=== PATIENT | female | born 1975 | race Caucasian/White ===

== ENCOUNTER 2020-12-11 11:13 | Outpatient (REF) | payer OTHER, SELFPAY ==
[2020-12-16 01:02] LABS: HPV 16 RNA NOT DETECTED (NOT DETECTED); HPV mRNA E6/E7 rflx Detected (Not Detected)
== END 2020-12-11 11:14 | disposition home or self-care (01) ==
LOC: HO.LAB 11:13
PROVIDERS: Visit Provider Obstetrics & Gynecology
DX: Z01.419 Encounter for gynecological examination (general) (routine) without abnormal findings (principal); Z11.51 Encounter for screening for human papillomavirus (HPV)
CPT/HCPCS: 36415; 87624; 87625; 88141; 88142

== ENCOUNTER 2020-12-18 08:06 | Outpatient (REF) | payer OTHER, SELFPAY ==
--- NOTE | ~2020-12-18 | MM_ITS ---
EXAMINATION: MM SCREENING DIGITAL BREAST TOMOSYNTHESIS, BILATERAL CLINICAL INFORMATION: Screening. Asymptomatic. The lifetime risk of breast cancer based on the Tyrer-Cuzick Model is 7%. COMPARISON: Mammography: 04/21/2018, 04/10/2017, 05/09/2015 TECHNIQUE: Digital breast tomosynthesis is performed in both the craniocaudal and mediolateral oblique views along with computer-aided detection (CAD). Synthesized 2D images are generated from the tomosynthesis. FINDINGS: There are scattered areas of fibroglandular density (ACR BI-RADS breast composition Category b). There are no significant masses, abnormal calcifications, or other abnormalities. Parenchymal pattern is similar to prior exams. Skin contours are smooth. MM/MM tomosynthesis screening BI IMPRESSION: No mammographic evidence of malignancy. ASSESSMENT: BI-RADS 1: Negative RECOMMENDATION: Routine annual mammography screening. This patient's information was entered into a reminder system with a target due date for their next mammogram.
== END 2020-12-18 08:07 | disposition home or self-care (01) ==
LOC: HO.MAMMO 08:06
PROVIDERS: PCP Nurse Practitioner Family; Visit Provider Obstetrics & Gynecology
DX: Z12.31 Encounter for screening mammogram for malignant neoplasm of breast (principal)
CPT/HCPCS: 77063; 77067

== ENCOUNTER 2020-12-27 07:32 | Outpatient (REF) | payer OTHER, SELFPAY | END 2020-12-27 07:33 | disposition home or self-care (01) | LOC: HO.LAB 07:32 | PROVIDERS: PCP Nurse Practitioner Family; Visit Provider Obstetrics & Gynecology | DX: A63.0 Anogenital (venereal) warts (principal); N87.0 Mild cervical dysplasia | CPT/HCPCS: 57454; 88305 ==

== ENCOUNTER 2021-01-01 09:23 | Emergency (ER) | payer OTHER, SELFPAY ==
[2021-01-01 09:33] VITALS: BP 113/75; PULSE 90; RESP 16; TEMP 36.6; O2SAT 98; BMI 26.9
--- NOTE | 2021-01-01 10:47 | ED.EAR ---
HPI - Ear Problem General Chief complaint: Ear Problems <Leland Craven NP - Last Filed: 01/01/21 13:10> Stated complaint: left ear pain <Leland Craven NP - Last Filed: 01/01/21 13:10> Time Seen by Provider: 01/01/21 10:24 <Leland Craven NP - Last Filed: 01/01/21 13:10> Source: patient <Leland Craven NP - Last Filed: 01/01/21 13:10> Mode of arrival: ambulatory <Leland Craven NP - Last Filed: 01/01/21 13:10> Limitations: no limitations <Leland Craven NP - Last Filed: 01/01/21 13:10> History of Present Illness HPI Narrative: States has had sinus congestion for past 4 days 2 days of left ear pain that has kept her up last night. No fever. No ear discharge. She does request COVID test as she has had ?funny taste? in her mouth no cough, fever, chest pain or shortness of breath. Did test negative for COVID 4 weeks ago. <Leland Craven NP - Last Filed: 01/01/21 13:10> MD Complaint: ear pain <Leland Craven NP - Last Filed: 01/01/21 13:10> Location: left ear <Leland Craven NP - Last Filed: 01/01/21 13:10> Duration: constant <Leland Craven NP - Last Filed: 01/01/21 13:10> Severity: moderate <Leland Craven NP - Last Filed: 01/01/21 13:10> Relieving factors: nothing <Leland Craven NP - Last Filed: 01/01/21 13:10> Exacerbating factors: nothing <Leland Craven NP - Last Filed: 01/01/21 13:10> Treatment prior to arrival: none <Leland Craven NP - Last Filed: 01/01/21 13:10> Related Data Home medications: Home Medications Medication Instructions Recorded Confirmed acetaminophen 325 mg capsule 325 mg PO QID PRN 12/11/20 12/11/20 butalbital 50 mg-acetaminophen 300 2 cap PO Q4H PRN 12/11/20 12/11/20 mg-caffeine 40 mg-codeine 30 mg cap diphenhydramine HCl 25 mg capsule 25 mg PO Q6H PRN 12/11/20 12/11/20 divalproex 125 mg tablet,delayed 125 mg PO TID 12/11/20 12/11/20 release meclizine 12.5 mg tablet 12.5 mg PO BID 12/11/20 12/11/20 metronidazole 250 mg tablet 250 mg PO BID 12/11/20 12/11/20 nabumetone 500 mg tablet 500 mg PO BID 12/11/20 12/11/20 omeprazole magnesium 20 mg 20 mg PO DAILY 12/11/20 12/11/20 tablet,delayed release orphenadrine citrate 100 mg 100 mg PO BID 12/11/20 12/11/20 tablet,extended release sennosides 8.6 mg capsule 8.6 mg PO DAILY 12/11/20 12/11/20 sertraline 25 mg tablet 25 mg PO DAILY 12/11/20 12/11/20 simethicone 80 mg chewable tablet 80 mg PO BEDTIME 12/11/20 12/11/20 timolol maleate 0.5 % once daily 1 drp OPHTHALMIC (EYE) BID 12/11/20 12/11/20 eye drops trazodone 150 mg tablet 150 mg PO BEDTIME PRN 12/11/20 12/11/20 Previous Rx's Medication Instructions Recorded amoxicillin 500 mg PO Q12H 10 Days #20 tab 01/01/21 <Leland Craven NP - Last Filed: 01/01/21 13:10> Allergies/adverse reactions: Allergies Allergy/AdvReac Type Severity Reaction Status Date / Time No Known Drug Allergies Allergy Mild NONE Verified 01/10/21 11:09 [NO KNOWN DRUG ALLERGIES] SEASONAL ALLERGIES Allergy Mild ALLERGY Uncoded 12/11/20 11:38 SHOTS Anesthesia S/I-40 Allergy Unknown unknown Uncoded 12/11/20 11:38 numerous food/ Allergy Unknown unknown Uncoded 12/11/20 11:38 environmentals- <Leland Craven NP - Last Filed: 01/01/21 13:10> Review of Systems Review of Systems: Constitutional: No Weight loss, No Fever, No Chills, No Night Sweats, No Fatigue, No Malaise ENT/Mouth: No Hearing loss, No Ear Pain, + Nasal Congestion, No Sinus Pain, No Hoarseness, No sore throat, + Rhinorrhea, No Swallowing Difficulty, ear pain Eyes: No Eye Pain, No Swelling, No Redness, No Foreign Body, No Discharge, No Vision Changes Cardiovascular: No Chest Pain, No SOB, No Dyspnea on Exertion, No Orthopnea, No Edema, No Palpitations Respiratory: No Cough, No Sputum, No Wheezing, No Dyspnea Gastrointestinal: No Nausea, No Vomiting, No Diarrhea, No Constipation, No abdominal Pain, No Hematochezia, No Melena Genitourinary: No Dysuria, No Urinary Frequency, No Hematuria, No Urinary Incontinence, No Urgency, No Flank Pain, No Urinary Flow Changes, No Hesitancy Musculoskeletal: No joint pain, No Myalgias, No Joint Swelling Skin: No Skin Lesions, No rash Neuro: No Weakness, No Numbness, No Paresthesias, No Loss of Consciousness, No Dizziness, No Headache Psych: No Social Issues Heme/Lymph: No Bruising, No Bleeding,No Lymphadenopathy Endocrine: No Polyuria, No Polydipsia, No Temperature Intolerance <Leland Merissa INSTITUTIONAL COOK - Last Filed: 01/01/21 13:10> Yes all other systems are reviewed and are negative <Leland Merissa INSTITUTIONAL COOK - Last Filed: 01/01/21 13:10> PMFSH Past Medical History Medical History: Medical History Arthritis Dysplasia of cervix, low grade (ADÁN 1) Epilepsy Fibromyalgia <Leland Merissa INSTITUTION[facility] COOK - Last Filed: 01/01/21 13:10> Surgical History: Surgical History History of S/P removal of left ovary <Leland Merissa INSTITUTIONAL COOK - Last Filed: 01/01/21 13:10> Social History Social History: Social History Alcohol intake: never Smoking Status: Never smoker Sexual orientation: Straight/Heterosexual Gender identity: female <Leland Merissa INSTITUTION[facility] COOK - Last Filed: 01/01/21 13:10> Physical Exam Vital Signs: Vital Signs: Last Vital Signs Temp 98 F 01/01/21 09:33 Pulse 90 01/01/21 09:33 Resp 16 02/22/21 09:33 BP 113/75 01/01/21 09:33 Pulse Ox 98 01/01/21 09:33 Body Mass Index 26.9 Reviewed <Leland Craven NP - Last Filed: 01/01/21 13:10> Vital Signs: Last Vital Signs Temp 98 F 01/01/21 09:33 Pulse 90 01/01/21 09:33 Resp 16 01/01/21 09:33 BP 113/75 01/01/21 09:33 Pulse Ox 98 01/01/21 09:33 Body Mass Index 26.9 <Ander Gomes MD - Last Filed: 01/22/21 18:32> Const: General: cooperative and healthy appearing; No acute distress or intoxicated appearing <Lelandmika Craven NP - Last Filed: 01/01/21 13:10> Nutritional Appearance: average body habitus <Lelandmika Craven NP - Last Filed: 01/01/21 13:10> Orientation/consciousness: patient oriented x3 <Lelandmika Craven NP - Last Filed: 01/01/21 13:10> HENMT: Head: Yes normal to inspection <Lelandmika Craven NP - Last Filed: 01/01/21 13:10> Ears: hearing grossly normal bilaterally and TM abnormal bulging, wth effusion, erythematous, with fluid behind the TM and with loss of landmarks <[facility] WILD Craven - Last Filed: 01/01/21 13:10> General nose exam: Normal external nose present <[facility] WILD Craven - Last Filed: 01/01/21 13:10> Eyes: General: appearance normal, both eyes and all related structures <[facility] WILD Craven - Last Filed: 01/01/21 13:10> Visual Hanson: normal visual hanson by confrontation <[facility] WILD Craven - Last Filed: 01/01/21 13:10> Neck: Neck: Yes normal visual inspection, No positive Brudzinski's sign, No positive Kernig's sign and No tender <Lelandmika Craven NP - Last Filed: 01/01/21 13:10> Thyroid: Thyroid normal <[facility] WILD Craven - Last Filed: 01/01/21 13:10> Chest: Chest palpation & inspection: normal inspection of the chest <Leland PerezWILD reyes - Last Filed: 01/01/21 13:10> Resp: Effort & Inspection: normal respiratory effort <Leland PerezWILD reyes - Last Filed: 01/01/21 13:10> Cardio: Jugular venous distension: no JVD <Leland PerezWILD reyes - Last Filed: 01/01/21 13:10> GI: Inspection: Yes normal to inspection <Leland PerezWILD reyes - Last Filed: 01/01/21 13:10> Percussion: Yes normal to percussion <Leland PerezWILD reyes - Last Filed: 01/01/21 13:10> Auscultation: normal bowel sounds <Leland WILD Craven - Last Filed: 01/01/21 13:10> : General: Yes no CVA tenderness <Leland PerezWILD reyes - Last Filed: 01/01/21 13:10> Back/Spine/Pelvis: Back: no CVA tenderness <Leland WILD Craven - Last Filed: 01/01/21 13:10> Skin: General skin exam: no rashes or lesions noted <Leland PerezWILD reyes - Last Filed: 01/01/21 13:10> Neuro: General: patient oriented x3 <Leland WILD Craven - Last Filed: 01/01/21 13:10> Extrem: General: Yes normal to inspection <Leland PerezWILD reyes - Last Filed: 01/01/21 13:10> Course Course Course Narrative: Will test for COVID-19, does not want to wait for results will call her with the results in the meantime will follow precaution return follow-up instructions. Self-quarantine/discussing guidance provided. Will start her on amoxicillin for acute otitis media of left ear. <Lelandmika Craven NP - Last Filed: 01/01/21 13:10> I have reviewed the chart <Ander Gomes MD - Last Filed: 01/22/21 18:32> Reevaluation(s) Reevaluation #1: 1300 Patient called back requesting results of her COVID test. Informed at this time she is COVID positive and must follow states/cdc guidelines isolate and quarantine. Clear precaution return follow-up instructions provided to her. <Leland Craven NP - Last Filed: 01/01/21 13:10> MDM - Ear Lab Data Labs: Lab Results 01/01/21 Range/Units 10:33 Coronavirus (PCR) POSITIVE A (Negative) Influenza Type A (PCR) NEGATIVE (Negative) Influenza Type B (PCR) NEGATIVE (Negative) RSV RNA Qual (PCR) NEGATIVE (Negative) <Leland Craven NP - Last Filed: 01/01/21 13:10> Lab Results 01/01/21 Range/Units 10:33 Coronavirus (PCR) POSITIVE A (Negative) Influenza Type A (PCR) NEGATIVE (Negative) Influenza Type B (PCR) NEGATIVE (Negative) RSV RNA Qual (PCR) NEGATIVE (Negative) <Ander Gomes MD - Last Filed: 01/22/21 18:32> Discharge Plan Discharge Clinical Impression: Otitis media, Acute upper respiratory infection, COVID-19 <Leland Craven NP - Last Filed: 01/01/21 13:10> Patient Disposition: Home, Self-Care <Leland Craven NP - Last Filed: 01/01/21 13:10> Instructions: Ear Infection (ED), Upper Respiratory Infection (ED) <Leland Craven NP - Last Filed: 01/01/21 13:10> Additional Instructions: Take medications prescribed Self-isolation Social distancing Your COVID results were resulted in 1-2 hours will call with the results Follow-up instruction Thank you <Leland Craven NP - Last Filed: 01/01/21 13:10> Prescriptions: New amoxicillin 500 mg tablet 500 mg PO Q12H 10 Days Qty: 20 RF: 0 No Action nabumetone 500 mg tablet 500 mg PO BID RF: 0 orphenadrine citrate 100 mg tablet extended release 100 mg PO BID RF: 0 trazodone 150 mg tablet 150 mg PO BEDTIME PRNRF: 0 kqncvnopsm-atosvlewnf-vqi-cod [id number] mg capsule 2 cap PO Q4H PRNRF: 0 sertraline 25 mg tablet 25 mg PO DAILY RF: 0 omeprazole magnesium [Prilosec OTC] 20 mg tablet,delayed release (DR/EC) 20 mg PO DAILY RF: 0 meclizine 12.5 mg tablet 12.5 mg PO BID RF: 0 metronidazole 250 mg tablet 250 mg PO BID RF: 0 senna 8.6 mg capsule 8.6 mg PO DAILY RF: 0 acetaminophen 325 mg capsule 325 mg PO QID PRNRF: 0 simethicone [Gas Relief (simethicone)] 80 mg tablet,chewable 80 mg PO BEDTIME RF: 0 diphenhydramine HCl [Allergy (diphenhydramine)] 25 mg capsule 25 mg PO Q6H PRNRF: 0 divalproex [Depakote] 125 mg tablet,delayed release (DR/EC) 125 mg PO TID RF: 0 timolol maleate [Istalol] 0.5 % drops, once daily 1 drp ophthalmic (eye) BID RF: 0 <Leland Craven NP - Last Filed: 01/01/21 13:10> Referrals: Glory Turk NP [Primary Care Provider] - 1 week (Phone visit) <Leland Craven NP - Last Filed: 01/01/21 13:10> Interventions: ED Discharge Assessment Last Done: 01/01/21 11:20 <Leland Craven NP - Last Filed: 01/01/21 13:10> Discharge Date/Time: 01/01/21 11:21 <Leland Craven NP - Last Filed: 01/01/21 13:10>
[2021-01-01 11:37] LABS: Influenza A PCR NEGATIVE (Negative); Influenza B PCR NEGATIVE (Negative); Resp Syncy Virus RNA Qual PCR NEGATIVE (Negative); SARS COV2 PCR INHOUSE POSITIVE (Negative)
== END 2021-01-01 11:21 | disposition home or self-care (01) ==
PROVIDERS: Nurse Practitioner Primary Care; Emergency Provider Emergency Medicine; PCP Nurse Practitioner Family
DX: U07.1 COVID-19 (principal); H66.92 Otitis media, unspecified, left ear; J06.9 Acute upper respiratory infection, unspecified
CPT/HCPCS: 0241U; 36415; 99283

== ENCOUNTER → 2021-01-10 11:07 | Outpatient (BNVA) | payer OTHER, SELFPAY | PROVIDERS: PCP Nurse Practitioner Family; Visit Provider Obstetrics & Gynecology | CPT/HCPCS: Q3014 ==

== ENCOUNTER → 2021-01-24 07:39 | Outpatient (BNVA) | payer OTHER, SELFPAY | PROVIDERS: PCP General Practice; Visit Provider Obstetrics & Gynecology | DX: N87.0 Mild cervical dysplasia (principal) | CPT/HCPCS: 99212 ==

== ENCOUNTER 2021-02-02 11:43 | Outpatient (REF) | payer OTHER, SELFPAY ==
[2021-02-02 12:21] VITALS: BP 149/88; PULSE 86; RESP 17; TEMP 36.8; O2SAT 100; BMI 29.8
--- NOTE | 2021-02-02 13:13 | MHC.SHP ---
Pre-Procedural Eval Section A The patient is an INPATIENT: No Changes since office visit: No Cold of Flu in the past 2 weeks, No New Medical Problems, No Changes in Medication and No Patient answered all questions The History & Physical has been completed within 30 days and I have reviewed it.: Yes Section B Chief Complaint: Persistent CIN1 Allergies: Allergies Allergy/AdvReac Type Severity Reaction Status Date / Time No Known Drug Allergies Allergy Mild NONE Verified 01/24/21 08:00 [NO KNOWN DRUG ALLERGIES] SEASONAL ALLERGIES Allergy Mild ALLERGY Uncoded 12/11/20 11:38 SHOTS Anesthesia S/I-40 Allergy Unknown unknown Uncoded 12/11/20 11:38 numerous food/ Allergy Unknown unknown Uncoded 12/11/20 11:38 environmentals- Plan Diagnosis/Plan: Unchanged I have reviewed the history and physical and performed a pertinent physical examination on my patient. No changes have occurred unless specified.
--- NOTE | 2021-02-02 13:13 | W.PM.OPN ---
Operative Note Operative Note Date of Service: 10/20/20 Narrative: Preop diagnosis: Persistent ADÁN I Operation: LEEP Post op diagnosis: same Anesthesia: paracervical block Complications: none Pathology: Anterior and Posterior cervical lip with endocervix QBL: minimal Procedure:The patient was put in the dorsal lithotomy position, was prepped and draped in the usual sterile fashion. A sterile speculum was inserted inside the patient vagina. Using Lugol solution the cervix with Dyed with Lugol solution to identifiy the abnormal demarcating line. 10 cc of Marcaine0.5% with epinephrine were given at 2,4 , 8, and 10 o'clock. Using a large-size loop wire, the anterior cervical lip was excised followed by the posterior cervical lip and endocervix. Hemostasis was assured using cautery and Monsel solution. All instruments were taken out of the patient's vaginal cavity. the patient tolerated the procedure well and was discharged home with the following instructions: call if temperature is above 100.4, vaginal bleeding, abdominal pain or nausea or vomiting. Follow-up in the office in 2 weeks for postop visit
== END 2021-02-02 11:44 | disposition home or self-care (01) ==
LOC: HO.MS 11:43
PROVIDERS: PCP Nurse Practitioner Family; Visit Provider Obstetrics & Gynecology
PROC: 0UBC7ZZ Excision of Cervix, Via Natural or Artificial Opening (ICD-10-PCS; CPT 57522; principal; 2021-02-02 12:40)
DX: N87.0 Mild cervical dysplasia (principal); Z90.721 Acquired absence of ovaries, unilateral; Z98.51 Tubal ligation status; G40.909 Epilepsy, unspecified, not intractable, without status epilepticus
CPT/HCPCS: 57522; 88307

== ENCOUNTER → 2021-02-15 13:30 | Outpatient (BNVA) | payer OTHER, SELFPAY | PROVIDERS: PCP Nurse Practitioner Family; Visit Provider Obstetrics & Gynecology | DX: N87.0 Mild cervical dysplasia (principal) | CPT/HCPCS: Q3014 ==

== ENCOUNTER 2021-08-08 08:15 | Outpatient (REF) | payer OTHER, SELFPAY ==
[2021-08-09 01:34] LABS: CT PCR NOT DETECTED (Not Detect.); NG PCR NOT DETECTED (Not Detect.)
== END 2021-08-08 08:16 | disposition home or self-care (01) ==
LOC: HO.LAB 08:15
PROVIDERS: PCP General Practice; Visit Provider Obstetrics & Gynecology
DX: R10.2 Pelvic and perineal pain (principal)
CPT/HCPCS: 87491; 87591; 99212

== ENCOUNTER 2021-08-10 09:48 | Outpatient (REF) | payer OTHER, SELFPAY ==
--- NOTE | ~2021-08-10 | US_ITS ---
EXAMINATION: US PELVIC AND TRANSVAGINAL CLINICAL INFORMATION: Pelvic and perineal pain. COMPARISON: Ultrasound pelvis 02/11/2011. TECHNIQUE: Ultrasound of the pelvis was performed using both transabdominal and transvaginal transducers along with Doppler. Transvaginal imaging was performed due to inadequate visualization transabdominally. FINDINGS: The uterus is anteverted and anteflexed measuring 8.4 cm in length, 4.2 cm in AP and 6.3 cm in transverse dimensions. The endometrial thickness is 1.0 cm. No focal lesion is seen. The right ovary measures 3.33 x 2.68 x 3.09 cm and volume 14.44 mL. There is an anechoic simple cyst measuring 1.8 x 1.9 x 2.3 cm. The left ovary is not seen. In the posterior to mid body of the uterus, there is a soft tissue non-mobile area measuring 5.7 x 2.2 x 5.2 cm. It has peripheral vasculature and is constant during the exam. No free fluid is seen. US/US pelvic and transvaginal IMPRESSION: Moderate-sized soft tissue mass extrinsic and posterior to the uterus. Question nonvisualized left enlarged ovary or mass. A fecalith sigmoid colon is considered less likely. Extraovarian mass or lymph node. Consider CT pelvis exam. The uterus is unremarkable. Simple 2.3 cm cyst of the right ovary.
== END 2021-08-10 09:49 | disposition home or self-care (01) ==
LOC: HO.HMGCX 09:48
PROVIDERS: PCP General Practice; Visit Provider Obstetrics & Gynecology
DX: R10.2 Pelvic and perineal pain (principal)
CPT/HCPCS: 76830; 76856

== ENCOUNTER → 2021-08-15 10:44 | Outpatient (BNVA) | payer OTHER, SELFPAY | PROVIDERS: PCP General Practice; Visit Provider Obstetrics & Gynecology | DX: R93.89 Abnormal findings on diagnostic imaging of other specified body structures (principal); R10.2 Pelvic and perineal pain | CPT/HCPCS: 99212 ==

== ENCOUNTER 2021-08-22 12:27 | Outpatient (REF) | payer OTHER, SELFPAY ==
--- NOTE | ~2021-08-22 | CT_ITS ---
EXAMINATION: CT ABDOMEN AND PELVIS WITH CONTRAST CLINICAL INFORMATION: IRREGULAR MENSTRUATION,UNSPECIFIED, PELVIC AND PERINEAL PAIN COMPARISON: Pelvic ultrasound August 10, 2021. Ultrasound of abdomen January 03, 2014. CT scan abdomen pelvis October 28, 2011 TECHNIQUE: Multidetector volumetric images were obtained from the superior aspect of the liver through the pubic symphysis following administration 85 mL of Omnipaque 350 intravenous contrast. Sagittal and coronal reformatted images were obtained on the technologist's workstation. Oral contrast: Administered This CT examination was performed using dose optimization techniques as appropriate, variously including the following: *Automated exposure control *Adjustment of mA and/or kV according to patient size (this includes techniques or standardized protocols for targeted exams where dose is matched to indication/reason for exam; i.e. extremities or head) *Use of iterative reconstruction technique DLP: 528 mGy-cm FINDINGS: LUNG BASES: There are a few sharply marginated hypodensities in the liver. Largest in segment 4 right lobe of liver measuring 1.7 cm. Density measurement of 11 Hounsfield units. There is another in segment 2 measuring 1.3 cm. These are consistent with hepatic cysts. No suspicious liver lesions. No intrahepatic bile duct dilatation. LIVER, GALLBLADDER, AND BILIARY TREE: The liver is normal in size, shape, and attenuation. No focal hepatic lesion or biliary ductal dilatation is present. The gallbladder is unremarkable with no evidence of radiopaque gallstones, gallbladder wall thickening, or obvious pericholecystic inflammatory changes. PANCREAS: Unremarkable. SPLEEN: Unremarkable. ADRENAL GLANDS: Unremarkable. KIDNEYS AND URETERS: The kidneys are normal in size, shape, and attenuation. No hydronephrosis, hydroureter, or calculi seen. No perinephric stranding. BLADDER: Unremarkable. GASTROINTESTINAL TRACT: The small and large bowel are unremarkable. The appendix is unremarkable. ABDOMINAL WALL: No significant hernia is appreciated. LYMPH NODES: Normal. VASCULAR: Unremarkable. PELVIC VISCERA: There is an ovoid hypodensity at the posterior body of uterus which is likely fibroid measuring 5 cm. This is inseparable from the uterus does show lower enhancement in the uterine body. This correlates with the hypoechoic lesion on pelvic ultrasound August 10, 2011. This was not present on the CT scan abdomen pelvis October 28, 2011. OSSEOUS STRUCTURES: Unremarkable. CT/CT abdomen pelvis w con IMPRESSION: 1. No acute abnormality the abdomen or pelvis. 2. Hypoechoic lesion at the posterior body of uterus likely a uterine fibroid. This can be further assessed with pelvic MRI.
[2021-08-22] MEDS: iohexoL 350 MG/ML 100 ML INFUS..BTL IV (15:28)
[2021-08-22] MEDS: Barium Sulfate Oral (Berry) 450 ML ORAL.SUSP 900 ML PO (15:28)
== END 2021-08-22 12:28 | disposition home or self-care (01) ==
LOC: HO.CT 12:27
PROVIDERS: PCP General Practice; Visit Provider General Practice
DX: R10.2 Pelvic and perineal pain (principal); N92.6 Irregular menstruation, unspecified
CPT/HCPCS: 74177; Q9967

== ENCOUNTER 2021-10-01 09:52 | Outpatient (REF) | payer OTHER, SELFPAY ==
[2021-10-01 14:02] LABS: CT PCR NOT DETECTED (Not Detect.); NG PCR NOT DETECTED (Not Detect.)
== END 2021-10-01 09:53 | disposition home or self-care (01) ==
LOC: HO.LAB 09:52
PROVIDERS: PCP General Practice; Visit Provider Obstetrics & Gynecology
DX: Z11.3 Encounter for screening for infections with a predominantly sexual mode of transmission (principal); R10.2 Pelvic and perineal pain; R31.29 Other microscopic hematuria; N93.9 Abnormal uterine and vaginal bleeding, unspecified; D21.9 Benign neoplasm of connective and other soft tissue, unspecified
CPT/HCPCS: 87086; 87491; 87591; 99212

== ENCOUNTER 2021-10-18 11:16 | Outpatient (REF) | payer OTHER, SELFPAY | END 2021-10-18 11:17 | disposition home or self-care (01) | LOC: HO.LAB 11:16 | PROVIDERS: PCP General Practice; Visit Provider Obstetrics & Gynecology | DX: N93.9 Abnormal uterine and vaginal bleeding, unspecified (principal) | CPT/HCPCS: 58100; 88305 ==

== ENCOUNTER → 2021-11-15 08:33 | Outpatient (BNVA) | payer OTHER, SELFPAY | PROVIDERS: PCP General Practice; Visit Provider Obstetrics & Gynecology | DX: N93.9 Abnormal uterine and vaginal bleeding, unspecified (principal); N87.0 Mild cervical dysplasia; D21.9 Benign neoplasm of connective and other soft tissue, unspecified | CPT/HCPCS: 99212 ==

== ENCOUNTER → 2021-12-12 13:38 | Outpatient (BNVA) | payer OTHER, SELFPAY | PROVIDERS: PCP General Practice; Visit Provider Obstetrics & Gynecology | DX: Z13.89 Encounter for screening for other disorder (principal) ==

== ENCOUNTER 2022-01-02 08:46 | Outpatient (REF) | payer OTHER, SELFPAY ==
[2022-01-05 14:24] LABS: HPV mRNA E6/E7 rflx Not Detected (Not Detected)
== END 2022-01-02 08:47 | disposition home or self-care (01) ==
LOC: HO.LAB 08:46
PROVIDERS: PCP General Practice; Visit Provider Obstetrics & Gynecology
DX: Z01.419 Encounter for gynecological examination (general) (routine) without abnormal findings (principal); Z11.51 Encounter for screening for human papillomavirus (HPV)
CPT/HCPCS: 87624; 88142

== ENCOUNTER → 2022-01-08 12:41 | Outpatient (BNVA) | payer OTHER, SELFPAY | PROVIDERS: Visit Provider Obstetrics & Gynecology | DX: N93.9 Abnormal uterine and vaginal bleeding, unspecified (principal) | CPT/HCPCS: Q3014 ==

== ENCOUNTER 2022-01-28 07:48 | Outpatient (REF) | payer OTHER, SELFPAY ==
--- NOTE | ~2022-01-28 | MM_ITS ---
EXAMINATION: MM SCREENING DIGITAL BREAST TOMOSYNTHESIS, BILATERAL CLINICAL INFORMATION: Screening. Asymptomatic. The lifetime risk of breast cancer based on the Tyrer-Cuzick Model is 7.3%. COMPARISON: Mammography: 12/18/2020 and studies dating back to 02/28/2014. TECHNIQUE: Digital breast tomosynthesis is performed in both the craniocaudal and mediolateral oblique views along with computer-aided detection (CAD). Synthesized 2D images are generated from the tomosynthesis. FINDINGS: The breasts are heterogeneously dense, which may obscure small masses (ACR BI-RADS breast composition Category c). There is a stable parenchymal pattern of the left breast. About the inferior aspect of the right breast approximately 4 cm from the nipple, there is a grouping of calcifications which may be vascular in nature and for which spot magnification views are recommended in craniocaudal and 90-degree mediolateral views. MM/MM tomosynthesis screening BI IMPRESSION: Grouped calcifications inferior right breast for further evaluation with spot magnification views. ASSESSMENT: BI-RADS 0: Incomplete - Need Additional Imaging Evaluation RECOMMENDATION: 1. Additional views of the right breast. 2. Targeted ultrasound if warranted after review of the additional views. 3. Radiology department staff will contact the patient for additional imaging. This patient's information was entered into a reminder system with a target due date for their next mammogram.
== END 2022-01-28 07:49 | disposition home or self-care (01) ==
LOC: HO.MAMMO 07:48
PROVIDERS: PCP General Practice; Visit Provider Obstetrics & Gynecology
DX: Z12.31 Encounter for screening mammogram for malignant neoplasm of breast (principal)
CPT/HCPCS: 77063; 77067

== ENCOUNTER 2022-01-31 13:41 | Outpatient (REF) | payer OTHER, SELFPAY ==
--- NOTE | ~2022-01-31 | MM_ITS ---
EXAMINATION: MM DIAGNOSTIC DIGITAL MAMMOGRAPHY, RIGHT CLINICAL INFORMATION: Calcifications medial aspect right breast. COMPARISON: Mammography 12/18/2020 and studies dating back to 02/28/2014. TECHNIQUE: Digital mammography is performed in the following views: Spot magnification views of the right breast in craniocaudal and 90 degree mediolateral views. FINDINGS: The breasts are heterogeneously dense, which may obscure small masses (ACR BI-RADS breast composition Category c). The grouping of calcifications is seen to be stable compared to previous study of 12/18/2020. Due to technique on mammograms prior to that date I cannot truly evaluate if calcifications were present, or not, at those times. Recommend 1 year follow-up diagnostic mammogram with spot magnification views of the right breast at that time. Results are provided to the patient at time of visit by the technologist. MM/MM added views RT IMPRESSION: Right breast calcifications medial aspect are stable compared to study of 12/18/2020. Recommend diagnostic one year study with magnification views of the right breast to ensure stability out to 2 years. ASSESSMENT: BI-RADS 3: Probably Benign. RECOMMENDATION: Diagnostic mammography at time of next annual exam, due in 12 months. This patient's information was entered into a reminder system with a target due date for their next mammogram.
== END 2022-01-31 13:42 | disposition home or self-care (01) ==
LOC: HO.MAMMO 13:41
PROVIDERS: Visit Provider Obstetrics & Gynecology
DX: R92.1 Mammographic calcification found on diagnostic imaging of breast (principal)
CPT/HCPCS: 77065

== ENCOUNTER 2022-02-06 08:43 | Outpatient (REF) | payer OTHER, SELFPAY ==
[2022-02-06 14:10] LABS: CT PCR NOT DETECTED (Not Detect.); NG PCR NOT DETECTED (Not Detect.)
== END 2022-02-06 08:44 | disposition home or self-care (01) ==
LOC: HO.LAB 08:43
PROVIDERS: Visit Provider Obstetrics & Gynecology
DX: Z01.419 Encounter for gynecological examination (general) (routine) without abnormal findings (principal); N93.9 Abnormal uterine and vaginal bleeding, unspecified; Z32.02 Encounter for pregnancy test, result negative
CPT/HCPCS: 58301; 81025; 87491; 87591

== ENCOUNTER 2022-02-17 09:28 | Emergency (ER) | payer OTHER, SELFPAY ==
--- NOTE | ~2022-02-17 | XR_ITS ---
EXAMINATION:XR ankle LT min 3V, XR foot LT 2V VIEWS ACQUIRED: Frontal lateral and oblique left foot, frontal and oblique ankle CLINICAL INFORMATION: Reason for Exam left ankle pain. open wound with erythema COMPARISON: None available at the time of this dictation. FINDINGS: There is no evidence of acute fracture or dislocation. Intertarsal, tarsometatarsal, metatarsophalangeal and interphalangeal joints are intact. Surrounding soft tissues is normal. , Ankle mortise is preserved. Talar dome is intact. No osteolytic changes to suggest osteomyelitis. XR/XR foot LT 2V IMPRESSION: Normal radiograph. No destructive bony changes to suggest osteomyelitis.
--- NOTE | ~2022-02-17 | XR_ITS ---
EXAMINATION:XR ankle LT min 3V, XR foot LT 2V VIEWS ACQUIRED: Frontal lateral and oblique left foot, frontal and oblique ankle CLINICAL INFORMATION: Reason for Exam left ankle pain. open wound with erythema COMPARISON: None available at the time of this dictation. FINDINGS: There is no evidence of acute fracture or dislocation. Intertarsal, tarsometatarsal, metatarsophalangeal and interphalangeal joints are intact. Surrounding soft tissues is normal. , Ankle mortise is preserved. Talar dome is intact. No osteolytic changes to suggest osteomyelitis. XR/XR ankle LT min 3V IMPRESSION: Normal radiograph. No destructive bony changes to suggest osteomyelitis.
--- NOTE | ~2022-02-17 | XR_ITS ---
EXAMINATION: PELVIS AND LEFT FEMUR CLINICAL INFORMATION: Fall COMPARISON: None TECHNIQUE: AP pelvis, frontal and lateral left femur. FINDINGS: Bones are intact. No radiopaque foreign body in the soft tissue. Hip joints is intact, IUD projecting over the pelvis. Pelvic bones are intact. XR/XR femur LT 2V IMPRESSION: No fracture. Pelvic IUD in place.
--- NOTE | ~2022-02-17 | XR_ITS ---
EXAMINATION: PELVIS AND LEFT FEMUR CLINICAL INFORMATION: Fall COMPARISON: None TECHNIQUE: AP pelvis, frontal and lateral left femur. FINDINGS: Bones are intact. No radiopaque foreign body in the soft tissue. Hip joints is intact, IUD projecting over the pelvis. Pelvic bones are intact. XR/XR pelvis 1-2V IMPRESSION: No fracture. Pelvic IUD in place.
[2022-02-17 09:51] VITALS: BP 97/77; PULSE 86; RESP 16; TEMP 36.1; O2SAT 98; BMI 29.5
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
[2022-02-17] MEDS: Ibuprofen 800 MG TABLET PO (11:04)
[2022-02-17] MEDS: Acetaminophen 325 MG TABLET 650 MG PO (11:04)
[2022-02-17 12:00] VITALS: BP 118/59; PULSE 72; RESP 16; TEMP 37; O2SAT 100
== END 2022-02-17 12:07 | disposition home or self-care (01) ==
PROVIDERS: Emergency Provider Emergency Medicine; PCP General Practice
DX: S70.12XA Contusion of left thigh, initial encounter (principal); L03.116 Cellulitis of left lower limb; M79.652 Pain in left thigh; M25.572 Pain in left ankle and joints of left foot; V49.9XXA Car occupant (driver) (passenger) injured in unspecified traffic accident, initial encounter; Y93.9 Activity, unspecified; Y92.410 Unspecified street and highway as the place of occurrence of the external cause; Y99.9 Unspecified external cause status; Z79.899 Other long term (current) drug therapy
CPT/HCPCS: 72170; 73552; 73610; 73620; 99284

== ENCOUNTER → 2022-02-26 11:59 | Outpatient (BNVA) | payer OTHER, SELFPAY | PROVIDERS: Referring Provider General Practice; Visit Provider Nurse Practitioner Family | DX: K21.9 Gastro-esophageal reflux disease without esophagitis (principal); K59.04 Chronic idiopathic constipation; Z79.899 Other long term (current) drug therapy | CPT/HCPCS: 99202 ==

== ENCOUNTER 2022-03-03 | Outpatient (REF) | payer OTHER, SELFPAY | END 2022-03-03 00:01 | disposition home or self-care (01) | LOC: HO.LNP | PROVIDERS: Visit Provider Nurse Practitioner Family | DX: K21.9 Gastro-esophageal reflux disease without esophagitis (principal) | CPT/HCPCS: 87338 ==

== ENCOUNTER → 2022-03-26 15:33 | Outpatient (BNVA) | payer OTHER, SELFPAY | PROVIDERS: Visit Provider Obstetrics & Gynecology | DX: R10.2 Pelvic and perineal pain (principal) | CPT/HCPCS: Q3014 ==

== ENCOUNTER 2022-03-27 09:43 | Outpatient (REF) | payer OTHER, SELFPAY ==
[2022-03-27 11:49] LABS: Hematocrit 42.4 % (37.0-47.0); Hemoglobin 13.8 g/dl (12.0-16.0); Mean Corpuscular HGB Conc 32.5 g/dl (31.0-35.0); Mean Corpuscular Hemoglobin 29.7 pg (27.0-33.0); Mean Corpuscular Volume 91.2 fL (80.0-98.0); Platelet Count 241 X10*3/uL (160-400); Red Blood Count 4.65 X10*6/uL (4.20-5.50); Red Cell Distribution Width 12.7 % (11.0-16.0); White Blood Count 8.4 X10*3/uL (4.8-10.8)
== END 2022-03-27 09:44 | disposition home or self-care (01) ==
LOC: HO.LAB 09:43
PROVIDERS: Visit Provider Obstetrics & Gynecology
DX: Z30.432 Encounter for removal of intrauterine contraceptive device (principal); N93.9 Abnormal uterine and vaginal bleeding, unspecified; D21.9 Benign neoplasm of connective and other soft tissue, unspecified
CPT/HCPCS: 36415; 58301; 81025; 85027; 99212

== ENCOUNTER 2022-04-20 19:25 | Emergency (ER) | payer OTHER, SELFPAY ==
--- NOTE | 2022-04-20 | ECG_ITS ---
Test Reason : cp Blood Pressure : / mmHG Vent. Rate : 080 BPM Atrial Rate : 080 BPM P-R Int : 134 ms QRS Dur : 072 ms QT Int : 366 ms P-R-T Axes : -16 011 011 degrees QTc Int : 422 ms Sinus rhythm with Premature atrial complexes Otherwise normal ECG When compared to the previous EKG of No significant changes seen Referred By: Generic ED Physician Electronically Signed By:Segundo Bowden
--- NOTE | ~2022-04-20 | XR_ITS ---
EXAMINATION: XR CHEST CLINICAL INFORMATION: Chest pain COMPARISON: None TECHNIQUE: Frontal view of the chest was obtained. FINDINGS: No significant abnormality is noted involving the heart, lungs, mediastinum, bony thorax or soft tissues. XR/XR chest 1V IMPRESSION: Unremarkable examination.
[2022-04-20 19:58] VITALS: BP 133/77; PULSE 69; RESP 18; TEMP 36.9; O2SAT 99; BMI 30.4
[2022-04-20 20:13] LABS: MANUAL DIFF FLAG NO
[2022-04-20 20:18] LABS: Basophils Percent Auto 0.4 % (0-2); Eosinophils Absolute Auto 0.1 X10*3/uL (0.0-0.4); Hematocrit 40.6 % (37.0-47.0); Hemoglobin 13.6 g/dl (12.0-16.0); Imm Gran Abs Auto 0.03 X10*3/uL (0.00-0.03); Imm Gran Pct Auto 0.3 % (0.0-0.4); Lymphocytes Absolute Auto 2.2 X10*3/uL (1.2-4.9); Mean Corpuscular HGB Conc 33.5 g/dl (31.0-35.0); Mean Corpuscular Hemoglobin 30.3 pg (27.0-33.0); Mean Corpuscular Volume 90.4 fL (80.0-98.0); Mean Platelet Volume 9.9 fL (9.4-12.3); Monocytes Absolute Auto 0.7 X10*3/uL (0.1-1.2); Monocytes Percent Auto 7.5 % (2-11); Neutrophils Percent Auto 66.8 % (45-73); Platelet Count 259 X10*3/uL (160-400); Red Blood Count 4.49 X10*6/uL (4.20-5.50); Red Cell Distribution Width 12.7 % (11.0-16.0); White Blood Count 9.1 X10*3/uL (4.8-10.8)
[2022-04-20 20:32] LABS: Alanine Aminotransferase 16 U/L (0-31); Alkaline Phosphatase 69 U/L (39-117); Anion Gap 13 (12-20); Aspartate Amino Transferase 18 U/L (5-31); Bilirubin Total 0.4 mg/dL (0.0-1.0); Blood Urea Nitrogen 14 mg/dL (9-16); Calcium 9.3 mg/dL (8.4-10.2); Carbon Dioxide 23 mmol/L (22-29); Chloride 107 mmol/L (96-108); Estimated Glomerular Filt Rate > 60; Glucose Random 79 mg/dL (60-115); Potassium 4.2 mmol/L (3.3-5.1); Sodium 139 mmol/L (135-145); Total Protein 7.1 g/dL (6.5-8.0)
[2022-04-20 20:36] LABS: Troponin-I High Sensitivity < 3.5 ng/L (<3.5-17.0)
[2022-04-20 20:38] LABS: COVID-19 Test Negative (Negative)
[2022-04-20 22:21] VITALS: BP 138/74; PULSE 67; RESP 16; TEMP 36.8; O2SAT 99
--- NOTE | 2022-04-20 22:22 | ED_ITS ---
HPI - Chest Pain General Chief Complaint: Chest Pain Stated Complaint: chest pain and rapid heart rate Time Seen by Provider: 04/20/22 22:18 History of Present Illness HPI narrative: Patient is a 46-year-old female presents today with having chest pain. The chest pain is been ongoing for 2 weeks. It is sharp in nature. It is mid chest going to the left. It is constantly there for the last few days. Associated with heartbeat that is skipping. There is no shortness of breath is no diaphoresis is no new syncope there was no syncope. Patient denies any leg swelling not on any control. No chance of being . No history of blood clots. No history of lupus. Patient denies any history of cancer no family history blood clots. No history of smoking no history of hypertension, high cholesterol, mi. No stress test done in the past. No diaphoresis. Patient from home. No travel history. Related Data Home Medications Medication Instructions Recorded Confirmed acetaminophen 325 mg capsule 325 mg PO QID PRN 12/11/20 01/24/21 butalbital 50 mg-acetaminophen 300 2 cap PO Q4H PRN 12/11/20 01/24/21 mg-caffeine 40 mg-codeine 30 mg cap diphenhydramine HCl 25 mg capsule 25 mg PO Q6H PRN 12/11/20 01/24/21 (Allergy (diphenhydramine)) divalproex 125 mg tablet,delayed 125 mg PO TID 12/11/20 01/24/21 release (Depakote) meclizine 12.5 mg tablet 12.5 mg PO BID 12/11/20 01/24/21 nabumetone 500 mg tablet 500 mg PO BID 12/11/20 01/24/21 orphenadrine citrate 100 mg 100 mg PO BID 12/11/20 01/24/21 tablet,extended release sennosides 8.6 mg capsule (senna) 8.6 mg PO DAILY 12/11/20 01/24/21 sertraline 25 mg tablet 25 mg PO DAILY 12/11/20 01/24/21 simethicone 80 mg chewable tablet 80 mg PO BEDTIME 12/11/20 01/24/21 (Gas Relief (simethicone)) trazodone 150 mg tablet 150 mg PO BEDTIME PRN 12/11/20 01/24/21 Previous Rx's Medication Instructions Recorded cephalexin 500 mg capsule 500 mg PO QID 7 days #28 caps 02/17/22 naproxen 500 mg tablet 500 mg PO BID PRN pain 10 days #20 02/17/22 tabs bisacodyl 5 mg tablet,delayed 10 mg PO ONCE 1 day #2 tabs 02/26/22 release (Dulcolax (bisacodyl)) esomeprazole magnesium 40 mg 40 mg PO DAILY #30 caps 02/26/22 capsule,delayed release (Nexium) polyethylene glycol 3350 17 238 g PO ONCE #238 grams 02/26/22 gram/dose oral powder (Miralax) Allergies Allergy/AdvReac Type Severity Reaction Status Date / Time No Known Drug Allergies Allergy Mild NONE Verified 02/26/22 12:54 [NO KNOWN DRUG ALLERGIES] SEASONAL ALLERGIES Allergy Mild ALLERGY Uncoded 02/26/22 12:54 SHOTS Anesthesia S/I-40 Allergy Unknown unknown Uncoded 02/26/22 12:54 numerous food/ Allergy Unknown unknown Uncoded 02/26/22 12:54 environmentals- Review of Systems Review of Systems: Positive chest pain constantly tear on the left chest. Yes all other systems are reviewed and are negative PMFSH Past Medical History Attestation statement: The following information was validated with the patient. Medical History Arthritis Dysplasia of cervix, low grade (ADÁN 1) Epilepsy Fibromyalgia Surgical History H/O LEEP History of Hx of tubal ligation S/P removal of left ovary Social History Social History Alcohol intake: never Smoked in Last 30 Days: No Use of substances other than those prescribed or required for medical reasons: No Advance Directives: No Advance Directives Information Provided: No Patient : No Sexual orientation: Straight/Heterosexual Gender identity: Female Physical Exam Vital Signs: Vital Signs: Last Vital Signs Temp 97.6 F 04/21/22 00:01 Pulse 65 04/21/22 00:01 Resp 14 04/21/22 00:01 BP 131/73 04/21/22 00:01 Pulse Ox 99 04/21/22 00:01 O2 Del Method 04/21/22 00:01 BMI result Body Mass Index 30.4 Appearance: Alert. Oriented X3. No acute distress. Eyes: Pupils equal, round and reactive to light. ENT: Pharynx normal. Neck: Normal inspection. Neck supple. No lymph nodes noted. No crepitus CVS: Normal heart rate and rhythm. Pulses normal. Normal S1 and S2 Respiratory: No respiratory distress. Breath sounds normal. No Wheezing. No rales Abdomen: Soft and nontender. No rigidity. No distention. good BS x4 Skin: Skin warm and dry. Normal skin color. Normal skin turgor. Extremities: No lower extremity edema. Neurovascular intact to all extremities. No Lacerations. No Rash Neuro: Oriented X 3. No motor deficit. No sensory deficit. Moving all exte rmities. No slurred speech MDM - Chest Pain MDM Narrative Medical decision making narrative: Well appearing not acute distress. Atypical chest pain. We will go ahead and get 2 sets of cardiac enzymes. Will monitor carefully. Pain is atypical for ACS. Patient has no significant cardiac risk factor. She is 46 years old. Her heart score is less than 3 given that her EKG is normal. It is a sinus EKG showing a heart rate of 80 DC QRS QT within normal limits there is some atrial arrhythmias noted. There is no acute ST segment elevation. Patient's history not consistent with pulmonary emboli. Risk is low given patient no risk factors. Will get chest x-ray to rule out pneumonia pneumothorax. Currently in stable condition Two sets of cardiac enzymes negative. Will discharge patient home. Patient's chest x-ray was negative for any acute evidence of pneumonia pneumothorax. In stable condition. Medical Records Data Attestation: I reviewed the patient's medical records. Lab Data Attestation: I reviewed the patient's lab results. Result diagrams: 04/20/22 20:02 04/20/22 20:02 Labs: Lab Results 04/20/22 04/20/22 04/20/22 Range/Units 20:02 20:02 20:02 WBC 9.1 (4.8-10.8) X10*3/uL RBC 4.49 (4.20-5.50) X10*6/uL Hgb 13.6 (12.0-16.0) g/dl Hct 40.6 (37.0-47.0) % MCV 90.4 (80.0-98.0) fL MCH 30.3 (27.0-33.0) pg MCHC 33.5 (31.0-35.0) g/dl RDW 12.7 (11.0-16.0) % Plt Count 259 (160-400) X10*3/uL MPV 9.9 (9.4-12.3) fL Immature Gran % (Auto) 0.3 (0.0-0.4) % Neut % (Auto) 66.8 (45-73) % Lymph % (Auto) 24.0 (20-40) % [place] % (Auto) 7.5 (2-11) % Eos % (Auto) 1.0 (0-4) % Baso % (Auto) 0.4 (0-2) % Lymph # (Auto) 2.2 (1.2-4.9) X10*3/uL [place] # (Auto) 0.7 (0.1-1.2) X10*3/uL Eos # (Auto) 0.1 (0.0-0.4) X10*3/uL Baso # (Auto) 0.0 (0.0-0.2) X10*3/uL Abs Immat Gran (auto) 0.03 (0.00-0.03) X10*3/uL Absolute Neuts (auto) 6.0 (2.0-8.3) x10*3/uL Absolute Nucleated RBC 0.000 (0.0-0.012) X10*3/uL Nucleated RBC % (auto) 0.0 (0.0-0.2) /100WBC Sodium 139 (135-145) mmol/L Potassium 4.2 (3.3-5.1) mmol/L Chloride 107 (96-108) mmol/L Carbon Dioxide 23 (22-29) mmol/L Anion Gap 13 (12-20) BUN 14 (9-16) mg/dL Creatinine 0.80 (0.5-1.4) mg/dL Estim Creat Clear Calc 85.0 Estimated GFR > 60 Random Glucose 79 (60-115) mg/dL Calcium 9.3 (8.4-10.2) mg/dL Total Bilirubin 0.4 (0.0-1.0) mg/dL AST 18 (5-31) U/L ALT 16 (0-31) U/L Alkaline Phosphatase 69 (39-117) U/L Troponin I High Sens (<3.5-17.0) ng/L Total Protein 7.1 (6.5-8.0) g/dL Albumin 4.0 (3.5-5.0) g/dL COVID-19 ([facility]) Negative (Negative) COVID-19 Clin Com See Note 04/20/22 04/20/22 Range/Units 20:02 22:52 WBC (4.8-10.8) X10*3/uL RBC (4.20-5.50) X10*6/uL Hgb (12.0-16.0) g/dl Hct (37.0-47.0) % MCV (80.0-98.0) fL MCH (27.0-33.0) pg MCHC (31.0-35.0) g/dl RDW (11.0-16.0) % Plt Count (160-400) X10*3/uL MPV (9.4-12.3) fL Immature Gran % (Auto) (0.0-0.4) % Neut % (Auto) (45-73) % Lymph % (Auto) (20-40) % [place] % (Auto) (2-11) % Eos % (Auto) (0-4) % Baso % (Auto) (0-2) % Lymph # (Auto) (1.2-4.9) X10*3/uL [place] # (Auto) (0.1-1.2) X10*3/uL Eos # (Auto) (0.0-0.4) X10*3/uL Baso # (Auto) (0.0-0.2) X10*3/uL Abs Immat Gran (auto) (0.00-0.03) X10*3/uL Absolute Neuts (auto) (2.0-8.3) x10*3/uL Absolute Nucleated RBC (0.0-0.012) X10*3/uL Nucleated RBC % (auto) (0.0-0.2) /100WBC Sodium (135-145) mmol/L Potassium (3.3-5.1) mmol/L Chloride (96-108) mmol/L Carbon Dioxide (22-29) mmol/L Anion Gap (12-20) BUN (9-16) mg/dL Creatinine (0.5-1.4) mg/dL Estim Creat Clear Calc Estimated GFR Random Glucose (60-115) mg/dL Calcium (8.4-10.2) mg/dL Total Bilirubin (0.0-1.0) mg/dL AST (5-31) U/L ALT (0-31) U/L Alkaline Phosphatase (39-117) U/L Troponin I High Sens < 3.5 < 3.5 (<3.5-17.0) ng/L Total Protein (6.5-8.0) g/dL Albumin (3.5-5.0) g/dL COVID-19 ([facility]) (Negative) COVID-19 Clin Com Discharge Plan Discharge Clinical Impression: Chest pain Patient Disposition: Home, Self-Care Instructions: Chest Pain (DC) Prescriptions: No Action cephalexin 500 mg capsule 500 mg PO QID 7 Days Qty: 28 0RF naproxen 500 mg tablet 500 mg PO BID PRN (Reason: pain) 10 Days Qty: 20 0RF nabumetone 500 mg tablet 500 mg PO BID orphenadrine citrate 100 mg tablet extended release 100 mg PO BID trazodone 150 mg tablet 150 mg PO BEDTIME PRN [id number] [id number] mg capsule 2 cap PO Q4H PRN Rx Instructions: do not exceed 6 caps per day sertraline 25 mg tablet 25 mg PO DAILY meclizine 12.5 mg tablet 12.5 mg PO BID senna 8.6 mg capsule 8.6 mg PO DAILY acetaminophen 325 mg capsule 325 mg PO QID PRN simethicone [Gas Relief (simethicone)] 80 mg tablet,chewable 80 mg PO BEDTIME diphenhydramine HCl [Allergy (diphenhydramine)] 25 mg capsule 25 mg PO Q6H PRN divalproex [Depakote] 125 mg tablet,delayed release (DR/EC) 125 mg PO TID esomeprazole magnesium [Nexium] 40 mg capsule,delayed release(DR/EC) 40 mg PO DAILY Qty: 30 5RF bisacodyl [Dulcolax (bisacodyl)] 5 mg tablet,delayed release (DR/EC) 10 mg PO ONCE 1 Days Qty: 2 0RF Rx Instructions: take 2 tabs at noon the day before your colonoscopy polyethylene glycol 3350 [Miralax] 17 gram/dose powder 238 g PO ONCE Qty: 238 0RF Rx Instructions: As directed by gastroenterology department at [facility] Mirena 20 mcg/24 hours (7 yrs) 52 mg intrauterine device 1 device intrauterine ONCE Qty: 1 0RF Mirena 20 mcg/24 hours (7 yrs) 52 mg intrauterine device 1 device intrauterine ONCE Qty: 1 0RF Referrals: Bruce Kyle MD [Physician] -
[2022-04-20 23:17] LABS: Troponin-I High Sensitivity < 3.5 ng/L (<3.5-17.0)
[2022-04-21 00:01] VITALS: BP 131/73; PULSE 65; RESP 14; TEMP 36.4; O2SAT 99
== END 2022-04-21 01:11 | disposition home or self-care (01) ==
PROVIDERS: Emergency Provider Emergency Medicine Emergency Medical Services; PCP General Practice
DX: R07.9 Chest pain, unspecified (principal); G40.909 Epilepsy, unspecified, not intractable, without status epilepticus; Z20.822 Contact with and (suspected) exposure to COVID-19
CPT/HCPCS: 36415; 71045; 80053; 84484; 85025; 87635; 93005; 99283; 99285

== ENCOUNTER → 2022-04-23 13:46 | Outpatient (BNVA) | payer OTHER, SELFPAY | PROVIDERS: PCP General Practice; Visit Provider Internal Medicine | DX: R07.2 Precordial pain (principal); R06.02 Shortness of breath | CPT/HCPCS: 99202 ==

== ENCOUNTER 2022-05-02 08:38 | Outpatient (REF) | payer OTHER, SELFPAY ==
[2022-05-02 09:41] LABS: Hematocrit 40.2 % (37.0-47.0); Hemoglobin 13.1 g/dl (12.0-16.0); Mean Corpuscular HGB Conc 32.6 g/dl (31.0-35.0); Mean Corpuscular Hemoglobin 29.7 pg (27.0-33.0); Mean Corpuscular Volume 91.2 fL (80.0-98.0); Mean Platelet Volume 10.1 fL (9.4-12.3); Platelet Count 259 X10*3/uL (160-400); Red Blood Count 4.41 X10*6/uL (4.20-5.50); Red Cell Distribution Width 12.6 % (11.0-16.0); White Blood Count 8.3 X10*3/uL (4.8-10.8)
[2022-05-02 10:40] LABS: HCG Quantitative < 2 mIU/mL; TSH reflex Free T4 0.68 uIU/mL (0.32-4.0)
== END 2022-05-02 08:39 | disposition home or self-care (01) ==
LOC: HO.LAB 08:38
PROVIDERS: PCP General Practice; Visit Provider Obstetrics & Gynecology
DX: N93.9 Abnormal uterine and vaginal bleeding, unspecified (principal)
CPT/HCPCS: 36415; 84443; 84702; 85027

== ENCOUNTER 2022-05-15 10:25 | Outpatient (REF) | payer OTHER, SELFPAY ==
--- NOTE | ~2022-05-15 | US_ITS ---
EXAMINATION: US PELVIS CLINICAL INFORMATION: Benign neoplasm of connective tissue. COMPARISON: 08/10/2021 and 08/22/2021 TECHNIQUE: Ultrasound of the pelvis is performed using both transabdominal and transvaginal transducers along with Doppler. Transvaginal imaging is performed due to inadequate visualization transabdominally. FINDINGS: Uterus: The uterus is anteverted and measures 8.6 x 4.9 x 5.7 cm. Uterine echotexture is heterogeneous. A myometrial cyst measures 1.0 x 0.8 x 0.8 cm. The double wall endometrial thickness is 1.1 mm. Heterogeneous solid-appearing lesion seen posterior to the uterus in the cul-de-sac and surrounded by fluid measures 4.9 x 2.0 x 4.7 cm. No internal color Doppler flow. Adnexa: Right ovary measures 3.2 x 2.2 x 3.3 cm. Left ovary is surgically absent. US/US pelvic and transvaginal IMPRESSION: No significant interval change in solid mass seen posterior to the uterus previously thought to represent a fibroid. MR imaging would be beneficial for confirmation if not previously performed.
== END 2022-05-15 10:26 | disposition home or self-care (01) ==
LOC: HO.US 10:25
PROVIDERS: Visit Provider Obstetrics & Gynecology
DX: D21.9 Benign neoplasm of connective and other soft tissue, unspecified (principal)
CPT/HCPCS: 76830; 76856

== ENCOUNTER → 2022-06-07 07:23 | Outpatient (REF) | payer OTHER, SELFPAY ==
--- NOTE | 2022-06-07 07:31 | CA_ITS ---
Transthoracic Echocardiogram Patient (Last, First, Middle): Cordelia Menon, Gender: Female Date of : 1975 Age: 47 Procedure Date: 06/07/2022 Procedure Type: Transthoracic Echocardiogram Location: OP Height: 157.48 cm Weight: 75.75 kg BSA: 1.77 m2 Heart Rate: bpm BP: 110 / 78 mmHg Director Operating Room: TO Referring MD: Bruce Kyle MD Symptoms: R06.02 - Shortness of breath Study Quality: Adequate ECG Rhythm: Sinus Conclusions: - The left ventricular systolic function is normal. The calculated ejection fraction is 62% by biplane method. - No obvious valvular pathology seen on this study. Findings Left Ventricle Normal left ventricular cavity size. There is normal left ventricular wall thickness. The left ventricular systolic function is normal. The calculated ejection fraction is 62% by biplane method. There is no evidence of regional wall motion abnormalities. Diastolic function is normal for age. Right Ventricle Normal right ventricular cavity size and systolic function. Atria Both atria are normal in size. Aortic Valve There is a normal trileaflet aortic valve. There is no aortic valve stenosis. There is trace (trivial) aortic valve regurgitation. Mitral Valve The mitral valve appears normal. There is trace mitral valve regurgitation. There is no mitral valve stenosis. Pulmonic Valve The pulmonic valve is likely normal. Tricuspid Valve Normal tricuspid valve structure. There is no tricuspid valve regurgitation. The pulmonary artery systolic pressure is normal. Great Vessels The aortic annulus, sinuses of valsalva, and asc aorta are normal in size. Venous The inferior vena cava is normal in size and collapses greater than 50% with inspiration. Pericardium/Pleural There is no evidence of pericardial effusion. Prior Study Comparison No prior study available for comparison. Recommendations, Care & Conclusions No obvious valvular pathology seen on this study. Measurements 2D Linear Measurements IVSd: 0.85 0.6-0.9/0.6-1.0 cm LVIDd: 4.25 3.9-5.3/4.2-5.9 cm LVIDd Index: 2.40 2.4-3.2/2.2-3.1 cm/m2 LVIDs: 2.88 2.0-3.6 cm LVPWd: 0.90 0.7-1.1 cm LA Diam: 3.10 2.7-3.8/3.0-4.0 cm LAIDs Index: 1.75 1.5-2.3 cm/m2 LV Mass: 144.92 67-162/88-224 g LV Mass Index: 81.87 43-95/49-115 g/m2 LVOT Diam: 2.00 3.0+(-)1.3 cm 2D Systolic Function EF 4C: 64.70 >55% EF 2C: 57.70 >55% EF BiP: 62.10 >55% Mitral Valve MV Pk E: 0.60 MV PK A: 0.56 MV Decel Time: 197.00 E/A: 1.10 E'Lateral: 10.80 E'Medial: 6.42 E/E' Med: 9.40 E/E' Lat: 5.60 PHT: 58.00 MVA PHT: 3.79 Decel [place]: 3.06 Aortic Valve AoV Pk Jordan: 1.08 AoV Mn Jordan: 0.76 AoV VTI: 0.26 AoV Pk Grad: 5.00 Aov Mn Grad: 3.00 JONATHON Cont.VTI: 2.48 LVOT LVOT Pk Jordan: 0.99 LVOT Mn Jordan: 0.64 LVOT VTI: 0.21 LVOT Pk Grad: 4.00 LVOT Mn Grad: 2.00 LVOT Diam: 2.00 LVOT Area: 3.14 Diastolic Function MV Pk E: 0.60 MV Pk A: 0.56 E/A: 1.10 E'Medial: 6.42 E/E' Med: 9.40 E' Laterial: 10.80 E/E' Lat: 5.60 Right Ventricle TAPSE (mm): 20.70 TVS' Jordan: 9.14 Tricuspid Valve TR Pk Jordan: 1.45 TR Pk Grad: 8.00 RA Press: 3.00 RVSP: 11.00 Great Vessels Aorta Sinus of Valsalva: 3.21 2.0-3.[address] [place]: 2.57 1.7-3.4 cm Ao Asc: 2.90 2.1-3.4 cm Updated in Other Vendor System with Status of Final Bruce Kyle MD electronically signed on 06/08/2022 1:41:02 PM with status of Final
--- NOTE | 2022-06-07 07:31 | CA_ITS ---
Acquisition Time: 2022-06-07 08:30:29 Total Exercise Time: 00:07:03 Test Indications: CP, SOB Medications: SEE CHART Protocol: ARNULFO Max HR: 153 BPM 89% of Pred: 171 BPM Max BP: 142/070 mmHG Max Work Load: 8.6 METS Exercise stress test with exercise 5 min 59 sec of Arnulfo protocol, achieving 88% MPHR with report of fatigue and request to stop, without anginal symptoms, with isolated PACs and short runs of SVT noted in recovery, longest about 3 sec, with report of palpitations ( she states that is what she feels at home), with normotensive response to exercise, without EKG chnages meeting criteria for ischemia. Test reviewed with Dr Kyle Referred By: Bruce Kyle Overread By: CARINA EDMONDSON
== END ==
LOC: HO.CARD 07:23
PROVIDERS: PCP General Practice; Visit Provider Internal Medicine
DX: R07.2 Precordial pain (principal); R06.02 Shortness of breath
CPT/HCPCS: 93017; 93306

== ENCOUNTER 2022-06-24 07:40 | Day surgery (SDC) | payer OTHER, SELFPAY ==
[2022-06-18 15:02] VITALS: BMI 29.5
--- NOTE | 2022-06-20 10:38 | HO.ANESPROP2 ---
Documented by User: Alicia Lay NP 06/20/22 10:43 HPI - Anesthesia Eval Consult details Narrative: 47yo F for Upper Endoscopy and Colonoscopy 05/2022 cardiac w/u for atypical CP WNL Pt reports ?rxn to propofol (hives) ~2012. However, subsequent procedures x 2 at [facility] in 2014 included propofol without issue. Old anesthesia records available for DOS. [facility] Active Problems Active Problems: All Active Problems (Updated 06/19/22 @ 11:43 by Marbella Schaffer RN) Well woman exam (Acute) HPV in female (Acute) COVID-19 (Acute) Dysplasia of cervix, low grade (ADÁN 1) (Acute) Pelvic pain (Acute) Abnormal ultrasound (Acute) Abnormal uterine bleeding (AUB) (Acute) Myoma (Acute) Pelvic cramping (Acute) Encounter for IUD removal (Acute) Precordial chest pain (Acute) SOB (shortness of breath) (Acute) Past Medical History Medical History (Updated 06/19/22 @ 11:43 by Marbella Schaffer RN) Anxiety Arthritis Dysplasia of cervix, low grade (ADÁN 1) Epilepsy Fibromyalgia History of glaucoma as a child PONV (postoperative nausea and vomiting) Prosthetic eye globe Family History Family History (Updated 04/23/22 @ 13:57 by MARNIE Rodrigues) Mother Seizures CAD (coronary artery disease) Pacemaker Diabetes Father No problems noted. Surgical History Surgical History (Updated 06/18/22 @ 15:16 by Marbella Schaffer RN) H/O LEEP History of History of eye surgery Hx of tubal ligation S/P removal of left ovary Social History Social History (Updated 04/23/22 @ 13:57 by MARNIE Rodrigues) Are you a primary progressive care manager to a significant other at home: No Do you presently have visiting nurse or other home services: No Alcohol intake: never Patient Tobacco Use Status: Never used Tobacco Use of substances other than those prescribed or required for medical reasons: No Have you been hit, kicked, punched, or otherwise hurt by someone within the past year? If so, by whom?: No Are you DNR?: No Advance Directives: No Advance Directives Information Provided: Yes Advance Directives on File: No Recently lost weight without trying: No Nutrition Risks: No Nutritional Risk Patient : No FDLMP: 05/21/2022 : No Poor oral hygiene: No Sexual orientation: Straight/Heterosexual Gender identity: Female Meds Allergies Allergy/AdvReac Type Severity Reaction Status Date / Time nut - unspecified Allergy Severe Anaphylaxis Verified 06/18/22 14:56 mold Allergy Intermediate itchy Verified 06/18/22 15:25 throat raw vegetable Allergy Intermediate Itchy Verified 06/18/22 15:25 throat SEASONAL ALLERGIES Allergy Intermediate Itchy Uncoded 06/18/22 15:25 Eyes, congestion, watery eyes Home Medications Medication Instructions Recorded Confirmed Last Taken Type acetaminophen 325 mg capsule 325 mg PO QID PRN Pain 12/11/20 06/18/22 Unknown History butalbital 50 mg-acetaminophen 300 2 cap PO Q4H PRN Migraine Headache 12/11/20 06/18/22 Unknown History mg-caffeine 40 mg-codeine 30 mg cap diphenhydramine HCl 25 mg capsule 25 mg PO Q6H PRN Allergic Symptoms 12/11/20 06/18/22 Unknown History (Allergy (diphenhydramine)) divalproex 125 mg tablet,delayed 125 mg PO TID 12/11/20 06/18/22 Unknown History release (Depakote) meclizine 12.5 mg tablet 12.5 mg PO BID 12/11/20 06/18/22 Unknown History nabumetone 500 mg tablet 500 mg PO BID 12/11/20 06/18/22 Unknown History sennosides 8.6 mg capsule (senna) 8.6 mg PO DAILY 12/11/20 06/18/22 Unknown History sertraline 25 mg tablet 25 mg PO DAILY 12/11/20 06/18/22 Unknown History simethicone 80 mg chewable tablet 80 mg PO BEDTIME 12/11/20 06/18/22 Unknown History (Gas Relief (simethicone)) trazodone 150 mg tablet 150 mg PO BEDTIME PRN Insomnia 12/11/20 06/18/22 Unknown History sumatriptan succinate 50 mg tablet 50 mg PO Q2-4H PRN Migraine 04/23/22 06/18/22 Unknown History Headache Epi E-Z Pen 06/18/22 06/18/22 Unknown History Exam Exam Date and Time: June 20, 2022 1038 Height,Weight and Vital Signs: Height 5 ft 3 in Weight 75.75 kg Pertinent Lab Results Pertinent Lab Results: Laboratory Tests 04/20/22 05/02/22 20:02 09:00 WBC 8.3 Hgb 13.1 Hct 40.2 Plt Count 259 Sodium 139 Potassium 4.2 Chloride 107 Carbon Dioxide 23 BUN 14 Creatinine 0.80 Narrative Narrative: EKG 04/2022 Vent. Rate : 080 BPM ? ? Atrial Rate : 080 BPM ?? P-R Int : 134 ms? QRS Dur : 072 ms ? ? QT Int : 366 ms ? ? ? P-R-T Axes : -16 011 011 degrees ?? QTc Int : 422 ms ? Sinus rhythm with Premature atrial complexes Otherwise normal ECG When compared to the previous EKG of No significant changes seen ECHO 05/2022 Conclusions: - The left ventricular systolic function is normal.? The ? calculated ejection fraction is 62% by biplane method. ? - No obvious valvular pathology seen on this study.? ?? Exercise Stress 05/2022 Protocol: JOHNATHAN ? Max HR: 153 BPM? 89% of? Pred: 171 BPM Max BP: 142/070 mmHG Max Work Load: 8.6 METS ? Exercise stress test with exercise 5 min 59 sec of Johnathan protocol, achieving 88% ?MPHR with report of fatigue and request to stop, without anginal symptoms, with ?isolated PACs and short runs of SVT noted in recovery, longest about 3 sec, ?with report of palpitations ( she states that is what she feels at home), with ?normotensive response to exercise, without EKG chnages meeting criteria for ?ischemia. Test reviewed with Dr Kyle ? Assessment and Plan Assessment Anesthesia Assessment: Chart Reviewed Documented by User: Kiera Richter MD 06/24/22 09:18 [facility] Past Medical History Medical History (Updated 06/19/22 @ 11:43 by Marbella Schaffer RN) Anxiety Arthritis Dysplasia of cervix, low grade (ADÁN 1) Epilepsy Fibromyalgia History of glaucoma as a child PONV (postoperative nausea and vomiting) Prosthetic eye globe Family History Family History (Updated 04/23/22 @ 13:57 by MARNIE Rodrigues) Mother Seizures CAD (coronary artery disease) Pacemaker Diabetes Father No problems noted. Family history of problems with anesthesia: No Surgical History Surgical History (Updated 06/18/22 @ 15:16 by Marbella Schaffer RN) H/O LEEP History of History of eye surgery Hx of tubal ligation S/P removal of left ovary History of Problems with Anesthesia: No Social History Social History (Updated 04/23/22 @ 13:57 by MARNIE Rodrigues) Are you a primary progressive care manager to a significant other at home: No Do you presently have visiting nurse or other home services: No Alcohol intake: never Patient Tobacco Use Status: Never used Tobacco Use of substances other than those prescribed or required for medical reasons: No Have you been hit, kicked, punched, or otherwise hurt by someone within the past year? If so, by whom?: No Are you DNR?: No Advance Directives: No Advance Directives Information Provided: Yes Advance Directives on File: No Recently lost weight without trying: No Nutrition Risks: No Nutritional Risk Patient : No FDLMP: 05/21/2022 : No Poor oral hygiene: No Sexual orientation: Straight/Heterosexual Gender identity: Female Meds Allergies Allergy/AdvReac Type Severity Reaction Status Date / Time nut - unspecified Allergy Severe Anaphylaxis Verified 06/18/22 14:56 mold Allergy Intermediate itchy Verified 06/18/22 15:25 throat raw vegetable Allergy Intermediate Itchy Verified 06/18/22 15:25 throat SEASONAL ALLERGIES Allergy Intermediate Itchy Uncoded 06/18/22 15:25 Eyes, congestion, watery eyes Home Medications Medication Instructions Recorded Confirmed Last Taken Type acetaminophen 325 mg capsule 325 mg PO QID PRN Pain 12/11/20 06/18/22 Unknown History butalbital 50 mg-acetaminophen 300 2 cap PO Q4H PRN Migraine Headache 12/11/20 06/18/22 Unknown History mg-caffeine 40 mg-codeine 30 mg cap diphenhydramine HCl 25 mg capsule 25 mg PO Q6H PRN Allergic Symptoms 12/11/20 06/18/22 Unknown History (Allergy (diphenhydramine)) divalproex 125 mg tablet,delayed 125 mg PO TID 12/11/20 06/18/22 Unknown History release (Depakote) meclizine 12.5 mg tablet 12.5 mg PO BID 12/11/20 06/18/22 Unknown History nabumetone 500 mg tablet 500 mg PO BID 12/11/20 06/18/22 Unknown History sennosides 8.6 mg capsule (senna) 8.6 mg PO DAILY 12/11/20 06/18/22 Unknown History sertraline 25 mg tablet 25 mg PO DAILY 12/11/20 06/18/22 Unknown History simethicone 80 mg chewable tablet 80 mg PO BEDTIME 12/11/20 06/18/22 Unknown History (Gas Relief (simethicone)) trazodone 150 mg tablet 150 mg PO BEDTIME PRN Insomnia 12/11/20 06/18/22 Unknown History sumatriptan succinate 50 mg tablet 50 mg PO Q2-4H PRN Migraine 04/23/22 06/18/22 Unknown History Headache Epi E-Z Pen 06/18/22 06/18/22 Unknown History Exam Airway Mallampati Class: II TM Dist: >3cm Neck ROM: Full Heart: rrr Lungs: cta Assessment and Plan Assessment Anesthesia Assessment: Anesthesia Plan Discussed and Chart Reviewed Final Anesthetic Review Family History of Problems with Anesthesia: No History of Problems with Anesthesia: No NPO: Yes ASA Class: II Final Preanesthetic Review: No Changes in Pt Med Stat, Meds/Allgs Chart Reviewed and Consent Obtained/Reviewed Patient Risk: Intermediate Procedure Risk: Intermediate Anesthetic Plan Anesthetic Plan: MAC: Disposition: Standard PACU
[2022-06-24] VITALS (9 sets, daily range): BP systolic 111–138; BP diastolic 68–89; PULSE 54–71; RESP 11–20; TEMP 36.1–37; O2SAT 98–100; BMI 28.8
--- NOTE | 2022-06-24 09:02 | MHC.SHP ---
Pre-Procedural Eval Section A Date of Service: 06/24/22 Section B Chief Complaint: Chronic idiopathic constipation,screening,reflux Relevant Family History (Specify if Yes): No Relevant Social History: None Present Medications: see Short Stay Collaborative assessment Medical History: Significant History (Arthritis Dysplasia of cervix, low grade (ADÁN 1) Epilepsy Fibromyalgia) History of Previous Operations: Relevant previous surgery/procedure and date(s) (H/O LEEP History of Hx of tubal ligation S/P removal of left ovary) Allergies: Allergies Allergy/AdvReac Type Severity Reaction Status Date / Time nut - unspecified Allergy Severe Anaphylaxis Verified 06/18/22 14:56 mold Allergy Intermediate itchy Verified 06/18/22 15:25 throat raw vegetable Allergy Intermediate Itchy Verified 06/18/22 15:25 throat SEASONAL ALLERGIES Allergy Intermediate Itchy Uncoded 06/18/22 15:25 Eyes, congestion, watery eyes Review of Systems Sugical H&P ROS: Negative: Constitution, Cardiovascular and Respiratory and Yes, Specify: Gastrointestinal (constipation) Exam Surgical H&P Exam: Normal: Heart, Normal: Lungs, Normal: Extremities and Normal: Abdomen Plan Diagnosis/Plan: Unchanged I have reviewed the history and physical and performed a pertinent physical examination on my patient. No changes have occurred unless specified.
--- NOTE | 2022-06-24 09:09 | P.OP_ITS ---
Operative Note Operative Note Date of Service: 06/24/22 Narrative: Pre-op diagnosis: Colon cancer screening, constipation, GERD Post-op diagnosis: other (GERD, gastritis, gastric erosion, diverticulosis, hemorrhoids) Procedure: FLEXIBLE TRANSORAL UPPER GASTROINTESTINAL ENDOSCOPY WITH BIOPSIES AND COLONOSCOPY TILL CECUM UPPER ENDOSCOPY Consent:?Indications for the procedure and potential complications of bleeding, perforation, reaction to medications and missed diagnosis were discussed with the patient and informed consent was obtained. Instrument:?Olympus GIF H 190 mid size upper endoscope Monitoring: Vital signs and clinical assessment, continuous EKG monitoring, Pulse oximetry, Carbon Dioxide monitoring and blood pressure monitoring were done throughout the procedure. Procedure:?The patient was placed in the left lateral decubitis position and pre-procedure medications were administered and a bite block was placed. The endoscope was inserted into the mouth and advanced under direct vision to the third part of duodenum. A careful inspection was made as the upper endoscope was withdrawn including a retroflexed examination of the proximal stomach; Findings and interventions are described below. Findings: Larynx:? Normal Esophagus:?GE junction at 35 cms. No esophagitis or Weeks's. Stomach:?Moderate gastric erythema with a few chronic appearing erosions in the antrum and body of the stomach (along the greater curve). Biopsies were obtained. Grade 2 flapvalve on retroflexed examination of the cardia. Duodenum:?Normal bulb and descending duodenum Intervention:?Biopsies as noted above COLONOSCOPY PROCEDURE NOTE Consent:?Indications for the procedure and potential complications of bleeding, perforation, reaction to medications and missed diagnosis were discussed with the patient and informed consent was obtained. Instrument:?Olympus PCF H 190 L variable stiffness pediatric colonoscope Monitoring:?Vital signs and clinical assessment, intermittent blood pressure monitoring, continuous EKG monitoring, Pulse oximetry and Carbon Dioxide monitoring were done throughout the procedure. Colon withdrawl time was 20 minutes. Procedure:?The patient was placed in the left lateral decubitis position and pre-procedure medications were administered. After a digital rectal examination of the ano-rectum, the video colonoscope was inserted into the rectum and advanced through the colon to the cecum. The colonoscope was slowly withdrawn in a retrograde panoramic fashion and the colon mucosa was carefully examined including a retroflexed view of the rectum. Findings and interventions are described below. Procedure Difficulty:?: Without difficulty Findings: Terminal Ileum: Not evaluated Cecum:? Normal Ascending Colon:??Normal Transverse Colon:??Normal Descending Colon:? Normal Sigmoid Colon:??Moderate diverticulosis Rectum:??Normal Ano-rectum:??Small internal hemorrhoids Colon preparation:? Good after some irrigation Impression and Post Procedure Diagnosis: Endoscopy Findings: STOMACH:?Moderate gastric erythema with a few chronic appearing erosions in the antrum and body of the stomach (along the greater curve). Biopsies were obtained. Colonoscopy Findings: No polyps were detected Moderate diverticulosis seen in the sigmoid colon Small hemorrhoids on retroflexed exam. Plan: Await pathology results Patient has an appointment on 07/23/22 in the GI Clinic with Yennifer Howell FNP- [facility]. Repeat Colonoscopy in 10 years. Above findings were reviewed with the patient and GERD and diverticulosis handouts were given in the discharge area ADDENDUM: Pt has a known hx of seizure disorder (on Depakote) and had 3 witnessed tonic clonic seizures while in PACU and was treated with 6 mg of midazolam by anesthesia Patient had a blood sugar of 50 and was given D5W with improvement of blood sugar.? Patient reported that she did not take her seizure medication this morning.? Her last dose was last evening.? Pt was transferred to [facility] ED: On arrival to the emergency room the patient was alert and oriented.?? No focal neurological finding.? Patient had stable vital signs.? She complained of a slight headache (likely secondary to her seizure).? She had not taking her seizure medications today or had anything to eat or drink which may be the cause of her seizure.? She denied any recent illnesses.? She thinks her neurologist may have changed her medication recently but she isnt sure.? Normally her seizures are well controlled with her medication. Patient was placed on seizure precautions and given her antiepileptic medication ? Surgeon: Vladimir Frank MD Anesthesia: MAC Was an Customer Care Voice Consultant used for this Procedure?: Yes Customer Care Voice Consultant: Juju Lynne Estimated blood loss (mL): 0 Pathology: other (A. gastric antrum bxs, R/O H. pylori? B. gastric erosion bxs) Condition: stable Disposition: PACU
[2022-06-24] MEDS: Lactated Ringers 1,000 ML 100 ML IVCONT (09:23)
[2022-06-24] MEDS: Midazolam HCl/PF 2 MG/2 ML VIAL IVPUSH ×3 (10:19→10:40)
[2022-06-24] MEDS: Dextrose 5 % 1,000 ML 125 ML IVCONT (10:55)
--- NOTE | 2022-06-24 11:16 | HO.POSTANES ---
Post Anesthesia Evaluation Post Anesthesia Evaluation Vital Signs: Vital Signs Temp Pulse Resp BP Pulse Ox O2 Del Method O2 Flow Rate 06/24/22 10:55 68 12 138/85 100 Nasal Cannula 2 06/24/22 10:40 63 20 136/89 100 Nasal Cannula 2 06/24/22 10:25 71 17 116/88 100 Room Air 06/24/22 10:19 65 17 121/78 100 Nasal Cannula 2 06/24/22 10:12 97.6 F 70 16 111/73 99 Room Air 06/24/22 08:57 97.0 F 64 18 115/68 98 Room Air Anesthesia: Monitored Mental Status: Sedated Pain Control: Satisfactory Nausea/Vomiting: None Hydration: Adequate Comments: Pt developed GM seizure in PACU in about 15 mins following her arrival. 2mg Versed was given ivp while injury protection was applied. Pt started to develop SZ again in 10-15 min intervals, so 2 mg Versed was given two more times. The ER was contacted and Pt would be moved there. In the meantime, her blood sugar level was 50, she is not a diabetic, but D5W was also given.
[2022-06-24 11:37] LABS: Glucose, Whole Blood 53 mg/dL (60-115)
[2022-06-24 11:37] LABS: Glucose, Whole Blood 82 mg/dL (60-115)
== END 2022-06-24 10:05 | disposition home or self-care (01) ==
PROVIDERS: PCP General Practice; Visit Provider Internal Medicine Gastroenterology
PROC: (CPT 43239; principal; 2022-06-24 09:10)
DX: Z12.11 Encounter for screening for malignant neoplasm of colon (principal); K57.30 Diverticulosis of large intestine without perforation or abscess without bleeding; K64.8 Other hemorrhoids; K59.04 Chronic idiopathic constipation; K21.9 Gastro-esophageal reflux disease without esophagitis; K29.50 Unspecified chronic gastritis without bleeding; B96.81 Helicobacter pylori [H. pylori] as the cause of diseases classified elsewhere; K25.9 Gastric ulcer, unspecified as acute or chronic, without hemorrhage or perforation; G40.909 Epilepsy, unspecified, not intractable, without status epilepticus; R51.9 Headache, unspecified; E16.2 Hypoglycemia, unspecified; Z79.899 Other long term (current) drug therapy
CPT/HCPCS: 43239; G0121; 82947; 88305; 88342; J0131; J1610; J2250

== ENCOUNTER 2022-06-24 12:25 | Emergency (ER) | payer OTHER, SELFPAY ==
[2022-06-24 12:29] VITALS: BP 119/66; PULSE 68; RESP 14; O2SAT 98; BMI 29.5
--- NOTE | 2022-06-24 12:44 | ED_ITS ---
HPI - Seizure General Chief Complaint: Seizure Stated Complaint: seizure Time Seen by Provider: 06/24/22 12:29 Source: other ( PACU staff) Mode of arrival: other ( stretcher) Limitations: no limitations History of Present Illness HPI Narrative: 47-year-old female with a history of seizure disorder currently on Depakote presents from PACU after having a witnessed seizure. Per report patient received propofol for colonoscopy and endoscopy. Wall in the recovery room she had 3 witnessed seizures and required 6 mg of midazolam. seizure was described as tonic clonic. Patient had a blood sugar of 50. She received D5W With improvement of blood sugar. On arrival to the emergency room the patient is alert and oriented. Patient tells me that she did not take her seizure medication this morning. Her last dose was last evening. ?recent change in medications by her neurologist Dr. Cabrera (pt unsure about details). She is unsure with the change was. Patient tells me she has not eaten or had anything to drink since before midnight. She has a mild headache but denies any other complaints. Related Data Home Medications Medication Instructions Recorded Confirmed acetaminophen 325 mg capsule 325 mg PO QID PRN Pain 12/11/20 06/18/22 butalbital 50 mg-acetaminophen 300 2 cap PO Q4H PRN Migraine Headache 12/11/20 06/18/22 mg-caffeine 40 mg-codeine 30 mg cap diphenhydramine HCl 25 mg capsule 25 mg PO Q6H PRN Allergic Symptoms 12/11/20 06/18/22 (Allergy (diphenhydramine)) divalproex 125 mg tablet,delayed 125 mg PO TID 12/11/20 06/18/22 release (Depakote) meclizine 12.5 mg tablet 12.5 mg PO BID 12/11/20 06/18/22 nabumetone 500 mg tablet 500 mg PO BID 12/11/20 06/18/22 sennosides 8.6 mg capsule (senna) 8.6 mg PO DAILY 12/11/20 06/18/22 sertraline 25 mg tablet 25 mg PO DAILY 12/11/20 06/18/22 simethicone 80 mg chewable tablet 80 mg PO BEDTIME 12/11/20 06/18/22 (Gas Relief (simethicone)) trazodone 150 mg tablet 150 mg PO BEDTIME PRN Insomnia 12/11/20 06/18/22 sumatriptan succinate 50 mg tablet 50 mg PO Q2-4H PRN Migraine 04/23/22 06/18/22 Headache Epi E-Z Pen 06/18/22 06/18/22 Previous Rx's Medication Instructions Recorded naproxen 500 mg tablet 500 mg PO BID PRN pain 10 days #20 02/17/22 tabs esomeprazole magnesium 40 mg 40 mg PO DAILY #30 caps 02/26/22 capsule,delayed release (Nexium) Allergies Allergy/AdvReac Type Severity Reaction Status Date / Time nut - unspecified Allergy Severe Anaphylaxis Verified 06/18/22 14:56 mold Allergy Intermediate itchy Verified 06/18/22 15:25 throat raw vegetable Allergy Intermediate Itchy Verified 06/18/22 15:25 throat SEASONAL ALLERGIES Allergy Intermediate Itchy Uncoded 06/18/22 15:25 Eyes, congestion, watery eyes Review of Systems Review of Systems: Yes all other systems are reviewed and are negative Constitutional: Constitutional: Reports no additional constitutional complaints, Denies body ache(s), Denies chills, Denies fever(s), Reports headache(s) and Denies weakness Eyes: Eyes: Reports no additional eye complaints and Denies change in vision ENT: Reports system reviewed and no additional complaints, except as documented, Denies dizziness, Reports headache(s), Denies nasal congestion, Denies nasal discharge and Denies neck pain Cardiovascular: Cardiovascular: Reports no additional cardiovascular complaints, Denies chest pain, Denies leg edema and Denies dyspnea Respiratory: Respiratory: Reports no additional respiratory complaints, Denies cough and Denies dyspnea Gastrointestinal: Gastrointestinal: Reports no additional gastrointestinal complaints, Denies abdominal pain, Denies diarrhea, Denies nausea and Denies vomiting Genitourinary: Genitourinary: Reports no additional female genitourinary complaints and Denies urinary incontinence Musculoskeletal: Musculoskeletal: Reports no additional musculoskeletal compl aints, Denies back pain, Denies arthralgias, Denies joint swelling, Denies neck pain, Denies numbness and Denies tingling Integumentary/Breasts: Skin/Breast: Reports system reviewed and no additional complaints, except as docu and Denies rash Neurologic: Reports system reviewed and no additional complaints, except as documented, Denies Abnormal speech present, Denies dizziness, Reports headache(s), Denies numbness, Reports seizure-like activity, Denies tingling and Denies weakness [facility] Past Medical History Attestation statement: The following information was validated with the patient. Source: old records reviewed and nursing notes reviewed Medical History Anxiety Arthritis Dysplasia of cervix, low grade (ADÁN 1) Epilepsy Fibromyalgia History of glaucoma as a child Hypoglycemia PONV (postoperative nausea and vomiting) Prosthetic eye globe Surgical History H/O LEEP History of History of eye surgery Hx of tubal ligation S/P removal of left ovary Family History Family History Mother Seizures CAD (coronary artery disease) Pacemaker Diabetes Father No problems noted. Social History Social History Are you a primary long term care phlebotomist to a significant other at home: No Do you presently have visiting nurse or other home services: No Alcohol intake: never Patient Tobacco Use Status: Never used Tobacco Advance Directives: No Advance Directives Information Provided: Yes Sexual orientation: Straight/Heterosexual Gender identity: Female Physical Exam Vital Signs: Vital Signs: Last Vital Signs Pulse 80 06/24/22 16:23 Resp 16 06/24/22 16:23 BP 119/66 06/24/22 12:29 Pulse Ox 100 06/24/22 16:23 O2 Del Method 06/24/22 16:23 BMI result Body Mass Index 29.5 Const: General: cooperative, healthy appearing, comfortable and no acute dis tress Orientation/consciousness: patient oriented x3 Limitations: no limitations HEENT: Head: Yes normal to inspection Ears: hearing grossly normal bilaterally General nose exam: Normal external nose present Face and sinus: Yes normal facial exam Mouth: Normal oral and palatal mucosa present Throat: Yes posterior oropharynx normal Eyes: General: appearance normal, both eyes and all related structures Pupils: Equal, round and reactive pupils present Neck: Neck: Yes normal visual inspection Chest: Chest palpation & inspection: normal inspection of the chest Resp: Effort & Inspection: normal respiratory effort Auscultation: clear to auscultation bilaterally Cardio: Rate: regular rate Rhythm: regular rhythm Peripheral pulses: Peripheral pulses 2+ throughout GI: Inspection: Yes normal to inspection Palpation (GI): Soft to palpation and nontender Auscultation: normal bowel sounds Back/Spine/Pelvis: Thoracic/Lumbar Spine: thoracic and lumbar spine normal to inspection Skin: General skin exam: no rashes or lesions noted Neuro: General: patient oriented x3, moves all extremities, no focal motor deficits and normal sensation to monofilament Cranial nerves: Yes CN's II-XII intact bilaterally, Yes Equal, round and reactive pupils present, Yes Bilaterally intact EOM present, Yes Nystagmus not present, Yes Normal facial strength present and Yes Midline tongue present Cognition (Neuro): normal cognition Speech: No Abnormal speech present Gait exam (Neuro): Normal gait present Motor exam (neuro): 5/5 motor strength present throughout Sensory Exam: Normal double simultaneous stimulation for sensation Extrem: General: Yes normal to inspection Course Course Course Narrative: Patient had a blood sugar here of 52 on arrival to the ER. Patient alert and oriented. She was given food/drinks as well as her depakote. patient had serial repeat blood sugars which were normal. Patient was monitored in the emergency room for 4-1/2 hours with no additional seizure activity. She is at her baseline and family is at the bedside who agrees. Patient can go home and continue her Depakote. I recommended that she eat frequent meals throughout the day and not miss any doses of her medications. she can follow-up with Neurology outpatient. likely patient had seizure as she missed her medications this morning as she was preparing for her preop. Additionally she had nothing to eat or drink since dinner last night and this likely caused her hypoglycemia. Reviewed worrisome signs and symptoms of when to return to the emergency department. Comfortable discharge home. MDM - Seizure MDM Narrative Medical decision making narrative: 47-year-old female here with witnessed tonic clonic seizures which occurred while patient was in the recovery room requiring 6 mg of IV Versed. patient a lso noted to be hypoglycemic and received D5W with improvement of sugar. On arrival patient is alert oriented. No focal neurological finding. Patient has stable vital signs. She does have a slight headache which is likely secondary to her seizure. She is not taking her seizure medications today or had anything to eat or drink which may be the cause of her seizure. She denies any recent illnesses. She thinks her neurologist may have changed her medication recently but she isnt sure. Normally her seizures are well controlled with her medication. Patient to be placed in seizure precautions, will check POC and basic labs, patient will be given something to eat and drink as well as her antiepileptic Medical Records Attestation: I reviewed the patient's medical records. Lab Data Attestation: I reviewed the patient's lab results. Result diagrams: 06/24/22 13:53 06/24/22 13:53 Labs: Lab Results 06/24/22 06/24/22 06/24/22 Range/Units 13:50 13:53 13:53 WBC 7.5 (4.8-10.8) X10*3/uL RBC 4.39 (4.20-5.50) X10*6/uL Hgb 13.0 (12.0-16.0) g/dl Hct 39.7 (37.0-47.0) % MCV 90.4 (80.0-98.0) fL MCH 29.6 (27.0-33.0) pg MCHC 32.7 (31.0-35.0) g/dl RDW 12.4 (11.0-16.0) % Plt Count 235 (160-400) X10*3/uL MPV 9.7 (9.4-12.3) fL Immature Gran % (Auto) 0.3 (0.0-0.4) % Neut % (Auto) 66.5 (45-73) % Lymph % (Auto) 26.8 (20-40) % [place] % (Auto) 5.3 (2-11) % Eos % (Auto) 0.7 (0-4) % Baso % (Auto) 0.4 (0-2) % Lymph # (Auto) 2.0 (1.2-4.9) X10*3/uL [place] # (Auto) 0.4 (0.1-1.2) X10*3/uL Eos # (Auto) 0.1 (0.0-0.4) X10*3/uL Baso # (Auto) 0.0 (0.0-0.2) X10*3/uL Abs Immat Gran (auto) 0.02 (0.00-0.03) X10*3/uL Absolute Neuts (auto) 5.0 (2.0-8.3) x10*3/uL Absolute Nucleated RBC 0.000 (0.0-0.012) X10*3/uL Nucleated RBC % (auto) 0.0 (0.0-0.2) /100WBC Sodium 141 (135-145) mmol/L Potassium 3.9 (3.3-5.1) mmol/L Chloride 107 (96-108) mmol/L Carbon Dioxide 27 (22-29) mmol/L Anion Gap 11 L (12-20) BUN 7 L (9-16) mg/dL Creatinine 0.75 (0.5-1.4) mg/dL Estim Creat Clear Calc 88.4 Estimated GFR > 60 POC Glucose 52 L* (60-115) mg/dL Random Glucose 73 (60-115) mg/dL Calcium 8.4 D (8.4-10.2) mg/dL 06/24/22 06/24/22 Range/Units 14:52 16:35 WBC (4.8-10.8) X10*3/uL RBC (4.20-5.50) X10*6/uL Hgb (12.0-16.0) g/dl Hct (37.0-47.0) % MCV (80.0-98.0) fL MCH (27.0-33.0) pg MCHC (31.0-35.0) g/dl RDW (11.0-16.0) % Plt Count (160-400) X10*3/uL MPV (9.4-12.3) fL Immature Gran % (Auto) (0.0-0.4) % Neut % (Auto) (45-73) % Lymph % (Auto) (20-40) % [place] % (Auto) (2-11) % Eos % (Auto) (0-4) % Baso % (Auto) (0-2) % Lymph # (Auto) (1.2-4.9) X10*3/uL [place] # (Auto) (0.1-1.2) X10*3/uL Eos # (Auto) (0.0-0.4) X10*3/uL Baso # (Auto) (0.0-0.2) X10*3/uL Abs Immat Gran (auto) (0.00-0.03) X10*3/uL Absolute Neuts (auto) (2.0-8.3) x10*3/uL Absolute Nucleated RBC (0.0-0.012) X10*3/uL Nucleated RBC % (auto) (0.0-0.2) /100WBC Sodium (135-145) mmol/L Potassium (3.3-5.1) mmol/L Chloride (96-108) mmol/L Carbon Dioxide (22-29) mmol/L Anion Gap (12-20) BUN (9-16) mg/dL Creatinine (0.5-1.4) mg/dL Estim Creat Clear Calc Estimated GFR POC Glucose 83 90 (60-115) mg/dL Random Glucose (60-115) mg/dL Calcium (8.4-10.2) mg/dL Discharge Plan Discharge Clinical Impression: Generalized seizure, Hypoglycemia Patient Disposition: Home, Self-Care Instructions: Non-diabetic Hypoglycemia (ED), Recurrent Seizures in Adults (ED) Additional Instructions: Eat frequent meals throughout the day Resume your seizure medication Prescriptions: No Action naproxen 500 mg tablet 500 mg PO BID PRN (Reason: pain) 10 Days Qty: 20 0RF Epi E-Z Pen nabumetone 500 mg tablet 500 mg PO BID trazodone 150 mg tablet 150 mg PO BEDTIME PRN (Reason: Insomnia) [id number] [id number] mg capsule 2 cap PO Q4H PRN (Reason: Migraine Headache) Rx Instructions: do not exceed 6 caps per day sertraline 25 mg tablet 25 mg PO DAILY meclizine 12.5 mg tablet 12.5 mg PO BID senna 8.6 mg capsule 8.6 mg PO DAILY acetaminophen 325 mg capsule 325 mg PO QID PRN (Reason: Pain) simethicone [Gas Relief (simethicone)] 80 mg tablet,chewable 80 mg PO BEDTIME diphenhydramine HCl [Allergy (diphenhydramine)] 25 mg capsule 25 mg PO Q6H PRN (Reason: Allergic Symptoms) divalproex [Depakote] 125 mg tablet,delayed release (DR/EC) 125 mg PO TID esomeprazole magnesium [Nexium] 40 mg capsule,delayed release(DR/EC) 40 mg PO DAILY Qty: 30 5RF sumatriptan succinate 50 mg tablet 50 mg PO Q2-4H PRN (Reason: Migraine Headache) Rx Instructions: do not exceed 4 doses per 24 hrs Referrals: Ruma Driver MD [Primary Care Provider] - 5 days
[2022-06-24 13:56] LABS: MANUAL DIFF FLAG NO
[2022-06-24 14:00] LABS: Basophils Percent Auto 0.4 % (0-2); Eosinophils Absolute Auto 0.1 X10*3/uL (0.0-0.4); Eosinophils Percent Auto 0.7 % (0-4); Hematocrit 39.7 % (37.0-47.0); Imm Gran Abs Auto 0.02 X10*3/uL (0.00-0.03); Imm Gran Pct Auto 0.3 % (0.0-0.4); Lymphocytes Percent Auto 26.8 % (20-40); Mean Corpuscular HGB Conc 32.7 g/dl (31.0-35.0); Mean Corpuscular Hemoglobin 29.6 pg (27.0-33.0); Mean Corpuscular Volume 90.4 fL (80.0-98.0); Mean Platelet Volume 9.7 fL (9.4-12.3); Monocytes Absolute Auto 0.4 X10*3/uL (0.1-1.2); Monocytes Percent Auto 5.3 % (2-11); Neutrophils Percent Auto 66.5 % (45-73); Platelet Count 235 X10*3/uL (160-400); Red Blood Count 4.39 X10*6/uL (4.20-5.50); Red Cell Distribution Width 12.4 % (11.0-16.0); White Blood Count 7.5 X10*3/uL (4.8-10.8)
[2022-06-24 14:14] LABS: Anion Gap 11 (12-20); Blood Urea Nitrogen 7 mg/dL (9-16); Calcium 8.4 mg/dL (8.4-10.2); Carbon Dioxide 27 mmol/L (22-29); Chloride 107 mmol/L (96-108); Creatinine Clr Calc Pharmacy 88.4; Estimated Glomerular Filt Rate > 60; Glucose Random 73 mg/dL (60-115); Potassium 3.9 mmol/L (3.3-5.1); Sodium 141 mmol/L (135-145)
[2022-06-24 14:23] LABS: Glucose, Whole Blood 52 mg/dL (60-115)
[2022-06-24 14:56] LABS: Glucose, Whole Blood 83 mg/dL (60-115)
[2022-06-24 16:23] VITALS: PULSE 80; RESP 16; O2SAT 100
[2022-06-24] MEDS: Divalproex Sodium ER 250 MG TAB.ER.24H 125 MG PO (16:25)
[2022-06-24 16:40] LABS: Glucose, Whole Blood 90 mg/dL (60-115)
== END 2022-06-24 17:08 | disposition home or self-care (01) ==
PROVIDERS: Nurse Practitioner Family; Emergency Provider Emergency Medicine; PCP General Practice
DX: G40.409 Other generalized epilepsy and epileptic syndromes, not intractable, without status epilepticus (principal); E16.2 Hypoglycemia, unspecified
CPT/HCPCS: 36415; 80048; 82947; 85025; 99283

== ENCOUNTER 2022-07-09 09:42 | Emergency (ER) | payer OTHER, SELFPAY ==
--- NOTE | ~2022-07-09 | US_ITS ---
EXAMINATION: US VENOUS WITH DOPPLER UPPER EXTREMITY, right arm. Right upper extremity CLINICAL INFORMATION: Pain and swelling. COMPARISON: None TECHNIQUE: Ultrasound of the upper extremity is performed using compression sonography and color and pulse Doppler flow with assessment of augmentation of flow. There is also imaging and Doppler assessment of the jugular and subclavian veins. Spectral analysis with color-flow imaging is performed. FINDINGS: Respiratory variation, normal compression, and augmented flow are noted throughout the upper extremity including the axillary, brachial, radial and ulnar veins. There is normal flow in the internal jugular and subclavian veins. Some clot is observed in the medial cubital vein. This is consistent with a superficial thrombophlebitis. There is no visible deep or superficial thrombophlebitis. If the patient's symptoms progress, a followup ultrasound in 5 -7 days might be of value to exclude proximal propagation from a nonvisualized distal arm vein. US/US venous duplex UE RT IMPRESSION: No evidence for DVT. There is some clot observed in the median cubital vein.
[2022-07-09 10:04] VITALS: BP 141/91; PULSE 90; RESP 14; TEMP 36.6; O2SAT 100; BMI 28.0
--- NOTE | 2022-07-09 10:35 | ED_ITS ---
HPI - Extremity Problem General Chief complaint: Extremity Injury, Upper Stated complaint: R arm pain Time Seen by Provider: 07/09/22 10:35 Source: patient Mode of arrival: ambulatory Limitations: no limitations History of Present Illness HPI Narrative: 47-year-old [id number] female with a history of seizures, migraine headaches who presents to the ER for evaluation of right lower arm and hand pain for the last 2 weeks. She reports having a colonoscopy here on June 24. She had an IV in the right hand at that time. In the PACU during recovery she had 4 witnessed seizures after not taking her Depakote the morning of the procedure. She reports since then she has had right hand and right forearm pain, swelling. She feels pressure whenever the arm is dependent. She feels the veins are in swollen and tender. She reports the pain is making it difficult for her to do her activities of daily living including cooking, brushing her hair, brushing her teeth. She denies any numbness or tingling. She had a nurse come to the house who put her in a sling and helped the arm elevated, this only aggravated her neck. MD Complaint: extremity pain Onset (ago): week(s) (2) Pain Consistency: constant Location: right and upper extremity Severity scale (1-10): 6 Quality: aching and dull Radiation: proximal Relieving factors: elevation Exacerbating factors: range of motion and palpation Associated symptoms: denies other symptoms Related Data Home Medications Medication Instructions Recorded Confirmed acetaminophen 325 mg capsule 325 mg PO QID PRN Pain 12/11/20 06/18/22 butalbital 50 mg-acetaminophen 300 2 cap PO Q4H PRN Migraine Headache 12/11/20 06/18/22 mg-caffeine 40 mg-codeine 30 mg cap diphenhydramine HCl 25 mg capsule 25 mg PO Q6H PRN Allergic Symptoms 12/11/20 06/18/22 (Allergy (diphenhydramine)) divalproex 125 mg tablet,delayed 125 mg PO TID 12/11/20 06/18/22 release (Depakote) meclizine 12.5 mg tablet 12.5 mg PO BID 12/11/20 06/18/22 nabumetone 500 mg tablet 500 mg PO BID 12/11/20 06/18/22 sennosides 8.6 mg capsule (senna) 8.6 mg PO DAILY 12/11/20 06/18/22 sertraline 25 mg tablet 25 mg PO DAILY 12/11/20 06/18/22 simethicone 80 mg chewable tablet 80 mg PO BEDTIME 12/11/20 06/18/22 (Gas Relief (simethicone)) trazodone 150 mg tablet 150 mg PO BEDTIME PRN Insomnia 12/11/20 06/18/22 sumatriptan succinate 50 mg tablet 50 mg PO Q2-4H PRN Migraine 04/23/22 06/18/22 Headache Epi E-Z Pen 06/18/22 06/18/22 Previous Rx's Medication Instructions Recorded naproxen 500 mg tablet 500 mg PO BID PRN pain 10 days #20 02/17/22 tabs esomeprazole magnesium 40 mg 40 mg PO DAILY #30 caps 02/26/22 capsule,delayed release (Nexium) ibuprofen 600 mg tablet 600 mg PO Q8H PRN pain #30 tabs 07/09/22 Allergies Allergy/AdvReac Type Severity Reaction Status Date / Time nut - unspecified Allergy Severe Anaphylaxis Verified 06/18/22 14:56 mold Allergy Intermediate itchy Verified 06/18/22 15:25 throat raw vegetable Allergy Intermediate Itchy Verified 06/18/22 15:25 throat SEASONAL ALLERGIES Allergy Intermediate Itchy Uncoded 06/18/22 15:25 Eyes, congestion, watery eyes Review of Systems Review of Systems: Constitutional: No Fever, No Chills Cardiovascular: No Chest Pain, No SOB, No Orthopnea, + Edema Respiratory: No Cough, No Sputum, No Wheezing, No dyspnea Gastrointestinal: No Nausea, No Vomiting, No Diarrhea, No abdominal Pain Genitourinary: No Dysuria, No Urinary Frequency, No Hematuria Musculoskeletal: + joint pain, + Myalgias Skin: No Skin Lesions, No rash Neuro: No Weakness, No Numbness, No Dizziness, No Headache Psych: + Anxiety/Panic, No Depression Heme/Lymph: No Bruising, No Lymphadenopathy Endocrine: No Polyuria, No Polydipsia PMFSH Past Medical History Medical History Anxiety Arthritis Dysplasia of cervix, low grade (ADÁN 1) Epilepsy Fibromyalgia History of glaucoma as a child Hypoglycemia PONV (postoperative nausea and vomiting) Prosthetic eye globe Surgical History H/O LEEP History of History of eye surgery Hx of tubal ligation S/P removal of left ovary Family History Family History Mother Seizures CAD (coronary artery disease) Pacemaker Diabetes Father No problems noted. Social History Social History Are you a primary career based intervention coordinator to a significant other at home: No Do you presently have visiting nurse or other home services: No Alcohol intake: never Patient Tobacco Use Status: Never used Tobacco Advance Directives: No Advance Directives Information Provided: No Sexual orientation: Straight/Heterosexual Gender identity: Female Physical Exam Vital Signs: Vital Signs: Last Vital Signs Temp 97.8 F 07/09/22 10:04 Pulse 90 07/09/22 10:04 Resp 14 07/09/22 10:04 BP 141/91 H 07/09/22 10:04 Pulse Ox 100 07/09/22 10:04 O2 Del Method 07/09/22 10:04 BMI result Body Mass Index 28.0 Appearance: Alert. Oriented X3. No acute distress. HEENT: normal inspection CVS: Normal heart rate and rhythm. Pulses normal. Respiratory: No respiratory distress. Skin: Skin warm and dry. Normal skin color. Normal skin turgor. No rashes. Extremities: Right forearm with mild generalized swelling along the ulnar aspect, soft tissue tenderness with palpable venous cords throughout the forearm. 2+ radial pulse. 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 Neurovascularly intact. Neuro: Oriented X 3. No motor deficit. No sensory deficit. Course Course Course Narrative: 47-year-old female presenting to the ER with right lower arm pain and swelling for the last 2 weeks after an IV was placed in the right hand. Exam is consistent with superficial thrombophlebitis. Will get ultrasound to rule out deeper clot. Patient agrees with plan. Reevaluation(s) Reevaluation #1: Ultrasound is showing clot in the medial cubital vein. No DVT. Arm was placed in Seamus wrap for compression and support. We discussed the diagnosis of superficial thrombophlebitis and its management. She is stable for discharge home with supportive care and outpatient follow-up. Discharge Plan Discharge Clinical Impression: Superficial thrombophlebitis Patient Disposition: Home, Self-Care Instructions: Superficial Thrombophlebitis (ED) Additional Instructions: Your ultrasound today showed small blood clot in a superficial vein, this is known as superficial thrombophlebitis. Treatment for this is applying heat several times per day, elevating when possible. It is also recommended that you take anti-inflammatory pain medications to help with the pain and swelling. Prescription has been sent to your pharmacy. This condition usually goes away on its own with the above measures. Compression can also help, use the applied Seamus wrap as needed for compression and support. If you develop new or worsening symptoms call 911 or come back to the ER for further evaluation. Prescriptions: New ibuprofen 600 mg tablet 600 mg PO Q8H PRN (Reason: pain) Qty: 30 0RF No Action naproxen 500 mg tablet 500 mg PO BID PRN (Reason: pain) 10 Days Qty: 20 0RF Epi E-Z Pen nabumetone 500 mg tablet 500 mg PO BID trazodone 150 mg tablet 150 mg PO BEDTIME PRN (Reason: Insomnia) [id number] [id number] mg capsule 2 cap PO Q4H PRN (Reason: Migraine Headache) Rx Instructions: do not exceed 6 caps per day sertraline 25 mg tablet 25 mg PO DAILY meclizine 12.5 mg tablet 12.5 mg PO BID senna 8.6 mg capsule 8.6 mg PO DAILY acetaminophen 325 mg capsule 325 mg PO QID PRN (Reason: Pain) simethicone [Gas Relief (simethicone)] 80 mg tablet,chewable 80 mg PO BEDTIME diphenhydramine HCl [Allergy (diphenhydramine)] 25 mg capsule 25 mg PO Q6H PRN (Reason: Allergic Symptoms) divalproex [Depakote] 125 mg tablet,delayed release (DR/EC) 125 mg PO TID esomeprazole magnesium [Nexium] 40 mg capsule,delayed release(DR/EC) 40 mg PO DAILY Qty: 30 5RF sumatriptan succinate 50 mg tablet 50 mg PO Q2-4H PRN (Reason: Migraine Headache) Rx Instructions: do not exceed 4 doses per 24 hrs
== END 2022-07-09 11:50 | disposition home or self-care (01) ==
PROVIDERS: Emergency Provider Emergency Medicine; PCP General Practice
DX: I82.611 Acute embolism and thrombosis of superficial veins of right upper extremity (principal); M79.601 Pain in right arm
CPT/HCPCS: 93971; 99282; 99284

== ENCOUNTER → 2022-07-17 08:45 | Outpatient (BNVA) | payer OTHER, SELFPAY | PROVIDERS: PCP General Practice; Visit Provider Obstetrics & Gynecology | DX: D21.9 Benign neoplasm of connective and other soft tissue, unspecified (principal) | CPT/HCPCS: 99212 ==

== ENCOUNTER → 2022-07-23 07:43 | Outpatient (BNVA) | payer OTHER, SELFPAY | PROVIDERS: PCP General Practice; Referring Provider General Practice; Visit Provider Nurse Practitioner Family | DX: A04.8 Other specified bacterial intestinal infections (principal); K21.9 Gastro-esophageal reflux disease without esophagitis; K59.04 Chronic idiopathic constipation; Z79.899 Other long term (current) drug therapy; Z98.890 Other specified postprocedural states | CPT/HCPCS: 99212 ==

== ENCOUNTER → 2022-07-31 13:47 | Outpatient (BNVA) | payer OTHER, SELFPAY | PROVIDERS: PCP General Practice; Referring Provider General Practice; Visit Provider Nurse Practitioner Family | DX: R07.2 Precordial pain (principal); R00.2 Palpitations; I47.1 Supraventricular tachycardia | CPT/HCPCS: 99212 ==

== ENCOUNTER 2022-08-09 12:53 | Outpatient (REF) | payer OTHER, SELFPAY ==
--- NOTE | ~2022-08-09 | XR_ITS ---
EXAMINATION: XR PRE-MRI SCREENING CLINICAL INFORMATION: Pre-MRI screening orbits COMPARISON: None TECHNIQUE: 3 views of the orbits. FINDINGS: No metallic orbital foreign body identified. Curvilinear metallic density overlying the nose is most consistent with a face mask. Paranasal sinuses appear well-aerated. No acute osseous findings are seen. XR/XR pre mri screening IMPRESSION: No orbital metallic foreign body identified.
--- NOTE | ~2022-08-09 | MR_ITS ---
EXAMINATION: MRI PELVIS WITH AND WITHOUT CONTRAST CLINICAL INFORMATION: Reason for Exam D21.9 - Benign neoplasm of connective and other soft tissue, unspecified COMPARISON: Pelvic ultrasound 04/15/2022, CT abdomen pelvis 08/22/2021 TECHNIQUE: Multiple routine MRI sequences through the pelvis were obtained before and after the uneventful administration of 7.5 mL of Gadavist gadolinium-based IV contrast. FINDINGS: UTERUS: Anteverted uterus has a normal configuration and measures 8.7 x 5.9 x 3.8 cm ([id number] x anterior-posterior x transverse). Endometrium is uniform and measures 0.4 cm in thickness. No additional zone thickening most prominent anteriorly right measures 2.4 cm in thickness suggesting adenomyosis tiny foci of intrinsic T2 hyperintense signal. A pedunculated subserosal myoma is noted posterior to the body of the uterus measuring 3.7 x 3.0 x 3.8 cm which is homogeneously T2 hypointense and hyperenhancing. Susceptibility artifact in the anterior lower uterine segment. CERVIX: Unremarkable. VAGINA: Unremarkable. OVARIES: Right ovary is remarkable for a physiologic corpus luteum. The left ovary is not identified. No adnexal mass. KIDNEYS: Two normally positioned kidneys are seen. No hydronephrosis. BLADDER: Unremarkable. PELVIC FREE FLUID: Trace physiologic volume simple pelvic free fluid. LYMPH NODES: No pathologically enlarged lymph nodes. OSSEOUS STRUCTURES: No acute or suspicious osseous abnormalities. MR/MR pelvis wo/w con IMPRESSION: A 3.8 cm homogeneously T2 hypointense hyperenhancing pedunculated myoma off the posterior body of the uterus. Findings suggestive of adenomyosis with junctional zone thickening. The left ovary was not identified. No adnexal mass.
== END 2022-08-09 12:54 | disposition home or self-care (01) ==
LOC: HO.MRI 12:53
PROVIDERS: Visit Provider Obstetrics & Gynecology
DX: D21.9 Benign neoplasm of connective and other soft tissue, unspecified (principal)
CPT/HCPCS: 72197; A9585

== ENCOUNTER → 2022-08-20 14:47 | Outpatient (REF) | payer OTHER, SELFPAY ==
--- NOTE | 2022-08-20 14:49 | HM_ITS ---
* Total monitoring time 6 days and 18 hours. * Underlying rhythm is sinus. Average rate 83/Min. Range 51 to 225/Min. * About 13% the time, rate greater than 100/Min. * At the time ventricular rate was 225/Min, difficult to state underlying rhythm. Possible sinus tach/frequent PACs/atrial tachycardia. Doubt atrial fibrillation. There is also a lot of artifact in the strip. * No pauses or AV blocks. * No patient diary. MTDD
== END ==
LOC: HO.CARD 14:47
PROVIDERS: Visit Provider Nurse Practitioner Family
DX: I47.1 Supraventricular tachycardia (principal); R00.2 Palpitations
CPT/HCPCS: 93242

== ENCOUNTER → 2022-08-21 09:01 | Outpatient (BNVA) | payer OTHER, SELFPAY | PROVIDERS: PCP General Practice; Visit Provider Nurse Practitioner Family | DX: A04.8 Other specified bacterial intestinal infections (principal); K59.04 Chronic idiopathic constipation; K21.9 Gastro-esophageal reflux disease without esophagitis | CPT/HCPCS: 99212 ==

== ENCOUNTER → 2022-08-27 14:05 | Outpatient (BNVA) | payer OTHER, SELFPAY | PROVIDERS: Visit Provider Obstetrics & Gynecology | DX: D25.9 Leiomyoma of uterus, unspecified (principal) | CPT/HCPCS: Q3014 ==

== ENCOUNTER → 2022-10-02 08:42 | Outpatient (BNVA) | payer OTHER, SELFPAY | PROVIDERS: PCP General Practice; Referring Provider General Practice; Visit Provider Nurse Practitioner Family | DX: K21.9 Gastro-esophageal reflux disease without esophagitis (principal); K59.04 Chronic idiopathic constipation | CPT/HCPCS: 99212 ==

== ENCOUNTER → 2022-10-16 08:20 | Outpatient (BNVA) | payer OTHER, SELFPAY | PROVIDERS: PCP General Practice; Referring Provider General Practice; Visit Provider Nurse Practitioner Family | DX: Z11.0 Encounter for screening for intestinal infectious diseases (principal) | CPT/HCPCS: 99211 ==

== ENCOUNTER 2022-10-16 17:00 | Outpatient (REF) | payer OTHER, SELFPAY ==
[2022-10-17 14:29] LABS: H Pylori Breath Test Negative (Negative)
== END 2022-10-16 17:01 | disposition home or self-care (01) ==
LOC: HO.LNP 17:00
PROVIDERS: Visit Provider Nurse Practitioner Family
DX: A04.8 Other specified bacterial intestinal infections (principal)
CPT/HCPCS: 83013

== ENCOUNTER → 2022-10-22 12:56 | Outpatient (BNVA) | payer OTHER, SELFPAY | PROVIDERS: PCP General Practice; Visit Provider Nurse Practitioner Family | DX: R00.2 Palpitations (principal); I47.1 Supraventricular tachycardia; R07.2 Precordial pain | CPT/HCPCS: 99212 ==

== ENCOUNTER → 2022-11-13 08:25 | Outpatient (BNVA) | payer OTHER, SELFPAY | PROVIDERS: PCP General Practice; Visit Provider Nurse Practitioner Family | DX: K59.04 Chronic idiopathic constipation (principal); K21.9 Gastro-esophageal reflux disease without esophagitis | CPT/HCPCS: 99212 ==

== ENCOUNTER 2022-12-04 23:36 | Emergency (ER) | payer OTHER, SELFPAY ==
[2022-12-04 23:42] VITALS: BP 152/86; PULSE 74; RESP 22; TEMP 37.2; O2SAT 100; BMI 28.3
--- NOTE | 2022-12-04 23:48 | ECG_ITS ---
Test Reason : CHEST PAIN Blood Pressure : / mmHG Vent. Rate : 074 BPM Atrial Rate : 074 BPM P-R Int : 146 ms QRS Dur : 072 ms QT Int : 386 ms P-R-T Axes : 018 011 018 degrees QTc Int : 428 ms Normal sinus rhythm Normal ECG When compared with ECG of 20-APR-2022 19:48, Premature atrial complexes are no longer Present Referred By: Generic ED Physician Electronically Signed By:SUKHJINDER SHAHID
[2022-12-05 00:09] LABS: Hematocrit 45.3 % (37.0-47.0); Hemoglobin 15.2 g/dl (12.0-16.0); Mean Corpuscular HGB Conc 33.6 g/dl (31.0-35.0); Mean Corpuscular Hemoglobin 29.9 pg (27.0-33.0); Mean Corpuscular Volume 89.2 fL (80.0-98.0); Mean Platelet Volume 9.6 fL (9.4-12.3); Platelet Count 256 X10*3/uL (160-400); Red Blood Count 5.08 X10*6/uL (4.20-5.50); Red Cell Distribution Width 12.8 % (11.0-16.0); White Blood Count 9.1 X10*3/uL (4.8-10.8)
--- NOTE | 2022-12-05 00:24 | ED.CHESTPAIN ---
HPI - Chest Pain General Chief Complaint: Chest Pain Stated Complaint: chest pain Time Seen by Provider: 12/05/22 00:06 History of Present Illness HPI narrative: Patient 47 years old with no known cause cardiac history with history of palpitation Holter monitor showed runs of atrial tachycardia and Cardizem 180 mg was started for rate control also has a history of anxiety patient echocardiogram done on 05/31-with ejection fraction 62% patient looks anxious says has pain since morning sharp pain in mid sternum and left side of the chest looks anxious on arrival feels palpitation off and on but while stay in the ER does no arrhythmias noticed Related Data Home Medications Medication Instructions Recorded Confirmed acetaminophen 325 mg capsule 325 mg PO QID PRN Pain 12/11/20 10/22/22 diphenhydramine HCl 25 mg capsule 25 mg PO Q6H PRN Allergic Symptoms 12/11/20 10/22/22 (Allergy (diphenhydramine)) divalproex 125 mg tablet,delayed 125 mg PO TID 12/11/20 10/22/22 release (Depakote) meclizine 12.5 mg tablet 12.5 mg PO BID 12/11/20 10/22/22 nabumetone 500 mg tablet 500 mg PO BID 12/11/20 10/22/22 sertraline 25 mg tablet 25 mg PO DAILY 12/11/20 10/22/22 simethicone 80 mg chewable tablet 80 mg PO BEDTIME 12/11/20 10/22/22 (Gas Relief (simethicone)) trazodone 150 mg tablet 150 mg PO BEDTIME PRN Insomnia 12/11/20 10/22/22 sumatriptan succinate 50 mg tablet 50 mg PO Q2-4H PRN Migraine 04/23/22 10/22/22 Headache Epi E-Z Pen 06/18/22 10/22/22 Previous Rx's Medication Instructions Recorded esomeprazole magnesium 40 mg 40 mg PO DAILY #30 caps 02/26/22 capsule,delayed release (Nexium) ibuprofen 600 mg tablet 600 mg PO Q8H PRN pain #30 tabs 07/09/22 docusate sodium 100 mg capsule 100 mg PO BEDTIME #90 caps 08/21/22 sucralfate 1 gram tablet 1 g PO BEDTIME #30 tabs 08/21/22 famotidine 20 mg tablet (Pepcid) 20 mg PO DAILY #30 tabs 10/02/22 sennosides 8.6 mg capsule (senna) 17.2 mg PO DAILY #90 caps 10/02/22 diltiazem HCl 180 mg 180 mg PO DAILY #90 caps 10/24/22 capsule,extended release 24 hr polyethylene glycol 3350 17 17 g PO DAILY #510 grams 11/13/22 gram/dose oral powder (Miralax) Allergies Allergy/AdvReac Type Severity Reaction Status Date / Time nut - unspecified Allergy Severe Anaphylaxis Verified 11/13/22 08:34 mold Allergy Intermediate itchy Verified 11/13/22 08:34 throat raw vegetable Allergy Intermediate Itchy Verified 11/13/22 08:34 throat SEASONAL ALLERGIES Allergy Intermediate Itchy Uncoded 08/27/22 14:06 Eyes, congestion, watery eyes Review of Systems Review of Systems: Yes all other systems are reviewed and are negative [facility] Past Medical History Medical History Anxiety Arthritis Chronic idiopathic constipation Dysplasia of cervix, low grade (ADÁN 1) Epilepsy Fibromyalgia Gastroesophageal reflux disease Helicobacter pylori (H. pylori) History of glaucoma as a child Hypoglycemia PONV (postoperative nausea and vomiting) Prosthetic eye globe Surgical History H/O LEEP History of History of eye surgery Hx of tubal ligation S/P removal of left ovary Family History Family History Mother Seizures CAD (coronary artery disease) Pacemaker Diabetes Father No problems noted. Social History Social History Are you a primary healthcare architect to a significant other at home: No Do you presently have visiting nurse or other home services: No Alcohol intake: never Patient Tobacco Use Status: Never used Tobacco Advance Directives: No Sexual orientation: Straight/Heterosexual Gender identity: Female Physical Exam Vital Signs: Vital Signs: Last Vital Signs Temp 99 F 12/04/22 23:42 Pulse 74 12/04/22 23:42 Resp 22 H 12/04/22 23:42 BP 152/86 H 12/04/22 23:42 Pulse Ox 100 12/04/22 23:42 O2 Del Method 12/04/22 23:42 BMI result Body Mass Index 28.3 Appearance: Alert. Oriented X3. No acute distress. Anxious Eyes: PERRLA, No Nystagmus ENT: Pharynx normal. Oral Mucosa moist Neck: Normal inspection. Neck supple. CVS: Normal heart rate and rhythm. Pulses normal. Respiratory: No respiratory distress. Equal air entry bilateral, no wheezing/rales/rhonchi Abdomen: Soft and nontender. Bowel sounds are present, no mass palpable, no CVA tenderness Skin: Skin warm and dry. Normal skin color. Normal skin turgor. Extremities: No lower extremity edema. No calf tenderness Neuro: Oriented X 3. No motor deficit. No sensory deficit.No cerebellar signs , cranial nerves II-XII intact Medical Decision Making Lab Data MDM Lab Attestation statement: I reviewed the patient's lab results. 12/04/22 23:58 12/04/22 23:58 Labs: Lab Results 12/04/22 12/04/22 12/04/22 Range/Units 23:58 23:58 23:58 WBC 9.1 (4.8-10.8) X10*3/uL RBC 5.08 (4.20-5.50) X10*6/uL Hgb 15.2 (12.0-16.0) g/dl Hct 45.3 (37.0-47.0) % MCV 89.2 (80.0-98.0) fL MCH 29.9 (27.0-33.0) pg MCHC 33.6 (31.0-35.0) g/dl RDW 12.8 (11.0-16.0) % Plt Count 256 (160-400) X10*3/uL MPV 9.6 (9.4-12.3) fL Absolute Nucleated RBC 0.000 (0.0-0.012) X10*3/uL Nucleated RBC % (auto) 0.0 (0.0-0.2) /100WBC Sodium 141 (135-145) mmol/L Potassium 4.1 (3.3-5.1) mmol/L Chloride 106 (96-108) mmol/L Carbon Dioxide 22 (22-29) mmol/L Anion Gap 17 (12-20) BUN 12 (9-16) mg/dL Creatinine 0.80 (0.5-1.4) mg/dL Estim Creat Clear Calc 81.2 Estimated GFR > 60 Random Glucose 80 (60-115) mg/dL Calcium 9.5 D (8.4-10.2) mg/dL Total Bilirubin 0.4 (0.0-1.0) mg/dL AST 20 (5-31) U/L ALT 21 (0-31) U/L Alkaline Phosphatase 76 (39-117) U/L Troponin I High Sens < 3.5 (<3.5-17.0) ng/L Total Protein 8.4 H (6.5-8.0) g/dL Albumin 4.5 (3.5-5.0) g/dL Independent Interpretation I performed an independent interpretation of an: EKG Interpretation: Normal sinus rate heart rate 74 beats per minute normal interval normal axis no acute ischemic changes impression normal EKG Discharge Plan Discharge Clinical Impression: Palpitations, Chest pain Patient Disposition: Home, Self-Care Instructions: Chest Pain (ED), Heart Palpitations (ED) Additional Instructions: Your workup is negative for any acute damage to heart 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 and follow up with him Prescriptions: No Action diltiazem HCl 180 mg capsule,extended release 24hr 180 mg PO DAILY Qty: 90 1RF Epi E-Z Pen ibuprofen 600 mg tablet 600 mg PO Q8H PRN (Reason: pain) Qty: 30 0RF nabumetone 500 mg tablet 500 mg PO BID trazodone 150 mg tablet 150 mg PO BEDTIME PRN (Reason: Insomnia) sertraline 25 mg tablet 25 mg PO DAILY meclizine 12.5 mg tablet 12.5 mg PO BID acetaminophen 325 mg capsule 325 mg PO QID PRN (Reason: Pain) simethicone [Gas Relief (simethicone)] 80 mg tablet,chewable 80 mg PO BEDTIME diphenhydramine HCl [Allergy (diphenhydramine)] 25 mg capsule 25 mg PO Q6H PRN (Reason: Allergic Symptoms) divalproex [Depakote] 125 mg tablet,delayed release (DR/EC) 125 mg PO TID esomeprazole magnesium [Nexium] 40 mg capsule,delayed release(DR/EC) 40 mg PO DAILY Qty: 30 5RF sumatriptan succinate 50 mg tablet 50 mg PO Q2-4H PRN (Reason: Migraine Headache) Rx Instructions: do not exceed 4 doses per 24 hrs sucralfate 1 gram tablet 1 g PO BEDTIME Qty: 30 4RF docusate sodium 100 mg capsule 100 mg PO BEDTIME Qty: 90 3RF famotidine [Pepcid] 20 mg tablet 20 mg PO DAILY Qty: 30 0RF senna 8.6 mg capsule 17.2 mg PO DAILY Qty: 90 4RF polyethylene glycol 3350 [Miralax] 17 gram/dose powder 17 g PO DAILY Qty: 510 2RF Interventions: ED Discharge Assessment Last Done: 12/05/22 02:16 Discharge Date/Time: 12/05/22 02:17
[2022-12-05 00:28] LABS: Alanine Aminotransferase 21 U/L (0-31); Albumin Level 4.5 g/dL (3.5-5.0); Alkaline Phosphatase 76 U/L (39-117); Anion Gap 17 (12-20); Aspartate Amino Transferase 20 U/L (5-31); Bilirubin Total 0.4 mg/dL (0.0-1.0); Blood Urea Nitrogen 12 mg/dL (9-16); Calcium 9.5 mg/dL (8.4-10.2); Carbon Dioxide 22 mmol/L (22-29); Chloride 106 mmol/L (96-108); Creatinine Clr Calc Pharmacy 81.2; Estimated Glomerular Filt Rate > 60; Glucose Random 80 mg/dL (60-115); Potassium 4.1 mmol/L (3.3-5.1); Sodium 141 mmol/L (135-145); Total Protein 8.4 g/dL (6.5-8.0)
[2022-12-05 00:29] LABS: Troponin-I High Sensitivity < 3.5 ng/L (<3.5-17.0)
== END 2022-12-05 02:17 | disposition home or self-care (01) ==
PROVIDERS: Emergency Provider Internal Medicine; PCP General Practice
DX: R07.89 Other chest pain (principal); R00.2 Palpitations; Z79.899 Other long term (current) drug therapy
CPT/HCPCS: 36415; 80053; 84484; 85027; 93005; 99283

== ENCOUNTER → 2023-02-10 09:43 | Outpatient (BNVA) | payer OTHER, SELFPAY | PROVIDERS: PCP General Practice; Referring Provider General Practice; Visit Provider Internal Medicine | DX: I47.1 Supraventricular tachycardia (principal); I49.8 Other specified cardiac arrhythmias; R00.2 Palpitations | CPT/HCPCS: 99212 ==

== ENCOUNTER 2023-02-13 13:49 | Outpatient (REF) | payer OTHER, SELFPAY ==
--- NOTE | ~2023-02-13 | MM_ITS ---
EXAMINATION: MM DIAGNOSTIC DIGITAL BREAST TOMOSYNTHESIS, BILATERAL CLINICAL INFORMATION: Due for yearly. Probable benign calcifications anterior 3:00 right breast. No known family history breast cancer. The lifetime risk of breast cancer based on the Tyrer-Cuzick Model is 8%. COMPARISON: Mammography: 01/31/2022, 01/28/2022 (BI-RADS 0), 12/18/2020, 04/21/2018 TECHNIQUE: Digital breast tomosynthesis is performed in both the craniocaudal and mediolateral oblique views along with computer-aided detection (CAD). Synthesized 2D images are generated from the tomosynthesis. Additional magnification views right breast are obtained in the CC x2 and ML projections. FINDINGS: There are scattered areas of fibroglandular density (ACR BI-RADS breast composition Category b). Breast tissue composition borders on heterogeneously dense. There is no developing density or architectural abnormality. No significant mass or interval abnormal calcifications. The axilla and skin contours are unremarkable. Tightly grouped calcifications for follow-up anterior 3:00 right breast are stable from prior diagnostic exam, likely chronic. There is suggestion of layering on the ML view consistent with milk of calcium. Right breast calcifications will be reassessed again in 6 months. Results are provided to the patient at time of visit by the technologist. MM/MM tomosynthesis diagnostic BI IMPRESSION: Right: -Right breast calcifications for follow-up are stable from prior diagnostic exam. Left: -No mammographic evidence of malignancy. ASSESSMENT: BI-RADS 3: Probably Benign RECOMMENDATION: Diagnostic right mammography in 6 months. This patient's information was entered into a reminder system with a target due date for their next mammogram.
== END 2023-02-13 13:50 | disposition home or self-care (01) ==
LOC: HO.MAMMO 13:49
PROVIDERS: PCP General Practice; Visit Provider Obstetrics & Gynecology
DX: R92.1 Mammographic calcification found on diagnostic imaging of breast (principal)
CPT/HCPCS: 77062; 77066

== ENCOUNTER → 2023-02-14 08:44 | Outpatient (REF) | payer OTHER, SELFPAY ==
--- NOTE | 2023-02-14 08:49 | HM_ITS ---
Conclusion: 1. Patient was monitored for total period of 13 days and 23 hours 2. Baseline was normal sinus rhythm with average heart of 77 beats per minute 3. No significant pauses noted 4. Episode of atrial fibrillation noted longest lasting 3 minutes and 27 seconds with total burden of 0.04% with heart rate of 183 beats per minute 5. Rare PACs noted 6. Patient reported 3 events that correlated with sinus rhythm MTDD
== END ==
LOC: HO.CARD 08:44
PROVIDERS: PCP General Practice; Visit Provider Internal Medicine
DX: R00.2 Palpitations (principal)
CPT/HCPCS: 93246

== ENCOUNTER → 2023-04-15 15:19 | Outpatient (BNVA) | payer OTHER, SELFPAY | PROVIDERS: PCP General Practice; Referring Provider General Practice; Visit Provider Nurse Practitioner Family | DX: I48.91 Unspecified atrial fibrillation (principal); I47.1 Supraventricular tachycardia; Z79.899 Other long term (current) drug therapy | CPT/HCPCS: 99212 ==

== ENCOUNTER 2023-05-29 07:42 | Emergency (ER) | payer OTHER, SELFPAY ==
[2023-05-29 07:48] VITALS: BP 118/72; PULSE 77; RESP 16; TEMP 35.7; O2SAT 100; BMI 26.6
--- NOTE | 2023-05-29 08:16 | ED_ITS ---
HPI - Abdominal Pain General Chief Complaint: Abdominal Pain Stated Complaint: ulcer pain Time Seen by Provider: 05/29/23 08:09 Source: patient Mode of arrival: ambulatory Limitations: no limitations History of Present Illness HPI narrative: This is a 47 years old female presented to the emergency department complaining of epigastric abdominal pain, she states that she has history of peptic ulcer disease she is on omeprazole 40 mg daily, she also has history of fibromyalgia, she is taking also nabutenoin and naproxen elicited complaint: abdominal pain Pertinent past history: none Onset (ago): hour(s) (12) Pain Consistency: constant Location: epigastric Severity: moderate Radiation: none Migration to: no migration Relieving factors: nothing Related Data Home Medications Medication Instructions Recorded Confirmed acetaminophen 325 mg capsule 325 mg PO QID PRN Pain 12/11/20 04/15/23 diphenhydramine HCl 25 mg capsule 25 mg PO Q6H PRN Allergic Symptoms 12/11/20 04/15/23 (Allergy (diphenhydramine)) divalproex 125 mg tablet,delayed 125 mg PO TID 12/11/20 04/15/23 release (Depakote) meclizine 12.5 mg tablet 12.5 mg PO BID 12/11/20 04/15/23 nabumetone 500 mg tablet 500 mg PO BID 12/11/20 04/15/23 sertraline 25 mg tablet 25 mg PO DAILY 12/11/20 04/15/23 simethicone 80 mg chewable tablet 80 mg PO BEDTIME 12/11/20 04/15/23 (Gas Relief (simethicone)) trazodone 150 mg tablet 150 mg PO BEDTIME PRN Insomnia 12/11/20 04/15/23 sumatriptan succinate 50 mg tablet 50 mg PO Q2-4H PRN Migraine 04/23/22 04/15/23 Headache Epi E-Z Pen 06/18/22 04/15/23 metoprolol succinate 25 mg 25 mg PO DAILY 02/10/23 04/15/23 tablet,extended release 24 hr Previous Rx's Medication Instructions Recorded esomeprazole magnesium 40 mg 40 mg PO DAILY #30 caps 02/26/22 capsule,delayed release (Nexium) ibuprofen 600 mg tablet 600 mg PO Q8H PRN pain #30 tabs 07/09/22 docusate sodium 100 mg capsule 100 mg PO BEDTIME #90 caps 08/21/22 sucralfate 1 gram tablet 1 g PO BEDTIME #30 tabs 08/21/22 famotidine 20 mg tablet (Pepcid) 20 mg PO DAILY #30 tabs 10/02/22 sennosides 8.6 mg capsule (senna) 17.2 mg PO DAILY #90 caps 10/02/22 polyethylene glycol 3350 17 17 g PO DAILY #510 grams 11/13/22 gram/dose oral powder (Miralax) diltiazem HCl 240 mg 240 mg PO DAILY 90 days #90 caps 03/03/23 capsule,extended release 24 hr Allergies Allergy/AdvReac Type Severity Reaction Status Date / Time nut - unspecified Allergy Severe Anaphylaxis Verified 05/29/23 07:50 mold Allergy Intermediate itchy Verified 05/29/23 07:50 throat raw vegetable Allergy Intermediate Itchy Verified 05/29/23 07:50 throat SEASONAL ALLERGIES Allergy Intermediate Itchy Uncoded 04/15/23 15:23 Eyes, congestion, watery eyes Review of Systems Constitutional: Reports no additional constitutional complaints Cardiovascular: Reports no additional cardiovascular complaints Gastrointestinal: Reports other (epigastric pain) ON LICENSE OF [facility] Past Medical History Medical History Anxiety Arthritis Chronic idiopathic constipation Dysplasia of cervix, low grade (ADÁN 1) Epilepsy Fibromyalgia Gastroesophageal reflux disease Helicobacter pylori (H. pylori) History of glaucoma as a child Hypoglycemia PONV (postoperative nausea and vomiting) Prosthetic eye globe Surgical History H/O LEEP History of History of eye surgery Hx of tubal ligation S/P removal of left ovary Family History Family History Mother Seizures CAD (coronary artery disease) Pacemaker Diabetes Father No problems noted. Social History Social History Are you a primary patient care assistant to a significant other at home: No Do you presently have visiting nurse or other home services: No Alcohol intake: never Patient Tobacco Use Status: Never used Tobacco Advance Directives: No Sexual orientation: Straight/Heterosexual Gender identity: Female Physical Exam ED Vital Signs: Vital Signs - 24 hr 05/29/23 07:48 Temperature 96.2 F L Pulse Rate 77 Respiratory Rate 16 Blood Pressure 118/72 Pulse Oximetry 100 Oxygen Delivery Method Room Air BMI result Body Mass Index 26.6 Const Other: She looks well she is not toxic-appearing General: cooperative Nutritional Appearance: average body habitus Orientation/consciousness: patient oriented x3 HENMT Head: Yes normal to inspection General nose exam: Normal external nose present Face and sinus: Yes normal facial exam Mouth: Normal oral and palatal mucosa present Throat: Yes posterior oropharynx normal Neck Neck: Yes normal visual inspection Thyroid: Thyroid normal Resp Effort & Inspection: normal respiratory effort Auscultation: clear to auscultation bilaterally Cardio Jugular venous distension: no JVD Rate: regular rate Rhythm: regular rhythm GI Inspection: Yes normal to inspection Palpation (GI): Soft to palpation and Tenderness to palpation present (GI) (epigastric area) Skin General skin exam: no rashes or lesions noted and elasticity normal Lesions: no lesions Neuro General: patient oriented x3 Extrem General: Yes normal to inspection Course Reevaluation(s) Reevaluation #1: Feels better after maalox labs wnl I do not think we need imaging,will d/c home with lauroangelaluis daniel precaution Time: 09:06 Medical Decision Making Medical Decision Making MDM Narrative: Patient presented with epigastric pain she has history of peptic ulcer disease will obtain labs will try a GI cocktail will reassess 9:08 AM she is feeling much better labs are within normal limit, at this point I do not think we need to do imaging she will discontinue the naproxen and nabutenon Differential Diagnosis Differential Diagnoses: The differential diagnosis associated with the presentation includes Peptic ulcer disease/pancreatitis/gastritis/gerd Admission/Observation Consideration of admission/observation: Escalation of care including admissio n/observation considered I considered a CT scan of the abdomen and pelvis but pain resolved the labs were normal Lab Data MDM Lab Attestation statement: I reviewed the patient's lab results. 05/29/23 08:07 05/29/23 08:07 Labs: Lab Results 05/29/23 05/29/23 05/29/23 Range/Units 08:07 08:07 08:42 WBC 9.0 (4.8-10.8) X10*3/uL RBC 4.85 (4.20-5.50) X10*6/uL Hgb 14.6 (12.0-16.0) g/dl Hct 43.8 (37.0-47.0) % MCV 90.3 (80.0-98.0) fL MCH 30.1 (27.0-33.0) pg MCHC 33.3 (31.0-35.0) g/dl RDW 12.3 (11.0-16.0) % Plt Count 242 (160-400) X10*3/uL MPV 10.2 (9.4-12.3) fL Immature Gran % (Auto) 0.4 (0.0-0.4) % Neut % (Auto) 74.7 H (45-73) % Lymph % (Auto) 18.6 L (20-40) % [place] % (Auto) 4.9 (2-11) % Eos % (Auto) 0.8 (0-4) % Baso % (Auto) 0.6 (0-2) % Lymph # (Auto) 1.7 (1.2-4.9) X10*3/uL [place] # (Auto) 0.4 (0.1-1.2) X10*3/uL Eos # (Auto) 0.1 (0.0-0.4) X10*3/uL Baso # (Auto) 0.1 (0.0-0.2) X10*3/uL Abs Immat Gran (auto) 0.04 H (0.00-0.03) X10*3/uL Absolute Neuts (auto) 6.7 (2.0-8.3) x10*3/uL Absolute Nucleated RBC 0.000 (0.0-0.012) X10*3/uL Nucleated RBC % (auto) 0.0 (0.0-0.2) /100WBC Sodium 139 (135-145) mmol/L Potassium 4.3 (3.3-5.1) mmol/L Chloride 109 H (96-108) mmol/L Carbon Dioxide 23 (22-29) mmol/L Anion Gap 11 L (12-20) BUN 12 (9-16) mg/dL Creatinine 0.83 (0.5-1.4) mg/dL Estim Creat Clear Calc 75.9 Estimated GFR > 60 Random Glucose 86 (60-115) mg/dL Calcium 9.7 (8.4-10.2) mg/dL Total Bilirubin 0.6 (0.0-1.0) mg/dL Direct Bilirubin 0.2 (0.0-0.5) mg/dL AST 15 (5-31) U/L ALT 14 (0-31) U/L Alkaline Phosphatase 69 (39-117) U/L Total Protein 7.3 (6.5-8.0) g/dL Albumin 4.1 (3.5-5.0) g/dL Lipase 19 (8-78) U/L Beta HCG, Quant < 2 mIU/mL Urine Color Urine Appearance Urine pH (5.0-9.0) Ur Specific [place] (1.005-1.025) Urine Protein (Neg-Trace) mg/dL Urine Glucose (UA) (Negative) mg/dL Urine Ketones (Negative) mg/dL Urine Blood (Negative) Urine Nitrite (Negative) Ur Leukocyte Esterase (Negative) 05/29/23 Range/Units 08:42 WBC (4.8-10.8) X10*3/uL RBC (4.20-5.50) X10*6/uL Hgb (12.0-16.0) g/dl Hct (37.0-47.0) % MCV (80.0-98.0) fL MCH (27.0-33.0) pg MCHC (31.0-35.0) g/dl RDW (11.0-16.0) % Plt Count (160-400) X10*3/uL MPV (9.4-12.3) fL Immature Gran % (Auto) (0.0-0.4) % Neut % (Auto) (45-73) % Lymph % (Auto) (20-40) % [place] % (Auto) (2-11) % Eos % (Auto) (0-4) % Baso % (Auto) (0-2) % Lymph # (Auto) (1.2-4.9) X10*3/uL [place] # (Auto) (0.1-1.2) X10*3/uL Eos # (Auto) (0.0-0.4) X10*3/uL Baso # (Auto) (0.0-0.2) X10*3/uL Abs Immat Gran (auto) (0.00-0.03) X10*3/uL Absolute Neuts (auto) (2.0-8.3) x10*3/uL Absolute Nucleated RBC (0.0-0.012) X10*3/uL Nucleated RBC % (auto) (0.0-0.2) /100WBC Sodium (135-145) mmol/L Potassium (3.3-5.1) mmol/L Chloride (96-108) mmol/L Carbon Dioxide (22-29) mmol/L Anion Gap (12-20) BUN (9-16) mg/dL Creatinine (0.5-1.4) mg/dL Estim Creat Clear Calc Estimated GFR Random Glucose (60-115) mg/dL Calcium (8.4-10.2) mg/dL Total Bilirubin (0.0-1.0) mg/dL Direct Bilirubin (0.0-0.5) mg/dL AST (5-31) U/L ALT (0-31) U/L Alkaline Phosphatase (39-117) U/L Total Protein (6.5-8.0) g/dL Albumin (3.5-5.0) g/dL Lipase (8-78) U/L Beta HCG, Quant mIU/mL Urine Color Yellow Urine Appearance Clear Urine pH 6.5 (5.0-9.0) Ur Specific [place] 1.020 (1.005-1.025) Urine Protein Negative (Neg-Trace) mg/dL Urine Glucose (UA) Negative (Negative) mg/dL Urine Ketones 15 (Negative) mg/dL Urine Blood Negative (Negative) Urine Nitrite Negative (Negative) Ur Leukocyte Esterase Negative (Negative) External Record Review External record reviewed: Inpatient record Medications Administered Discontinued Medications Generic Name Dose Route Start Last Admin Trade Name Freq PRN Reason Stop Dose Admin Al Hydroxide/Mg Hydroxide 30 ml 05/29/23 08:13 05/29/23 08:39 Magnesium Hydrox/Alum Hydrox 30 Ml Oral.Susp PO 05/29/23 08:14 30 ml ONCE ONE Administration Belladonna Alkaloids/Phenobarbital 5 ml 05/29/23 08:13 05/29/23 08:39 Phenobarb/Hyoscy/Atropine/Scop 10 Ml Elixir PO 07/20/23 08:14 5 ml ONCE ONE Administration Lidocaine HCl 5 ml 05/29/23 08:14 05/29/23 08:43 Lidocaine Hcl Viscous 2 % 15 Ml Solution MUCOUS MEM 05/29/23 08:15 Not Given ONCE ONE Discharge Plan Discharge Clinical Impression: Acute epigastric pain Patient Disposition: Home, Self-Care Instructions: Epigastric Pain (ED) Additional Instructions: We recommended you hold the naproxen and the nabutenon they both are nonsteroidal anti-inflammatory drugs, and they can upset your stomach. Follow-up with your primary care physician return if you are worse vomiting fever any concern Prescriptions: No Action diltiazem HCl 240 mg capsule,extended release 24hr 240 mg PO DAILY 90 Days Qty: 90 3RF Epi E-Z Pen ibuprofen 600 mg tablet 600 mg PO Q8H PRN (Reason: pain) Qty: 30 0RF nabumetone 500 mg tablet 500 mg PO BID trazodone 150 mg tablet 150 mg PO BEDTIME PRN (Reason: Insomnia) sertraline 25 mg tablet 25 mg PO DAILY meclizine 12.5 mg tablet 12.5 mg PO BID acetaminophen 325 mg capsule 325 mg PO QID PRN (Reason: Pain) simethicone [Gas Relief (simethicone)] 80 mg tablet,chewable 80 mg PO BEDTIME diphenhydramine HCl [Allergy (diphenhydramine)] 25 mg capsule 25 mg PO Q6H PRN (Reason: Allergic Symptoms) divalproex [Depakote] 125 mg tablet,delayed release (DR/EC) 125 mg PO TID esomeprazole magnesium [Nexium] 40 mg capsule,delayed release(DR/EC) 40 mg PO DAILY Qty: 30 5RF sumatriptan succinate 50 mg tablet 50 mg PO Q2-4H PRN (Reason: Migraine Headache) Rx Instructions: do not exceed 4 doses per 24 hrs sucralfate 1 gram tablet 1 g PO BEDTIME Qty: 30 4RF docusate sodium 100 mg capsule 100 mg PO BEDTIME Qty: 90 3RF famotidine [Pepcid] 20 mg tablet 20 mg PO DAILY Qty: 30 0RF senna 8.6 mg capsule 17.2 mg PO DAILY Qty: 90 4RF metoprolol succinate 25 mg tablet extended release 24 hr 25 mg PO DAILY polyethylene glycol 3350 [Miralax] 17 gram/dose powder 17 g PO DAILY Qty: 510 2RF Referrals: Ruma Driver MD [Primary Care Provider] - Interventions: ED Discharge Assessment Last Done: 05/29/23 09:27 Discharge Date/Time: 05/29/23 09:28
[2023-05-29 08:28] LABS: MANUAL DIFF FLAG NO
[2023-05-29] MEDS: Magnesium Hydrox/Alum Hydrox 30 ML ORAL.SUSP PO (08:39)
[2023-05-29] MEDS: PHENobarb/Hyoscy/Atropine/Scop 10 ML ELIXIR 5 ML PO (08:39)
[2023-05-29 08:45] LABS: Basophils Absolute Auto 0.1 X10*3/uL (0.0-0.2); Basophils Percent Auto 0.6 % (0-2); Eosinophils Absolute Auto 0.1 X10*3/uL (0.0-0.4); Eosinophils Percent Auto 0.8 % (0-4); Hematocrit 43.8 % (37.0-47.0); Hemoglobin 14.6 g/dl (12.0-16.0); Imm Gran Abs Auto 0.04 X10*3/uL (0.00-0.03); Imm Gran Pct Auto 0.4 % (0.0-0.4); Lymphocytes Absolute Auto 1.7 X10*3/uL (1.2-4.9); Lymphocytes Percent Auto 18.6 % (20-40); Mean Corpuscular HGB Conc 33.3 g/dl (31.0-35.0); Mean Corpuscular Hemoglobin 30.1 pg (27.0-33.0); Mean Corpuscular Volume 90.3 fL (80.0-98.0); Mean Platelet Volume 10.2 fL (9.4-12.3); Monocytes Absolute Auto 0.4 X10*3/uL (0.1-1.2); Monocytes Percent Auto 4.9 % (2-11); Neutrophils Absolute Auto 6.7 x10*3/uL (2.0-8.3); Neutrophils Percent Auto 74.7 % (45-73); Platelet Count 242 X10*3/uL (160-400); Red Blood Count 4.85 X10*6/uL (4.20-5.50); Red Cell Distribution Width 12.3 % (11.0-16.0)
[2023-05-29 08:48] LABS: Alanine Aminotransferase 14 U/L (0-31); Albumin Level 4.1 g/dL (3.5-5.0); Alkaline Phosphatase 69 U/L (39-117); Anion Gap 11 (12-20); Aspartate Amino Transferase 15 U/L (5-31); Bilirubin Direct 0.2 mg/dL (0.0-0.5); Bilirubin Total 0.6 mg/dL (0.0-1.0); Blood Urea Nitrogen 12 mg/dL (9-16); Calcium 9.7 mg/dL (8.4-10.2); Carbon Dioxide 23 mmol/L (22-29); Chloride 109 mmol/L (96-108); Creatinine Clr Calc Pharmacy 75.9; Estimated Glomerular Filt Rate > 60; Glucose Random 86 mg/dL (60-115); Lipase 19 U/L (8-78); Potassium 4.3 mmol/L (3.3-5.1); Sodium 139 mmol/L (135-145); Total Protein 7.3 g/dL (6.5-8.0)
[2023-05-29 08:52] LABS: Appearance Urine Clear; Color Urine Yellow; Glucose Urine UA Negative (Negative); Leukocyte Esterase Urine Negative (Negative); Nitrite Urine Negative (Negative); PH 6.5 (5.0-9.0); Urine Blood Negative (Negative); Urine Ketones 15 mg/dL (Negative); Urine Protein Negative (Neg-Trace)
--- NOTE | 2023-05-29 09:05 | PC.NURSE ---
med given as ordered Lidocaine not given, per pharmacy med on back order and not available. Dr. Kacy jung.
[2023-05-29 10:12] LABS: HCG Quantitative < 2 mIU/mL
== END 2023-05-29 09:28 | disposition home or self-care (01) ==
PROVIDERS: Emergency Provider Emergency Medicine; PCP General Practice
DX: R10.13 Epigastric pain (principal); R10.2 Pelvic and perineal pain; K27.9 Peptic ulcer, site unspecified, unspecified as acute or chronic, without hemorrhage or perforation; M79.7 Fibromyalgia; N87.9 Dysplasia of cervix uteri, unspecified; Z79.899 Other long term (current) drug therapy
CPT/HCPCS: 36415; 80048; 80076; 81003; 83690; 84702; 85025; 99283

== ENCOUNTER 2023-06-04 09:47 | Outpatient (AMB) | payer OTHER, SELFPAY ==
--- NOTE | 2023-06-04 10:03 | A.OFFVIS_ITS ---
Intake Vital Signs 06/04/23 10:05 Height 5 ft 3 in Weight 155 lb 10.342 oz BMI 27.6 Blood Pressure Location Lt brachial Position Sitting Intake Visit Reasons: follow up r/s from 05/30 Intake Note: Cordelia presents in office as a est.patient for a f/u & r/s for CIC. PT CC: pt reports having constipation pt denies any other GI Issues Steward/Stewardess Second Class Required: No Accompanied by: Self / Same As Patient Allergies nut - unspecified Allergy (Severe, Verified 06/04/23 10:04) Anaphylaxis mold Allergy (Intermediate, Verified 06/04/23 10:04) itchy throat raw vegetable Allergy (Intermediate, Verified 06/04/23 10:04) Itchy throat SEASONAL ALLERGIES Allergy (Intermediate, Uncoded 06/04/23 10:04) Itchy Eyes, congestion, watery eyes HPI follow up r/s from 05/30 HPI Details LAST VISIT 11/13/2022 Chronic idiopathic constipation Continue Senokot. Patient will start taking MiraLax in the morning. If she continues to be constipated will start her on Linzess Gastroesophageal reflux disease Continue current therapy with Nexium in the morning and famotidine at bedtime. Patient will continue avoiding dietary triggers and late night snacking. Staying upright for minimum 3 hours after meals discussed with patient. Plan Medications New polyethylene glycol 3350 (Miralax) 17 grams PO DAILY 510 grams 2RF TODAY'S VISIT Patient is here today for follow-up. Patient reports that she continues to be constipated. Occasional postprandial abdominal bloating states that she is moving her bowels, however she does not feel like she empties them completely. Patient states that she is having acid reflux specially at night time. Patient is not eating late at night. Patient denies any nausea or vomiting. Denies melena, hematochezia, unintentional weight loss or ribbon like stools. Patient denies any dyspepsia, dysphagia or odynophagia. [facility] Medical History Anxiety Arthritis Chronic idiopathic constipation Dysplasia of cervix, low grade (ADÁN 1) Epilepsy Fibromyalgia Gastroesophageal reflux disease Helicobacter pylori (H. pylori) History of glaucoma as a child Hypoglycemia PONV (postoperative nausea and vomiting) Prosthetic eye globe Surgical History H/O LEEP History of History of eye surgery Hx of tubal ligation S/P removal of left ovary Family History Mother Seizures CAD (coronary artery disease) Pacemaker Diabetes Father No problems noted. Social History Are you a primary respiratory care specialist to a significant other at home: No Do you presently have visiting nurse or other home services: No Alcohol intake: never Patient Tobacco Use Status: Never used Tobacco Sexual orientation: Straight/Heterosexual Gender identity: Female Female Reproductive History Menstrual Age of Menarche: 10 Review of Systems Const Denies weight gain and Denies weight loss ENT Reports no additional complaints, Denies dysphagia and Denies odynophagia Card Reports no additional complaints Resp Reports no additional complaints GI Denies abdominal pain, Denies belching, Denies melena, Denies bloating, Denies change in bowel habits, Reports constipation, Denies dysphagia, Denies excessive flatus, Denies dyspepsia, Reports heartburn, Denies diarrhea, Denies loose stools, Reports nausea (Occasional), Denies odynophagia and Denies vomiting Reports no additional complaints Musc Reports no additional complaints Neuro Reports no additional complaints Psych Reports no additional complaints Endo Reports no additional complaints Physical Exam Vital Signs: BMI result Body Mass Index 27.6 Const General: healthy appearing, no acute distress and well developed Nutritional Appearance: well nourished Orientation/consciousness: patient oriented x3 HEENT Head: Yes normal to inspection, Yes normocephalic and Yes atraumatic Face and sinus: Yes normal facial exam Mouth: Normal oral and palatal mucosa present Throat: Yes posterior oropharynx normal, Yes tonsils normal and Yes uvula midline Eyes General: appearance normal, both eyes and all related structures Neck Neck: Yes normal visual inspection, Yes full ROM and Yes trachea midline Thyroid: Thyroid normal Resp Effort & Inspection: normal respiratory effort, able to speak in complete sentences, no tracheal deviation and symmetric chest movement Auscultation: clear to auscultation bilaterally Cardio Rate: regular rate Heart sounds: S1 normal heart sound present and S2 normal heart sound present GI Inspection: Yes normal to inspection and No distended Palpation (GI): Soft to palpation, not firm, nontender and No hepatosplenomegaly present Auscultation: normal bowel sounds General: Yes no CVA tenderness Back/Spine/Pelvis Back: no CVA tenderness Skin General skin exam: elasticity normal, turgor normal and dry skin Neuro General: patient oriented x3 Psych Appearance: grossly normal Mental Status: mental status grossly normal Speech and movement: Normal speech and movement present Assessment & Plan Assessment & Plan (1) Gastroesophageal reflux disease: Code(s): K21.9 - Gastro-esophageal reflux disease without esophagitis Qualifiers: Esophagitis presence: without esophagitis Qualified Code(s): K21.9 - Gastro-esophageal reflux disease without esophagitis Plan: Continue Nexium. Will add sucralfate at bedtime. Patient was encouraged to avoid dietary triggers and late night snacking. Staying upright for minimum 3 hours after meals discussed with patient (2) Chronic idiopathic constipation: Code(s): K59.04 - Chronic idiopathic constipation Plan: Will start patient on Trulance if that will not working we will switch to Linzess. Patient was also encouraged to increase fluid intake and activity to promote better bowel motility. I will see patient in 3 months, sooner on as needed basis. Patient is agreeable to this plan and verbalizes understanding of instructions. She was given the opportunity to ask questions and all questions answered. Thank you for allowing me to participate in her care Medications: New sucralfate 10 mL PO BEDTIME 400 mL 3RF K21.9 - Gastro-esophageal reflux disease without esophagitis plecanatide (Trulance) 3 mg PO DAILY 30 tabs 3RF K59.09 - Other constipation Discontinued sucralfate Discontinued Reason: Doctor's Order 1 g PO BEDTIME 30 tabs 4RF R19.7 - Diarrhea, unspecified famotidine (Pepcid) Discontinued Reason: Doctor's Order 20 mg PO DAILY 30 tabs 0RF K21.9 - Gastro-esophageal reflux disease without esophagitis Coding Level of Care Code Est Pt Level 3 (09226) Diagnoses Gastroesophageal reflux disease K21.9 Esophagitis presence: without esophagitis Chronic idiopathic constipation K59.04 Time Spent (min) 30 Comment 20 minutes spent with patient and additional 10 minutes spent reviewing her records
[2023-06-04 10:05] VITALS: BMI 27.6
== END 2023-06-04 10:29 | disposition home or self-care (01) ==
PROVIDERS: PCP General Practice; Visit Provider Nurse Practitioner Family
DX: K21.9 Gastro-esophageal reflux disease without esophagitis (principal); K59.04 Chronic idiopathic constipation
CPT/HCPCS: 99213

== ENCOUNTER → 2023-06-04 09:47 | Outpatient (BNVA) | payer OTHER, SELFPAY | PROVIDERS: PCP General Practice; Visit Provider Nurse Practitioner Family | DX: K59.04 Chronic idiopathic constipation (principal); K21.9 Gastro-esophageal reflux disease without esophagitis | CPT/HCPCS: 99212 ==

== ENCOUNTER → 2023-07-03 06:47 | Outpatient (REF) | payer OTHER, SELFPAY ==
--- NOTE | 2023-07-03 06:50 | HM_ITS ---
Conclusion: 1. Patient was monitored for total period of 3 days 2. Baseline was normal sinus rhythm with average heart of 77 beats per minute 3. No significant pauses noted next 4. Very brief episode of atrial fibrillation noted with total burden of 0.48% with longest lasting 1 minute with heart rate up to 172 beats per minute 4. Occasional PACs noted 5. Patient marked counter 1 time without associated symptoms reported correlating with sinus rhythm MTDD
== END ==
LOC: HO.CARD 06:47
PROVIDERS: PCP General Practice; Visit Provider Nurse Practitioner Family
DX: I48.91 Unspecified atrial fibrillation (principal)
CPT/HCPCS: 93242

== ENCOUNTER → 2023-07-03 06:50 | Outpatient (BNV) | payer OTHER, SELFPAY | PROVIDERS: PCP General Practice; Visit Provider Internal Medicine Cardiovascular Disease | DX: I48.91 Unspecified atrial fibrillation (principal) | CPT/HCPCS: 93244 ==

== ENCOUNTER 2023-08-05 08:46 | Outpatient (AMB) | payer OTHER, SELFPAY ==
--- NOTE | 2023-08-05 09:02 | MHC.OFFVIS ---
Intake Vital Signs 08/05/23 09:03 Height 5 ft 3 in Weight 152 lb 8.958 oz BMI 27.0 BP 129/96 H Blood Pressure Location Rt brachial Position Sitting Pulse 110 H Intake Visit Reasons: 2 month fu Intake Note: Cordelia presents to in office visit today in follow up of CIC and GERD. CC: Patient reports that the Trulance and Sucralfate has been working well for her constipation and GERD. She denies having any new GI issues and concerns. Animal Taxonomist Required: No Accompanied by: Self / Same As Patient Allergies nut - unspecified Allergy (Severe, Verified 06/04/23 10:04) Anaphylaxis mold Allergy (Intermediate, Verified 06/04/23 10:04) itchy throat raw vegetable Allergy (Intermediate, Verified 06/04/23 10:04) Itchy throat SEASONAL ALLERGIES Allergy (Intermediate, Uncoded 06/04/23 10:04) Itchy Eyes, congestion, watery eyes HPI 2 month fu HPI Details LAST VISIT: Gastroesophageal reflux disease Continue Nexium. Will add sucralfate at bedtime. Patient was encouraged to avoid dietary triggers and late night snacking. Staying upright for minimum 3 hours after meals discussed with patient Chronic idiopathic constipation Will start patient on Trulance if that will not working we will switch to Linzess. Patient was also encouraged to increase fluid intake and activity to promote better bowel motility. I will see patient in 3 months, sooner on as needed basis. Patient is agreeable to this plan and verbalizes understanding of instructions. She was given the opportunity to ask questions and all questions answered. TODAY'S VISIT Patient is here today for follow-up. Patient reports that since she started taking Trulance she is able to move her bowels better. Patient is taking Nexium in the morning and sucralfate at bedtime and her symptoms of acid reflux are suppressed. Patient denies dyspepsia, dysphagia or odynophagia. Patient denies melena, hematochezia, unintentional weight loss or ribbon like stools. Patient reports that she has been feeling much better. Patient denies any GI concerning symptoms. ? PFSH Medical History Anxiety Arthritis Chronic idiopathic constipation Dysplasia of cervix, low grade (ADÁN 1) Epilepsy Fibromyalgia Gastroesophageal reflux disease Helicobacter pylori (H. pylori) History of glaucoma as a child Hypoglycemia PONV (postoperative nausea and vomiting) Prosthetic eye globe Surgical History H/O LEEP History of History of eye surgery Hx of tubal ligation S/P removal of left ovary Family History Mother Seizures CAD (coronary artery disease) Pacemaker Diabetes Father No problems noted. Social History Are you a primary small animal caretaker to a significant other at home: No Do you presently have visiting nurse or other home services: No Alcohol intake: never Patient Tobacco Use Status: Never used Tobacco Sexual orientation: Straight/Heterosexual Gender identity: Female Female Reproductive History Menstrual Age of Menarche: 10 Review of Systems Const Denies weight gain and Denies weight loss ENT Reports no additional complaints, Denies dysphagia and Denies odynophagia Card Reports no additional complaints Resp Reports no additional complaints GI Denies abdominal pain, Denies belching, Denies melena, Denies bloating, Denies change in bowel habits, Denies dysphagia, Denies excessive flatus, Denies dyspepsia, Reports heartburn (occasional), Denies diarrhea, Denies loose stools, Denies nausea, Denies odynophagia and Denies vomiting Musc Reports no additional complaints Neuro Reports no additional complaints Psych Reports no additional complaints Endo Reports no additional complaints Physical Exam Vital Signs: Last Vital Signs Pulse 110 H 08/05/23 09:03 BP 129/96 H 08/05/23 09:03 BMI result Body Mass Index 27.0 Const General: healthy appearing, no acute distress and well developed Nutritional Appearance: well nourished Orientation/consciousness: patient oriented x3 HEENT Head: Yes normal to inspection, Yes normocephalic and Yes atraumatic Face and sinus: Yes normal facial exam Mouth: Normal oral and palatal mucosa present Throat: Yes posterior oropharynx normal, Yes tonsils normal and Yes uvula midline Eyes General: appearance normal, both eyes and all related structures Neck Neck: Yes normal visual inspection, Yes full ROM and Yes trachea midline Thyroid: Thyroid normal Resp Effort & Inspection: normal respiratory effort, able to speak in complete sentences, no tracheal deviation and symmetric chest movement Auscultation: clear to auscultation bilaterally Cardio Rate: regular rate Heart sounds: S1 normal heart sound present and S2 normal heart sound present GI Inspection: Yes normal to inspection and No distended Palpation (GI): Soft to palpation, not firm, nontender and No hepatosplenomegaly present Auscultation: normal bowel sounds General: Yes no CVA tenderness Back/Spine/Pelvis Back: no CVA tenderness Skin General skin exam: elasticity normal, turgor normal and dry skin Neuro General: patient oriented x3 Psych Appearance: grossly normal Mental Status: mental status grossly normal Speech and movement: Normal speech and movement present Assessment & Plan Assessment & Plan (1) Gastroesophageal reflux disease: Code(s): K21.9 - Gastro-esophageal reflux disease without esophagitis Qualifiers: Esophagitis presence: without esophagitis Qualified Code(s): K21.9 - Gastro-esophageal reflux disease without esophagitis Plan: Continue Nexium and sucralfate. Patient was also encouraged to avoid dietary triggers in late night snacking. Staying upright for minimum 3 hours after meals discussed with patient. (2) Chronic idiopathic constipation: Code(s): K59.04 - Chronic idiopathic constipation Plan: Continue taking Trulance. Patient was also encouraged to increase fluid intake and activity to promote better bowel motility. I will see her in 6 months, sooner on as needed basis. Patient is agreeable to plan of care and verbalizes understanding of instructions. She was given the opportunity to ask questions and all questions answered. Thank you for allowing me to participate in her care Medications: Discontinued sennosides (senna) Discontinued Reason: Doctor's Order 17.2 mg (2 x 8.6 mg) PO DAILY 90 caps 4RF polyethylene glycol 3350 (Miralax) Discontinued Reason: Doctor's Order 17 grams PO DAILY 510 grams 2RF Coding Level of Care Code Est Pt Level 3 (33362) Diagnoses Gastroesophageal reflux disease without esophagitis K21.9 Esophagitis presence: without esophagitis Chronic idiopathic constipation K59.04 Time Spent (min) 30 Comment 20 minutes spent with patient and additional 10 minutes spent reviewing her records
[2023-08-05 09:03] VITALS: BP 129/96; PULSE 110; BMI 27.0
== END 2023-08-05 09:30 | disposition home or self-care (01) ==
PROVIDERS: PCP General Practice; Visit Provider Nurse Practitioner Family
DX: K21.9 Gastro-esophageal reflux disease without esophagitis (principal); K59.04 Chronic idiopathic constipation
CPT/HCPCS: 99213

== ENCOUNTER → 2023-08-05 08:46 | Outpatient (BNVA) | payer OTHER, SELFPAY | PROVIDERS: PCP General Practice; Visit Provider Nurse Practitioner Family | DX: K21.9 Gastro-esophageal reflux disease without esophagitis (principal); K59.04 Chronic idiopathic constipation | CPT/HCPCS: 99212 ==

== ENCOUNTER 2023-08-14 10:25 | Outpatient (AMB) | payer OTHER, SELFPAY ==
[2023-08-14 10:41] VITALS: BP 130/82; PULSE 83; BMI 27.6
--- NOTE | 2023-08-14 10:41 | MHC.OFFVIS ---
Intake Vital Signs 08/14/23 10:41 Height 5 ft 3 in Weight 155 lb 10.342 oz BMI 27.6 BP 130/82 Blood Pressure Location Lt brachial Position Sitting Pulse 83 Pulse Source Pulse Oximeter Intake Visit Reasons: 4 month f/u holter Intake Note: 4 month f/u holter Assistant Professor Of Nursing Required: No Print Shop Stenographer: Print Shop Stenographer Present Accompanied by: Mother Allergies nut - unspecified Allergy (Severe, Verified 08/14/23 10:46) Anaphylaxis mold Allergy (Intermediate, Verified 08/14/23 10:46) itchy throat raw vegetable Allergy (Intermediate, Verified 08/14/23 10:46) Itchy throat SEASONAL ALLERGIES Allergy (Intermediate, Uncoded 06/04/23 10:04) Itchy Eyes, congestion, watery eyes Medication List - Last Reconciled 08/14/23 by Nuzhat Massey NP-C acetaminophen 325 mg PO QID PRN diltiazem HCl 240 mg PO DAILY 90 days diphenhydramine HCl (Allergy (diphenhydramine)) 25 mg PO Q6H PRN divalproex (Depakote) 125 mg PO TID docusate sodium 100 mg PO BEDTIME [Epi E-Z Pen ] esomeprazole magnesium (Nexium) 40 mg PO DAILY ibuprofen 600 mg PO Q8H PRN meclizine 12.5 mg PO BID metoprolol succinate ER 25 mg PO DAILY nabumetone 500 mg PO BID plecanatide (Trulance) 3 mg PO DAILY sertraline 25 mg PO DAILY sucralfate 10 mL PO BEDTIME sumatriptan succinate 50 mg PO Q2-4H PRN trazodone 150 mg PO BEDTIME PRN HPI 4 month f/u holter HPI Details Cordelia is a 48-year-old female past medical history SVT, new or finding PAF who recently had a Holter monitor and now presents for follow-up. Today she reports that she continues to notice rapid palpitations, brief, intermittent which cause her concern. She has not had any sustained palpitations more than a minute. No presyncope, syncope, falls. No concerning shortness of breath, PND, orthopnea or edema. No chest discomfort at rest or with activity. Admits to being mostly sedentary. Mother is present. [facility] Medical History Gastroesophageal reflux disease Chronic idiopathic constipation Helicobacter pylori (H. pylori) Hypoglycemia PONV (postoperative nausea and vomiting) History of glaucoma as a child Prosthetic eye globe Anxiety Dysplasia of cervix, low grade (ADÁN 1) Arthritis Fibromyalgia Epilepsy Surgical History History of eye surgery H/O LEEP Hx of tubal ligation History of S/P removal of left ovary Family History Mother Seizures CAD (coronary artery disease) Pacemaker Diabetes Father No problems noted. Social History Are you a primary floor care technician to a significant other at home: No Do you presently have visiting nurse or other home services: No Alcohol intake: current Alcohol intake frequency: holidays/special occasions only Patient Tobacco Use Status: Never used Tobacco Sexual orientation: Straight/Heterosexual Gender identity: Female Female Reproductive History Menstrual Age of Menarche: 10 Review of Systems Const All systems reviewed & are unremarkable except as noted in HPI and below ENT Denies dizziness Card Details: Palpitation Denies chest pain, Denies chest pain at rest, Denies chest pain with activity, Reports rapid heart rate, Denies pedal edema, Denies edema, Denies leg edema, Denies lightheadedness, Denies palpitations, Denies dyspnea, Denies dyspnea on exertion and Denies orthopnea Resp Denies cough, Denies dyspnea and Denies dyspnea on exertion GI Denies hematochezia and Denies change in stool character Musc Denies abnormal gait, Reports limited range of motion, Reports muscle cramps, Denies muscle weakness, Denies numbness, Denies radiating pain into limb, Denies stiffness and Denies tingling Neuro Denies abnormal gait, Denies dizziness, Denies numbness and Denies tingling Endo Denies palpitations Physical Exam Vital Signs: Last Vital Signs Pulse 83 08/14/23 10:41 BP 130/82 08/14/23 10:41 BMI result Body Mass Index 27.6 Const General: cooperative, healthy appearing, comfortable and no acute distress Orientation/consciousness: patient oriented x3 Neck Neck: Yes normal visual inspection Resp Effort & Inspection: normal respiratory effort Auscultation: clear to auscultation bilaterally, no crackles, no rales, no rhonchi and no wheezes Cardio Jugular venous distension: no JVD Rate: regular rate Rhythm: regular rhythm Heart sounds: S1 normal heart sound present, S2 normal heart sound present, no gallops, no murmurs and no rubs Neuro General: patient oriented x3 Extrem General: Yes normal to inspection, No no pedal edema and No calf tenderness Psych Appearance: grossly normal Mental Status: mental status grossly normal Speech and movement: Normal speech and movement present Assessment & Plan Assessment & Plan (1) Atrial fibrillation: Code(s): I48.91 - Unspecified atrial fibrillation Qualifiers: Atrial fibrillation type: paroxysmal Qualified Code(s): I48.0 - Paroxysmal atrial fibrillation Plan: History of heart palpitations. Echocardiogram done 06/07/2022 shows normal EF, 62%, no valve abnormalities. Exercise stress test done 06/07/2022 showed exercise 6 minutes, brief SVT run noted in recovery lasting approximately 3 seconds, no EKG changes of ischemia. A Holter monitor was done 02/14/2023 for 14 days which showed sinus rhythm with average heart rate 77, episode of atrial fibrillation noted lasting 3 minutes and 27 seconds with a total burden of 0.04% with heart rate 183 beats per minute, Rare PACs, symptoms correlated with sinus rhythm. She was already on diltiazem 180 mg daily and metoprolol XL 25 mg daily. Her diltiazem dose was increased to 240 mg. Chads Vasc score of 1, female. Not started on anticoagulation. On last follow-up visit she continued to report periodic heart palpitations. Her blood pressure was on the low side some medications left unchanged. Repeat Holter monitor done 07/03/2023 for 3 days shows sinus rhythm with average heart rate 77, brief episode of atrial fibrillation with low burden, 0.48%, 1 minute episode with rate 172, symptoms correlated with sinus rhythm. Results reviewed with her. Today she reports that she still gets rapid heart palpitations lasting up to a minute and causing concern. Reviewed diagnosis of atrial fibrillation with her. Discussed stroke risk with AFib. She has low stroke risk profile. Instructed on the ongoing reduction in caffeinated beverages. Maintain hydration and good activity as tolerated. Will increase metoprolol XL up to 50 mg daily. Continue same diltiazem. Instructed to call if she continues to have concerning palpitations. Cardiology follow-up in 6 months, sooner if needed. Emergency care if ever needed for concerning symptoms. (2) SVT (supraventricular tachycardia): Code(s): I47.1 - Supraventricular tachycardia Plan: Short runs of SVT noted in recovery period of stress test, longest about 3 seconds with report of heart palpitation at that time. She is on rate slowing medications. Newer finding of AFib as above. Also may be getting periodic episodes of SVT as well. continue with medical management and lifestyle modifications Medications: New metoprolol succinate ER 50 mg PO DAILY 30 tabs 5RF Coding Level of Care Code Est Pt Level 3 (17957) Diagnoses Paroxysmal atrial fibrillation I48.0 Atrial fibrillation type: paroxysmal SVT (supraventricular tachycardia) I47.1 Time Spent (min) 24
== END 2023-08-14 11:02 | disposition home or self-care (01) ==
PROVIDERS: PCP General Practice; Visit Provider Nurse Practitioner Family
DX: I48.0 Paroxysmal atrial fibrillation (principal); I47.1 Supraventricular tachycardia
CPT/HCPCS: 99213

== ENCOUNTER → 2023-08-14 10:25 | Outpatient (BNVA) | payer OTHER, SELFPAY | PROVIDERS: PCP General Practice; Visit Provider Nurse Practitioner Family | DX: I48.0 Paroxysmal atrial fibrillation (principal); I47.10 Supraventricular tachycardia, unspecified; R00.2 Palpitations | CPT/HCPCS: 99212 ==

== ENCOUNTER 2023-09-14 05:04 | Emergency (ER) | payer OTHER, SELFPAY ==
[2023-09-14 05:14] VITALS: BP 123/88; BP 140/77; PULSE 87; PULSE 95; RESP 18; TEMP 37.6; O2SAT 100; O2SAT 98; BMI 28.0
--- NOTE | 2023-09-14 05:29 | PC.NURSE ---
this rn assumed care of pt from ems. strep swab obtained and sent down to lab pt able to form complete sentences pt able to manage secretions
[2023-09-14 05:38] LABS: IDNOW Serial# 6674DD1D
[2023-09-14 05:39] LABS: Strep A Nucleic Acid Negative (Negative)
--- NOTE | 2023-09-14 05:43 | ED_ITS ---
HPI - URI/Sore Throat General Chief Complaint: Upper Respiratory Symptoms Stated Complaint: swollen tonsils Time Seen by Provider: 09/14/23 05:38 Source: patient Mode of arrival: EMS Limitations: no limitations History of Present Illness HPI Narrative: Patient complaining of sore throat for last 2 days painful to swallow no fever no chills speech is normal no cough or shortness of breath Related Data Home Medications Medication Instructions Recorded Confirmed acetaminophen 325 mg capsule 325 mg PO QID PRN Pain 12/11/20 08/14/23 diphenhydramine HCl 25 mg capsule 25 mg PO Q6H PRN Allergic Symptoms 12/11/20 08/14/23 (Allergy (diphenhydramine)) divalproex 125 mg tablet,delayed 125 mg PO TID 12/11/20 08/14/23 release (Depakote) meclizine 12.5 mg tablet 12.5 mg PO BID 12/11/20 08/14/23 nabumetone 500 mg tablet 500 mg PO BID 12/11/20 08/14/23 sertraline 25 mg tablet 25 mg PO DAILY 12/11/20 08/14/23 trazodone 150 mg tablet 150 mg PO BEDTIME PRN Insomnia 12/11/20 08/14/23 sumatriptan succinate 50 mg tablet 50 mg PO Q2-4H PRN Migraine 04/23/22 08/14/23 Headache Epi E-Z Pen 06/18/22 08/14/23 Previous Rx's Medication Instructions Recorded esomeprazole magnesium 40 mg 40 mg PO DAILY #30 caps 02/26/22 capsule,delayed release (Nexium) ibuprofen 600 mg tablet 600 mg PO Q8H PRN pain #30 tabs 07/09/22 docusate sodium 100 mg capsule 100 mg PO BEDTIME #90 caps 08/21/22 diltiazem HCl 240 mg 240 mg PO DAILY 90 days #90 caps 03/03/23 capsule,extended release 24 hr plecanatide 3 mg tablet (Trulance) 3 mg PO DAILY #30 tabs 06/04/23 sucralfate 100 mg/mL oral 10 ml PO BEDTIME #400 mL 06/04/23 suspension metoprolol succinate 50 mg 50 mg PO DAILY #30 tabs 08/14/23 tablet,extended release 24 hr cefuroxime axetil 500 mg tablet 500 mg PO BID 7 days #14 tabs 09/14/23 Allergies Allergy/AdvReac Type Severity Reaction Status Date / Time nut - unspecified Allergy Severe Anaphylaxis Verified 08/14/23 10:46 mold Allergy Intermediate itchy Verified 08/14/23 10:46 throat raw vegetable Allergy Intermediate Itchy Verified 08/14/23 10:46 throat SEASONAL ALLERGIES Allergy Intermediate Itchy Uncoded 06/04/23 10:04 Eyes, congestion, watery eyes Review of Systems Review of Systems: Yes all other systems are reviewed and are negative [facility] Past Medical History Medical History Gastroesophageal reflux disease Chronic idiopathic constipation Helicobacter pylori (H. pylori) Hypoglycemia PONV (postoperative nausea and vomiting) History of glaucoma as a child Prosthetic eye globe Anxiety Dysplasia of cervix, low grade (ADÁN 1) Arthritis Fibromyalgia Epilepsy Surgical History History of eye surgery H/O LEEP Hx of tubal ligation History of S/P removal of left ovary Family History Family History Mother Seizures CAD (coronary artery disease) Pacemaker Diabetes Father No problems noted. Social History Social History Are you a primary healthcare prof to a significant other at home: No Do you presently have visiting nurse or other home services: No Alcohol intake: current Alcohol intake frequency: holidays/special occasions only Patient Tobacco Use Status: Never used Tobacco Smoked in Last 30 Days: No Use of substances other than those prescribed or required for medical reasons: No Advance Directives: No Advance Directives Information Provided: No Patient : No Sexual orientation: Straight/Heterosexual Gender identity: Female Physical Exam Vital Signs: Vital Signs: Last Vital Signs Temp 99.6 F 09/14/23 05:14 Pulse 87 09/14/23 05:14 Resp 18 09/14/23 05:14 BP 140/77 H 09/14/23 05:14 Pulse Ox 100 09/14/23 06:05 O2 Del Method Room Air 09/14/23 06:05 BMI result Body Mass Index 28.0 Appearance: Alert. Oriented X3. No acute distress. ENT: Pharynx erythematous tonsils not enlarged no exudates Oral Mucosa moist Neck: Normal inspection. Neck supple. No lymphadenopathy CVS: Normal heart rate and rhythm. Pulses normal. Respiratory: No respiratory distress. Equal air entry bilateral, no wheezing/rales/rhonchi Skin: Skin warm and dry. Neuro: Oriented X 3. Medications Administered Discontinued Medications Generic Name Dose Route Start Last Admin Trade Name Freq PRN Reason Stop Dose Admin Cefuroxime Axetil 500 mg 09/14/23 05:43 09/14/23 06:01 Cefuroxime Axetil 500 Mg Tablet PO 09/14/23 05:44 500 mg ONCE ONE Administration Medical Decision Making Medical Decision Making [facility] Narrative: Patient clinically strep throat although rapid strep was negative with your patient Ceftin patient had tested herself with COVID home test at home which was negative Lab Data [facility] Lab Attestation statement: I reviewed the patient's lab results. Labs: Lab Results 09/14/23 Range/Units 05:27 S. pyogenes GrpA [facility] Negative (Negative) Discharge Plan Discharge Clinical Impression: Acute pharyngitis Patient Disposition: Home, Self-Care Instructions: Pharyngitis (ED) Additional Instructions: Likely have bacterial pharyngitis take antibiotic as prescribed Drink plenty of fluids Prescriptions: New cefuroxime axetil 500 mg tablet 500 mg PO BID 7 Days Qty: 14 0RF No Action diltiazem HCl 240 mg capsule,extended release 24hr 240 mg PO DAILY 90 Days Qty: 90 3RF Epi E-Z Pen ibuprofen 600 mg tablet 600 mg PO Q8H PRN (Reason: pain) Qty: 30 0RF nabumetone 500 mg tablet 500 mg PO BID trazodone 150 mg tablet 150 mg PO BEDTIME PRN (Reason: Insomnia) sertraline 25 mg tablet 25 mg PO DAILY meclizine 12.5 mg tablet 12.5 mg PO BID acetaminophen 325 mg capsule 325 mg PO QID PRN (Reason: Pain) diphenhydramine HCl [Allergy (diphenhydramine)] 25 mg capsule 25 mg PO Q6H PRN (Reason: Allergic Symptoms) divalproex [Depakote] 125 mg tablet,delayed release (DR/EC) 125 mg PO TID esomeprazole magnesium [Nexium] 40 mg capsule,delayed release(DR/EC) 40 mg PO DAILY Qty: 30 5RF sumatriptan succinate 50 mg tablet 50 mg PO Q2-4H PRN (Reason: Migraine Headache) Rx Instructions: do not exceed 4 doses per 24 hrs docusate sodium 100 mg capsule 100 mg PO BEDTIME Qty: 90 3RF sucralfate 100 mg/mL suspension 10 ml PO BEDTIME Qty: 400 3RF Trulance 3 mg tablet 3 mg PO DAILY Qty: 30 3RF metoprolol succinate 50 mg tablet extended release 24 hr 50 mg PO DAILY Qty: 30 5RF Interventions: ED Discharge Assessment Last Done: 09/14/23 06:08
[2023-09-14] MEDS: cefuroxime axetiL 500 MG TABLET PO (06:01)
[2023-09-14 06:05] VITALS: O2SAT 100
--- NOTE | 2023-09-14 06:07 | PC.NURSE ---
pt medicated at discharge. pt ambulatory. pt calm and cooperative. pt provided with discharge packet. pt verbalized understanding of discharge plan
== END 2023-09-14 06:08 | disposition home or self-care (01) ==
PROVIDERS: Emergency Provider Internal Medicine; PCP General Practice
DX: J02.9 Acute pharyngitis, unspecified (principal); G40.909 Epilepsy, unspecified, not intractable, without status epilepticus
CPT/HCPCS: 87651; 99283; 99284

== ENCOUNTER 2023-09-26 13:25 | Outpatient (REF) | payer OTHER, SELFPAY ==
--- NOTE | ~2023-09-26 | MM_ITS ---
EXAMINATION: MM DIAGNOSTIC DIGITAL BREAST TOMOSYNTHESIS, RIGHT CLINICAL INFORMATION: Follow-up calcifications right breast, likely milk of calcium. COMPARISON: Mammography: 02/13/2023, 01/28/2022, 01/31/2022. TECHNIQUE: Digital right breast tomosynthesis is performed in both the craniocaudal and mediolateral oblique views along with computer-aided detection (CAD). Synthesized 2D images are generated from the tomosynthesis. In addition, 2-D spot right magnification views were performed in the CC and ML projections. FINDINGS: The breasts are heterogeneously dense, which may obscure small masses (ACR BI-RADS breast composition Category c). Within the central inferior right breast, middle one third, there are layering grouped calcifications consistent with milk of calcium and benign. No further follow-up is felt necessary. There are a few other scattered calcifications present, especially in the retroareolar region, also which appear to layer somewhat. These appear stable and are also likely benign.There are several oval low-density circumscribed masses in the right breast, most consistent with cysts and stable from prior exams dating back to 2020. There are no suspicious calcifications, developing masses, or developing regions of architectural distortion in the right breast. MM/MM tomosynthesis diagnostic RT IMPRESSION: There are benign findings consistent with milk of calcium in the central inferior right breast. There are no suspicious calcifications or other suspicious findings. There are no findings suspicious for malignancy. Recommend the patient resume routine annual screening. ASSESSMENT: BI-RADS BI-RADS 2 - Benign Findings RECOMMENDATION: 1 year F/U Results were provided to the patient at time of visit by the technologist. This patient's information was entered into a reminder system with a target due date for their next mammogram.
== END 2023-09-26 13:26 | disposition home or self-care (01) ==
LOC: HO.MAMMO 13:25
PROVIDERS: PCP General Practice; Visit Provider General Practice
DX: R92.1 Mammographic calcification found on diagnostic imaging of breast (principal)
CPT/HCPCS: 77061; 77065

== ENCOUNTER → 2023-09-26 14:00 | Outpatient (BNV) | payer OTHER, SELFPAY | PROVIDERS: PCP General Practice; Visit Provider Radiology Diagnostic Radiology | DX: R92.1 Mammographic calcification found on diagnostic imaging of breast (principal) | CPT/HCPCS: 77065 ==

== ENCOUNTER 2024-02-03 07:43 | Outpatient (AMB) | payer OTHER, SELFPAY ==
[2024-02-03 08:06] VITALS: BP 139/88; PULSE 86; BMI 28.9
--- NOTE | 2024-02-03 08:06 | MHC.OFFVIS ---
Intake Vital Signs 02/03/24 08:06 Height 5 ft 3 in Weight 163 lb 2.273 oz BMI 28.9 BP 139/88 Blood Pressure Location Lt brachial Position Sitting Pulse 86 Intake Visit Reasons: 6 month follow up Intake Note: Cordelia presents in the office as a 6 month follow up. CC: She states that she is having allergies - she has a itch in her throat up to her ear. Allergies nut - unspecified Allergy (Severe, Verified 02/03/24 08:10) Anaphylaxis mold Allergy (Intermediate, Verified 02/03/24 08:10) itchy throat raw vegetable Allergy (Intermediate, Verified 02/03/24 08:10) Itchy throat SEASONAL ALLERGIES Allergy (Intermediate, Uncoded 02/03/24 08:10) Itchy Eyes, congestion, watery eyes HPI 6 month follow up HPI Details LAST VISIT: Gastroesophageal reflux disease Continue Nexium and sucralfate. Patient was also encouraged to avoid dietary triggers in late night snacking. Staying upright for minimum 3 hours after meals discussed with patient. Chronic idiopathic constipation Continue taking Trulance. Patient was also encouraged to increase fluid intake and activity to promote better bowel motility. I will see her in 6 months, sooner on as needed basis. Patient is agreeable to plan of care and verbalizes understanding of instructions. She was given the opportunity to ask questions and all questions answered. ? Thank you for allowing me to participate in her care Plan Medications Discontinued sennosides (senna) Discontinued Reason: Doctor's Order 17.2 mg (2 x 8.6 mg) PO DAILY 90 caps 4RF polyethylene glycol 3350 (Miralax) Discontinued Reason: Doctor's Order 17 grams PO DAILY 510 grams 2RF TODAY'S VISIT: Patient is here today for follow-up. Patient reports that she continues to have occasional constipation. Takes Trulance and has trouble moving her bowels at times. Patient was away for few days in [place] and was unable to have a bowel movement for almost the whole week and had to get [id number] laxatives. Patient reports that she is drinking water and stays fairly busy. Patient ran out of sucralfate in his asking refill. Takes Nexium in the morning and states that her symptoms are suppressed for the most part. Occasionally depending on what she eats she might have acid reflux and dyspepsia. Occasional postprandial abdominal bloating specially when she is constipated. Colonoscopy was done in 2021, no polyps found. Patient had upper endoscopy and was found to have H pylori treated with quadruple therapy with successful eradication confirmed with H pylori breath test. [facility] Medical History (Updated 09/15/23 @ 00:01 by Jer Patel) Gastroesophageal reflux disease Chronic idiopathic constipation Helicobacter pylori (H. pylori) Hypoglycemia PONV (postoperative nausea and vomiting) History of glaucoma as a child Prosthetic eye globe Anxiety Dysplasia of cervix, low grade (ADÁN 1) Arthritis Fibromyalgia Epilepsy Surgical History (Updated 02/03/24 @ 08:10 by Princess Berman Zee) History of esophagogastroduodenoscopy (EGD) Hx of colonoscopy History of eye surgery H/O LEEP Hx of tubal ligation History of S/P removal of left ovary Family History Mother Seizures CAD (coronary artery disease) Pacemaker Diabetes Father No problems noted. Social History Are you a primary inpatient care manager rn to a significant other at home: No Do you presently have visiting nurse or other home services: No Alcohol intake: current Alcohol intake frequency: holidays/special occasions only Comment: medicated with IV tylenol Patient Tobacco Use Status: Never used Tobacco Sexual orientation: Straight/Heterosexual Gender identity: Female Female Reproductive History Menstrual Age of Menarche: 10 Review of Systems Const Denies weight gain and Denies weight loss ENT Reports no additional complaints, Denies dysphagia and Denies odynophagia Card Reports no additional complaints Resp Reports no additional complaints GI Denies abdominal pain, Denies belching, Denies melena, Reports bloating, Reports constipation, Denies dysphagia, Denies excessive flatus, Denies dyspepsia, Reports heartburn (Occasional), Denies diarrhea, Denies loose stools, Denies nausea, Denies odynophagia and Denies vomiting Reports no additional complaints Musc Reports no additional complaints Neuro Reports no additional complaints Psych Reports no additional complaints Endo Reports no additional complaints Physical Exam Vital Signs: Last Vital Signs Pulse 86 02/03/24 08:06 BP 139/88 02/03/24 08:06 BMI result Body Mass Index 28.9 Const General: healthy appearing, no acute distress and well developed Nutritional Appearance: obese Orientation/consciousness: patient oriented x3 Resp Effort & Inspection: normal respiratory effort, able to speak in complete sentences, no tracheal deviation and symmetric chest movement Auscultation: clear to auscultation bilaterally Cardio Rate: regular rate GI Inspection: Yes normal to inspection, No distended and Yes obesity Palpation (GI): Soft to palpation, not firm, nontender and No hepatosplenomegaly present Auscultation: normal bowel sounds General: Yes no CVA tenderness Back/Spine/Pelvis Back: no CVA tenderness Skin General skin exam: elasticity normal, turgor normal and dry skin Neuro General: patient oriented x3 Psych Appearance: grossly normal Mental Status: mental status grossly normal Assessment & Plan Assessment & Plan (1) Gastroesophageal reflux disease: Code(s): K21.9 - Gastro-esophageal reflux disease without esophagitis Qualifiers: Esophagitis presence: without esophagitis Qualified Code(s): K21.9 - Gastro-esophageal reflux disease without esophagitis (2) Chronic idiopathic constipation: Code(s): K59.04 - Chronic idiopathic constipation (3) Postprandial abdominal bloating: Code(s): R14.0 - Abdominal distension (gaseous) Plan Continue Nexium in the morning and sucralfate at bedtime. Patient was encouraged to avoid dietary triggers and late night snacking. Staying upright for minimum 3 hours after meals discussed with patient. Patient will continue taking Trulance in the morning and if no bowel movement for day or 2 patient can take Dulcolax in the evening. Patient was encouraged to increase fluid intake and activity to promote better bowel motility. Patient will return in 6 months, sooner on as needed basis. Patient is agreeable to this plan and verbalizes understanding of instructions. She was given the opportunity to ask questions and all questions answered. Thank you for allowing me to participate in her care. Medications: New bisacodyl (Dulcolax (bisacodyl)) 10 mg (2 x 5 mg) PO BEDTIME 60 tabs 4RF Refilled esomeprazole magnesium (Nexium) 40 mg PO DAILY 30 caps 5RF K21.9 - Gastro-esophageal reflux disease without esophagitis plecanatide (Trulance) 3 mg PO DAILY 30 tabs 3RF K59.09 - Other constipation sucralfate 10 mL PO BEDTIME 400 mL 3RF K21.9 - Gastro-esophageal reflux disease without esophagitis Coding Level of Care Code Est Pt Level 3 (51075) Diagnoses Gastroesophageal reflux disease without esophagitis K21.9 Esophagitis presence: without esophagitis Chronic idiopathic constipation K59.04 Postprandial abdominal bloating R14.0 Time Spent (min) 25 Comment 15 minutes spent with patient and additional 10 minutes spent reviewing her records
== END 2024-02-03 08:48 | disposition home or self-care (01) ==
PROVIDERS: PCP General Practice; Visit Provider Nurse Practitioner Family
DX: K21.9 Gastro-esophageal reflux disease without esophagitis (principal); K59.04 Chronic idiopathic constipation; R14.0 Abdominal distension (gaseous)
CPT/HCPCS: 99213

== ENCOUNTER → 2024-02-03 07:43 | Outpatient (BNVA) | payer OTHER, SELFPAY | PROVIDERS: PCP General Practice; Visit Provider Nurse Practitioner Family | DX: K21.9 Gastro-esophageal reflux disease without esophagitis (principal); K59.04 Chronic idiopathic constipation; R14.0 Abdominal distension (gaseous) | CPT/HCPCS: 99212 ==

== ENCOUNTER 2024-03-02 08:29 | Outpatient (AMB) | payer OTHER, SELFPAY ==
[2024-03-02 08:55] VITALS: BP 130/62; PULSE 70; BMI 29.3
--- NOTE | 2024-03-02 08:55 | A.OFFVIS_ITS ---
Vital Signs 03/02/24 08:55 Height 5 ft 3 in Weight 165 lb 5.547 oz BMI 29.3 BP 130/62 Blood Pressure Location Lt brachial Position Sitting Pulse 70 Intake Visit Reasons: 6 mth fu (rs) Environmental Engineering Technician Required: No Accompanied by: Self / Same As Patient Allergies nut - unspecified Allergy (Severe, Verified 02/03/24 08:10) Anaphylaxis mold Allergy (Intermediate, Verified 02/03/24 08:10) itchy throat raw vegetable Allergy (Intermediate, Verified 02/03/24 08:10) Itchy throat SEASONAL ALLERGIES Allergy (Intermediate, Uncoded 02/03/24 08:10) Itchy Eyes, congestion, watery eyes Medication List - Last Reconciled 03/02/24 by SAMI López acetaminophen 325 mg PO QID PRN bisacodyl (Dulcolax (bisacodyl)) 10 mg (2 x 5 mg) PO BEDTIME cefuroxime axetil 500 mg PO BID 7 days diltiazem HCl CD 240 mg PO DAILY 90 days diphenhydramine HCl (Allergy (diphenhydramine)) 25 mg PO Q6H PRN divalproex 500 mg PO BID docusate sodium 100 mg PO BEDTIME [Epi E-Z Pen ] esomeprazole magnesium (Nexium) 40 mg PO DAILY ibuprofen 600 mg PO Q8H PRN meclizine 12.5 mg PO BID metoprolol succinate ER 50 mg PO DAILY nabumetone 500 mg PO BID plecanatide (Trulance) 3 mg PO DAILY sertraline 25 mg PO DAILY sucralfate 10 mL PO BEDTIME sumatriptan succinate 50 mg PO Q2-4H PRN trazodone 150 mg PO BEDTIME PRN HPI HPI 6 mth fu (rs): Details: Cordelia is a 48-year-old female with past medical history of SVT, paroxysmal atrial fibrillation who presents for follow-up. Today she reports that she does feel heart palpitations on occasion. She has not able to say how often this occurs but believes it is a few times monthly. He says it does not last long and does not bother her much. She takes her medications as directed. No bleeding issues reported. No chest discomfort at rest or with activity. No shortness of breath, lightheadedness, presyncope, syncope, falls, PND, orthopnea or edema. Reports good activity tolerance. [facility] Medical History Gastroesophageal reflux disease Chronic idiopathic constipation Helicobacter pylori (H. pylori) Hypoglycemia PONV (postoperative nausea and vomiting) History of glaucoma as a child Prosthetic eye globe Anxiety Dysplasia of cervix, low grade (ADÁN 1) Arthritis Fibromyalgia Epilepsy Surgical History History of esophagogastroduodenoscopy (EGD) Hx of colonoscopy History of eye surgery H/O LEEP Hx of tubal ligation History of S/P removal of left ovary Family History Mother Seizures CAD (coronary artery disease) Pacemaker Diabetes Father No problems noted. Social History Are you a primary manager care to a significant other at home: No Do you presently have visiting nurse or other home services: No Alcohol intake: current Alcohol intake frequency: holidays/special occasions only Comment: medicated with IV tylenol Patient Tobacco Use Status: Never used Tobacco Sexual orientation: Straight/Heterosexual Gender identity: Female Female Reproductive History Menstrual Age of Menarche: 10 Review of Systems Const All systems reviewed & are unremarkable except as noted in HPI and below Denies chills, Denies fatigue, Denies fever(s), Denies frequent falls, Denies weakness, Denies weight gain and Denies weight loss ENT Denies dizziness Card Details: occassional brief palpitations Denies chest pain, Denies leg edema, Denies lightheadedness, Denies palpitations, Denies dyspnea and Denies dyspnea on exertion Resp Denies cough, Denies dyspnea and Denies dyspnea on exertion GI Denies hematochezia Musc Denies abnormal gait, Denies muscle weakness, Denies numbness, Denies radiating pain into limb and Denies tingling Neuro Denies abnormal gait, Denies dizziness, Denies frequent falls, Denies numbness, Denies tingling and Denies weakness Endo Denies fatigue and Denies palpitations Physical Exam Vital Signs: Last Vital Signs Pulse 70 03/02/24 08:55 BP 130/62 03/02/24 08:55 BMI result Body Mass Index 29.3 Const General: cooperative, healthy appearing, comfortable and no acute distress Orientation/consciousness: patient oriented x3 Neck Neck: Yes normal visual inspection Resp Effort & Inspection: normal respiratory effort Auscultation: clear to auscultation bilaterally, no crackles, no rales, no rhonchi and no wheezes Cardio Jugular venous distension: no JVD Rate: regular rate Rhythm: regular rhythm Heart sounds: S1 normal heart sound present, S2 normal heart sound present, no gallops, no murmurs and no rubs Neuro General: patient oriented x3 Extrem General: Yes normal to inspection, No no pedal edema and No calf tenderness Psych Appearance: grossly normal Mental Status: mental status grossly normal Speech and movement: Normal speech and movement present Office Procedures EKG Details: Today, read by me, sinus rhythm, no acute ST/ T wave abn, rate 70, QTc 414ms [id number], Complete Assessment & Plan Assessment & Plan (1) Atrial fibrillation: Code(s): I48.91 - Unspecified atrial fibrillation Category: Medical Qualifiers: Atrial fibrillation type: paroxysmal Qualified Code(s): I48.0 - Paroxysmal atrial fibrillation Plan: History of heart palpitations. Echocardiogram done 06/07/2022 shows normal EF, 62%, no valve abnormalities. Exercise stress test done 06/07/2022 showed exercise 6 minutes, brief SVT run noted in recovery lasting approximately 3 seconds, no EKG changes of ischemia. A Holter monitor was done 02/14/2023 for 14 days which showed sinus rhythm with average heart rate 77, episode of atrial fibrillation noted lasting 3 minutes and 27 seconds with a total burden of 0.04% with heart rate 183 beats per minute, Rare PACs, symptoms correlated with sinus rhythm. She was already on diltiazem 180 mg daily and metoprolol XL 25 mg daily. Her diltiazem dose was increased to 240 mg and on last visit her metoprolol dose was increased up to 50 mg daily. Chads Vasc score of 1, female. Not started on anticoagulation due to low stroke risk. Today she reports occasional intermittent heart palpitations. No sustained rapid or irregular rates. No presyncope, syncope, falls. No changes to her health profile. Will continue on current med management with diltiazem and metoprolol for heart rate control. Remains off anticoagulation. Stroke risk with AFib reviewed with her. ED care if needed for sustained rapid palpitations. Cardiology follow-up in 6 months, sooner if needed. (2) SVT (supraventricular tachycardia): Code(s): I47.1 - Supraventricular tachycardia Category: Medical Plan: Short runs of SVT noted in recovery period of stress test, longest about 3 seconds with report of heart palpitation at that time. She is on rate slowing medications. Newer finding of AFib as above. Also may be getting periodic episodes of SVT as well. continue with medical management and lifestyle modifications Plan Time spent on chart review, documentation, interview and assessment
== END 2024-03-02 09:57 | disposition home or self-care (01) ==
PROVIDERS: PCP General Practice; Visit Provider Nurse Practitioner Family
DX: I48.0 Paroxysmal atrial fibrillation (principal); I47.10 Supraventricular tachycardia, unspecified
CPT/HCPCS: 93010; 99214

== ENCOUNTER → 2024-03-02 08:29 | Outpatient (BNVA) | payer OTHER, SELFPAY | PROVIDERS: PCP General Practice; Visit Provider Nurse Practitioner Family | DX: I47.10 Supraventricular tachycardia, unspecified (principal); I48.0 Paroxysmal atrial fibrillation; Z82.49 Family history of ischemic heart disease and other diseases of the circulatory system | CPT/HCPCS: 93005; 99212 ==

== ENCOUNTER 2024-03-26 13:44 | Outpatient (REF) | payer OTHER, SELFPAY | END 2024-03-26 13:45 | disposition home or self-care (01) | LOC: HO.MAMMO 13:44 | PROVIDERS: PCP General Practice; Visit Provider General Practice | DX: Z12.31 Encounter for screening mammogram for malignant neoplasm of breast (principal) | CPT/HCPCS: 77063; 77067 ==

== ENCOUNTER → 2024-03-26 14:00 | Outpatient (BNV) | payer OTHER, SELFPAY | PROVIDERS: PCP General Practice; Visit Provider Radiology Diagnostic Radiology | DX: Z12.31 Encounter for screening mammogram for malignant neoplasm of breast (principal) | CPT/HCPCS: 77063; 77067 ==

== ENCOUNTER 2024-04-01 00:59 | Emergency (ER) | payer OTHER, SELFPAY ==
--- NOTE | ~2024-04-01 | CT_ITS ---
EXAMINATION: CT ABDOMEN AND PELVIS WITHOUT CONTRAST CLINICAL INFORMATION: Left flank pain. COMPARISON: None available. TECHNIQUE: Multidetector volumetric imaging was performed from the superior aspect of the liver through the pubic symphysis. Sagittal and coronal reformatted images were obtained on the technologist's workstation. This CT examination was performed using dose optimization techniques as appropriate, variously including the following: *Automated exposure control *Adjustment of mA and/or kV according to patient size (this includes techniques or standardized protocols for targeted exams where dose is matched to indication/reason for exam; i.e. extremities or head) *Use of iterative reconstruction technique DLP: 609 mGy-cm FINDINGS: LUNG BASES: The visualized lung bases are unremarkable. LIVER, GALLBLADDER, AND BILIARY TREE: There are stable small hepatic cysts. The gallbladder is unremarkable with no evidence of radiopaque gallstones, gallbladder wall thickening, or obvious pericholecystic inflammatory changes. PANCREAS: Unremarkable. SPLEEN: Unremarkable. ADRENAL GLANDS: Unremarkable. KIDNEYS AND URETERS: The kidneys are normal in size, shape, and attenuation. No hydronephrosis, hydroureter, or calculi seen. There is mild left hydronephrosis and hydroureter extending into the pelvis to the level of a 3 mm distal left ureteric calculus. BLADDER: Unremarkable. GASTROINTESTINAL TRACT: The small and large bowel are unremarkable. The appendix is not seen. ABDOMINAL WALL: No significant hernia is appreciated. LYMPH NODES: Normal. VASCULAR: Unremarkable. PELVIC VISCERA: Unremarkable. OSSEOUS STRUCTURES: There is a [address]/CT abdomen pelvis wo IV con IMPRESSION: Mild left hydronephrosis and hydroureter extending into the pelvis to the level of a 3 mm distal left ureteric calculus. Fleischner guidelines were followed.
[2024-04-01 01:12] VITALS: BP 144/72; PULSE 77; O2SAT 98
[2024-04-01 01:16] VITALS: BP 158/86; PULSE 77; RESP 20; TEMP 36.7; O2SAT 100
[2024-04-01 01:17] VITALS: BP 158/86; PULSE 77; RESP 20; TEMP 36.7; O2SAT 100; BMI 29.0
--- NOTE | 2024-04-01 01:27 | MHC.EDTECH ---
Patient came in by EMS,changed into hospital attire,vitals taken.Patient vomited 100MLS in bag,RN is aware. Patient ambulated to with a steady gait,urine sample obtained and sent to lab,call matos in reach
[2024-04-01 01:34] LABS: MANUAL DIFF FLAG NO
[2024-04-01 01:39] LABS: Appearance Urine Clear; Basophils Percent Auto 0.4 % (0-2); Color Urine Yellow; Eosinophils Absolute Auto 0.2 X10*3/uL (0.0-0.4); Eosinophils Percent Auto 2.3 % (0-4); Glucose Urine UA Negative (Negative); Hemoglobin 14.2 g/dl (12.0-16.0); Imm Gran Abs Auto 0.03 X10*3/uL (0.00-0.03); Imm Gran Pct Auto 0.4 % (0.0-0.4); Leukocyte Esterase Urine Negative (Negative); Lymphocytes Absolute Auto 1.3 X10*3/uL (1.2-4.9); Lymphocytes Percent Auto 15.7 % (20-40); Mean Corpuscular HGB Conc 34.6 g/dl (31.0-35.0); Mean Corpuscular Hemoglobin 31.3 pg (27.0-33.0); Mean Corpuscular Volume 90.3 fL (80.0-98.0); Mean Platelet Volume 9.8 fL (9.4-12.3); Monocytes Absolute Auto 0.6 X10*3/uL (0.1-1.2); Monocytes Percent Auto 6.4 % (2-11); Neutrophils Absolute Auto 6.4 x10*3/uL (2.0-8.3); Neutrophils Percent Auto 74.8 % (45-73); Nitrite Urine Negative (Negative); Platelet Count 234 X10*3/uL (160-400); Red Blood Count 4.54 X10*6/uL (4.20-5.50); Red Cell Distribution Width 12.5 % (11.0-16.0); Specific Gravity - Urine 1.025 (1.005-1.025); UMIC TRIGGER UACC YES; Urine Blood Moderate (2+) (Negative); Urine Ketones Trace mg/dL (Negative); Urine Protein Trace mg/dL (Neg-Trace); White Blood Count 8.5 X10*3/uL (4.8-10.8)
[2024-04-01 01:46] LABS: Bacteria Urine None Seen (None Seen); Hyaline Casts Urine 0-2 /LPF (0-2); RBC Urine >20 /HPF (0-2); Squamous Epithelial Cell Urine 0-2 /HPF (0-2); WBC Urine 0-5 /HPF (0-5)
[2024-04-01 01:50] LABS: Alanine Aminotransferase 31 U/L (0-31); Albumin Level 4.3 g/dL (3.5-5.0); Alkaline Phosphatase 66 U/L (39-117); Anion Gap 16 (12-20); Aspartate Amino Transferase 22 U/L (5-31); Bilirubin Direct 0.2 mg/dL (0.0-0.5); Bilirubin Total 0.4 mg/dL (0.0-1.0); Blood Urea Nitrogen 13 mg/dL (9-16); Carbon Dioxide 21 mmol/L (22-29); Chloride 110 mmol/L (96-108); Creatinine Clr Calc Pharmacy 58.6; Estimated Glomerular Filt Rate 52; Glucose Random 166 mg/dL (60-115); Lipase 24 U/L (8-78); Potassium 4.2 mmol/L (3.3-5.1); Sodium 143 mmol/L (135-145)
--- NOTE | 2024-04-01 02:41 | ED.ABDPAIN ---
HPI - Abdominal Pain General Chief Complaint: Abdominal Pain Stated Complaint: abd pain Time Seen by Provider: 04/01/24 02:40 Source: patient Mode of arrival: ambulatory Limitations: no limitations History of Present Illness ED Provider: Dr Givens HPI narrative: Patient no significant past medical history noticed sudden onset of left flank pain in the left lower abdomen at 22:00 sharp in character nausea vomiting no hematuria no history of kidney stone patient never had similar pain in the past Related Data Home Medications ?Medication ?Instructions ?Recorded ?Confirmed acetaminophen 325 mg capsule 325 mg PO QID PRN Pain 12/11/20 03/02/24 diphenhydramine HCl 25 mg capsule 25 mg PO Q6H PRN Allergic Symptoms 12/11/20 03/02/24 (Allergy (diphenhydramine)) meclizine 12.5 mg tablet 12.5 mg PO BID 12/11/20 03/02/24 nabumetone 500 mg tablet 500 mg PO BID 12/11/20 03/02/24 sertraline 25 mg tablet 25 mg PO DAILY 12/11/20 03/02/24 trazodone 150 mg tablet 150 mg PO BEDTIME PRN Insomnia 12/11/20 03/02/24 sumatriptan succinate 50 mg tablet 50 mg PO Q2-4H PRN Migraine 04/23/22 03/02/24 Headache Epi E-Z Pen 06/18/22 03/02/24 divalproex 500 mg tablet,delayed 500 mg PO BID 02/03/24 03/02/24 release Previous Rx's ?Medication ?Instructions ?Recorded ibuprofen 600 mg tablet 600 mg PO Q8H PRN pain #30 tabs 07/09/22 docusate sodium 100 mg capsule 100 mg PO BEDTIME #90 caps 08/21/22 diltiazem HCl 240 mg 240 mg PO DAILY 90 days #90 caps 03/03/23 capsule,extended release 24 hr metoprolol succinate 50 mg 50 mg PO DAILY #30 tabs 08/14/23 tablet,extended release 24 hr cefuroxime axetil 500 mg tablet 500 mg PO BID 7 days #14 tabs 09/14/23 bisacodyl 5 mg tablet,delayed 10 mg (2 x 5 mg) PO BEDTIME #60 02/03/24 release (Dulcolax (bisacodyl)) tabs esomeprazole magnesium 40 mg 40 mg PO DAILY #30 caps 02/03/24 capsule,delayed release (Nexium) plecanatide 3 mg tablet (Trulance) 3 mg PO DAILY #30 tabs 02/03/24 sucralfate 100 mg/mL oral 10 ml PO BEDTIME #400 mL 02/03/24 suspension oxycodone 5 mg tablet 5 mg PO Q6H PRN pain #20 tabs 04/01/24 tamsulosin 0.4 mg capsule (Flomax) 0.4 mg PO BEDTIME #7 caps 04/01/24 Allergies Allergy/AdvReac Type Severity Reaction Status Date / Time nut - unspecified Allergy Severe Anaphylaxis Verified 04/01/24 01:20 mold Allergy Intermediate itchy Verified 04/01/24 01:20 throat raw vegetable Allergy Intermediate Itchy Verified 04/01/24 01:20 throat SEASONAL ALLERGIES Allergy Intermediate Itchy Uncoded 04/01/24 01:20 Eyes, congestion, watery eyes Review of Systems Review of Systems Yes all other systems are reviewed and are negative PMFSH Past Medical History Medical History Gastroesophageal reflux disease Chronic idiopathic constipation Helicobacter pylori (H. pylori) Hypoglycemia PONV (postoperative nausea and vomiting) History of glaucoma as a child Prosthetic eye globe Anxiety Dysplasia of cervix, low grade (ADÁN 1) Arthritis Fibromyalgia Epilepsy Surgical History History of esophagogastroduodenoscopy (EGD) Hx of colonoscopy History of eye surgery H/O LEEP Hx of tubal ligation History of S/P removal of left ovary Family History Family History Mother Seizures CAD (coronary artery disease) Pacemaker Diabetes Father No problems noted. Social History Social History Are you a primary rn coronary care unit to a significant other at home: No Do you presently have visiting nurse or other home services: No Alcohol intake: current Alcohol intake frequency: holidays/special occasions only Comment: medicated with IV tylenol Patient Tobacco Use Status: Never used Tobacco Advance Directives: No Advance Directives Information Provided: No Sexual orientation: Straight/Heterosexual Gender identity: Female Physical Exam ED Vital Signs: Vital Signs - 24 hr 04/01/24 01:16 04/01/24 01:17 04/01/24 03:42 Temperature 98.0 F 98.0 F 98.7 F Pulse Rate 77 77 90 Respiratory Rate 20 20 18 Blood Pressure 158/86 H 158/86 H 146/85 H Pulse Oximetry 100 100 99 Oxygen Delivery Method Room Air Room Air Room Air BMI result Body Mass Index 29.0 Appearance: Alert. Oriented X3. No acute distress. Eyes: No pallor or icterus ENT: Pharynx normal. Oral Mucosa moist Neck: Normal inspection. Neck supple. CVS: Normal heart rate and rhythm. Pulses normal. Respiratory: No respiratory distress. Equal air entry bilateral, no wheezing/rales/rhonchi Abdomen: Soft and nontender. Bowel sounds are present, no mass palpable,L CVA tenderness++ Skin: Skin warm and dry. Normal skin color. Normal skin turgor. Extremities: No lower extremity edema. No calf tenderness Neuro: Oriented X 3. No motor deficit. Medical Decision Making Medical Decision Making [facility] Narrative: Patient with 3 mm left distal ureteric stone with mild hydro felt better after IV hydration and pain medication denies any pain now will discharge patient home advised to follow with urologist Differential Diagnosis Differential Diagnoses: The differential diagnosis associated with the presentation includes UTI/ureteral stones/diverticulitis Admission/Observation Consideration of admission/observation: Escalation of care including admission/observation considered Lab Data [facility] Lab Attestation statement: I reviewed the patient's lab results. 04/01/24 01:28 04/01/24 01:28 Labs: Lab Results 04/01/24 Range/Units 01:28 WBC 8.5 (4.8-10.8) X10*3/uL RBC 4.54 (4.20-5.50) X10*6/uL Hgb 14.2 (12.0-16.0) g/dl Hct 41.0 (37.0-47.0) % MCV 90.3 (80.0-98.0) fL MCH 31.3 (27.0-33.0) pg MCHC 34.6 (31.0-35.0) g/dl RDW 12.5 (11.0-16.0) % Plt Count 234 (160-400) X10*3/uL MPV 9.8 (9.4-12.3) fL Immature Gran % (Auto) 0.4 (0.0-0.4) % Neut % (Auto) 74.8 H (45-73) % Lymph % (Auto) 15.7 L (20-40) % [place] % (Auto) 6.4 (2-11) % Eos % (Auto) 2.3 (0-4) % Baso % (Auto) 0.4 (0-2) % Lymph # (Auto) 1.3 (1.2-4.9) X10*3/uL [place] # (Auto) 0.6 (0.1-1.2) X10*3/uL Eos # (Auto) 0.2 (0.0-0.4) X10*3/uL Baso # (Auto) 0.0 (0.0-0.2) X10*3/uL Abs Immat Gran (auto) 0.03 (0.00-0.03) X10*3/uL Absolute Neuts (auto) 6.4 (2.0-8.3) x10*3/uL Absolute Nucleated RBC 0.000 (0.0-0.012) X10*3/uL Nucleated RBC % (auto) 0.0 (0.0-0.2) /100WBC Sodium 143 (135-145) mmol/L Potassium 4.2 (3.3-5.1) mmol/L Chloride 110 H (96-108) mmol/L Carbon Dioxide 21 L (22-29) mmol/L Anion Gap 16 (12-20) BUN 13 (9-16) mg/dL Creatinine 1.11 (0.5-1.4) mg/dL Estim Creat Clear Calc 58.6 Estimated GFR 52 Random Glucose 166 H (60-115) mg/dL Calcium 10.0 (8.4-10.2) mg/dL Total Bilirubin 0.4 (0.0-1.0) mg/dL Direct Bilirubin 0.2 (0.0-0.5) mg/dL AST 22 (5-31) U/L ALT 31 (0-31) U/L Alkaline Phosphatase 66 (39-117) U/L Total Protein 8.0 (6.5-8.0) g/dL Albumin 4.3 (3.5-5.0) g/dL Lipase 24 (8-78) U/L Urine Color Yellow Urine Appearance Clear Urine pH 8.0 (5.0-9.0) Ur Specific [place] 1.025 (1.005-1.025) Urine Protein Trace (Neg-Trace) mg/dL Urine Glucose (UA) Negative (Negative) mg/dL Urine Ketones Trace (Negative) mg/dL Urine Blood Moderate (2+) H (Negative) Urine Nitrite Negative (Negative) Ur Leukocyte Esterase Negative (Negative) Urine RBC >20 H (0-2) /HPF Urine WBC 0-5 (0-5) /HPF Ur Squamous Epith Cells 0-2 (0-2) /HPF Urine Bacteria None Seen (None Seen) Hyaline Casts 0-2 (0-2) /LPF Independent Interpretation I performed an independent interpretation of an: CT Scan Radiology Impression Discussion of test interpretation with radiology: I have reviewed the radiologist's reading. Radiologist Impression: [place] [id number] CT Scan Report Signed Patient: Cordelia Menon MR#: [id number] : 1975 Acct:[id number] Age/Sex: 48 / F ADM Date: 04/01/24 Loc: HO.ED Attending Dr: Ordering Physician: Morris Givens MD Date of Service: 04/01/24 Procedure(s): CT abdomen pelvis wo IV con Accession Number(s): [id number] cc: Physician,Unknown ; Morris Givens MD~ EXAMINATION: CT ABDOMEN AND PELVIS WITHOUT CONTRAST CLINICAL INFORMATION: Left flank pain. COMPARISON: None available. TECHNIQUE: Multidetector volumetric imaging was performed from the superior aspect of the liver through the pubic symphysis. Sagittal and coronal reformatted images were obtained on the technologist's workstation. This CT examination was performed using dose optimization techniques as appropriate, variously including the following: *Automated exposure control *Adjustment of mA and/or kV according to patient size (this includes techniques or standardized protocols for targeted exams where dose is matched to indication/reason for exam; i.e. extremities or head) *Use of iterative reconstruction technique DLP: 609 mGy-cm FINDINGS: LUNG BASES: The visualized lung bases are unremarkable. LIVER, GALLBLADDER, AND BILIARY TREE: There are stable small hepatic cysts. The gallbladder is unremarkable with no evidence of radiopaque gallstones, gallbladder wall thickening, or obvious pericholecystic inflammatory changes. PANCREAS: Unremarkable. SPLEEN: Unremarkable. ADRENAL GLANDS: Unremarkable. KIDNEYS AND URETERS: The kidneys are normal in size, shape, and attenuation. No hydronephrosis, hydroureter, or calculi seen. There is mild left hydronephrosis and hydroureter extending into the pelvis to the level of a 3 mm distal left ureteric calculus. BLADDER: Unremarkable. GASTROINTESTINAL TRACT: The small and large bowel are unremarkable. The appendix is not seen. ABDOMINAL WALL: No significant hernia is appreciated. LYMPH NODES: Normal. VASCULAR: Unremarkable. PELVIC VISCERA: Unremarkable. OSSEOUS STRUCTURES: There is a [address]/CT abdomen pelvis wo IV con IMPRESSION: Mild left hydronephrosis and hydroureter extending into the pelvis to the level of a 3 mm distal left ureteric calculus. Fleischner guidelines were followe Medications Administered Discontinued Medications Generic Name Dose Route Start Last Admin Trade Name Freq PRN Reason Stop Dose Admin Sodium Chloride 1,000 mls @ 999 mls/hr 04/01/24 02:48 04/01/24 04:23 Ns IV 04/01/24 03:48 Infused .Q1H1M ONE Infusion Ketorolac Tromethamine 30 mg 04/01/24 02:48 04/01/24 03:22 Ketorolac Tromethamine 30 Mg/Ml Vial IVPUSH 04/01/24 02:49 30 mg ONCE ONE Administration Morphine Sulfate 4 mg 04/01/24 02:48 04/01/24 03:22 Morphine Sulfate 4 Mg/Ml Cartridge IVPUSH 04/01/24 02:49 4 mg ONCE ONE Administration Protocol Ondansetron HCl 4 mg 04/01/24 02:48 04/01/24 03:22 Ondansetron Hcl 4 Mg/2 Ml Vial IVPUSH 04/01/24 02:49 4 mg ONCE ONE Administration Discharge Plan Discharge Clinical Impression: Calculus of distal left ureter Patient Disposition: Home, Self-Care Instructions: Ureteral Stones (ED) Additional Instructions: Drink plenty of fluids Pain medication as prescribed Take Flomax daily till you pass the stone Follow-up with urologist Prescriptions: New oxycodone 5 mg tablet 5 mg PO Q6H PRN (Reason: pain) Qty: 20 0RF Rx Instructions: Partial Fill upon patient request. tamsulosin [Flomax] 0.4 mg capsule 0.4 mg PO BEDTIME Qty: 7 0RF No Action diltiazem HCl 240 mg capsule,extended release 24hr 240 mg PO DAILY 90 Days Qty: 90 3RF Epi E-Z Pen ibuprofen 600 mg tablet 600 mg PO Q8H PRN (Reason: pain) Qty: 30 0RF cefuroxime axetil 500 mg tablet 500 mg PO BID 7 Days Qty: 14 0RF nabumetone 500 mg tablet 500 mg PO BID trazodone 150 mg tablet 150 mg PO BEDTIME PRN (Reason: Insomnia) sertraline 25 mg tablet 25 mg PO DAILY meclizine 12.5 mg tablet 12.5 mg PO BID acetaminophen 325 mg capsule 325 mg PO QID PRN (Reason: Pain) diphenhydramine HCl [Allergy (diphenhydramine)] 25 mg capsule 25 mg PO Q6H PRN (Reason: Allergic Symptoms) sumatriptan succinate 50 mg tablet 50 mg PO Q2-4H PRN (Reason: Migraine Headache) Rx Instructions: do not exceed 4 doses per 24 hrs docusate sodium 100 mg capsule 100 mg PO BEDTIME Qty: 90 3RF divalproex 500 mg tablet,delayed release (DR/EC) 500 mg PO BID esomeprazole magnesium [Nexium] 40 mg capsule,delayed release(DR/EC) 40 mg PO DAILY Qty: 30 5RF Trulance 3 mg tablet 3 mg PO DAILY Qty: 30 3RF sucralfate 100 mg/mL suspension 10 ml PO BEDTIME Qty: 400 3RF bisacodyl [Dulcolax (bisacodyl)] 5 mg tablet,delayed release (DR/EC) 10 mg PO BEDTIME Qty: 60 4RF metoprolol succinate 50 mg tablet extended release 24 hr 50 mg PO DAILY Qty: 30 5RF Referrals: Rishabh Dawson MD [Physician] - 1 week Print Language: [place]
[2024-04-01] MEDS: Morphine Sulfate 4 MG/ML CARTRIDGE IVPUSH (03:22)
[2024-04-01] MEDS: 0.9 % Sodium Chloride 1,000 ML 999 ML IV (03:22)
[2024-04-01] MEDS: ondansetron HCL 4 MG/2 ML VIAL IVPUSH (03:22)
[2024-04-01] MEDS: Ketorolac Tromethamine 30 MG/ML VIAL IVPUSH (03:22)
[2024-04-01 03:42] VITALS: BP 146/85; PULSE 90; RESP 18; TEMP 37.1; O2SAT 99
--- NOTE | 2024-04-01 03:43 | MHC.EDTECH ---
Hourly rounds and vitals completed,patient is resting comfortably,call matos in reach
[2024-04-01] MEDS: Tamsulosin HCL 0.4 MG CAPSULE PO (05:44)
[2024-04-01 05:55] VITALS: BP 146/85; PULSE 90; RESP 18; TEMP 37.1; O2SAT 99
== END 2024-04-01 05:57 | disposition home or self-care (01) ==
PROVIDERS: Emergency Provider Internal Medicine
DX: N20.1 Calculus of ureter (principal); R10.9 Unspecified abdominal pain; K21.9 Gastro-esophageal reflux disease without esophagitis; G40.909 Epilepsy, unspecified, not intractable, without status epilepticus
CPT/HCPCS: 36415; 74176; 80048; 80076; 81001; 83690; 85025; 96361; 96374; 96375; 99285; J1885; J2270; J2405

== ENCOUNTER 2024-05-07 15:14 | Outpatient (AMB) | payer OTHER, SELFPAY ==
--- NOTE | 2024-05-07 15:16 | A.OFFVIS_ITS ---
Intake Visit Reasons: Ureteral Stones Intake Note: New Patient presents today for initial visit to establish treatment for : kidney stone Urology Medications: Tamsulosin Allergies to Antibiotic: none Blood Thinner: none Machine Cage Maker Required: No Accompanied by: Self / Same As Patient Allergies nut - unspecified Allergy (Severe, Verified 05/07/24 15:32) Anaphylaxis mold Allergy (Intermediate, Verified 05/07/24 15:32) itchy throat raw vegetable Allergy (Intermediate, Verified 05/07/24 15:32) Itchy throat SEASONAL ALLERGIES Allergy (Intermediate, Uncoded 05/07/24 15:32) Itchy Eyes, congestion, watery eyes HPI Comments Details: A well-is a very pleasant 48-year-old female patient. She has a past medical history of GERD, chronic idiopathic constipation, H pylori, prosthetic left eye, anxiety, arthritis, fibromyalgia, and epilepsy. She presents to the office today as a new patient for nephrolithiasis. In discussion with the patient today she reports having seeked emergency room care approximately 1 month ago for left-sided flank pain associated with nausea and vomiting at which time a CT of the abdomen was ordered and performed. These results were reviewed with the patient today. Mild left hydronephrosis and hydroureter extending into the pelvis to the level of a 3 mm distal left ureteric calculus. Patient reports pain she had been experiencing has since subsided. She denies any previous history of nephrolithiasis and or surgical intervention for nephrolithiasis. She currently denies any bothersome urinary issues or carlyle rns. She denies urinary urgency, urinary frequency, incontinence, nocturia, hematuria, dysuria, foul smelling urine, changes to urinary stream, flank pain, fever, and or chills. She is happy with her current voiding parameters. She otherwise offers no other issues or concerns at this time. [facility] Medical History Gastroesophageal reflux disease Chronic idiopathic constipation Helicobacter pylori (H. pylori) Hypoglycemia PONV (postoperative nausea and vomiting) History of glaucoma as a child Prosthetic eye globe Anxiety Dysplasia of cervix, low grade (ADÁN 1) Arthritis Fibromyalgia Epilepsy Surgical History History of esophagogastroduodenoscopy (EGD) Hx of colonoscopy History of eye surgery H/O LEEP Hx of tubal ligation History of S/P removal of left ovary Family History Mother Seizures CAD (coronary artery disease) Pacemaker Diabetes Father No problems noted. Social History Are you a primary care professionals to a significant other at home: No Do you presently have visiting nurse or other home services: No Alcohol intake: current Alcohol intake frequency: holidays/special occasions only Comment: medicated with IV tylenol Patient Tobacco Use Status: Never used Tobacco Sexual orientation: Straight/Heterosexual Gender identity: Female Female Reproductive History Menstrual Age of Menarche: 10 Review of Systems Eyes Reports as per HPI ENT Reports no additional complaints Card Reports as per HPI Resp Reports no additional complaints GI Reports as per HPI Reports as per HPI Musc Reports no additional complaints Neuro Reports no additional complaints Psych Reports as per HPI Endo Reports no additional complaints Dank/Lymph Reports no additional complaints Aller/Immun Reports no additional complaints Physical Exam Const General: cooperative, healthy appearing, comfortable, no acute distress, well developed, alert and awake Orientation/consciousness: patient oriented x3 Limitations: no limitations HEENT Head: Yes normal to inspection, Yes normocephalic and Yes atraumatic Ears: hearing grossly normal bilaterally Eyes General: appearance normal, both eyes and all related structures Neck Neck: Yes normal visual inspection and Yes trachea midline Chest Chest palpation & inspection: normal inspection of the chest Resp Effort & Inspection: normal respiratory effort and able to speak in complete sentences Cardio Rate: regular rate GI Inspection: Yes normal to inspection General: Yes no CVA tenderness Back/Spine/Pelvis Back: no CVA tenderness Skin General skin exam: no rashes or lesions noted Neuro General: patient oriented x3 Extrem General: Yes normal to inspection Psych Appearance: grossly normal and well kempt Mental Status: mental status grossly normal Speech and movement: Normal speech and movement present and Clear speech present Affect: normal affect Attitude: cooperative Thought process: Normal thought process present Thought content: Normal thought content present Insight: Fair insight present (Psych) Judgement: Fair judgement present (Psych) Results AMB Urinalysis, Automated UA Leukoctes 15 Jomar/uL Last Edit by Brianna Marroquin on 05/07/24 15:34 UA Nitrite Negative Last Edit by Brianna Marroquin on 06/28/24 15:34 UA Urobilinogen 0.2 mg/dL Last Edit by Brianna Marroquin on 05/07/24 15:34 UA Protein 15 mg/dL Last Edit by Brianna Marroquin on 05/07/24 15:34 UA pH 6.0 Last Edit by Brianna Marroquin on 05/07/24 15:34 UA Blood 25 Luciano/uL Last Edit by Brianna Marroquin on 05/07/24 15:34 UA Specific [place] 1.030 Last Edit by Brianna Marroquin on 05/07/24 15:34 UA Ketone Positive Last Edit by Brianna Marroquin on 05/07/24 15:34 UA Bilirubin 0 mg/dL Last Edit by Brianna Marroquin on 05/07/24 15:34 UA Glucose 0 mg/dL Last Edit by Brianna Marroquin on 05/07/24 15:34 Results Reviewed Results Reviewed: Laboratory Last Values Urine pH (Auto) 6.0 05/07/24 15:32 Specific [place] (Auto) 1.030 05/07/24 15:32 Urine Protein (Auto) 15 mg/dL 05/07/24 15:32 Glucose (UA)(Auto) 0 mg/dL 05/07/24 15:32 Urine Ketones (Auto) Positive 05/07/24 15:32 Urine Blood (Auto) 25 [place]/uL 05/07/24 15:32 Urine Nitrite (Auto) Negative 05/07/24 15:32 Urine Bilirubin (Auto) 0 mg/dL 05/07/24 15:32 Urine Urobilinogen (Auto) 0.2 mg/dL 05/07/24 15:32 Leukocyte Esterase (Auto) 15 Jomar/uL 05/07/24 15:32 Date of Service: 04/01/24 Procedure(s): CT abdomen pelvis wo IV con FINDINGS: LUNG BASES: The visualized lung bases are unremarkable. LIVER, GALLBLADDER, AND BILIARY TREE: There are stable small hepatic cysts. The gallbladder is unremarkable with no evidence of radiopaque gallstones, gallbladder wall thickening, or obvious pericholecystic inflammatory changes. PANCREAS: Unremarkable. SPLEEN: Unremarkable. ADRENAL GLANDS: Unremarkable. KIDNEYS AND URETERS: The kidneys are normal in size, shape, and attenuation. No hydronephrosis, hydroureter, or calculi seen. There is mild left hydronephrosis and hydroureter extending into the pelvis to the level of a 3 mm distal left ureteric calculus. BLADDER: Unremarkable. GASTROINTESTINAL TRACT: The small and large bowel are unremarkable. The appendix is not seen. ABDOMINAL WALL: No significant hernia is appreciated. LYMPH NODES: Normal. VASCULAR: Unremarkable. PELVIC VISCERA: Unremarkable. OSSEOUS STRUCTURES: There is a 2 cm L1 hemangioma. IMPRESSION: Mild left hydronephrosis and hydroureter extending into the pelvis to the level of a 3 mm distal left ureteric calculus. Assessment & Plan Assessment & Plan (1) Nephrolithiasis: Code(s): N20.0 - Calculus of kidney Category: Medical Plan In office urinalysis results reviewed with the patient today; as noted above. Recent CT results reviewed with the patient today; as noted above. Discussed at length potential causes of nephrolithiasis. Discussed, educated, and stressed the importance of adequate hydration in relation to nephrolithiasis as well as overall health and well-being. Patient currently denies any bothersome urinary issues or concerns. Patient reports be happy with current voiding parameters. Will obtain renal ultrasound Discussed adding 1 oz of lemon juice to water daily. Follow-up in 1-3 months with imaging to be completed prior; or sooner with any issues, concerns, and or questions. Orders: Orders US retroperitoneal comp Today N20.0 - Calculus of kidney AMB Urinalysis Automated Today Z13.9 - Encounter for screening, unspecified Patient Instructions: The patient had an opportunity to ask questions regarding the treatment plan. All questions were answered. Physical exam, labs, and imaging were discussed and reviewed in detail. As well as risks, benefits, and discussion of treatment choices. No major barriers to understanding were identified. The patient expressed understanding and agreement with the above treatment plan. The patient was made aware they should contact our office by phone for worsening of their current condition, the appearance of new symptoms, or with any questions or concerns. Compliance is encouraged with any medications and follow up testing that is ordered. It is a privilege to be allowed the opportunity to participate in? your urological care.? Again, if you have any questions or concerns If you have any questions or concerns please do not hesitate to contact me. The office is [phone]. This note is constructed using voice recognition software. While every effort has been made to ensure accuracy drop hammer mechanic errors may have been included. Yours sincerely, JESSICA EmanuelP-BC Coding Level of Care Code New Pt Level 3 (57668) Diagnoses Nephrolithiasis N20.0
== END 2024-05-07 15:39 | disposition home or self-care (01) ==
PROVIDERS: Visit Provider Nurse Practitioner Family
DX: Z13.9 Encounter for screening, unspecified (principal); N20.0 Calculus of kidney
CPT/HCPCS: 99203

== ENCOUNTER → 2024-05-07 15:14 | Outpatient (BNVA) | payer OTHER, SELFPAY | PROVIDERS: Visit Provider Nurse Practitioner Family | DX: N20.0 Calculus of kidney (principal) | CPT/HCPCS: 81003; 99202 ==

== ENCOUNTER 2024-05-20 09:50 | Outpatient (REF) | payer OTHER, SELFPAY ==
--- NOTE | ~2024-05-20 | US_ITS ---
EXAMINATION: US RETROPERITONEAL COMPLETE (RENAL) CLINICAL INFORMATION: Calculus of kidney. COMPARISON: CT abdomen and pelvis 04/01/2024. Ultrasound abdomen complete 01/03/2014. TECHNIQUE: Real-time imaging of the kidneys and bladder. FINDINGS: RIGHT KIDNEY: 11.1 x 4.9 x 3.8 cm (SAG x AP x TRV). The kidney is normal in size, contour, and echogenicity. Renal cortical thickness is normal. No calculi or focal parenchymal lesions. There is minimal pelvic fullness but no gross hydronephrosis. LEFT KIDNEY: 11.0 x 4.6 x 4.0 cm (SAG x AP x TRV). The kidney is normal in size, contour, and echogenicity. Renal cortical thickness is normal. No calculi or focal parenchymal lesions. There is minimal pelvic fullness but no gross hydronephrosis. The previous seen left-sided hydronephrosis caused by an obstructing distal left ureteral calculus has resolved. BLADDER: Partially distended. Bilateral ureteral jets are demonstrated. Prevoid bladder volume is 93.0 mL. Postvoid bladder volume was not obtained. US/US retroperitoneal comp IMPRESSION: Normal-appearing kidneys with minimal pelvic fullness but no gross hydronephrosis. Previously seen left hydronephrosis has resolved.
== END 2024-05-20 09:51 | disposition home or self-care (01) ==
LOC: HO.US 09:50
PROVIDERS: PCP General Practice; Visit Provider Nurse Practitioner Family
DX: N20.0 Calculus of kidney (principal)
CPT/HCPCS: 76770

== ENCOUNTER 2024-07-27 08:28 | Outpatient (AMB) | payer OTHER, SELFPAY ==
[2024-07-27 08:31] VITALS: BP 128/78; PULSE 78; O2SAT 97; BMI 29.5
--- NOTE | 2024-07-27 08:31 | A.OFFVIS_ITS ---
Vital Signs 07/27/24 08:31 Height 5 ft 3 in Weight 166 lb 10.711 oz BMI 29.5 BP 128/78 Blood Pressure Location Rt brachial Position Sitting Pulse 78 Pulse Source Pulse Oximeter Pulse Oximetry (%) 97 Oxygen Delivery Method Room Air Intake Visit Reasons: 6 month follow up Intake Note: Cordelia presents in office today for a scheduled 6 mos FUV. CC; Pt reports that they have remained stable since their last visit, however, they have not seen any improvements. Pt reports that they have been noticing an increase in reflux and epigastric pain recently. Pt denies any need for refills at this time. Junior Administrative Assistant Required: No Allergies nut - unspecified Allergy (Severe, Verified 07/27/24 08:33) Anaphylaxis mold Allergy (Intermediate, Verified 07/27/24 08:33) itchy throat raw vegetable Allergy (Intermediate, Verified 07/27/24 08:33) Itchy throat SEASONAL ALLERGIES Allergy (Intermediate, Uncoded 05/07/24 15:32) Itchy Eyes, congestion, watery eyes HPI HPI 6 month follow up: Details: LAST VISIT Gastroesophageal reflux disease Chronic idiopathic constipation Postprandial abdominal bloating Plan Continue Nexium in the morning and sucralfate at bedtime. Patient was encouraged to avoid dietary triggers and late night snacking. Staying upright for minimum 3 hours after meals discussed with patient. Patient will continue taking Trulance in the morning and if no bowel movement for day or 2 patient can take Dulcolax in the evening. Patient was encouraged to increase fluid intake and activity to promote better bowel motility. Patient will return in 6 months, sooner on as needed basis. Patient is agreeable to this plan and verbalizes understanding of instructions. She was given the opportunity to ask questions and all questions answered. ? Thank you for allowing me to participate in her care. Medications New bisacodyl (Dulcolax (bisacodyl)) 10 mg (2 x 5 mg) PO BEDTIME 60 tabs 4RF Refilled esomeprazole magnesium (Nexium) 40 mg PO DAILY 30 caps 5RF K21.9 plecanatide (Trulance) 3 mg PO DAILY 30 tabs 3RF K59.09 sucralfate 10 mL PO BEDTIME 400 mL 3RF K21.9 TODAY'S VISIT: Patient is here today for follow-up. Patient reports for the most part she has been feeling well. Patient states that she feels like some of the medication that she is taking is causing her stomach upset. Patient reports that she takes all of her medications at once. Epigastric pain postprandially. Patient states that she is taking Trulance and it is working for her. She is no longer using Dulcolax. Moving her bowels daily. Patient denies taking NSAIDs unless she has severe headache. Patient denies any nausea or vomiting. Patient denies dyspepsia, dysphagia or odynophagia. Patient denies any melena, hematochezia. Patient admits to be under lot of stress taking care of her ill mother. [facility] Medical History Gastroesophageal reflux disease Chronic idiopathic constipation Helicobacter pylori (H. pylori) Hypoglycemia PONV (postoperative nausea and vomiting) History of glaucoma as a child Prosthetic eye globe Anxiety Dysplasia of cervix, low grade (ADÁN 1) Arthritis Fibromyalgia Epilepsy Surgical History History of esophagogastroduodenoscopy (EGD) Hx of colonoscopy History of eye surgery H/O LEEP Hx of tubal ligation History of S/P removal of left ovary Family History Mother Seizures CAD (coronary artery disease) Pacemaker Diabetes Father No problems noted. Social History Are you a primary healthcare financial analyst to a significant other at home: No Do you presently have visiting nurse or other home services: No Alcohol intake: current Alcohol intake frequency: holidays/special occasions only Comment: medicated with IV tylenol Patient Tobacco Use Status: Never used Tobacco Sexual orientation: Straight/Heterosexual Gender identity: Female Female Reproductive History Menstrual Age of Menarche: 10 Review of Systems Const Denies weight gain and Denies weight loss ENT Reports no additional complaints, Denies dysphagia and Denies odynophagia Card Reports no additional complaints Resp Reports no additional complaints GI Denies abdominal pain, Denies belching, Denies melena, Reports bloating, Reports constipation, Denies dysphagia, Denies excessive flatus, Denies dyspepsia, Reports heartburn (Occasional), Denies diarrhea, Denies loose stools, Denies nausea, Denies odynophagia and Denies vomiting Reports no additional complaints Musc Reports no additional complaints Neuro Reports no additional complaints Psych Reports no additional complaints Endo Reports no additional complaints Physical Exam Vital Signs: Last Vital Signs Pulse 78 07/27/24 08:31 BP 128/78 07/27/24 08:31 Pulse Ox 97 07/27/24 08:31 Oxygen Delivery Method Room Air 07/27/24 08:31 BMI result Body Mass Index 29.5 Const General: healthy appearing, no acute distress and well developed Nutritional Appearance: obese Orientation/consciousness: patient oriented x3 Resp Effort & Inspection: normal respiratory effort, able to speak in complete sentences, no tracheal deviation and symmetric chest movement Auscultation: clear to auscultation bilaterally Cardio Rate: regular rate GI Inspection: Yes normal to inspection, No distended and Yes obesity Palpation (GI): Soft to palpation, not firm, nontender and No hepatosplenomegaly present Auscultation: normal bowel sounds General: Yes no CVA tenderness Back/Spine/Pelvis Back: no CVA tenderness Skin General skin exam: elasticity normal, turgor normal and dry skin Neuro General: patient oriented x3 Psych Appearance: grossly normal Mental Status: mental status grossly normal Assessment & Plan Assessment & Plan (1) Gastroesophageal reflux disease: Code(s): K21.9 - Gastro-esophageal reflux disease without esophagitis Category: Medical Qualifiers: Esophagitis presence: without esophagitis Qualified Code(s): K21.9 - Gastro-esophageal reflux disease without esophagitis (2) Chronic idiopathic constipation: Code(s): K59.04 - Chronic idiopathic constipation Category: Medical (3) Postprandial abdominal bloating: Code(s): R14.0 - Abdominal distension (gaseous) Plan Patient will continue PPI. Patient will try to take it 1st thing in the morning not together with all the rest of her medication. Continue Trulance daily. Increase fluid intake and activity to promote better bowel motility. Patient wi ll avoid dietary triggers. Tries stress reduction. Follow-up in 6 months, sooner on as needed basis. She is agreeable to this plan and verbalizes understanding of instructions. She was given the opportunity to ask questions and all questions answered. Thank you for allowing me to participate in her care Coding Level of Care Code Est Pt Level 3 (08336) Diagnoses Gastroesophageal reflux disease without esophagitis K21.9 Esophagitis presence: without esophagitis Chronic idiopathic constipation K59.04 Postprandial abdominal bloating R14.0 Time Spent (min) 30 Comment 20 minutes spent with patient and additional 10 minutes spent reviewing her records
== END 2024-07-27 09:05 | disposition home or self-care (01) ==
PROVIDERS: PCP General Practice; Visit Provider Nurse Practitioner Family
DX: K21.9 Gastro-esophageal reflux disease without esophagitis (principal); K59.04 Chronic idiopathic constipation; R14.0 Abdominal distension (gaseous)
CPT/HCPCS: 99213

== ENCOUNTER → 2024-07-27 08:28 | Outpatient (BNVA) | payer OTHER, SELFPAY | PROVIDERS: PCP General Practice; Visit Provider Nurse Practitioner Family | DX: K21.9 Gastro-esophageal reflux disease without esophagitis (principal); K59.04 Chronic idiopathic constipation; R14.0 Abdominal distension (gaseous); Z79.899 Other long term (current) drug therapy | CPT/HCPCS: 99212 ==

== ENCOUNTER 2024-08-02 08:31 | Outpatient (AMB) | payer OTHER, SELFPAY ==
--- NOTE | 2024-08-02 09:21 | A.OFFVIS_ITS ---
Intake Visit Reasons: 3m/U/S(set) Intake Note: Patient presents today for follow up visit to establish treatment for : kidney stone and ultrasound results Imaging Completed: 05/20/24 Urology Medications: none Allergies to Antibiotic: none Blood Thinner: none Field Investigator Required: No Accompanied by: Self / Same As Patient Allergies nut - unspecified Allergy (Severe, Verified 08/02/24 09:34) Anaphylaxis mold Allergy (Intermediate, Verified 08/02/24 09:34) itchy throat raw vegetable Allergy (Intermediate, Verified 08/02/24 09:34) Itchy throat SEASONAL ALLERGIES Allergy (Intermediate, Uncoded 08/02/24 09:34) Itchy Eyes, congestion, watery eyes Medication List - Last Reconciled 08/02/24 by ALMA ROSA Emanuel acetaminophen 325 mg PO QID PRN baclofen 10 mg PO TID bisacodyl (Dulcolax (bisacodyl)) 10 mg (2 x 5 mg) PO BEDTIME diltiazem HCl CD 240 mg PO DAILY 90 days diphenhydramine HCl (Allergy (diphenhydramine)) 25 mg PO Q6H PRN divalproex 500 mg PO BID docusate sodium 100 mg PO BEDTIME [Epi E-Z Pen ] esomeprazole magnesium (Nexium) 40 mg PO DAILY ibuprofen 600 mg PO Q8H PRN meclizine 12.5 mg PO BID metoprolol succinate ER 50 mg PO DAILY nabumetone 500 mg PO BID paroxetine HCl 10 mg PO DAILY plecanatide (Trulance) 3 mg PO DAILY sertraline 25 mg PO DAILY sucralfate 10 mL PO BEDTIME sumatriptan succinate 50 mg PO Q2-4H PRN trazodone 150 mg PO BEDTIME PRN HPI Comments Details: A well-is a very pleasant 48-year-old female patient. She has a past medical history of GERD, chronic idiopathic constipation, H pylori, prosthetic left eye, anxiety, arthritis, fibromyalgia, and epilepsy. She presents to the office today for follow-up. Of note, patient was seen approximately 3 months ago as a new patient for nephrolithiasis at which time a retroperitoneal ultrasound was ordered for further assessment evaluation. These results reviewed with the patient today. Right kidney with no calculi, lesions, and or hydronephrosis. Left kidney there is minimal pelvic fullness but no gross hydronephrosis. No calculi or lesions noted. The previous seen left-sided hydronephrosis caused by an obstructing distal left ureteral calculus has resolved. The bladder is partially distended. Bilateral jets are demonstrated. Pre void bladder volume is approximately 100 mL. Postvoid volume was not obtained. She currently denies any bothersome urinary issues or concerns. In office urinalysis results reviewed with the patient today. When asked she denies urinary urgency, urinary frequency, incontinence, nocturia, hematuria, dysuria, foul smelling urine, changes to urinary stream, flank pain, fever, and or chills. We discussed at length potential causes of nephrolithiasis. She is happy with her current voiding parameters. She otherwise offers no other issues or concerns at this time. [facility] Medical History Gastroesophageal reflux disease Chronic idiopathic constipation Helicobacter pylori (H. pylori) Hypoglycemia PONV (postoperative nausea and vomiting) History of glaucoma as a child Prosthetic eye globe Anxiety Dysplasia of cervix, low grade (ADÁN 1) Arthritis Fibromyalgia Epilepsy Surgical History History of esophagogastroduodenoscopy (EGD) Hx of colonoscopy History of eye surgery H/O LEEP Hx of tubal ligation History of S/P removal of left ovary Family History Mother Seizures CAD (coronary artery disease) Pacemaker Diabetes Father No problems noted. Social History Are you a primary care administrative tech to a significant other at home: No Do you presently have visiting nurse or other home services: No Alcohol intake: current Alcohol intake frequency: holidays/special occasions only Comment: medicated with IV tylenol Patient Tobacco Use Status: Never used Tobacco Sexual orientation: Straight/Heterosexual Gender identity: Female Female Reproductive History Menstrual Age of Menarche: 10 Review of Systems Eyes Reports as per HPI ENT Reports no additional complaints Card Reports as per HPI Resp Reports no additional complaints GI Reports as per HPI Reports as per HPI Musc Reports no additional complaints Neuro Reports no additional complaints Psych Reports as per HPI Endo Reports no additional complaints Dank/Lymph Reports no additional complaints Aller/Immun Reports no additional complaints Physical Exam Const General: cooperative, healthy appearing, comfortable, no acute distress, well developed, alert and awake Orientation/consciousness: patient oriented x3 Limitations: no limitations HEENT Head: Yes normal to inspection, Yes normocephalic and Yes atraumatic Ears: hearing grossly normal bilaterally Eyes General: appearance normal, both eyes and all related structures Neck Neck: Yes normal visual inspection and Yes trachea midline Chest Chest palpation & inspection: normal inspection of the chest Resp Effort & Inspection: normal respiratory effort and able to speak in complete sentences Cardio Rate: regular rate GI Inspection: Yes normal to inspection General: Yes no CVA tenderness Back/Spine/Pelvis Back: no CVA tenderness Skin General skin exam: no rashes or lesions noted Neuro General: patient oriented x3 Extrem General: Yes normal to inspection Psych Appearance: grossly normal and well kempt Mental Status: mental status grossly normal Speech and movement: Normal speech and movement present and Clear speech present Affect: normal affect Attitude: cooperative Thought process: Normal thought process present Thought content: Normal thought content present Insight: Fair insight present (Psych) Judgement: Fair judgement present (Psych) Results AMB Urinalysis, Automated UA Leukoctes 0 Jomar/uL Last Edit by Brianna Marroquin on 08/02/24 09:33 UA Nitrite Negative Last Edit by Brianna Marroquin on 08/02/24 09:33 UA Urobilinogen 0.2 mg/dL Last Edit by Qbakalaurence Marroquin on 08/02/24 09:33 UA Protein 15 mg/dL Last Edit by Pathogenetixneida Marroquin on 08/02/24 09:33 UA pH 6.0 Last Edit by Brianna Marroquin on 08/02/24 09:33 UA Blood 25 Luciano/uL Last Edit by Brianna Marroquin on 08/02/24 09:33 UA Specific [place] 1.030 Last Edit by Brianna Marroquin on 08/02/24 09:33 UA Ketone Negative Last Edit by Brianna Marroquin on 08/02/24 09:33 UA Bilirubin 0 mg/dL Last Edit by Brianna Marroquin on 08/02/24 09:33 UA Glucose 0 mg/dL Last Edit by Brianna Marroquin on 08/02/24 09:33 Results Reviewed Results Reviewed: Date of Service: 05/20/24 EXAMINATION: US RETROPERITONEAL COMPLETE (RENAL) FINDINGS: RIGHT KIDNEY: 11.1 x 4.9 x 3.8 cm (SAG x AP x TRV). The kidney is normal in size, contour, and echogenicity. Renal cortical thickness is normal. No calculi or focal parenchymal lesions. There is minimal pelvic fullness but no gross hydronephrosis. LEFT KIDNEY: 11.0 x 4.6 x 4.0 cm (SAG x AP x TRV). The kidney is normal in size, contour, and echogenicity. Renal cortical thickness is normal. No calculi or focal parenchymal lesions. There is minimal pelvic fullness but no gross hydronephrosis. The previous seen left-sided hydronephrosis caused by an obstructing distal left ureteral calculus has resolved. BLADDER: Partially distended. Bilateral ureteral jets are demonstrated. Prevoid bladder volume is 93.0 mL. Postvoid bladder volume was not obtained. IMPRESSION: Normal-appearing kidneys with minimal pelvic fullness but no gross hydronephrosis. Previously seen left hydronephrosis has resolved. Assessment & Plan Assessment & Plan (1) Nephrolithiasis: Code(s): N20.0 - Calculus of kidney Category: Medical Plan In office urinalysis results reviewed with the patient today; as noted above. Recent retroperitoneal ultrasound results reviewed with the patient today; as noted above. Discussed at length potential causes of nephrolithiasis. Discussed, educated, and stressed the importance of adequate hydration in relation to nephrolithiasis as well as overall health and well-being. Patient currently denies any bothersome urinary issues or concerns. Patient reports be happy with current voiding parameters. Will obtain renal ultrasound 6 months Discussed adding 1 oz of lemon juice to water daily. Follow-up in 6 months months with imaging to be completed prior; or sooner with any issues, concerns, and or questions. Orders: Orders AMB Urinalysis Automated Today Z13.9 - Encounter for screening, unspecified US renal BI 6 Months N20.0 - Calculus of kidney Patient Instructions: The patient had an opportunity to ask questions regarding the treatment plan. All questions were answered. Physical exam, labs, and imaging were discussed and reviewed in detail. As well as risks, benefits, and discussion of treatment choices. No major barriers to understanding were identified. The patient expressed understanding and agreement with the above treatment plan. The patient was made aware they should contact our office by phone for worsening of their current condition, the appearance of new symptoms, or with any questions or concerns. Compliance is encouraged with any medications and follow up testing that is ordered. It is a privilege to be allowed the opportunity to participate in? your urological care.? Again, if you have any questions or concerns If you have any questions or concerns please do not hesitate to contact me. The office is [phone]. This note is constructed using voice recognition software. While every effort has been made to ensure accuracy retail marketing executive errors may have been included. Yours sincerely, ALMA ROSA Emanuel Coding Level of Care Code Est Pt Level 3 (20069) Diagnoses Nephrolithiasis N20.0
== END 2024-08-02 09:41 | disposition home or self-care (01) ==
PROVIDERS: Visit Provider Nurse Practitioner Family
DX: N20.0 Calculus of kidney (principal); Z13.9 Encounter for screening, unspecified
CPT/HCPCS: 99213

== ENCOUNTER → 2024-08-02 08:31 | Outpatient (BNVA) | payer OTHER, SELFPAY | PROVIDERS: Visit Provider Nurse Practitioner Family | DX: N20.0 Calculus of kidney (principal) | CPT/HCPCS: 81003; 99212 ==

== ENCOUNTER 2024-12-20 11:32 | Outpatient (REF) | payer OTHER, SELFPAY ==
[2024-12-27 09:22] LABS: HPV Genotype 16 Negative (Negative); HPV Genotype 18 Negative (Negative); HPV High Risk Negative (Negative)
== END 2024-12-20 11:33 | disposition home or self-care (01) ==
LOC: HO.LNP 11:32
PROVIDERS: Visit Provider Obstetrics & Gynecology
DX: Z13.89 Encounter for screening for other disorder (principal)
CPT/HCPCS: 87626; 88175

== ENCOUNTER 2024-12-20 11:32 | Outpatient (AMB) | payer OTHER, SELFPAY ==
--- NOTE | 2024-12-20 11:37 | A.OFFVIS_ITS ---
Vital Signs 12/20/24 11:38 Height 5 ft 3 in Weight 170 lb BMI 30.1 BP 126/78 Intake Visit Reasons: annual/ hot flashes Rotary Machine Operator Required: No Information Interpreted: non-clinical & clinical Gang Head Saw Operator: Gang Head Saw Operator Present (Hedy DYE) Accompanied by: Self / Same As Patient Allergies nut - unspecified Allergy (Severe, Verified 12/20/24 11:45) Anaphylaxis mold Allergy (Intermediate, Verified 12/20/24 11:45) itchy throat raw vegetable Allergy (Intermediate, Verified 12/20/24 11:45) Itchy throat SEASONAL ALLERGIES Allergy (Intermediate, Uncoded 12/20/24 11:45) Itchy Eyes, congestion, watery eyes HPI Comments Details: Presenting for annual exam. Complaining of heavy menstrual cycles associated passage of blood clots and pelvic cramping after 4 months of amenorrhea Last Pap/HPV was negative in 01/01 Last Mammogram was BI-RADS 1 in 04/02 Last Colonoscopy was done in 07/01, the recommendation was to repeat in 10 years [facility] Medical History Gastroesophageal reflux disease Chronic idiopathic constipation Helicobacter pylori (H. pylori) Hypoglycemia PONV (postoperative nausea and vomiting) History of glaucoma as a child Prosthetic eye globe Anxiety Dysplasia of cervix, low grade (ADÁN 1) Arthritis Fibromyalgia Epilepsy Surgical History History of esophagogastroduodenoscopy (EGD) Hx of colonoscopy History of eye surgery H/O LEEP Hx of tubal ligation History of S/P removal of left ovary Family History Mother Seizures CAD (coronary artery disease) Pacemaker Diabetes Father No problems noted. Social History Are you a primary small animal caretaker to a significant other at home: No Do you presently have visiting nurse or other home services: No Alcohol intake: current Alcohol intake frequency: holidays/special occasions only Comment: medicated with IV tylenol Patient Tobacco Use Status: Never used Tobacco Sexual orientation: Straight/Heterosexual Gender identity: Female Female Reproductive History Menstrual Age of Menarche: 10 control method: permanent sterilization Date of last pap smear: 01/03/22 Date of Mammogram: 03/26/24 Review of Systems Const All systems reviewed & are unremarkable except as noted in HPI and below Card Reports as per HPI Resp Reports as per HPI GI Reports as per HPI and Reports no additional complaints Reports as per HPI Physical Exam Const General: cooperative, healthy appearing and comfortable Chest Chest palpation & inspection: normal inspection of the chest and normal palpation of entire chest wall Breast/axilla inspection: normal inspection of the breasts and normal inspection of the axillae Breast/axilla palpation: normal palpation of the breasts, normal palpation of the axillae and no axillary lymphadenopathy Resp Effort & Inspection: normal respiratory effort Auscultation: clear to auscultation bilaterally Percussion: percussion normal Cardio Palpation: normal PMI Rate: regular rate Rhythm: regular rhythm Heart sounds: no murmurs and no rubs Peripheral pulses: Peripheral pulses 2+ throughout GI Inspection: Yes normal to inspection Palpation (GI): Soft to palpation, nontender, no guarding, not rigid and No hepatosplenomegaly present Percussion: Yes normal to percussion Auscultation: normal bowel sounds Rectal Exam - Female: deferred General: Yes bladder normal to palpation External Female Exam: No lesion Speculum Exam - Vagina: normal appearance of the vagina, normal palpation, normal vaginal discharge and not erythematous Speculum Exam - Cervix: normal appearance of the cervix and normal palpation Bimanual exam- vagina & uterus: normal bimanual exam, normal palpation, uterine size normal, bladder normal to palpation, consistency normal and normal pal pation Bimanual Exam- Adnexa, other: normal adnexae, no masses and no tenderness Assessment & Plan Assessment & Plan (1) Well woman exam: Comment: Persistent ADÁN 1 in 2018 status post LEEP in 2020 Code(s): Z01.419 - Encounter for gynecological examination (general) (routine) without abnormal findings Category: Medical Plan: Co testing done. Counseled the patient about the recommended dietary allowance of 1200 mg of Calcium & 600 IU of vitamin D. Instructions given the patient to schedule next screening Mammogram in 04/03. The patient was instructed to perform monthly self-breast exams and schedule annual exam in a year. All questions answered and the patient verbalized understanding. (2) Abnormal uterine bleeding (AUB): Code(s): N93.9 - Abnormal uterine and vaginal bleeding, unspecified Category: Medical Plan: Co testing done, GC and chlamydia taken CBC, TSH, FSH/LH, HCG, and pelvic ultrasound ordered. Discussed with the patient the different causes of abnormal bleeding including thyroid disorders, uterine and ovarian pathology, endometrial hyperplasia, carcinoma and other potential causes. Discussed with the patient the work up including CBC (to r/o anemia), TSH, FSH/LH, pelvic Ultrasound, endometrial biopsy to r/o endometrial pathology. All questions answered and the patient verbalized understanding. Instructed the patient to schedule an appointment for an endometrial biopsy in 2 weeks. Orders: Orders MM tomosynthesis screening BI 3 Months Z12.31 - Encounter for screening mammogram for malignant neoplasm of breast Complete Blood Count no Diff Today N93.9 - Abnormal uterine and vaginal bleeding, unspecified Lutenizing Hormone Today N93.9 - Abnormal uterine and vaginal bleeding, unspecified HCG Quantitative Today N93.9 - Abnormal uterine and vaginal bleeding, unspecified TSH reflex Free T4 Today N93.9 - Abnormal uterine and vaginal bleeding, unspecified US pelvic and transvaginal Today N93.9 - Abnormal uterine and vaginal bleeding, unspecified Follicle Stimulating Hormone Today N93.9 - Abnormal uterine and vaginal bleeding, unspecified Coding Level of Care Code Est Pt Level 3 (47746) Est Pt Prev Care 40-64y(52592) Diagnoses Well woman exam Z01.419 Abnormal uterine bleeding (AUB) N93.9
[2024-12-20 11:38] VITALS: BP 126/78; BMI 30.1
--- OUTSIDE RECORDS SUMMARY | 2024-12-20 12:49 | XMS_ITS | Encounter Summary ---
Author Organization [employer] Address [address] [facility] 7 [place] [address] Care Team Providers Care Line And Frame Poler Name Role Phone Ruma Driver MD Primary Care Provider Reason for Visit * Reason Onset Date Comments No Show 12/17/2024 Encounter Details Date Type Department Care Team ([facility] st Contact Info) Description 12/17/[address] [facility] MEDICINE [address] [place] [address] Ruma Driver MD [address] [place] [address] No Show Social History Tobacco Use Types Packs/Day Years Used Date Smoking Tobacco: Never Smokeless Tobacco: Never Alcohol Use Standard Drinks/Week Comments Never 0 (1 standard drink = 0.6 oz pur e alcohol) Depression Answer Date Recorded Patient Health Questionnaire-9 Score 23 05/05/2024 Patient Health Questionnaire-9 Score 23 05/05/2024 Last PHQ-9: Questionnaire Data Not on file 0 05/05/2024 Housing Stability Answer Date Recorded What is your housing situation today? I have klever benjamin 05/05/[address] you li ve. Do you have problems with any of the following? None of the above 05/05/2024 Food Insecurity Answer Date Recorded Within the past 12 months, y ou worried that your food would run out before you got money to buy more: Never True 05/05/2024 Within the past 12 months,th e food you bought just didn't last and you didn't have enough money to get more: Never True Transportation Answer Date Recorded In the past 12 months, has l ack of transportation kept you from medical appts, meetings, work or from getting things needed for daily living? No 05/05/2024 Utilities Answer Date Recorded In the past 12 months, has t he electric, gas, oil or water company threatened to shut off services in your home? No 05/05/2024 Depression Answer Date Recorded Patient Health Questionnaire-2 Score 6 05/05/2024 Internet Access Answer Date Recorded Internet Access Q1 No 07/12/2024 Internet Access Q2 My internet/Wi-Fi ac cess is not consistent or reliable 07/12/2024 Comments Unknown Sex and Gender Information Value Date Recorded Sex Assigned at Female 09/09/2022 10:14 AM EDT Legal Sex Female 10:14 AM EDT Gender Identity Female 09/09/2022 10:14 AM EDT Sexual Orientation Straight 09/09/2022 10 :14 AM EDT documented as of this encounter Miscellaneous Notes * Telephone Encounter - Kelsie Gates - 12/17/2024 10:04 AM EST Pt no showed to appt on 12/17/24 documented in this encounter Plan of Treatment Not on file documented as of this encounter Visit Diagnoses Not on filedocumented in this encounter Additional Health Concerns Assessment Noted Time PHQ-9 Depression Total Score: 23 024 4:24 PM EDT documented as of this encounter Care Teams Line And Frame Poler Relationship Specialty Start Date End Date Ruma Driver MD [address] [place] [address] PCP - General Family Medicine 12/26/20 documented as of this encounter
--- OUTSIDE RECORDS SUMMARY | 2024-12-20 12:49 | XMS_ITS | Encounter Summary ---
Author Organization [employer] Address [address] [place] [address] 7 [place] [address] Care Team Providers Care Rouge Mixer Name Role Phone Ruma Driver MD Primary Care Provider [phone] Encounter Details Date Type Department Care Team ([facility] st Contact Info) Description 06/11/2023 Abstract [facility] MEDICINE [address] [place], [place] [phone] Ruma Driver MD [address] [place], [place] [phone] Social History Tobacco Use Types Packs/Day Years Used Date Smoking Tobacco: Never Smokeless Tobacco: Never Alcohol Use Standard Drinks/Week Comments Never 0 (1 standard drink = 0.6 oz pur e alcohol) Depression Answer Date Recorded Patient Health Questionnaire-9 Score 17 01/17/2023 Depression Answer Date Recorded Patient Health Questionnaire-2 Score 6 01/17/2023 Comments Unknown Sex and Gender Information Value Date Recorded Sex Assigned at Female 09/09/2022 10:14 AM EDT Legal Sex Female 10:14 AM EDT Gender Identity Female 09/09/2022 10:14 AM EDT Sexual Orientation Straight 09/09/2022 10 :14 AM EDT documented as of this encounter Plan of Treatment Not on file documented as of this encounter Procedures Procedure Name Priority Date/Time Associated Diagnosis Comments COLONOSCOPY Routine 06/24/2022 documented in this encounter Results * Colonoscopy (06/24/2022) Colonoscopy Normal Normal Narrative Tessie Jackson - 06/24/2022 Recommended 10 year follow up ( [facility]) us Historical Provider HEALTH MAINTENANCE Final Result documented in this encounter Visit Diagnoses Not on filedocumented in this encounter Additional Health Concerns Assessment Noted Time PHQ-9 Depression Total Score: 17 023 9:45 AM EST documented as of this encounter Care Teams Rouge Mixer Relationship Specialty Start Date End Date Ruma Driver MD [address] [place] [address] PCP - General Family Medicine 12/26/20 documented as of this encounter
--- OUTSIDE RECORDS SUMMARY | 2024-12-20 12:49 | XMS_ITS | Encounter Summary ---
Author Organization [facility] Address [address] [place] [address] 7 [place] [address] Care Team Providers Care Copy And Print Associate Name Role Phone Ruma Driver MD Primary Care Provider [phone] Encounter Details Date Type Department Care Team ([facility] st Contact Info) Description 06/04/2023 Abstract [facility] MEDICINE [address] [place], [place] [phone] Ruma Driver MD [address] [place], [place] [phone] Social History Tobacco Use Types Packs/Day Years [...] Procedure Name Priority Date/Time Associated Diagnosis Comments MAMMOGRAPHY Routine 02/13/2023 documented in this encounter Results * Mammography (02/13/2023) Mammogram Bi-rads 3 Anatomical Region Laterality Modality Other Narrative 02/13/2023 Recommended right diagnostic mammo in 6 months us Historical Provider HEALTH MAINTENANCE Final Result documented in this encounter Visit Diagnoses Not on filedocumented in this encounter Additional Health Concerns Assessment Noted Time PHQ-9 Depression Total Score: 17 023 9:45 AM EST documented as of this encounter Care Teams Copy And Print Associate Relationship Specialty Start Date End Date Ruma Driver MD [address] [place] [address] PCP - General Family Medicine 12/26/20 documented as of this encounter
--- OUTSIDE RECORDS SUMMARY | 2024-12-20 12:49 | XMS_ITS | Encounter Summary ---
Author Organization [employer] Address [address] [facility] 7t [place] [address] Care Team Providers Care General Education Professor Name Role Phone Ruma Driver MD Primary Care Provider [phone] Encounter Details Date Type Department Care Team ([facility] st Contact Info) Description 03/22/2024 Orders Only [facility] MEDICINE [address] [place], [place] [phone] ProviderRenea MD Social History Tobacco Use Types Packs/Day Years Used Date Smoking Tobacco: Never Smokeless Tobacco: Never Alcohol Use Standard Drinks/Week Comments Never 0 (1 standard drink = 0.6 oz pur e alcohol) Depression Answer Date Recorded Patient Health Questionnaire-9 Score 17 01/17/2023 Housing Stability Answer Date Recorded What is your housing situation today? I have klever sourav 08/27/[address] you li ve. Do you have problems with any of the following? None of the above 08/27/2023 Food Insecurity Answer Date Recorded Within the past 12 months, y ou worried that your food would run out before you got money to buy more: Never True 08/27/2023 Within the past 12 months,th e food you bought just didn't last and you didn't have enough money to get more: Never True Transportation Answer Date Recorded In the past 12 months, has l ack of transportation kept you from medical appts, meetings, work or from getting things needed for daily living? Yes, it has kept me from medical appointments or getting medications. 08/16/2023 Utilities Answer Date Recorded In the past 12 months, has t he electric, gas, oil or water company threatened to shut off services in your home? No 08/27/2023 Depression Answer Date Recorded Patient Health Questionnaire-2 [...] Procedure Name Priority Date/Time Associated Diagnosis Comments BI MAMMOGRAM SCREENING TOMOSYNTHESIS BILATERAL Routine 03/26/2024 2:00 PM EDT HM COLONOSCOPY Routine 06/24/2022 8:30 AM EDT documented in this encounter Results * BI Mammogram Screening Tomosynthesis Bilateral (03/26/2024 2:00 PM EDT) Anatomical Region Laterality Modality Breast Bilateral Mammography 03/26/2024 2:00 PM EDT Narrative 04/26/2024 7:30 AM EDT ? [facility] ? [address] ?[place] [address] ? Mammography Report ? Signed ? Patient: Cordelia Menon ?MR# ?? : [id number] ? : 1975 ?Acct:[id number] ? Age/Sex: 48 / F ?ADM Date: 05/17/24 ? Loc: HO.MAMMO ? Attending Dr: Ruma Driver MD ? Ordering Physician: Ruma Driver ?Results: 1Negative ? Date of Service: 05/17/24 ?Follow Up: 1 Year From Orig ?? inal Mammogram ? Procedure(s): MM tomosynthesis screening BI ?? Accession Number(s): [id number] ? cc: Ruma Driver ? EXAMINATION: ?? MM SCREENING DIGITAL BREAST TOMOSYNTHESIS, BILATERAL ? CLINICAL INFORMATION: ? Screening. Asymptomatic. ? COMPARISON: ?? Mammography: This study is compared with prior exams dating back to ?? 2018. ? TECHNIQUE: ?? Digital breast tomosynthesis is performed in both the craniocaudal and ?? mediolateral oblique views along with computer-aided detection (CAD). ?? Synthesized 2D images are generated from the tomosynthesis. ? FINDINGS: ?? The breasts are heterogeneously dense, which may obscure small masses ?? (ACR BI-RADS breast composition Category c). ? There are no significant masses, abnormal calcifications, or other ?? abnormalities. ? MM/MM tomosynthesis screening BI ?? IMPRESSION: ?? No mammographic evidence of malignancy. ? ASSESSMENT: ? BI-RADS BI-RADS 1 - Negative ? RECOMMENDATION: ?? Routine annual mammography screening. ? 1 year F/U ? This examination should not preclude the clinical evaluation of a ?? suspicious palpable abnormality. ? This patient's information was entered into a reminder system with a ?? target due date for their next mammogram. ? Dictated By: ?Violet Sands MD ? Signed By: ?<Electronically signed by Violet Sands MD in OV> ? 04/26/24 0726 ? DD/ 1400 ? TD/TT: ? Malted Milk Supervisor: ? Procedure Note Mane, Image - 04/26/2024 [place] [facility] [address] [place] [address] Mammography Report Signed Patient: Keyana Menon# : [id number] : 1975Acct:[id number] Age/Sex: 48 / FADM Date: 03/26/24 Loc: [facility] Attending Dr: Ruma Driver MD Ordering Physician: Chrissie Driverults: 1Negative Date of Service: 03/26/24Follow Up: 1 Year From Orig inal Mammogram Procedure(s): MM tomosynthesis screening BI Accession Number(s): [id number] cc: Ruma Driver EXAMINATION: MM SCREENING DIGITAL BREAST TOMOSYNTHESIS, BILATERAL CLINICAL INFORMATION: Screening. Asymptomatic. COMPARISON: Mammography: This study is compared with prior exams dating back to 2018. TECHNIQUE: Digital breast tomosynthesis is performed in both the craniocaudal and mediolateral oblique views along with computer-aided detection (CAD). Synthesized 2D images are generated from the tomosynthesis. FINDINGS: The breasts are heterogeneously dense, which may obscure small masses (ACR BI-RADS breast composition Category c). There are no significant masses, abnormal calcifications, or other abnormalities. MM/MM tomosynthesis screening BI IMPRESSION: No mammographic evidence of malignancy. ASSESSMENT: BI-RADS BI-RADS 1 - Negative RECOMMENDATION: Routine annual mammography screening. 1 year F/U This examination should not preclude the clinical evaluation of a suspicious palpable abnormality. This patient's information was entered into a reminder system with a target due date for their next mammogram. Dictated By: Violet Sands MD Signed By: <Electronically signed by Violet Sands MD in OV> 04/26/24 0726 DD/ 1400 TD/TT: Malted Milk Supervisor: us Ruma Driver MD IMG BI PROCEDURES Final Result * Hm Colonoscopy (06/24/2022 8:30 AM EDT) Historical Provider HEALTH MAINTENANCE Final Result documented in this encounter Visit Diagnoses Not on filedocumented in this encounter Additional Health Concerns Assessment Noted Time PHQ-9 Depression Total Score: 17 03/ 023 9:45 AM EST documented as of this encounter Care Teams General Education Professor Relationship Specialty Start Date End Date Ruma Driver MD [address] [place] [address] PCP - General Family Medicine 12/26/20 documented as of this encounter
--- OUTSIDE RECORDS SUMMARY | 2024-12-20 12:50 | XMS_ITS | Encounter Summary ---
Author Organization [facility] Address [address] [place] [address] [address] [place] [address] Care Team Providers Care Set Up Mechanic Coating Machines Name Role Phone Ruma Driver MD Primary Care Provider [phone] Reason for Visit * Reason Comments Med Refill Encounter Details Date Type Department Care Team ([facility] st Contact Info) Description 01/30/2023 Refill [facility] MEDICINE [address] [place], [place] [phone] Ruma Driver MD [address] [place], [place] [phone] Claustrophobia Social History Tobacco Use Types Packs/Day Years [...] Orientation Straight 09/09/2022 10 :14 AM EDT COVID-19 Exposure Response Date Recorded In the last 10 days, have yo u been in contact with someone who was confirmed or suspected to have Coronavirus/COVID-19? No / Unsure 01/17/2023 9:32 AM EST documented as of this encounter Plan of Treatment Not on file documented as of this encounter Visit Diagnoses Diagnosis Claustrophobia Other isolated or specific phobias documented in this encounter Additional Health Concerns Assessment Noted Time PHQ-9 Depression Total Score: 17 023 9:45 AM EST documented as of this encounter Care Teams Set Up Mechanic Coating Machines Relationship Specialty Start Date End Date Ruma Driver MD [address] [place] [address] PCP - General Family Medicine 12/26/20 documented as of this encounter
--- OUTSIDE RECORDS SUMMARY | 2024-12-20 12:50 | XMS_ITS | Clinical Summary ---
Author Organization [employer] Address [address] [facility] [address] [place] [address] Care Team Providers Care Precision Lens Polisher Name Role Phone Ruma Driver MD Primary Care Provider [phone] Allergies Active Allergy Reactions Criticality Noted Date Comments Peanut (Diagnostic) 04/10/2017 Peanut-Containing Drug Products Anaphylaxis High 11/2016 Medications * This document contains information received from the source organization and may not represent a complete record from that organization. aspirin 81 MG EC tablet Take 1 tablet by mouth 1 (one) time each day. 2 Active cholecalciferol (Vitamin D-3) 50 MCG (1999 UT) capsule Take 1 capsule by mouth 1 (one) time each day. 0 Active Diclofenac Sodium 1 % gel Apply 1 application topically if needed in the morning and at bedtime for pain. Apply to affected areas 2 Active EPINEPHrine (Epipen) 0.3 MG/0.3ML injection syringe Inject 0.3 mg into the shoulder, thigh, or buttocks if needed for anaphylaxis. Active polyethylene glycol, PEG, 3350 (Glycolax) 17 GM/SCOOP powder Take 17 g by mouth 1 (one) time each day. Mixed with 8 ounces water, juice, soda, coffee or tea 0 Active Sennosides 8.6 MG capsule Take 1-2 tablets by mouth in the morning and at bedtime. 0 Active SUMAtriptan (Imitrex) 50 MG tablet Take 1 tablet by mouth if needed for headaches. Take 1 tablet with fluids as soon as symptoms start, may repeat x1 after 2 hours if still have headache Active esomeprazole (NexIUM) [address] capsule Take 40 mg by mouth in the morning. 2 Active diazePAM (Diastat Acudial) 10 MG rectal kit Insert 10 mg into the rectum 1 (one) time if needed. Active dilTIAZem CD (Cardizem CD) 120 MG 24 hr capsule Take 120 mg by mouth in the morning. 2 Active divalproex (Depakote) 500 MG EC tablet Take 500 mg by mouth in the morning. 2 Active docusate sodium (Colace) 100 MG capsule Take 100 mg by mouth at bedtime. 2 Active famotidine (Pepcid) 20 MG tablet Take 20 mg by mouth in the morning. 2 Active Meclizine HCl 25 MG chewable tablet Chew 25 mg if needed in the morning, at noon, and at bedtime. Active naproxen (Naprosyn) 500 MG tablet Take 500 mg by mouth in the morning and at bedtime. 2 Active sucralfate (Carafate) 1 g tablet Take 1 g by mouth at bedtime. 2 Active SUMAtriptan (Imitrex) 50 MG tablet Take 50 mg by mouth if needed each day. Active nabumetone (Relafen) 500 MG tablet TAKE 2 TABLETS BY MOUTH TWICE DAILY WITH FOOD. 3 Active metoprolol succinate XL (Toprol-XL) 25 MG 24 hr tabletIndicatio ns:Palpitations Take 1 tablet (25 mg) by mouth in the morning. This is for palpitations. Do not crush or chew. 90 tablet 3 3 Active chlorhexidine (Peridex) 0.12 % solution RINSE FOR 30 SECONDS WITH A HALF OUNCE (15ml) TWICE DAILY, SPIT OUT -- DO NOT SWALLOW. USE TWICE DAILY IN THE MORNING AND IN THE EVENING AFTER BRUSHING DO NOT EAT OR DRINK FOR 30 MINUTES 3 Active Trulance tablet tablet Take 1 tablet by mouth in the morning. 3 Active cefuroxime (Ceftin) 500 MG tablet Take 500 mg by mouth 2 times daily. 3 Active sucralfate (Carafate) 1 GM/10ML suspension GIVE 10 ML BY MOUTH AT BEDTIME 3 Active LORazepam (Ativan) 0.5 MG tabletIndicatio ns:Anxiety Take 1 tablet (0.5 mg) by mouth every 6 (six) hours if needed for anxiety for up to 10 days. 30 tablet 4 Active baclofen (Lioresal) 10 MG tablet Take 1 tablet (10 mg) by mouth if needed in the morning, at noon, and at bedtime for muscle spasms. Or pain 90 tablet 1 4 Active Bisacodyl EC 5 MG EC tablet 4 Active diphenhydrAMINE (BENADryl) 25 MG tablet TAKE 1 TO 2 TABLETS BY MOUTH EVERY 4 TO 6 HOURS NEEDED FOR ALLERGIC REACTION 4 Active busPIRone (Buspar) 5 MG tabletIndicatio ns:Depressive disorder Take 1 tablet (5 mg) by mouth if needed in the morning and at bedtime (anxiety). 180 tablet 3 4 Active PARoxetine (Paxil) 10 MG tabletIndicatio ns:Depressive disorder,Hot flashes Take 1 tablet (10 mg) by mouth in the morning. 90 tablet 3 4 05/05/20 25 Active Active Problems Problem Noted Date Diagnosed Date Atrial fibrillation 09/10/2023 Anxiety 06/16/2023 Assessment & Plan (06/16/2023 12:39 PM EDT): continue BHN Continue meds Help mother establish care and get her life set up here in [place], which will ease her anxiety Other constipation 06/16/2023 Assessment & Plan (06/16/2023 12:39 PM EDT): On Trulance, PPI, and carafate Palpitations 01/17/2023 Assessment & Plan (01/17/2023 10:18 AM EST): Saw cardiology On dilt 120mg ER daily Add Toprolol XL 25mg Uterine fibroid 10/20/2022 Assessment & Plan (01/17/2023 10:19 AM EST): Underwent uterine fibroid embolization Sep 2022, first period after less bleeding and fewer cramping Now cramping is more intense, has precautions to call surgeon at [facility] Failed Mirena Continue to monitor with gas transfer operator Assessment & Plan (10/20/2022 10:53 AM EST): Underwent uterine fibroid embolization Sep 2022, first period after less bleeding and fewer cramping Failed Mirena Continue to monitor with gas transfer operator Depressive disorder 03/01/2022 Assessment & Plan (05/06/2024 1:51 PM EDT): Restart Buspar 5mg TID And switch SSRI to Paxil 10mg for 6-8 weeks, can titrate up from there targeting depressive symptoms and vasomotor symptoms of menopause Assessment & Plan (05/23/2023 10:02 AM EDT): Assessment: Patient with Depression (exuberated by family stressors) in the context of biopsychosocial stressors of housing and financial insecurity. Patient will benefit from continued OP therapy, deep breathing and text her guided progressive muscle relaxation. At this time Cordelia Negron meets criteria for Visit Diagnoses: Problem List Items Addressed This Visit Other Depressive disorder Patient ready to address current needs Yes PLAN: 1. Follow up with [facility]: Not recommended for follow-up 2. Patient goal is to continue OP therapy and explore additional coping mechanisms 3. Behavioral Recommendations a. Deep breathing b. Progressive muscle relaxation c. SDOH referral Assessment & Plan (10/20/2022 10:54 AM EST): Continue Zoloft 100mg daily Continue Buspar 5mg BID Will re-consult [facility] as referral to Counseling in Oct 2021 was never booked by facility Seizure 03/01/2022 Assessment & Plan (12/08/2023 12:12 PM EST): Stable for now, no more seizures. 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 Fibromyalgia 04/10/2017 Assessment & Plan (02/08/2024 8:11 PM EDT): Baclofen for back pain up to TID prn Goal is for less sedation than with other muscle relaxers Assessment & Plan (06/16/2023 12:39 PM EDT): Sees Dr Griffith at [facility] Re-iterate just one NSAID at a time Assessment & Plan (01/17/2023 10:19 AM EST): Sees Dr Griffith at [facility] Presence of artificial left eye 04/10/2017 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 Encounters Date Type Department Care Team Description 12/17/2024 Telephone [facility] [address] [place] [address] [id number] Ruma Driver MD No Show from Last 3 Months Immunizations Name Administration Dates Next Due Hep B, adult 10/10/2022,09/12/2022 Influenza injectable quadriv alent IIV4 with preservative 10/07/2017,08/08/2015 MMR 09/12/2022,04/16/1996 Moderna Covid-19 Vaccine 12+ 03/21/2021,02/22/20 21 Pneumococcal Polysaccharide PPSV23 08/08/2015 TD (adult), 2 Lf tetanus tox oid, preservative free, adsorbed 07/08/2018,04/09/2007 Tdap 02/03/2014 Social History Tobacco Use Types Packs/Day Years Used Date Smoking Tobacco: Never Smokeless Tobacco: Never Tobacco Cessation:Counseling Given: Not Answered Alcohol Use Standard Drinks/Week Comments Never 0 [...] Orientation Straight 09/09/2022 10 :14 AM EDT Last Filed Vital Signs Vital Sign Reading Time Taken Comments Blood Pressure 116/72 05/05/2024 3:45 PM EDT Pulse 67 05/05/2024 3:45 PM EDT Temperature 36.7 ??C (98.1 ??F) 05/05/2024 3:45 PM ED T Respiratory Rate 20 05/05/2024 3:45 PM EDT Oxygen Saturation 98% 06/16/2023 10:52 AM EDT Inhaled Oxygen Concentration - - Weight 75.8 kg (167 lb) 05/05/2024 3:45 PM EDT Height 160 cm (5' 3 ) 05/05/2024 3:45 PM EDT Body Mass Index 29.58 05/05/2024 3:45 PM EDT Plan of Treatment Health Maintenance Due Date Last Done Comments CT Colonography 1973 FIT DNA/Cologuard 1973 FIT 1973 FOBT 1973 Sigmoidoscopy 1973 Alcohol/Substance Use Screening 1985 Family Planning (PISQ) 1988 Hepatitis C Screening 1991 Pap Smear 1994 Hepatitis B Vaccines (3 of 3 - 19+ 3-dose series) 03/12/2023 10/10/2022, 09/12/2022 Pneumococcal Vaccine: 50+ Years (2 of 2 - PCV) 2023 08/08/2015 Zoster Vaccines (1 of 2) 2023 COVID-19 Vaccine (3 - season) 2024 03/21/2021, 02/21/2021 Influenza Vaccine (#1) 2024 10/07/2017, 2014 Depression Monitoring (PHQ-9) 11/04/2024 05/05/2024, 05/05/2024 Mammogram 03/26/2025 03/26/2024, 09/10, 02/13/2023, Additional history exists Depression Screening 05/05/2025 05/05/2024, 05/05/20 24 SDOH Screening 05/05/2025 05/05/2024 Tobacco Screening 05/05/2025 05/05/2024 Cervical Cancer Screening 01/02/2027 HPV/Cotest 01/02/2027 01/02/2022, 12/12, 12/11/2020, Additional history exists DTaP/Tdap/Td Vaccines (3 - Td or Tdap) 07/08/2028 07/08/2018, 02/03/2014, 04/09/2007 Colonoscopy 06/24/2032 06/24/2022, 06/24/2022 Colorectal Cancer Screening 06/24/2032 RSV Patients and Patients Aged 60 years or older (1 - 1-dose 75+ series) 2048 HIV Screening Completed 08/26/2022 HIB Vaccines Aged Out No longer eligi ble based on patient's age to complete this topic HPV Vaccines Aged Out No longer eligi ble based on patient's age to complete this topic Hepatitis A Vaccines Aged Out No long er eligible based on patient's age to complete this topic IPV Vaccines Aged Out No longer eligi ble based on patient's age to complete this topic Meningococcal Vaccine Aged Out No jose alejandro jennifer eligible based on patient's age to complete this topic RSV under 20 months Aged Out No longe r eligible based on patient's age to complete this topic Rotavirus Vaccines Aged Out No longer eligible based on patient's age to complete this topic Procedures Procedure Name Priority Date/Time Associated Diagnosis Comments BI MAMMOGRAM SCREENING TOMOSYNTHESIS BILATERAL Routine 03/26/2024 2:00 PM EDT HIV 1/2 ANTIGEN/ANTIBODY, FOURTH GENERATION W/RFL Routine 08/26/2022 10:25 AM EDT HM COLONOSCOPY Routine 06/24/2022 ZZZ HISTORICAL HPV E6/E7 RFLX PALOMO 16 18/45 Routine 01/02/2022 9:14 AM EST from Last 3 Months or Most Recently Relevant to Health Maintenance Results * BI Mammogram Screening Tomosynthesis Bilateral (03/26/2024 2:00 PM EDT) Anatomical Region Laterality Modality Breast Bilateral Mammography 03/26/2024 2:00 PM EDT Narrative 04/26/2024 7:30 AM EDT ? [facility] [place] ? [address] ?[place] [address] ? Mammography Report ? Signed ? Patient: Bette Menonilda ?MR# ?? : [id number] ? : 1975 ?Acct:[id number] ? Age/Sex: 48 / F ?ADM Date: 05/17/24 ? Loc: HO.MAMMO ? Attending Dr: Ruma Driver MD ? Ordering Physician: Ruma Driver ?Results: 1Negative ? Date of Service: 03/26/24 ?Follow Up: 1 Year From Orig ?? inal Mammogram ? Procedure(s): MM tomosynthesis screening BI ?? Accession Number(s): [id number] ? cc: Ruma Driver ? EXAMINATION: ?? [...] by Violet Sands MD in OV> ? 04/26/24725 ? DD/ 1400 ? TD/TT: ? Court Specialist: ? Procedure Note Donotmarleninterpreter, Image - [facility] [address] [place] [address] Mammography Report Signed Patient: Edwige MenonR# : [id number] : 1975Acct:[id number] Age/Sex: 48 / FADM Date: 03/26/24 Loc: MAMMO Attending Dr: Ruma Driver MD Ordering Physician: Chrissie Driverults: 1Negative Date of Service: 03/26/24Follow Up: 1 Year From Orig inal Mammogram Procedure(s): MM tomosynthesis screening BI Accession Number(s): [id number] cc: Ruma Driver EXAMINATION: MM SCREENING DIGITAL [...] in OV> 04/26/24 0726 DD/ 1400 TD/TT: Court Specialist: Ruma Driver MD IMG BI PROCEDURES Final Result * HIV 1/2 ANTIGEN/ANTIBODY,FOURTH GENERATION W/RFL (08/26/2022 10:25 AM EDT) [facility] HIV-1/2 ANTIGEN AND ANTIBODIES, 4TH GENERATION W/ REFLEX NON-REACT ROBB NON-REACT ROBB CONVERTED LEGACY LABS Comment: HIV-1 antigen and HIV-1/HIV-2 antibodies were not detected. There is no laboratory evidence of HIV infection. ?? PLEASE NOTE: This information has been disclosed to you from records whose confidentiality may be protected by state law. ??If your state requires such protection, then the state law prohibits you from making any further disclosure of the information without the specific written consent of the person to whom it pertains, or as otherwise permitted by law. A general authorization for the release of medical or other information is NOT sufficient for this purpose. ? For additional information please refer to http://education.[employer]/faq/JCP279 (This link is being provided for informational/ educational purposes only.) ? The performance of this assay has not been clinically validated in patients less than 2 years old. ?? 08/26/2022 10:2 5 AM EDT Abby Melvin MD LAB BLOOD ORDERABLES Fin al Result CONVERTED LEGACY LABS * Hm Colonoscopy (06/24/2022) [facility] Colonoscopy Normal Normal Narrative Tessie Jackson - 06/24/2022 Recommended 10 year follow up ( [facility]) Result [facility] Historical Provider HEALTH MAINTENANCE Final Result * HPV E6/E7 RFLX PALOMO 16 18/45 (01/02/2022 9:14 AM EST) [facility] HPV 16 RNA [facility] HPV 18/45 RNA [facility] HPV E6 E7 ADD [facility] HPV mRNA E6/E7 rflx Not Detected Not Detected [facility] Comment: Methodology: Construction Person-Mediated Amplification This assay detects E6/E7 viral messenger RNA (mRNA) from 14 high-risk HPV types (16,18,31,33,35,39,45,51,52,56,58,59,66,68). The analytical performance characteristics of this assay have been determined by [employer]. The modifications have not been cleared or approved by the FDA. This assay has been validated pursuant to the CLIA regulations and is used for clinical purposes. For additional information, please refer to http://education.[employer]/faq/YNT118l6 (This link if provided for information/ educational purposes only.) THIS TEST WAS PERFORMED AT: [facility] [address] [place] [address] [address] [place], [place] ??[phone] ZAINAB ACOSTA MD 01/02/2022 9:14 AM EST Mitchell Biggs MD HISTORICAL/NON ORDERABLE LABS Fi nal Result Performing Organization Address City/State/[facility] Co de Phone Number [facility] Pending sale to [facility] [address] from Last 3 Months or Most Recently Relevant to Health Maintenance Insurance [address] [address] - [employer] Care Teams Precision Lens Polisher Relationship Specialty Start Date End Date Ruma Driver MD [address] [place] [id number] PCP - General Family Medicine 12/26/20
--- OUTSIDE RECORDS SUMMARY | 2024-12-20 12:50 | XMS_ITS | Encounter Summary ---
Author Organization [employer] Address [address] [place] [address] Care Team Providers Care Welding Pantograph Machine Operator Name Role Phone Ruma Driver MD Primary Care Provider [phone] Encounter Details Date Type Department Care Team ([facility] st Contact Info) Description 11/19/2022 Orders Only [facility] [address] [place], [place] [phone] Ruma Driver MD [address] [place], [place] [phone] Social History Tobacco Use Types Packs/Day Years Used Date Smoking Tobacco: Never Smokeless Tobacco: Never Alcohol Use Standard Drinks/Week Comments Never 0 (1 standard drink = 0.6 oz pur e alcohol) Comments Unknown Sex and Gender Information Value [...] Assessment Noted Time PHQ-9 Depression Total Score: 19 022 1:57 PM EST documented as of this encounter Care Teams Welding Pantograph Machine Operator Relationship Specialty Start Date End Date Ruma Driver MD [address] [place] [address] PCP - General Family Medicine 12/26/20 documented as of this encounter
== END 2024-12-20 12:03 | disposition home or self-care (01) ==
LOC: HO.HWS 11:32
PROVIDERS: Visit Provider Obstetrics & Gynecology
DX: Z01.419 Encounter for gynecological examination (general) (routine) without abnormal findings (principal); N93.9 Abnormal uterine and vaginal bleeding, unspecified
CPT/HCPCS: 99213; 99396; 99459

== ENCOUNTER 2024-12-20 11:54 | Outpatient (REF) | payer OTHER, SELFPAY ==
[2024-12-21 05:56] LABS: CT PCR NOT DETECTED (Not Detect.); NG PCR NOT DETECTED (Not Detect.)
== END 2024-12-20 11:55 | disposition home or self-care (01) ==
LOC: HO.LAB 11:54
PROVIDERS: Visit Provider Obstetrics & Gynecology
DX: Z01.419 Encounter for gynecological examination (general) (routine) without abnormal findings (principal); N93.9 Abnormal uterine and vaginal bleeding, unspecified; B97.7 Papillomavirus as the cause of diseases classified elsewhere; N87.0 Mild cervical dysplasia; R93.89 Abnormal findings on diagnostic imaging of other specified body structures; R23.2 Flushing
CPT/HCPCS: 87491; 87591; 87626; 88175; 99212; 99396; 99459

== ENCOUNTER 2025-01-11 08:16 | Outpatient (AMB) | payer OTHER, SELFPAY ==
--- NOTE | 2025-01-11 08:24 | A.OFFVIS_ITS ---
Vital Signs 01/11/25 08:25 Height 5 ft 3 in Weight 172 lb 6.424 oz BMI 30.5 BP 124/70 Blood Pressure Location Lt brachial Position Sitting Pulse 76 Pulse Source Monitor Intake Visit Reasons: 6 month f/u over due [place] [employer] Picker Required: No Allergies nut - unspecified Allergy (Severe, Verified 01/11/25 08:27) Anaphylaxis mold Allergy (Intermediate, Verified 01/11/25 08:27) itchy throat raw vegetable Allergy (Intermediate, Verified 01/11/25 08:27) Itchy throat SEASONAL ALLERGIES Allergy (Intermediate, Uncoded 01/11/25 08:27) Itchy Eyes, congestion, watery eyes Medication List - Last Reconciled 01/11/25 by Nuzhat Massey, WILD-C acetaminophen 325 mg PO QID PRN baclofen 10 mg PO TID bisacodyl (Dulcolax (bisacodyl)) 10 mg (2 x 5 mg) PO BEDTIME diltiazem HCl CD 240 mg PO DAILY 90 days diphenhydramine HCl (Allergy (diphenhydramine)) 25 mg PO Q6H PRN divalproex 500 mg PO BID docusate sodium 100 mg PO BEDTIME [Epi E-Z Pen ] esomeprazole magnesium (Nexium) 40 mg PO DAILY ibuprofen 600 mg PO Q8H PRN meclizine 12.5 mg PO BID metoprolol succinate ER 50 mg PO DAILY nabumetone 500 mg PO BID paroxetine HCl 10 mg PO DAILY plecanatide (Trulance) 3 mg PO DAILY sertraline 25 mg PO DAILY sucralfate 10 mL PO BEDTIME sumatriptan succinate 50 mg PO Q2-4H PRN trazodone 150 mg PO BEDTIME PRN HPI HPI 6 month f/u over due: Details: Cordelia is a 49-year-old female with past medical history of brief SVT, paroxysmal atrial fibrillation who presents for follow-up. Today she reports she has not had concerning heart palpitations. She has no chest discomfort or shortness of breath. No neurological or vision changes. She remains physically active but no routine exercise. [facility] Medical History Gastroesophageal reflux disease Chronic idiopathic constipation Helicobacter pylori (H. pylori) Hypoglycemia PONV (postoperative nausea and vomiting) History of glaucoma as a child Prosthetic eye globe Anxiety Dysplasia of cervix, low grade (ADÁN 1) Arthritis Fibromyalgia Epilepsy Surgical History History of esophagogastroduodenoscopy (EGD) Hx of colonoscopy History of eye surgery H/O LEEP Hx of tubal ligation History of S/P removal of left ovary Family History Mother Seizures CAD (coronary artery disease) Pacemaker Diabetes Father No problems noted. Social History Are you a primary healthcare representative to a significant other at home: No Do you presently have visiting nurse or other home services: No Alcohol intake: current Alcohol intake frequency: holidays/special occasions only Comment: medicated with IV tylenol Patient Tobacco Use Status: Never used Tobacco Sexual orientation: Straight/Heterosexual Gender identity: Female Female Reproductive History Menstrual Age of Menarche: 10 Review of Systems Const All systems reviewed & are unremarkable except as noted in HPI and below ENT Denies dizziness Card Details: brief palpitations, lasting seconds Denies chest pain, Denies chest pain at rest, Denies chest pain with activity, Denies rapid heart rate, Denies pedal edema, Denies edema, Denies leg edema, Denies lightheadedness, Denies palpitations, Denies dyspnea, Denies dyspnea on exertion and Denies orthopnea Resp Denies cough, Denies dyspnea and Denies dyspnea on exertion GI Denies hematochezia and Denies change in stool character Musc Denies abnormal gait, Denies limited range of motion, Denies muscle cramps, Denies muscle weakness, Denies numbness, Denies radiating pain into limb, Denies stiffness and Denies tingling Neuro Denies abnormal gait, Denies dizziness, Denies numbness and Denies tingling Endo Denies palpitations Physical Exam Vital Signs: Last Vital Signs Pulse 76 01/11/25 08:25 BP 124/70 01/11/25 08:25 BMI result Body Mass Index 30.5 Const General: cooperative, healthy appearing, comfortable and no acute distress Orientation/consciousness: patient oriented x3 Neck Neck: Yes normal visual inspection Resp Effort & Inspection: normal respiratory effort Auscultation: clear to auscultation bilaterally, no crackles, no rales, no rhonchi and no wheezes Cardio Jugular venous distension: no JVD Rate: regular rate Rhythm: regular rhythm Heart sounds: S1 normal heart sound present, S2 normal heart sound present, no gallops, no murmurs and no rubs Neuro General: patient oriented x3 Extrem General: Yes normal to inspection, No no pedal edema and No calf tenderness Psych Appearance: grossly normal Mental Status: mental status grossly normal Speech and movement: Normal speech and movement present Office Procedures EKG Details: Today, read by me, normal sinus rhythm, nonspecific T-wave abnormality, rate 76, QTC 407 millisecond [id number], Complete Assessment & Plan Assessment & Plan (1) Atrial fibrillation: Code(s): I48.91 - Unspecified atrial fibrillation Category: Medical Qualifiers: Atrial fibrillation type: paroxysmal Qualified Code(s): I48.0 - Paroxysmal atrial fibrillation Plan: History of heart palpitations. Echocardiogram done 06/07/2022 shows normal EF, 62%, no valve abnormalities, atrial normal size. Exercise stress test done 06/07/2022 showed exercise 6 minutes, brief SVT run noted in recovery lasting approximately 3 seconds, no EKG changes of ischemia. A Holter monitor was done 02/14/2023 for 14 days which showed sinus rhythm with average heart rate 77, episode of atrial fibrillation noted lasting 3 minutes and 27 seconds with a total burden of 0.04% with heart rate 183 beats per minute, Rare PACs, symptoms correlated with sinus rhythm. She was already on diltiazem 180 mg daily and metoprolol XL 25 mg daily. Her diltiazem dose was increased to 240 mg and on last visit her metoprolol dose was increased up to 50 mg daily. Chads Vasc score of 1, female. Not started on anticoagulation due to low stroke risk. EKG done today showing normal sinus rhythm, rate 76. No concerning heart palpitations. Continue current med management. Will recheck Holter prior to next visit. ED care if needed for sustained rapid palpitations. Cardiology follow-up in 6 months, sooner if needed. (2) SVT (supraventricular tachycardia): Code(s): I47.1 - Supraventricular tachycardia Category: Medical Plan: Short runs of SVT noted in recovery period of stress test, longest about 3 seconds with report of heart palpitation at that time. She is on rate slowing medications. Finding of AFib on Holter as above. Also may be getting periodic episodes of SVT as well. continue with medical management and lifestyle modifications. Based on symptoms she has a low burden of arrhythmia. Plan Time spent on chart review, documentation, interview and assessment Orders: Orders ECG 3 day holter monitor 5 Months I47.1 - Supraventricular tachycardia, I48.0 - Paroxysmal atrial fibrillation Coding Level of Care Code Est Pt Level 4 (57793) Complex EM visit Add On G2211 Diagnoses Paroxysmal atrial fibrillation I48.0 Atrial fibrillation type: paroxysmal SVT (supraventricular tachycardia) I47.1 CPT Codes EKG - CPT: 89924-[id number], Complete ([id number]) Time Spent (min) 28
[2025-01-11 08:25] VITALS: BP 124/70; PULSE 76; BMI 30.5
--- OUTSIDE RECORDS SUMMARY | 2025-01-11 08:40 | XMS_ITS | Encounter Summary ---
Author Organization [facility] Address [address] [place] [address] [place] [address] Care Team Providers Care Environmental Monitoring Specialist Name Role Phone Ruma Driver MD Primary Care Provider [phone] Reason for Visit * Reason Comments Med Refill Encounter Details Date Type Department Care Team ([facility] st Contact Info) Description 01/30/2023 Refill [facility] [address] [place], [place] [phone] Ruma Driver MD [address] [place], [place] [phone] Claustrophobia Social History Tobacco Use Types Packs/Day [...] documented as of this encounter Care Teams Environmental Monitoring Specialist Relationship Specialty Start Date End Date Ruma Driver MD [address] [place] [address] PCP - General Family Medicine 12/26/20 documented as of this encounter
--- OUTSIDE RECORDS SUMMARY | 2025-01-11 08:40 | XMS_ITS | Clinical Summary ---
Author Organization [employer] Address [address] [facility] 7t [place] [address] Care Team Providers Care Supervisor Frame Sample And Pattern Name Role Phone Ruma Driver MD Primary Care Provider [phone] Allergies Active Allergy Reactions Criticality Noted Date [...] get her life set up here in [place], which will ease her anxiety Other constipation [...] intense, has precautions to call surgeon at [facility] Failed Mirena Continue to monitor with database administrator Assessment & Plan (10/20/2022 10:53 AM EST): Underwent uterine fibroid embolization Sep 2022, first period after less bleeding and fewer cramping Failed Mirena Continue to monitor with database administrator Depressive disorder 03/01/2022 Assessment & Plan (05/06/2024 [...] needs Yes PLAN: 1. Follow up with [facility]: Not recommended for follow-up 2. Patient goal is to continue OP therapy and explore additional coping mechanisms 3. Behavioral Recommendations a. Deep breathing b. Progressive muscle relaxation c. 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 [facility] [place] ? [address] ?[place] [address] ? Mammography Report ? Signed ? Patient: Bette Menonilda ?MR# ?? : [id number] ? : 1975 ?Acct:[id number] ? Age/Sex: 48 / F ?ADM Date: 05/17/24 ? Loc: HO.MAMMO ? Attending Dr: Ruma Driver MD ? Ordering Physician: Ruma Driver ?Results: 1Negative ? Date of Service: 03/26/24 ?Follow Up: 1 Year From Orig ?? inal Mammogram ? Procedure(s): MM tomosynthesis screening BI ?? Accession Number(s): [id number] ? cc: Ruma Driver ? EXAMINATION: ?? [...] 04/26/24725 ? DD/ 1400 ? TD/TT: ? Mechanical Manager: ? Procedure Note Donotmarleninterpreter, Image - 04/26/2024 [facility] [address] [place] [address] Mammography Report Signed Patient: Edwige MenonR# : [id number] : 1975Acct:[id number] Age/Sex: 48 / FADM Date: 03/26/24 Loc: MAMMO Attending Dr: Ruma Driver MD Ordering Physician: Chrissie Driverults: 1Negative Date of Service: 03/26/24Follow Up: 1 Year From Orig inal Mammogram Procedure(s): MM tomosynthesis screening BI Accession Number(s): [id number] cc: Ruma Driver EXAMINATION: MM SCREENING DIGITAL [...] in OV> 04/26/24 0726 DD/ 1400 TD/TT: Mechanical Manager: Ruma Driver MD IMG BI PROCEDURES Final Result * HIV 1/2 ANTIGEN/ANTIBODY,FOURTH GENERATION W/RFL (08/26/2022 10:25 AM EDT) [facility] HIV-1/2 ANTIGEN AND ANTIBODIES, 4TH GENERATION W/ [...] ? For additional information please refer to http://education.Squrl/faq/VJC460 (This link is being provided for informational/ educational purposes only.) ? The performance of this assay has not been clinically validated in patients less than 2 years old. ?? 08/26/2022 10:2 5 AM EDT Abby Melvin MD LAB BLOOD ORDERABLES Fin al Result CONVERTED LEGACY LABS * Hm Colonoscopy (06/24/2022) [facility] Colonoscopy Normal Normal Narrative Tessie Jackson - 06/24/2022 Recommended 10 year follow up ( [facility]) Result [facility] Historical Provider HEALTH MAINTENANCE Final Result * HPV E6/E7 RFLX PALOMO 16 18/45 (01/02/2022 9:14 AM EST) [facility] HPV 16 RNA [facility] HPV 18/45 RNA [facility] HPV E6 E7 ADD [facility] HPV mRNA E6/E7 rflx Not Detected Not Detected [facility] Comment: Methodology: Labor Conciliator-Mediated Amplification This assay detects E6/E7 viral messenger RNA (mRNA) from 14 high-risk HPV types (16,18,31,33,35,39,45,51,52,56,58,59,66,68). The analytical performance characteristics of this assay have been determined by [employer] The modifications have not been cleared or approved by the FDA. This assay has been validated pursuant to the CLIA regulations and is used for clinical purposes. For additional information, please refer to http://education.Squrl/faq/JDU706e3 (This link if provided for information/ educational purposes only.) THIS TEST WAS PERFORMED AT: [facility] [address] [place] [address] [address] [place], [place] ??[address] ZAINAB ACOSTA MD 01/02/2022 9:14 AM EST Mitchell Biggs MD HISTORICAL/NON ORDERABLE LABS Fi nal Result Performing Organization Address City/State/[facility] Co de Phone Number [facility] [address] from Last 3 Months or Most Recently Relevant to Health Maintenance [place] [address] [place] [address] - [employer] Care Teams Supervisor Frame Sample And Pattern Relationship Specialty Start Date End Date Ruma Driver MD [address] [place] [address] PCP - General Family Medicine 12/26/20
--- OUTSIDE RECORDS SUMMARY | 2025-01-11 08:40 | XMS_ITS | Encounter Summary ---
Author Organization [employer] Address [address] [facility] 7 [place] [address] Care Team Providers Care Melt House Drag Operator Name Role Phone Ruma Driver MD Primary Care Provider [phone] Reason for Visit * Reason Onset Date Comments No Show 12/17/2024 Encounter Details Date Type Department Care Team ([facility] st Contact Info) Description 12/17/2024 Telephone [facility] 230 [place] [address] Ruma Driver MD 230 [place] [address] No Show Social History Tobacco Use Types [...] documented as of this encounter Care Teams Melt House Drag Operator Relationship Specialty Start Date End Date Ruma Driver MD 230 [place] [address] PCP - General Family Medicine 12/26/20 documented as of this encounter
--- OUTSIDE RECORDS SUMMARY | 2025-01-11 08:40 | XMS_ITS | Encounter Summary ---
Author Organization [employer] Address [address] [place] [address] Care Team Providers Care Rn Immunology Name Role Phone Ruma Driver MD Primary Care Provider [phone] Encounter Details Date Type Department Care Team ([facility] st Contact Info) Description 11/19/2022 Orders Only [facility] [address] [place], [place] [phone] Ruma Driver MD [address] [place], [place] [phone] Social History Tobacco Use Types Packs/Day Years [...] documented as of this encounter Care Teams Rn Immunology Relationship Specialty Start Date End Date Ruma Driver MD [address] [place] [address] PCP - General Family Medicine 12/26/20 documented as of this encounter
--- OUTSIDE RECORDS SUMMARY | 2025-01-11 08:40 | XMS_ITS | Encounter Summary ---
Author Organization [employer] [facility] Address [address] [place] [address] 7 [place] [address] Care Team Providers Care Samples And Repairs Preparer Name Role Phone Ruma Driver MD Primary Care Provider [phone] Encounter Details Date Type Department Care Team ([facility] st Contact Info) Description 06/04/2023 Abstract [facility] 230 [place], [place] [phone] Ruma Driver MD 230 [place], [place] [phone] Social History Tobacco Use Types Packs/Day Years [...] documented as of this encounter Care Teams Samples And Repairs Preparer Relationship Specialty Start Date End Date Ruma Driver MD [address] [place] [address] PCP - General Family Medicine 12/26/20 documented as of this encounter
--- OUTSIDE RECORDS SUMMARY | 2025-01-11 08:40 | XMS_ITS | Encounter Summary ---
Author Organization [employer] Address [address] [facility] 7t [place] [address] Care Team Providers Care Photonics Engineer Name Role Phone Ruma Driver MD Primary Care Provider [phone] Encounter Details Date Type Department Care Team ([facility] st Contact Info) Description 03/22/2024 Orders Only [facility] 230 [place], [place] [phone] ProviderRenea MD Social History Tobacco Use Types [...] EDT Narrative 04/26/2024 7:30 AM EDT ? [facility] ? [address] ?[place] [address] ? Mammography Report ? Signed ? Patient: Cordelia Menon ?MR# ?? : [id number] ? : 1975 ?Acct:[id number] ? Age/Sex: 48 / F ?ADM Date: 05/17/24 ? Loc: HO.MAMMO ? Attending Dr: Ruma Driver MD ? Ordering Physician: Ruma Driver ?Results: 1Negative ? Date of Service: 05/17/24 ?Follow Up: 1 Year From Orig ?? inal Mammogram ? Procedure(s): MM tomosynthesis screening BI ?? Accession Number(s): [id number] ? cc: Ruma Driver ? EXAMINATION: ?? [...] 0726 ? DD/ 1400 ? TD/TT: ? Instructional Specialist: ? Procedure Note Mane, Image - 04/26/2024 [place] [facility] [address] [place] [address] Mammography Report Signed Patient: Keyana Menon# : [id number] : 1975Acct:[id number] Age/Sex: 48 / FADM Date: 03/26/24 Loc: CYNDEE Attending Dr: Ruma Driver MD Ordering Physician: Chrissie Driverults: 1Negative Date of Service: 03/26/24Follow Up: 1 Year From Orig inal Mammogram Procedure(s): MM tomosynthesis screening BI Accession Number(s): [id number] cc: Ruma Driver EXAMINATION: MM SCREENING DIGITAL [...] in OV> 04/26/24 0726 DD/ 1400 TD/TT: Instructional Specialist: us Ruma Driver MD IMG BI PROCEDURES Final Result * Hm Colonoscopy (06/24/2022 8:30 AM EDT) Historical Provider HEALTH MAINTENANCE Final Result documented in this encounter Visit Diagnoses Not on filedocumented in this encounter Additional Health Concerns Assessment Noted Time PHQ-9 Depression Total Score: 17 03/ 023 9:45 AM EST documented as of this encounter Care Teams Photonics Engineer Relationship Specialty Start Date End Date Ruma Driver MD 230 [place] [address] PCP - General Family Medicine 12/26/20 documented as of this encounter
--- OUTSIDE RECORDS SUMMARY | 2025-01-11 08:40 | XMS_ITS | Encounter Summary ---
Author Organization [employer] Address [address] [place] [address] 7 [place] [address] Care Team Providers Care Waterproof Bag Cutting Machine Operator Name Role Phone Ruma Driver MD Primary Care Provider [phone] Encounter Details Date Type Department Care Team ([facility] st Contact Info) Description 06/11/2023 Abstract [facility] 230 [place], [place] [phone] Ruma Driver MD [address] [place], [place] [phone] Social History Tobacco Use Types Packs/Day Years [...] 06/24/2022 Recommended 10 year follow up ( [facility]) us Historical Provider HEALTH MAINTENANCE Final Result documented in this encounter Visit Diagnoses Not on filedocumented in this encounter Additional Health Concerns Assessment Noted Time PHQ-9 Depression Total Score: 17 023 9:45 AM EST documented as of this encounter Care Teams Waterproof Bag Cutting Machine Operator Relationship Specialty Start Date End Date Ruma Driver MD [address] [place] [address] PCP - General Family Medicine 12/26/20 documented as of this encounter
== END 2025-01-11 08:55 | disposition home or self-care (01) ==
PROVIDERS: Visit Provider Nurse Practitioner Family
DX: I48.0 Paroxysmal atrial fibrillation (principal); I47.10 Supraventricular tachycardia, unspecified
CPT/HCPCS: 93010; 99214; G2211

== ENCOUNTER → 2025-01-11 08:16 | Outpatient (BNVA) | payer OTHER, SELFPAY | PROVIDERS: Visit Provider Nurse Practitioner Family | DX: I48.0 Paroxysmal atrial fibrillation (principal); I47.10 Supraventricular tachycardia, unspecified; R94.31 Abnormal electrocardiogram [ECG] [EKG] | CPT/HCPCS: 93005; 99212 ==

== ENCOUNTER 2025-02-17 10:26 | Outpatient (REF) | payer OTHER, SELFPAY ==
--- NOTE | ~2025-02-17 | US_ITS ---
CLINICAL HISTORY: N20.0 - Calculus of kidney US Renal Comparison: US/MD/SR - US RETROPERITONEAL COMP - 05/20/24 10:22 EDT Findings: Right kidney normal size and echotexture, 10.6 cm length. Left kidney normal size and echotexture, 10.6 cm length. No stone seen. No collecting system dilatation of either kidney. Normal color Doppler. IMPRESSION: 1. Normal kidneys. This document has been electronically signed by: Brigido Aragon MD on 02/17/2025 23:00:35
--- NOTE | ~2025-02-17 | US_ITS ---
CLINICAL HISTORY: N93.9 - Abnormal uterine and vaginal bleeding, unspecified US pelvis transabdominal and transvaginal Comparison: US/KS/SR - US PELVIC AND TRANSVAGINAL - 05/15/22 10:36 EDT Findings: Transabdominal scanning performed for overall anatomy. Transvaginal scanning performed for additional detail. Anteverted uterus is 8.8 cm length. Within the anterior uterus myometrium there is a 1.2 cm fibroid. Within the posterior myometrium of the uterus there is a 4.1 x 1.6 x 4.1 cm isoechoic myometrial fibroid. Endometrium 9 mm thickness. Right ovary 4.5 x 3.7 x 3.4 cm. There is a 3.7 cm anechoic right ovarian cyst which contains a small daughter cyst measuring 1.5 cm. There is increased through transmission. Yepez are thin and there is no solid component or internal vascularity. Left ovary is surgically absent No free fluid. IMPRESSION: 1. Right ovarian 3.7 cm cyst with internal 1.5 cm daughter cyst. 2. There are 2 myometrial uterine fibroids, largest measuring 4.1 cm. This document has been electronically signed by: Brigido Aragon MD on 02/17/2025 23:08:11
--- OUTSIDE RECORDS SUMMARY | 2025-02-17 12:20 | XMS_ITS | Encounter Summary ---
Author Organization [employer] [facility] Address [address] [place] [address] 7 [place] [address] Care Team Providers Care Engineer Fishing Vessel Name Role Phone Ruma Driver MD Primary Care Provider [phone] Encounter Details Date Type Department Care Team (Late Contact Info) Description 06/04/2023 Abstract [facility]INE [address] [place] [address] Ruma Driver MD [address] [place] [address] Social History Tobacco Use Types Packs/Day Years [...] as of this encounter Plan of Treatment Upcoming Encounters Date Type Department Care Team (Late Contact Info) Description 03/04/2025 10:00 AM EDT Medication Management [facility] [address] [place] [address] [phone] documented as of this encounter Procedures Procedure [...] documented as of this encounter Care Teams Engineer Fishing Vessel Relationship Specialty Start Date End Date Ruma Driver MD 230 [place] [address] PCP - General Family Medicine 12/26/20 documented as of this encounter
--- OUTSIDE RECORDS SUMMARY | 2025-02-17 12:20 | XMS_ITS | Encounter Summary ---
Author Organization [facility] Address [address] [place] [address] 7 [place] [address] Care Team Providers Care Cash Surrender Calculator Name Role Phone Ruma Driver MD Primary Care Provider [phone] Encounter Details Date Type Department Care Team (Late Contact Info) Description 06/11/2023 Abstract [facility] [address] [place] [phone] Ruma Driver MD [address] [place] [address] Social History Tobacco Use Types Packs/Day Years [...] Description 03/04/2025 10:00 AM EDT Medication Management [facility] [address] [place] [address] [phone] documented as of this encounter Procedures Procedure Name Priority Date/Time Associated Diagnosis Comments HM COLONOSCOPY Routine 06/24/2022 documented in this encounter Results * Colonoscopy (06/24/2022) Colonoscopy Normal Normal Narrative Tessie Jackson - 06/24/2022 Recommended 10 year follow up ( [facility]) us Historical Provider HEALTH MAINTENANCE Final Result documented in this encounter Visit Diagnoses Not on filedocumented in this encounter Additional Health Concerns Assessment Noted Time PHQ-9 Depression Total Score: 17 023 9:45 AM EST documented as of this encounter Care Teams Cash Surrender Calculator Relationship Specialty Start Date End Date Ruma Driver MD 230 [place] [address] PCP - General Family Medicine 12/26/20 documented as of this encounter
--- OUTSIDE RECORDS SUMMARY | 2025-02-17 12:20 | XMS_ITS | Encounter Summary ---
Author Organization [employer] Address [address] [facility] 7t [place] [address] Care Team Providers Care Quilting Supervisor Name Role Phone Ruma Driver MD Primary Care Provider [phone] Encounter Details Date Type Department Care Team ([facility] st Contact Info) Description 03/22/2024 Orders Only [facility] [address] [place], [place] [phone] ProviderRenea MD Social History Tobacco Use Types [...] Encounters Date Type Department Care Team (Late st Contact Info) Description 03/04/2025 10:00 AM EDT Medication Management [facility] [address] [facility] [place] [address] documented as of this encounter Procedures Procedure Name Priority Date/Time Associated Diagnosis Comments BI MAMMOGRAM SCREENING TOMOSYNTHESIS BILATERAL Routine 03/26/2024 2:00 PM EDT HM COLONOSCOPY Routine 06/24/2022 8:30 AM EDT documented in this encounter Results * BI Mammogram Screening Tomosynthesis Bilateral (03/26/2024 2:00 PM EDT) Anatomical Region Laterality Modality Breast Bilateral Mammography 03/26/2024 2:00 PM EDT Narrative 04/26/2024 7:30 AM EDT ? [facility] ? [address] ?[place] [address] ? Mammography Report ? Signed ? Patient: Cordelia Menon ?MR# ?? : [id number] ? : 1975 ?Acct:[id number] ? Age/Sex: 48 / F ?ADM Date: 05/17/24 ? Loc: HO.MAMMO ? Attending Anabel Driver MD ? Ordering Physician: Ruma Driver ?Results: 1Negative ? Date of Service: 03/26/24 ?Follow Up: 1 Year From Orig ?? inal Mammogram ? Procedure(s): MM tomosynthesis screening BI ?? Accession Number(s): [id number] ? cc: Ruma Driver ? EXAMINATION: ?? MM SCREENING DIGITAL BREAST TOMOSYNTHESIS, BILATERAL ? CLINICAL INFORMATION: ? Screening. Asymptomatic. ? COMPARISON: ?? Mammography: This study is compared with prior exams dating back to ?? 2017. ? TECHNIQUE: ?? Digital breast tomosynthesis is [...] 04/26/247[address] ? DD/ 1400 ? TD/TT: ? Keg Raiser: ? Procedure Note Mane, Devin - 06/17/2024 [place] [facility] [address] [place], [place] [address] Mammography Report Signed Patient: Edwige MenonR# : [id number] : 1975Acct:[id number] Age/Sex: 48 / FADM Date: 03/26/24 Loc: HO.MAMMO Attending Dr: Ruma Driver MD Ordering Physician: Chrissie Driverults: 1Negative Date of Service: 03/26/24Follow Up: 1 Year From Orig inal Mammogram Procedure(s): MM tomosynthesis screening BI Accession Number(s): [id number] cc: Ruma Driver EXAMINATION: MM SCREENING DIGITAL [...] in OV> 04/26/24 0726 DD/ 1400 TD/TT: Keg Raiser: us Ruma Driver MD IMG BI PROCEDURES Final Result * Hm Colonoscopy (06/24/2022 8:30 AM EDT) us Historical Provider HEALTH MAINTENANCE Final Result documented in this encounter Visit Diagnoses Not on filedocumented in this encounter Additional Health Concerns Assessment Noted Time PHQ-9 Depression Total Score: 17 023 9:45 AM EST documented as of this encounter Care Teams Quilting Supervisor Relationship Specialty Start Date End Date Ruma Driver MD 230 [place] [address] PCP - General Family Medicine 12/26/20 documented as of this encounter
--- OUTSIDE RECORDS SUMMARY | 2025-02-17 12:21 | XMS_ITS | Encounter Summary ---
Author Organization [employer] Address [address] [place] [address] Care Team Providers Care Director Perioperative Name Role Phone Ruma Driver MD Primary Care Provider [phone] Encounter Details Date Type Department Care Team (Late st Contact Info) Description 11/19/2022 Orders Only [facility] [address] [place] [address] Ruma Driver MD [address] [place] [address] Social History Tobacco Use Types Packs/Day Years [...] Description 03/04/2025 10:00 AM EDT Medication Management [facility] 230 [place], [place] [phone] documented as of this encounter Visit Diagnoses Not on filedocumented in this encounter Additional Health Concerns Assessment Noted Time PHQ-9 Depression Total Score: 19 10/18/ 022 1:57 PM EST documented as of this encounter Care Teams Director Perioperative Relationship Specialty Start Date End Date Ruma Driver MD [address] [place] [address] PCP - General Family Medicine 12/26/20 documented as of this encounter
--- OUTSIDE RECORDS SUMMARY | 2025-02-17 12:21 | XMS_ITS | Encounter Summary ---
Author Organization [employer] [facility] Address [address] [place] [address] 7 [place] [address] Care Team Providers Care Raw Stock Machine Loader Name Role Phone Ruma Driver MD Primary Care Provider [phone] Reason for Referral * Consultation (Routine) - Authorized Specialty Diagnoses / Procedures Referred By Contac t Referred To Contact Pharmacy Diagnoses Seizure (CMS/HCC) Ruma Driver MD [address] [place] [address] Phone: tel: fax: Referral ID Status Reason Start Date Expiration Date Visits Requested Visits Authorized [id number] Authorized Continuity of Care 02/04/2025 02/04/2026 6 6 Encounter Details Date Type Department Care Team ([facility] st Contact Info) Description 02/04/2025 Orders Only [facility] [address] [place] [address] Ruma Driver MD [address] [place] [address] [phone] Seizure (CMS/HCC) (Primary Dx) Social History Tobacco Use Types Packs/Day Years Used Date Smoking Tobacco: Never Smokeless Tobacco: Never Alcohol Use Standard Drinks/Week Comments Never 0 (1 standard drink = 0.6 oz pur e alcohol) Depression Answer Date Recorded Patient Health Questionnaire-9 Score 05/05/2024 Patient Health Questionnaire-9 Score 05/05/2024 Last PHQ-9: Questionnaire Data Not on [...] Upcoming Encounters Date Type Department Care Team ([facility] st Contact Info) Description 03/04/2025 10:00 AM EDT Medication Management [facility] [address] [place] [address] Scheduled Referrals Name Type Priority Associated Diagnoses Orde r Schedule Referral to Pharmacy MT Outpatient Referral Routine Seizure (CMS/HCC) Ordered: 02/04/2025 documented as of this encounter Visit Diagnoses Diagnosis Seizure (CMS/HCC)- Primary Other convulsions documented in this encounter Additional Health Concerns Assessment Noted Time PHQ-9 Depression Total Score: 23 024 4:24 PM EDT documented as of this encounter Care Teams Raw Stock Machine Loader Relationship Specialty Start Date End Date Ruma Driver MD [address] [place] [address] PCP - General Family Medicine 12/26/20 documented as of this encounter
--- OUTSIDE RECORDS SUMMARY | 2025-02-17 12:21 | XMS_ITS | Clinical Summary ---
Author Organization [employer] Address [address] [facility] [address] [place] [address] Care Team Providers Care Customer Contact Specialist Name Role Phone Ruma Driver MD Primary Care Provider [phone] Allergies Active Allergy Reactions Criticality Noted Date [...] get her life set up here in [place], which will ease her anxiety Other constipation [...] intense, has precautions to call surgeon at [facility] Failed Mirena Continue to monitor with armature and rotor winder Assessment & Plan (10/20/2022 10:53 AM EST): Underwent uterine fibroid embolization Sep 2022, first period after less bleeding and fewer cramping Failed Mirena Continue to monitor with armature and rotor winder Depressive disorder 03/01/2022 Assessment & Plan (05/06/2024 [...] needs Yes PLAN: 1. Follow up with [facility]: Not recommended for follow-up 2. Patient goal is to continue OP therapy and explore additional coping mechanisms 3. Behavioral Recommendations a. Deep breathing b. Progressive muscle relaxation c. SDOH referral Assessment & Plan (10/20/2022 10:54 AM EST): Continue Zoloft 100mg daily Continue Buspar 5mg BID Will re-consult [facility] as referral to Counseling in [...] 12:39 PM EDT): Sees Dr Griffith at [facility] Re-iterate just one NSAID at a time Assessment & Plan (01/17/2023 10:19 AM EST): Sees Dr Griffith at 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 Encounters Date Type Department Care Team Description 02/04/2025 Orders Only [facility] [address] [place] [address] Ruma Driver MD Seizure ([facility]) (Primary Dx) 02/02/2025 Telephone [facility] [address] [place] [address] Arcelia Davidson, PharmD 12/17/2024 Telephone [facility] [address] [place] [address] Ruma Driver MD No Show from Last [...] 05/05/2024 3:45 PM EDT Plan of Treatment Upcoming Encounters Date Type Department Care Team (Late st Contact Info) Description 03/04/2025 10:00 AM EDT Medication Management [facility] [address] [place] [phone] Health Maintenance Due Date Last Done Comments [...] Vaccine (#1) 2024 10/07/2017, 2014 Depression Monitoring 11/04/2024 05/05/2024, 024 Mammogram 03/26/2025 03/26/2024, 09/10, 02/13/2023, Additional history exists Depression Screening 05/05/2025 05/05/2024, 05/05/20 24 SDOH Screening 05/05/2025 05/05/2024 Tobacco Screening 05/05/2025 05/05/2024 Cervical Cancer Screening 01/02/2027 HPV/Cotest 01/02/2027 01/02/2022, /2 01/2022, 12/11/2020, Additional history exists DTaP/Tdap/Td Vaccines (3 [...] EDT Narrative 04/26/2024 7:30 AM EDT ? [facility] ? [address] ?[place] [address] ? Mammography Report ? Signed ? Patient: Gopi Jamil,Cordelia ?MR# ?? : [id number] ? : 1975 ?Acct:[id number] ? Age/Sex: 48 / F ?ADM Date: 03/26/24 ? Loc: HO.MAMMO ? Attending Dr: Ruma Driver MD ? Ordering Physician: Ruma Driver ?Results: 1Negative ? Date of Service: 03/26/24 ?Follow Up: 1 Year From Orig ?? inal Mammogram ? Procedure(s): MM tomosynthesis screening BI ?? Accession Number(s): [id number] ? cc: Ruma Driver ? EXAMINATION: ?? [...] 04/26/24725 ? DD/ 1400 ? TD/TT: ? Contractor Field Hauling: ? Procedure Note Donotuseinterpreter, Image - 04/26/2024 [facility] [address] [place] [address] Mammography Report Signed Patient: Edwige MenonR# : [id number] : 1975Acct:[id number] Age/Sex: 48 / FADM Date: 03/26/24 Loc: HO.MAMMO Attending Dr: Ruma Driver MD Ordering Physician: Chrissie Driverults: 1Negative Date of Service: 03/26/24Follow Up: 1 Year From Orig inal Mammogram Procedure(s): MM tomosynthesis screening BI Accession Number(s): [id number] cc: Ruma Driver EXAMINATION: MM SCREENING DIGITAL [...] in OV> 04/26/24 0726 DD/ 1400 TD/TT: Contractor Field Hauling: us Ruma Driver MD IMG BI PROCEDURES Final Result * HIV 1/2 ANTIGEN/ANTIBODY,FOURTH GENERATION W/RFL (08/26/2022 10:25 AM EDT) HIV-1/2 ANTIGEN AND ANTIBODIES, 4TH GENERATION W/ [...] ? For additional information please refer to http://education.In1001.com.ATRI - Addiction Treatment Reviews & Information/faq/QFA637 (This link is being provided for informational/ educational purposes only.) ? The performance of this assay has not been clinically validated in patients less than 2 years old. ?? 08/26/2022 10:2 5 AM EDT us Abby Melvin MD LAB BLOOD ORDERABLES Fin al Result CONVERTED LEGACY LABS * Hm Colonoscopy (06/24/2022) Colonoscopy Normal Normal Narrative Tessie Jackson - 06/24/2022 Recommended 10 year follow up ( [facility]) us Historical Provider HEALTH MAINTENANCE Final Result * HPV E6/E7 RFLX PALOMO 16 18/45 (01/02/2022 9:14 AM EST) HPV 16 RNA [facility]NP [facility] HPV 18/45 RNA [facility]NP [facility] HPV E6 E7 ADD [facility]NP [facility] HPV mRNA E6/E7 rflx Not Detected Not Detected [facility] Comment: Methodology: School Community Relations Coordinator-Mediated Amplification This assay detects E6/E7 viral messenger RNA (mRNA) from 14 high-risk HPV types (16,18,31,33,35,39,45,51,52,56,58,59,66,68). The analytical performance characteristics of this assay have been determined by [employer] The modifications have not been cleared or approved by the FDA. This assay has been validated pursuant to the CLIA regulations and is used for clinical purposes. For additional information, please refer to http://education.Dine in/faq/XOU055g4 (This link if provided for information/ educational purposes only.) THIS TEST WAS PERFORMED AT: [facility] [address] [place] [address] [address] [place], [place] ??[phone] ZAINAB ACOSTA MD 01/02/2022 9:14 AM EST Mitchell Biggs MD HISTORICAL/NON ORDERABLE LABS Fi nal Result [facility] [address] from Last 3 Months or Most Recently Relevant to Health Maintenance Insurance * Guarantor: Cordelia Menon Account Type Relation to Patient Date of Phone Billing Address Personal/Family Self [address] [place] [address] [facility] * Guarantor: Cordelia Menon Account Type Relation to Patient Date of Phone Billing Address Personal/Family Self [address] [place] [id number] * Guarantor: Cordelia Menon Account Type Relation to Patient Date of Phone Billing Address Personal/Family Self [address] [place] [id number] Care Teams Customer Contact Specialist Relationship Specialty Start Date End Date Ruma Driver MD [address] [place] [phone] PCP - General Family Medicine 12/26/20
--- OUTSIDE RECORDS SUMMARY | 2025-02-17 12:21 | XMS_ITS | Encounter Summary ---
Author Organization [facility] Address [address] [place] [address] [address] [place] [address] Care Team Providers Care English Professor Name Role Phone Ruma Driver MD Primary Care Provider [phone] Reason for Visit * Reason Comments Med Refill Encounter Details Date Type Department Care Team (Late Contact Info) Description 01/30/2023 Refill [facility] MED[facility]INE [address] [place] [address] Ruma Driver MD [address] [place] [address] Claustrophobia Social History Tobacco Use Types Packs/Day [...] Description 03/04/2025 10:00 AM EDT Medication Management [facility] [address] [place] [address] documented as of this encounter Visit Diagnoses Diagnosis Claustrophobia Other isolated or specific phobias documented in this encounter Additional Health Concerns Assessment Noted Time PHQ-9 Depression Total Score: 17 023 9:45 AM EST documented as of this encounter Care Teams English Professor Relationship Specialty Start Date End Date Ruma Driver MD [address] [place] [address] PCP - General Family Medicine 12/26/20 documented as of this encounter
== END 2025-02-17 10:27 | disposition home or self-care (01) ==
LOC: HO.US 10:26
PROVIDERS: Absent Provider Nurse Practitioner Family; Visit Provider Obstetrics & Gynecology
DX: N20.0 Calculus of kidney (principal); N93.9 Abnormal uterine and vaginal bleeding, unspecified
CPT/HCPCS: 76775; 76830; 76856

== ENCOUNTER → 2025-02-17 10:28 | Outpatient (BNV) | payer OTHER, SELFPAY | PROVIDERS: Absent Provider Nurse Practitioner Family; Visit Provider Radiology Diagnostic Radiology | DX: N93.9 Abnormal uterine and vaginal bleeding, unspecified (principal); N20.0 Calculus of kidney | CPT/HCPCS: 76775; 76830; 76856 ==

== ENCOUNTER 2025-03-24 08:35 | Outpatient (AMB) | payer OTHER, SELFPAY ==
--- NOTE | 2025-03-24 08:41 | A.OFFVIS_ITS ---
Intake Visit Reasons: 6m/US(set) Intake Note: Patient is present for 6M/US Urology Medication:NONE Antibiotic Allergy:NONE Blood Thinner:NONE Press Operator Apprentice Required: No Allergies nut - unspecified Allergy (Severe, Verified 03/24/25 08:42) Anaphylaxis mold Allergy (Intermediate, Verified 03/24/25 08:42) itchy throat raw vegetable Allergy (Intermediate, Verified 03/24/25 08:42) Itchy throat SEASONAL ALLERGIES Allergy (Intermediate, Uncoded 03/24/25 08:42) Itchy Eyes, congestion, watery eyes HPI Comments Details: A well-is a very pleasant 49-year-old female patient. She has a past medical history of GERD, chronic idiopathic constipation, H pylori, prosthetic left eye, anxiety, arthritis, fibromyalgia, and epilepsy. She presents to the office today for follow-up of her nephrolithiasis. In discussion with the patient today she denies having had any bothersome urinary issues or concerns since her last office visit here. Recent renal imaging results were reviewed w ith the patient today 03/04 bilateral kidneys are normal in size and echotexture. No collecting system dilatation of either kidney. Normal color Doppler. No hydronephrosis or renal calculi noted bilaterally. In office urinalysis results reviewed with the patient today. When asked she denies urinary urgency, urinary frequency, incontinence, nocturia, hematuria, dysuria, foul smelling urine, brendan nges to urinary stream, flank pain, fever, and or chills. She is happy with her current voiding parameters. She reports to be drinking plenty of water daily. We discussed at length potential causes of nephrolithiasis. She otherwise offers no other issues or concerns at this time. Plan The patient's follow-up focuses on a structured plan to prevent future nephrolithiasis. Recent evaluations confirm no kidney stone formation, permitting continued focus on minimizing recurrence through lifestyle modifications, primarily high fluid intake and dietary adjustments such as lemon juice incorporation. Given the current symptom-free status and stable condition, bi-annual follow-ups are planned to closely monitor her renal health. Discussions included the potential for extending the interval between appointments to annual evaluations, depending on ongoing stability and the patient's comfort. The patient has expressed understanding and agreement with this management plan and its preventive measures, with readiness to make necessary contact if symptoms suggestive of stone formation arise. Patient was informed and verbally consented to the use of an ambient scribe for clinic note documentation during this visit. Discussion Notes During this follow-up consultation, I reviewed with the patient her history of nephrolithiasis and the current absence of symptoms or recent kidney stones, as confirmed by evaluations. The discussion centered on maintaining the effective preventive strategy currently in place, emphasizing hydration and the inclusion of lemon juice as a dietary supplement to assist in stone prevention. Knowledge about the potential for stone recurrence despite the patient's present symptom- free condition was shared, preparing her for vigilant self-monitoring. We discussed the continuation of bi-annual evaluations, acknowledging her interest in possibly extending examination intervals to annual assessments if no new symptoms develop. The patient demonstrated comprehension of the treatment rationale, the importance of consistent hydration, and agreed to the discussed management plan. I clarified all risks, benefits, and the reasoning behind current recommendations, fostering informed consent for ongoing management. Assurance was given for immediate support should kidney-related symptoms manifest. [facility] Medical History Gastroesophageal reflux disease Chronic idiopathic constipation Helicobacter pylori (H. pylori) Hypoglycemia PONV (postoperative nausea and vomiting) History of glaucoma as a child Prosthetic eye globe Anxiety Dysplasia of cervix, low grade (ADÁN 1) Arthritis Fibromyalgia Epilepsy Surgical History History of esophagogastroduodenoscopy (EGD) Hx of colonoscopy History of eye surgery H/O LEEP Hx of tubal ligation History of S/P removal of left ovary Family History Mother Seizures CAD (coronary artery disease) Pacemaker Diabetes Father No problems noted. Social History Are you a primary memory care program director to a significant other at home: No Do you presently have visiting nurse or other home services: No Alcohol intake: current Alcohol intake frequency: holidays/special occasions only Comment: medicated with IV tylenol Patient Tobacco Use Status: Never used Tobacco Sexual orientation: Straight/Heterosexual Gender identity: Female Female Reproductive History Menstrual Age of Menarche: 10 Review of Systems Eyes Reports as per HPI ENT Reports no additional complaints Card Reports as per HPI Resp Reports no additional complaints GI Reports as per HPI Reports as per HPI Musc Reports no additional complaints Neuro Reports no additional complaints Psych Reports as per HPI Endo Reports no additional complaints Dank/Lymph Reports no additional complaints Aller/Immun Reports no additional complaints Physical Exam Const General: cooperative, healthy appearing, comfortable, no acute distress, well developed, alert and awake Orientation/consciousness: patient oriented x3 Limitations: no limitations HEENT Head: Yes normal to inspection, Yes normocephalic and Yes atraumatic Ears: hearing grossly normal bilaterally Eyes General: appearance normal, both eyes and all related structures Neck Neck: Yes normal visual inspection and Yes trachea midline Chest Chest palpation & inspection: normal inspection of the chest Resp Effort & Inspection: normal respiratory effort and able to speak in complete sentences Cardio Rate: regular rate GI Inspection: Yes normal to inspection General: Yes no CVA tenderness Back/Spine/Pelvis Back: no CVA tenderness Skin General skin exam: no rashes or lesions noted Neuro General: patient oriented x3 Extrem General: Yes normal to inspection Psych Appearance: grossly normal and well kempt Mental Status: mental status grossly normal Speech and movement: Normal speech and movement present and Clear speech present Affect: normal affect Attitude: cooperative Thought process: Normal thought process present Thought content: Normal thought content present Insight: Fair insight present (Psych) Judgement: Fair judgement present (Psych) Results AMB Urinalysis, Automated UA Leukoctes 70 Jomar/uL Last Edit by TIFFANY Hoover on 03/24/25 08:57 UA Nitrite Negative Last Edit by TIFFANY Hoover on 03/24/25 08:57 UA Urobilinogen 17 mg/dL Last Edit by TIFFANY Hoover on 03/24/25 08:57 UA Protein 15 mg/dL Last Edit by TIFFANY Hoover on 03/24/25 08:57 UA pH 6.0 Last Edit by TIFFANY Hoover on 03/24/25 08:57 UA Blood 10 Luciano/uL Last Edit by TIFFANY Hoover on 03/24/25 08:57 UA Specific [place] 1.025 Last Edit by TIFFANY Hoover on 03/24/25 08: 57 UA Ketone Positive Last Edit by TIFFANY Hoover on 03/24/25 08:57 UA Bilirubin 17 mg/dL Last Edit by TIFFANY Hoover on 03/24/25 08:57 UA Glucose 0 mg/dL Last Edit by TIFFANY Hoover on 03/24/25 08:57 Results Reviewed Results Reviewed: Laboratory Last Values Urine pH (Auto) 6.0 03/24/25 08:56 Specific [place] (Auto) 1.025 03/24/25 08:56 Urine Protein (Auto) 15 mg/dL 03/24/25 08:56 Glucose (UA)(Auto) 0 mg/dL 03/24/25 08:56 Urine Ketones (Auto) Positive 03/24/25 08:56 Urine Blood (Auto) 10 Luciano/uL 03/24/25 08:56 Urine Nitrite (Auto) Negative 03/24/25 08:56 Urine Bilirubin (Auto) 17 mg/dL 03/24/25 08:56 Urine Urobilinogen (Auto) 17 mg/dL 03/24/25 08:56 Leukocyte Esterase (Auto) 70 Jomar/uL 03/24/25 08:56 Assessment & Plan Assessment & Plan (1) Nephrolithiasis: Code(s): N20.0 - Calculus of kidney Category: Medical Plan In office urinalysis results reviewed with the patient today; as noted above. Recent renal imaging results reviewed with the patient today; as noted above. She currently denies any bothersome urinary issues or concerns. She reports be happy with current voiding parameters. Will continue with surveillance monitoring. We discussed importance of adequate hydration relation to nephrolithiasis as well as overall health and well-being. Continue adding 1 oz of lemon juice to water daily. Will obtain renal ultrasound in 6 months Follow-up in 6 months with renal imaging to be completed prior; or sooner with any issues, concerns, and or questions. Orders: Orders US renal BI 6 Months N20.0 - Calculus of kidney AMB Urinalysis Automated Today Z13.9 - Encounter for screening, unspecified Urine Cytology Today R31.29 - Other microscopic hematuria Patient Instructions: The patient had an opportunity to ask questions regarding the treatment plan. All questions were answered. Physical exam, labs, and imaging were discussed and reviewed in detail. As well as risks, benefits, and discussion of treatment choices. No major barriers to understanding were identified. The patient expressed understanding and agreement with the above treatment plan. The patient was made aware they should contact our office by phone for worsening of their current condition, the appearance of new symptoms, or with any questions or concerns. Compliance is encouraged with any medications and follow up testing that is ordered. It is a privilege to be allowed the opportunity to participate in? your urological care.? Again, if you have any questions or concerns If you have any questions or concerns please do not hesitate to contact me. The office is [phone]. This note is constructed using voice recognition software. While every effort has been made to ensure accuracy bobbin inspector errors may have been included. Yours sincerely, ALMA ROSA Emanuel Coding Level of Care Code Est Pt Level 3 (77760) Diagnoses Nephrolithiasis N20.0
--- OUTSIDE RECORDS SUMMARY | 2025-03-24 08:56 | XMS_ITS | Encounter Summary ---
Author Organization [employer] Address [address] [place] [address] 7 [place] [address] Care Team Providers Care Embedded Systems Engineer Name Role Phone Ruma Driver MD Primary Care Provider [phone] Reason for Referral * Consultation (Routine) - Pending Review Specialty Diagnoses / Procedures Referred By Contac t Referred To Contact Pharmacy Diagnoses Seizure (CMS/HCC) Ruma Driver MD [address] [place] [phone] Phone: tel: fax: Referral ID Status Reason Start Date Expiration Date Visits Requested Visits Authorized [id number] Pending Review Continuity of Care 02/04/2025 02/04/2026 6 6 Encounter Details Date Type Department Care Team ([facility] st Contact Info) Description 02/04/2025 Orders Only [facility] MEDICINE [address] [place] [address] [phone] Ruma Driver MD [address] [place] [address] [phone] Seizure (CMS/HCC) (Primary Dx) Social History Tobacco [...] as of this encounter Plan of Treatment Scheduled Referrals Name Type Priority Associated Diagnoses Orde r Schedule Referral to Pharmacy MTM Outpatient Referral Routine Seizure (CMS/HCC) Ordered: 02/04/2025 documented as of this encounter Visit Diagnoses Diagnosis Seizure (CMS/HCC)- Primary Other convulsions documented in this encounter Additional Health Concerns Assessment Noted Time PHQ-9 Depression Total Score: 23 024 4:24 PM EDT documented as of this encounter Care Teams Embedded Systems Engineer Relationship Specialty Start Date End Date Ruma Driver MD [address] [place] [address] PCP - General Family Medicine 12/26/20 documented as of this encounter
--- OUTSIDE RECORDS SUMMARY | 2025-03-24 08:56 | XMS_ITS | Encounter Summary ---
Author Organization [employer] Address [address] [facility] 7t [place] [address] Care Team Providers Care Journeyman Power Plant Operator Name Role Phone Ruma Driver MD Primary Care Provider [phone] Encounter Details Date Type Department Care Team ([facility] st Contact Info) Description 03/22/2024 Orders Only [facility] MEDICINE [address] [place] [address] Provider, MD Renea Social History Tobacco Use Types Packs/Day Years Used Date Smoking Tobacco: Never Smokeless Tobacco: Never Alcohol Use Standard Drinks/Week Comments Never 0 (1 standard drink = 0.6 oz pur e alcohol) Depression Answer Date Recorded Patient Health Questionnaire-9 Score 17 01/17/2023 Housing Stability Answer Date Recorded What is your housing situation today? I have klevernikki benjamin 08/27/[address] you li [...] EDT Narrative 04/26/2024 7:30 AM EDT ? [facility] ? [address] ?[place] [address] ? Mammography Report ? Signed ? Patient: Cordelia Menon ?MR# ?? : [id number] ? : 1975 ?Acct:[id number] ? Age/Sex: 48 / F ?ADM Date: 05/17/24 ? Loc: HO.MAMMO ? Attending Dr: Ruma Driver MD ? Ordering Physician: Ruma Driver ?Results: 1Negative ? Date of Service: 05/17/24 ?Follow Up: 1 Year From Orig ?? inal Mammogram ? Procedure(s): MM tomosynthesis screening BI ?? Accession Number(s): [id number] ? cc: Ruma Driver ? EXAMINATION: ?? [...] Violet Sands MD in OV> ? 04/26/24 07 ? DD/ 1400 ? TD/TT: ? Prototype Sewer: ? Procedure Note Mane, Image - 04/26/2024 [place] [facility] [address] [place] [address] Mammography Report Signed Patient: eKyana Menon# : [id number] : 1975Acct:[id number] Age/Sex: 48 / FADM Date: 03/26/24 Loc: CYNDEE Attending Dr: Ruma Driver MD Ordering Physician: Chrissie Driverults: 1Negative Date of Service: 03/26/24Follow Up: 1 Year From Orig ina Mammogram Procedure(s): MM tomosynthesis screening BI Accession Number(s): [id number] cc: Ruma Driver EXAMINATION: MM SCREENING DIGITAL [...] in OV> 04/26/24 0726 DD/ 1400 TD/TT: Prototype Sewer: us Ruma Driver MD IMG BI PROCEDURES Final Result * Hm Colonoscopy (06/24/2022 8:30 AM EDT) Historical Provider HEALTH MAINTENANCE Final Result documented in this encounter Visit Diagnoses Not on filedocumented in this encounter Additional Health Concerns Assessment Noted Time PHQ-9 Depression Total Score: 17 01/17/ 023 9:45 AM EST documented as of this encounter Care Teams Journeyman Power Plant Operator Relationship Specialty Start Date End Date Ruma Driver MD 230 [facility] [place] [address] PCP - General Family Medicine 12/26/20 documented as of this encounter
--- OUTSIDE RECORDS SUMMARY | 2025-03-24 08:56 | XMS_ITS | Encounter Summary ---
Author Organization [employer] Address [address] [place] [address] 7 [place] [address] Care Team Providers Care Kalsominer Name Role Phone Ruma Driver MD Primary Care Provider [phone] Encounter Details Date Type Department Care Team ([facility] st Contact Info) Description 06/11/2023 Abstract [facility] MEDICINE 230 [place] [address] Ruma Driver MD 230 [place], [place] [phone] Social History Tobacco Use Types Packs/Day Years [...] 06/24/2022 Recommended 10 year follow up ( [facility] us Historical Provider HEALTH MAINTENANCE Final Result documented in this encounter Visit Diagnoses Not on filedocumented in this encounter Additional Health Concerns Assessment Noted Time PHQ-9 Depression Total Score: 17 023 9:45 AM EST documented as of this encounter Care Teams Kalsominer Relationship Specialty Start Date End Date Ruma Driver MD 230 [place] [address] PCP - General Family Medicine 12/26/20 documented as of this encounter
--- OUTSIDE RECORDS SUMMARY | 2025-03-24 08:56 | XMS_ITS | Encounter Summary ---
Author Organization [employer] Address [address] [place] [address] 7 [place] [address] Care Team Providers Care Sole Polisher Name Role Phone Ruma Driver MD Primary Care Provider [phone] Encounter Details Date Type Department Care Team ([facility] st Contact Info) Description 06/04/2023 Abstract [facility] MEDICINE [address] [place] [address] Ruma Driver MD 230 [place], [place] [phone] Social History Tobacco Use Types Packs/Day Years [...] documented as of this encounter Care Teams Sole Polisher Relationship Specialty Start Date End Date Ruma Driver MD 230 [place] [address] PCP - General Family Medicine 12/26/20 documented as of this encounter
--- OUTSIDE RECORDS SUMMARY | 2025-03-24 08:56 | XMS_ITS | Encounter Summary ---
Author Organization [employer] Address [address] [place] [address] [address] [address] Care Team Providers Care Sales Engineering Manager Name Role Phone Ruma Driver MD Primary Care Provider [phone] Reason for Visit * Reason Comments Med Refill Encounter Details Date Type Department Care Team ([facility] st Contact Info) Description 01/30/2023 Refill [facility] MEDICINE [address] [place], [place] [phone] Ruma Driver MD 230 [place] [address] Claustrophobia Social History Tobacco Use Types Packs/Day [...] documented as of this encounter Care Teams Sales Engineering Manager Relationship Specialty Start Date End Date Ruma Driver MD 230 [place] [address] PCP - General Family Medicine 12/26/20 documented as of this encounter
--- OUTSIDE RECORDS SUMMARY | 2025-03-24 08:56 | XMS_ITS | Clinical Summary ---
Author Organization [employer] Address [address] [facility] [address] 7t [place] [address] Care Team Providers Care Steward/Stewardess Name Role Phone Ruma Driver MD Primary Care Provider [phone] Allergies Active Allergy Reactions Criticality Noted Date [...] get her life set up here in [place], which will ease her anxiety Other constipation [...] intense, has precautions to call surgeon at [facility] Failed Mirena Continue to monitor with cutter apprentice hand Assessment & Plan (10/20/2022 10:53 AM EST): Underwent uterine fibroid embolization Sep 2022, first period after less bleeding and fewer cramping Failed Mirena Continue to monitor with cutter apprentice hand Depressive disorder 03/01/2022 Assessment & Plan (05/06/2024 [...] needs Yes PLAN: 1. Follow up with [facility]: Not recommended for follow-up 2. Patient goal is to continue OP therapy and explore additional coping mechanisms 3. Behavioral Recommendations a. Deep breathing b. Progressive muscle relaxation c. 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 Fibromyalgia 04/10/2017 Assessment & Plan (02/08/2024 8:11 PM EDT): Baclofen for back pain up to TID prn Goal is for less sedation than with other muscle relaxers Assessment & Plan (06/16/2023 12:39 PM EDT): Sees Dr Griffith at [facility] Re-iterate just one NSAID at a time Assessment & Plan (01/17/2023 10:19 AM EST): Sees Dr Griffith at [facility] Presence of artificial left eye 04/10/2017 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 Encounters Date Type Department Care Team Description 02/04/2025 Orders Only [facility] MEDICINE [address] [place] [address] Ruma Driver MD Seizure ([facility]) (Primary Dx) 02/02/2025 Telephone [facility] MEDICINE 230 [place] [address] Arcelia Davidson, PharmD from Last 3 Months Immunizations Immunization Administration Dates Next Due Hep B, adult [...] of 2) 2023 COVID-19 Vaccine (3 - 2023- season) 2024 03/21/2021, 02/21/2021 Influenza Vaccine (#1) 2024 10/07/2017, 2014 Mammogram 03/26/2025 03/26/2024, 09/10, 02/13/2023, Additional history [...] patient's age to complete this topic Meningococcal B Vaccine Aged Out No l onger eligible based on patient's age to complete [...] EDT Narrative 04/26/2024 7:30 AM EDT ? [facility] ? [address] ?[place] [address] ? Mammography Report ? Signed ? Patient: Gopi Jamil,Cordelia ?MR# ?? : [id number] ? : 1975 ?Acct:[id number] ? Age/Sex: 48 / F ?ADM Date: 05/17/24 ? Loc: HO.MAMMO ? Attending Dr: Ruma Driver MD ? Ordering Physician: Ruma Driver ?Results: 1Negative ? Date of Service: 03/26/24 ?Follow Up: 1 Year From Orig ?? inal Mammogram ? Procedure(s): MM tomosynthesis screening BI ?? Accession Number(s): [id number] ? cc: Ruma Driver ? EXAMINATION: ?? [...] 04/26/[address] ? DD/ 1400 ? TD/TT: ? General Counsel: ? Procedure Note Donotuseinterpreter, Image - [facility] [address] [place] [address] Mammography Report Signed Patient: Keyana Menon# : [id number] : 1975Acct:[id number] Age/Sex: 48 / FADM Date: 03/26/24 Loc: .MAMMO Attending Dr: Ruma Driver MD Ordering Physician: Chrissie Driverults: 1Negative Date of Service: 03/26/24Follow Up: 1 Year From Orig inal Mammogram Procedure(s): MM tomosynthesis screening BI Accession Number(s): [id number] cc: Ruma Driver EXAMINATION: MM SCREENING DIGITAL [...] in OV> 04/26/24 0726 DD/ 1400 TD/TT: General Counsel: Ruma Driver MD IMG BI PROCEDURES Final Result * HIV 1/2 ANTIGEN/ANTIBODY,FOURTH GENERATION W/RFL (08/26/2022 10:25 AM EDT) Pathologist [facility] HIV-1/2 ANTIGEN AND ANTIBODIES, 4TH GENERATION [...] ? For additional information please refer to http://education.[employer]/faq/ZLS620 (This link is being provided for informational/ educational purposes only.) ? The performance of this assay has not been clinically validated in patients less than 2 years old. ?? 08/26/2022 10:2 5 AM EDT Abby Melvin MD LAB BLOOD ORDERABLES Fin al Result CONVERTED LEGACY LABS * Colonoscopy (06/24/2022) Pathologist [facility] Colonoscopy Normal Normal Narrative Tessie Jackson - 06/24/2022 Recommended 10 year follow up ( [facility]) Historical Provider HEALTH MAINTENANCE Final Result * HPV E6/E7 RFLX PAL[place]O 16 18/45 (01/02/2022 9:14 AM EST) HPV 16 RNA [facility] HPV 18/45 RNA [facility] HPV E6 E7 ADD [facility] HPV mRNA E6/E7 rflx Not Detected Not Detected [facility] Comment: Methodology: Business Proposal Rep-Mediated Amplification This assay detects E6/E7 viral messenger RNA (mRNA) from 14 high-risk HPV types (16,18,31,33,35,39,45,51,52,56,58,59,66,68). The analytical performance characteristics of this assay have been determined by [employer]. The modifications have not been cleared or approved by the FDA. This assay has been validated pursuant to the CLIA regulations and is used for clinical purposes. For additional information, please refer to http://education.[employer]/faq/JVF659e0 (This link if provided for information/ educational purposes only.) THIS TEST WAS PERFORMED AT: [employer] [address] [place] [address],[address] [place], [place] ??[phone] ZAINAB ACOSTA MD 01/02/2022 9:14 AM EST us Mitchell Biggs MD HISTORICAL/NON ORDERABLE LABS Fi nal Result [facility] [address] from Last 3 Months or Most Recently Relevant to Health Maintenance Insurance [facility] ONE CARE < 63 [place] [id number] Care Teams Steward/Stewardess Relationship Specialty Start Date End Date Ruma Driver MD [address] [place] [address] PCP - General Family Medicine 12/26/20
--- OUTSIDE RECORDS SUMMARY | 2025-03-24 08:56 | XMS_ITS | Encounter Summary ---
Author Organization [employer] Address [address] [place] [address] 7 [place] [address] Care Team Providers Care Assembly Machine Tool Setter Name Role Phone Ruma Driver MD Primary Care Provider [phone] Encounter Details Date Type Department Care Team ([facility] st Contact Info) Description 11/19/2022 Orders Only [facility] 230 [place], [place] [phone] Ruma Driver MD 230 [place], [place] [phone] Social History Tobacco Use Types Packs/Day Years [...] documented as of this encounter Care Teams Assembly Machine Tool Setter Relationship Specialty Start Date End Date Ruma Driver MD 230 [place], [place] [phone] PCP - General Family Medicine 12/26/20 documented as of this encounter
== END 2025-03-24 09:09 | disposition home or self-care (01) ==
LOC: HO.HUSH 08:35
PROVIDERS: Visit Provider Nurse Practitioner Family
DX: N20.0 Calculus of kidney (principal); Z13.9 Encounter for screening, unspecified
CPT/HCPCS: 99213

== ENCOUNTER 2025-03-24 08:35 | Outpatient (REF) | payer OTHER, SELFPAY ==
--- OUTSIDE RECORDS SUMMARY | 2025-03-24 09:21 | XMS_ITS | Encounter Summary ---
Author Organization [employer] Address [address] [facility] 7t [place] [address] Care Team Providers Care Handstitching Machine Armhole Feller Name Role Phone Ruma Driver MD Primary Care Provider [phone] Encounter Details Date Type Department Care Team ([facility] st Contact Info) Description 03/22/2024 Orders Only [facility] MEDICINE 230 [place] [address] Provider, MD Renea Social History Tobacco Use [...] EDT Narrative 04/26/2024 7:30 AM EDT ? [facility] ? [address] ?[place] [address] ? Mammography Report ? Signed ? Patient: Cordelia Menon ?MR# ?? : [id number] ? : 1975 ?Acct:[id number] ? Age/Sex: 48 / F ?ADM Date: 05/17/24 ? Loc: HO.MAMMO ? Attending Dr: Ruma Driver MD ? Ordering Physician: Ruma Driver ?Results: 1Negative ? Date of Service: 05/17/24 ?Follow Up: 1 Year From Orig ?? inal Mammogram ? Procedure(s): MM tomosynthesis screening BI ?? Accession Number(s): [id number] ? cc: Ruma Driver ? EXAMINATION: ?? [...] 07 ? DD/ 1400 ? TD/TT: ? Orange Peel Operator: ? Procedure Note Mane, Image - 04/26/2024 [place] [facility] [address] [place] [address] Mammography Report Signed Patient: Keyana Menon# : [id number] : 1975Acct:[id number] Age/Sex: 48 / FADM Date: 03/26/24 Loc: CYNDEE Attending Dr: Ruma Driver MD Ordering Physician: Chrissie Driverults: 1Negative Date of Service: 03/26/24Follow Up: 1 Year From Orig ina Mammogram Procedure(s): MM tomosynthesis screening BI Accession Number(s): [id number] cc: Ruma Driver EXAMINATION: MM SCREENING DIGITAL [...] in OV> 04/26/24 0726 DD/ 1400 TD/TT: Orange Peel Operator: us Ruma Driver MD IMG BI PROCEDURES Final Result * Hm Colonoscopy (06/24/2022 8:30 AM EDT) Historical Provider HEALTH MAINTENANCE Final Result documented in this encounter Visit Diagnoses Not on filedocumented in this encounter Additional Health Concerns Assessment Noted Time PHQ-9 Depression Total Score: 17 01/17/ 023 9:45 AM EST documented as of this encounter Care Teams Handstitching Machine Armhole Feller Relationship Specialty Start Date End Date Ruma Driver MD 230 [facility] [place] [address] PCP - General Family Medicine 12/26/20 documented as of this encounter
--- OUTSIDE RECORDS SUMMARY | 2025-03-24 09:21 | XMS_ITS | Encounter Summary ---
Author Organization [employer] Address [address] [place] [address] [address] Care Team Providers Care Director Bioinformatics Name Role Phone Ruma Driver MD Primary Care Provider [phone] Reason for Visit * Reason Comments Med Refill Encounter Details Date Type Department Care Team ([facility] st Contact Info) Description 01/30/2023 Refill [facility] MEDICINE 230 [place], [place] [phone] Ruma Driver MD 230 [place] [address] Claustrophobia Social History Tobacco Use Types Packs/Day [...] as of this encounter Care Teams Director Bioinformatics Relationship Specialty Start Date End Date Ruma Driver MD 230 [place] [address] PCP - General Family Medicine 12/26/20 documented as of this encounter
--- OUTSIDE RECORDS SUMMARY | 2025-03-24 09:21 | XMS_ITS | Encounter Summary ---
Author Organization [employer] Address [address] [place] [address] 7 [place] [address] Care Team Providers Care Securities And Real Estate Director Name Role Phone Ruma Driver MD Primary Care Provider Encounter Details Date Type Department Care Team ([facility] st Contact Info) Description 06/04/2023 Abstract [facility] MEDICINE 230 [place] [address] Ruma Driver MD 230 [place], [place] [phone] Social History Tobacco Use Types Packs/Day Years [...] documented as of this encounter Care Teams Securities And Real Estate Director Relationship Specialty Start Date End Date Ruma Driver MD 230 [place] [address] PCP - General Family Medicine 12/26/20 documented as of this encounter
--- OUTSIDE RECORDS SUMMARY | 2025-03-24 09:21 | XMS_ITS | Encounter Summary ---
Author Organization [employer] Address [address] [place] [address] 7 [place] [address] Care Team Providers Care Buffing Wheel Presser Name Role Phone Ruma Driver MD Primary Care Provider Encounter Details Date Type Department Care Team ([facility] st Contact Info) Description 11/19/2022 Orders Only [facility] 230 [place], [place] [phone] Ruma Driver MD 230 [place], [place] [phone] Social History Tobacco Use Types Packs/Day Years [...] documented as of this encounter Care Teams Buffing Wheel Presser Relationship Specialty Start Date End Date Ruma Driver MD 230 [place], [place] [phone] PCP - General Family Medicine 12/26/20 documented as of this encounter
--- OUTSIDE RECORDS SUMMARY | 2025-03-24 09:21 | XMS_ITS | Encounter Summary ---
Author Organization [employer] Address [address] [place] [address] 7 [place] [address] Care Team Providers Care Broom Stitcher Name Role Phone Ruma Driver MD Primary Care Provider [phone] Reason for Referral * Consultation (Routine) - Pending Review Specialty Diagnoses / Procedures Referred By Contac t Referred To Contact Pharmacy Diagnoses Seizure (CMS/HCC) Ruma Driver MD [address] [place] [address] Phone: tel: fax: Referral ID Status Reason Start Date Expiration Date Visits Requested Visits Authorized [id number] Pending Review Continuity of Care 02/04/2025 02/04/2026 6 6 Encounter Details Date Type Department Care Team ([facility] st Contact Info) Description 02/04/2025 Orders Only [facility] MEDICINE [address] [place] [address] [phone] Ruma Driver MD [address] [place] [phone] Seizure (CMS/HCC) (Primary Dx) Social History Tobacco [...] documented as of this encounter Care Teams Broom Stitcher Relationship Specialty Start Date End Date Ruma Driver MD 230 [place] [address] PCP - General Family Medicine 12/26/20 documented as of this encounter
--- OUTSIDE RECORDS SUMMARY | 2025-03-24 09:21 | XMS_ITS | Clinical Summary ---
Author Organization [employer] Address [address] [facility] 7t [place] [address] Care Team Providers Care Gravure Press Set Up Operator Name Role Phone Ruma Driver MD Primary Care Provider [phone] Allergies Active Allergy Reactions Criticality Noted Date [...] get her life set up here in [place], which will ease her anxiety Other constipation [...] intense, has precautions to call surgeon at [facility] Failed Mirena Continue to monitor with rn faculty Assessment & Plan (10/20/2022 10:53 AM EST): Underwent uterine fibroid embolization Sep 2022, first period after less bleeding and fewer cramping Failed Mirena Continue to monitor with rn faculty Depressive disorder 03/01/2022 Assessment & Plan (05/06/2024 [...] needs Yes PLAN: 1. Follow up with [facility]: Not recommended for follow-up 2. Patient goal is to continue OP therapy and explore additional coping mechanisms 3. Behavioral Recommendations a. Deep breathing b. Progressive muscle relaxation c. SDOH referral Assessment & Plan (10/20/2022 10:54 AM EST): Continue Zoloft 100mg daily Continue Buspar 5mg BID Will re-consult 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 [facility] ? [address] ?[place] [address] ? Mammography Report ? Signed ? Patient: Gopi Jamil,Cordelia ?MR# ?? : [id number] ? : 1975 ?Acct:[id number] ? Age/Sex: 48 / F ?ADM Date: 05/17/24 ? Loc: HO.MAMMO ? Attending Dr: Ruma Driver MD ? Ordering Physician: Ruma Driver ?Results: 1Negative ? Date of Service: 03/26/24 ?Follow Up: 1 Year From Orig ?? inal Mammogram ? Procedure(s): MM tomosynthesis screening BI ?? Accession Number(s): [id number] ? cc: Ruma Driver ? EXAMINATION: ?? [...] 04/26/24725 ? DD/ 1400 ? TD/TT: ? Block And Case Maker: ? Procedure Note Donotuseinterpreter, Image - 04/26/[facility] [address] [place] [address] Mammography Report Signed Patient: Keyana Menon# : [id number] : 1975Acct:[id number] Age/Sex: 48 / FADM Date: 03/26/24 Loc: .MAMMO Attending Dr: Ruma Driver MD Ordering Physician: Chrissie Driverults: 1Negative Date of Service: 03/26/24Follow Up: 1 Year From Orig inal Mammogram Procedure(s): MM tomosynthesis screening BI Accession Number(s): [id number] cc: Ruma Driver EXAMINATION: MM SCREENING DIGITAL [...] in OV> 04/26/24 0726 DD/ 1400 TD/TT: Block And Case Maker: Ruma Driver MD IMG BI PROCEDURES Final Result * HIV 1/2 ANTIGEN/ANTIBODY,FOURTH GENERATION W/RFL (08/26/2022 10:25 AM EDT) Pathologist [facility] HIV-1/2 ANTIGEN AND ANTIBODIES, 4TH GENERATION W/ [...] ? For additional information please refer to http://education.authorGEN/faq/DWJ903 (This link is being provided for informational/ educational purposes only.) ? The performance of this assay has not been clinically validated in patients less than 2 years old. ?? 08/26/2022 10:2 5 AM EDT Abby Melvin MD LAB BLOOD ORDERABLES Fin al Result CONVERTED LEGACY LABS * Colonoscopy (06/24/2022) Pathologist [facility] Colonoscopy Normal Normal Narrative Tessie Jackson - 06/24/2022 Recommended 10 year follow up ( [facility]) Historical Provider HEALTH MAINTENANCE Final Result * HPV E6/E7 RFLX PALOMO 16 18/45 (01/02/2022 9:14 AM EST) HPV 16 RNA [facility] HPV 18/45 RNA [facility] HPV E6 E7 ADD [facility] HPV mRNA E6/E7 rflx Not Detected Not Detected [facility] Comment: Methodology: Unit Assembler-Mediated Amplification This assay detects E6/E7 viral messenger RNA (mRNA) from 14 high-risk HPV types (16,18,31,33,35,39,45,51,52,56,58,59,66,68). The analytical performance characteristics of this assay have been determined by [employer]. The modifications have not been cleared or approved by the FDA. This assay has been validated pursuant to the CLIA regulations and is used for clinical purposes. For additional information, please refer to http://education.authorGEN/faq/BTZ306e7 (This link if provided for information/ educational purposes only.) THIS TEST WAS PERFORMED AT: [employer] [address] [place] [address],[address] [place], [place] ??[address] ZAINAB ACOSTA MD 01/02/2022 9:14 AM EST us Mitchell Biggs MD HISTORICAL/NON ORDERABLE LABS Fi nal Result [facility] [address] from Last 3 Months or Most Recently Relevant to Health Maintenance Insurance FORMERLY [facility] ONE CARE < 65 AM[place]DA BLAKE [id number] Care Teams Gravure Press Set Up Operator Relationship Specialty Start Date End Date Ruma Driver MD [address] [place] [address] PCP - General Family Medicine 12/26/20
--- OUTSIDE RECORDS SUMMARY | 2025-03-24 09:21 | XMS_ITS | Encounter Summary ---
Author Organization [employer] Address [address] [place] [address] 7 [place] [address] Care Team Providers Care Sustainable Agriculture Faculty Name Role Phone Ruma Driver MD Primary Care Provider [phone] Encounter Details Date Type Department Care Team ([facility] st Contact Info) Description 06/11/[address] [facility] MEDICINE [address] [place] [address] Ruma Driver MD [address] [place], [place] [phone] Social History Tobacco Use Types Packs/Day Years [...] 06/24/2022 Recommended 10 year follow up ( [facility]) us Historical Provider HEALTH MAINTENANCE Final Result documented in this encounter Visit Diagnoses Not on filedocumented in this encounter Additional Health Concerns Assessment Noted Time PHQ-9 Depression Total Score: 17 023 9:45 AM EST documented as of this encounter Care Teams Sustainable Agriculture Faculty Relationship Specialty Start Date End Date Ruma Driver MD [address] [place] [address] PCP - General Family Medicine 12/26/20 documented as of this encounter
[2025-03-24 16:57] LABS: Urine Cytology See Pathology rpt
== END 2025-03-24 08:36 | disposition home or self-care (01) ==
LOC: HO.LAB 08:35
PROVIDERS: Visit Provider Nurse Practitioner Family
DX: R31.29 Other microscopic hematuria (principal); N20.0 Calculus of kidney; Z13.9 Encounter for screening, unspecified
CPT/HCPCS: 81003; 88112; 99212

== ENCOUNTER 2025-03-28 10:26 | Outpatient (REF) | payer OTHER, SELFPAY ==
--- OUTSIDE RECORDS SUMMARY | 2025-03-28 11:01 | XMS_ITS | Encounter Summary ---
Author Organization [employer] Address [address] [facility] 7t [place] [address] Care Team Providers Care Stitcher Utility Name Role Phone Ruma Driver MD Primary Care Provider Encounter Details Date Type Department Care Team ([facility] st Contact Info) Description 03/24/2025 Telephone [facility] MEDICINE [address] [place], [place] [phone] Ruma Driver MD [address] [place], [place] [phone] Social History Tobacco Use Types Packs/Day Years [...] encounter Miscellaneous Notes * Telephone Encounter - Cord[place] Saez - 03/24/2025 10:53 AM EDT Please see [facility] Care DME request below. Please advise if there is supporting documentation for listed DX's. * Telephone Encounter - [place] Saez - 03/24/2025 10:53 AM EDT ----- Message from Veronika Young sent at 03/23/2025 1:54 PM EDT ----- Regarding: [facility] [place] Care: DME request-bed rails Contact: Arias, I am Veronika Borrero, Lens Examiner for [facility] Care Management, requesting the following DME???s on behalf of patient. DME Item: a pair of bed rails (member's last ones broke) for fall prevention Supportive DX: Seizure (CMS/HCC) [R56.9], Fibromyalgia [M79.7], Blind left eye [H54.40] If you should have any inquiries regarding this request, feel free to contact the Lens Examiner below. Enterprise Sales Executive: Veronika Borrero E-mail: [email or web address] Professional: Jelena Gallardo E-mail: [email or web address] Thanks in advance for your assistance with this request. Sincerely, [facility] Care Management documented in this encounter Plan of Treatment Not on file documented as of this encounter Visit Diagnoses Not on filedocumented in this encounter Additional Health Concerns Assessment Noted Time PHQ-9 Depression Total Score: 23 024 4:24 PM EDT documented as of this encounter Care Teams Stitcher Utility Relationship Specialty Start Date End Date Ruma Driver MD [address] [place] [address] PCP - General Family Medicine 12/26/20 documented as of this encounter
--- OUTSIDE RECORDS SUMMARY | 2025-03-28 11:01 | XMS_ITS | Encounter Summary ---
Author Organization [employer] Address [address] [place] [address] 7 [place] [address] Care Team Providers Care Sound Equipment Mechanic Name Role Phone Ruma Driver MD Primary Care Provider [phone] Encounter Details Date Type Department Care Team ([facility] st Contact Info) Description 11/19/2022 Orders Only [facility] [address] [place], [place] [phone] Ruma Driver MD [address] [place], [place] [phone] Social History Tobacco Use Types Packs/Day Years [...] documented as of this encounter Care Teams Sound Equipment Mechanic Relationship Specialty Start Date End Date Ruma Driver MD [address] [place], [place] [phone] PCP - General Family Medicine 12/26/20 documented as of this encounter
--- OUTSIDE RECORDS SUMMARY | 2025-03-28 11:01 | XMS_ITS | Encounter Summary ---
Author Organization [employer] Address [address] [place] [address] 7 [place] [address] Care Team Providers Care Surgical Corsetier Name Role Phone Ruma Driver MD Primary Care Provider [phone] Encounter Details Date Type Department Care Team ([facility] st Contact Info) Description 06/11/2023 Abstract [facility] MEDICINE [address] [place] [address] Ruma Driver MD [address] [place], [place] [phone] Social History Tobacco Use Types Packs/Day Years [...] 06/24/2022 Recommended 10 year follow up ( [facility]) us Historical Provider HEALTH MAINTENANCE Final Result documented in this encounter Visit Diagnoses Not on filedocumented in this encounter Additional Health Concerns Assessment Noted Time PHQ-9 Depression Total Score: 17 023 9:45 AM EST documented as of this encounter Care Teams Surgical Corsetier Relationship Specialty Start Date End Date Ruma Driver MD [address] [place] [address] PCP - General Family Medicine 12/26/20 documented as of this encounter
--- OUTSIDE RECORDS SUMMARY | 2025-03-28 11:01 | XMS_ITS | Clinical Summary ---
Author Organization [employer] Address [address] [facility] 7t [place] [address] Care Team Providers Care Laboratory Helper Name Role Phone Ruma Driver MD Primary Care Provider [phone] Allergies Active Allergy Reactions Criticality Noted Date [...] get her life set up here in [place], which will ease her anxiety Other constipation [...] intense, has precautions to call surgeon at [facility] Failed Mirena Continue to monitor with compliance engineer Assessment & Plan (10/20/2022 10:53 AM EST): Underwent uterine fibroid embolization Sep 2022, first period after less bleeding and fewer cramping Failed Mirena Continue to monitor with compliance engineer Depressive disorder 03/01/2022 Assessment & Plan (05/06/2024 [...] needs Yes PLAN: 1. Follow up with [facility]: Not recommended for follow-up 2. Patient goal is to continue OP therapy and explore additional coping mechanisms 3. Behavioral Recommendations a. Deep breathing b. Progressive muscle relaxation c. SDOH referral Assessment & Plan (10/20/2022 10:54 AM EST): Continue Zoloft 100mg daily Continue Buspar 5mg BID Will re-consult 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) (Primary Dx) 02/02/2025 Telephone [facility] MEDICINE [address] [place] [address] Arcelia Davidson, PharmD from Last 3 Months [...] EDT Narrative 04/26/2024 7:30 AM EDT ? [facility] ? [address] ?[place] [address] ? Mammography Report ? Signed ? Patient: Gopi Jamil,Cordelia ?MR# ?? : [id number] ? : 1975 ?Acct:[id number] ? Age/Sex: 48 / F ?ADM Date: 03/26/24 ? Loc: HO.MAMMO ? Attending Dr: Ruma Driver MD ? Ordering Physician: Ruma Driver ?Results: 1Negative ? Date of Service: 03/26/24 ?Follow Up: 1 Year From Orig ?? inal Mammogram ? Procedure(s): MM tomosynthesis screening BI ?? Accession Number(s): [id number] ? cc: Ruma Driver ? EXAMINATION: ?? [...] 04/26/24725 ? DD/ 1400 ? TD/TT: ? Fleet Technician: ? Procedure Note Donotmarleninterpreter, Image - 04/26/2024 [facility] [address] [place] [address] Mammography Report Signed Patient: Flakito MenonaMR# : [id number] : 1975Acct:[id number] Age/Sex: 48 / FADM Date: 03/26/24 Loc: HO.MAMMO Attending Dr: Ruma Driver MD Ordering Physician: Chrissie Driverults: 1Negative Date of Service: 03/26/24Follow Up: 1 Year From Orig inal Mammogram Procedure(s): MM tomosynthesis screening BI Accession Number(s): [id number] cc: Ruma Driver EXAMINATION: MM SCREENING DIGITAL [...] in OV> 04/26/24 0726 DD/ 1400 TD/TT: Fleet Technician: Ruma Driver MD IMG BI PROCEDURES Final [...] ? For additional information please refer to http://education.IDbyME.Kik/faq/PFT437 (This link is being provided for informational/ [...] 06/24/2022 Recommended 10 year follow up ( [facility]) Historical Provider HEALTH MAINTENANCE Final Result * HPV E6/E7 RFLX PALOMO 16 18/45 (01/02/2022 9:14 AM EST) HPV 16 RNA [facility] HPV 18/45 RNA [facility] HPV E6 E7 ADD [facility] HPV mRNA E6/E7 rflx Not Detected Not Detected [facility] Comment: Methodology: Word Processing Operator-Mediated Amplification This assay detects E6/E7 viral messenger RNA (mRNA) from 14 high-risk HPV types (16,18,31,33,35,39,45,51,52,56,58,59,66,68). The analytical performance characteristics of this assay have been determined by [employer]. The modifications have not been cleared or approved by the FDA. This assay has been validated pursuant to the CLIA regulations and is used for clinical purposes. For additional information, please refer to http://education.[employer]/faq/JKJ100l2 (This link if provided for information/ educational purposes only.) THIS TEST WAS PERFORMED AT: [employer] [address] [place] [address] FLO[address] [place], [place] ??[address] ZAINAB ACOSTA MD 01/02/2022 9:14 AM EST Mitchell Biggs MD HISTORICAL/NON ORDERABLE LABS Fi nal Result [facility] [address] from Last 3 Months or Most Recently Relevant to Health Maintenance Insurance [facility]LY [facility] ONE CARE < 65 Care Teams Laboratory Helper Relationship Specialty Start Date End Date Ruma Driver MD [address] [place] [address] PCP - General Family Medicine 12/26/20
--- OUTSIDE RECORDS SUMMARY | 2025-03-28 11:01 | XMS_ITS | Encounter Summary ---
Author Organization [employer] Address [address] [place] [address] 7 [place] [address] Care Team Providers Care Sectional Belt Mold Assembler Name Role Phone Ruma Driver MD Primary Care Provider [phone] Reason for Referral * Consultation (Routine) - Pending Review Specialty Diagnoses / Procedures Referred By Contac t Referred To Contact Pharmacy Diagnoses Seizure (CMS/HCC) Ruma Driver MD [address] [place] [address] Phone: tel: fax: Referral ID Status Reason Start Date Expiration Date Visits Requested Visits Authorized [id number] Pending Review Continuity of Care 02/04/2025 02/04/2026 6 6 Encounter Details Date Type Department Care Team ([facility] st Contact Info) Description 02/04/2025 Orders Only [facility] MEDICINE [address] [place] [phone] Ruma Driver MD [address] [place] [phone] Seizure (CMS/HCC) (Primary Dx) Social History Tobacco Use Types Packs/Day Years Used Date Smoking Tobacco: Never Smokeless Tobacco: Never Alcohol Use Standard Drinks/Week Comments Never 0 (1 standard drink = 0.6 oz pur e alcohol) Depression Answer Date Recorded Patient Health Questionnaire-9 Score 05/05/2024 Patient Health Questionnaire-9 Score 23 05/05/2024 [...] documented as of this encounter Care Teams Sectional Belt Mold Assembler Relationship Specialty Start Date End Date Ruma Driver MD [address] [place] [address] PCP - General Family Medicine 12/26/20 documented as of this encounter
--- OUTSIDE RECORDS SUMMARY | 2025-03-28 11:01 | XMS_ITS | Encounter Summary ---
Author Organization [employer] Address [address] [facility] 7t [place] [address] Care Team Providers Care Cattle Shipper Name Role Phone Ruma Driver MD Primary Care Provider [phone] Encounter Details Date Type Department Care Team ([facility] st Contact Info) Description 03/22/2024 Orders Only [facility] MEDICINE [address] [place] [address] Provider, MD Renea Social History Tobacco Use [...] EDT Narrative 04/26/2024 7:30 AM EDT ? [facility] ? [address] ?[place] [address] ? Mammography Report ? Signed ? Patient: Cordelia Menon ?MR# ?? : [id number] ? : 1975 ?Acct:[id number] ? Age/Sex: 48 / F ?ADM Date: 05/17/24 ? Loc: HO.MAMMO ? Attending Dr: Ruma Driver MD ? Ordering Physician: Ruma Driver ?Results: 1Negative ? Date of Service: 05/17/24 ?Follow Up: 1 Year From Orig ?? inal Mammogram ? Procedure(s): MM tomosynthesis screening BI ?? Accession Number(s): [id number] ? cc: Ruma Driver ? EXAMINATION: ?? [...] 07 ? DD/ 1400 ? TD/TT: ? Rebar Worker: ? Procedure Note Mane, Image - 04/26/2024 [place] [facility] [address] [place] [address] Mammography Report Signed Patient: Keyana Menon# : [id number] : 1975Acct:[id number] Age/Sex: 48 / FADM Date: 03/26/24 Loc: CYNDEE Attending Dr: Ruma Driver MD Ordering Physician: Chrissie Driverults: 1Negative Date of Service: 03/26/24Follow Up: 1 Year From Orig ina Mammogram Procedure(s): MM tomosynthesis screening BI Accession Number(s): [id number] cc: Ruma Driver EXAMINATION: MM SCREENING DIGITAL [...] in OV> 04/26/24 0726 DD/ 1400 TD/TT: Rebar Worker: us Ruma Driver MD IMG BI PROCEDURES Final Result * [facility] Colonoscopy (06/24/2022 8:30 AM EDT) Historical Provider HEALTH MAINTENANCE Final Result documented in this encounter Visit Diagnoses Not on filedocumented in this encounter Additional Health Concerns Assessment Noted Time PHQ-9 Depression Total Score: 17 01/17/ 023 9:45 AM EST documented as of this encounter Care Teams Cattle Shipper Relationship Specialty Start Date End Date Ruma Driver MD [address] [place] [address] PCP - General Family Medicine 12/26/20 documented as of this encounter
--- OUTSIDE RECORDS SUMMARY | 2025-03-28 11:01 | XMS_ITS | Encounter Summary ---
Author Organization [employer] Address [address] [place] [address] 7 [place] [address] Care Team Providers Care Registered Respiratory Technician Name Role Phone Ruma Driver MD Primary Care Provider [phone] Encounter Details Date Type Department Care Team ([facility] st Contact Info) Description 06/04/2023 Abstract [facility] MEDICINE [address] [place] [address] Ruma Driver MD [address] [place], [place] [phone] Social History Tobacco Use Types Packs/Day Years [...] documented as of this encounter Care Teams Registered Respiratory Technician Relationship Specialty Start Date End Date Ruma Drvier MD [address] [place] [address] PCP - General Family Medicine 12/26/20 documented as of this encounter
--- OUTSIDE RECORDS SUMMARY | 2025-03-28 11:01 | XMS_ITS | Encounter Summary ---
Author Organization [employer] Address [address] [place] [address] [address], [place] [address] Care Team Providers Care Recycling Tech Name Role Phone Ruma Driver MD Primary Care Provider [phone] Reason for Visit * Reason Comments Med Refill Encounter Details Date Type Department Care Team ([facility] st Contact Info) Description 01/30/[address] [facility] MEDICINE [address] [place], [place] [phone] Ruma Driver MD [address] [place] [address] Claustrophobia Social History Tobacco Use Types Packs/Day [...] documented as of this encounter Care Teams Recycling Tech Relationship Specialty Start Date End Date Ruma Driver MD [address] [place] [address] PCP - General Family Medicine 12/26/20 documented as of this encounter
== END 2025-03-28 10:27 | disposition home or self-care (01) ==
LOC: HO.MAMMO 10:26
PROVIDERS: Visit Provider Obstetrics & Gynecology
DX: Z12.31 Encounter for screening mammogram for malignant neoplasm of breast (principal)
CPT/HCPCS: 77063; 77067

== ENCOUNTER → 2025-03-28 10:30 | Outpatient (BNV) | payer OTHER, SELFPAY | PROVIDERS: Visit Provider Internal Medicine | DX: Z12.31 Encounter for screening mammogram for malignant neoplasm of breast (principal) | CPT/HCPCS: 77063; 77067 ==

== ENCOUNTER 2025-04-07 11:31 | Outpatient (AMB) | payer OTHER, SELFPAY ==
--- NOTE | 2025-04-07 11:33 | A.OFFVIS_ITS ---
Vital Signs 04/07/25 11:35 Height 5 ft 3 in Weight 172 lb BMI 30.5 Intake Visit Reasons: Ultrasound follow up/EMB Exchange Floor Manager Required: No Information Interpreted: non-clinical & clinical Housing Case Manager: Housing Case Manager Present (Hedy DYE) Accompanied by: Self / Same As Patient Allergies nut - unspecified Allergy (Severe, Verified 04/07/25 11:38) Anaphylaxis mold Allergy (Intermediate, Verified 04/07/25 11:38) itchy throat raw vegetable Allergy (Intermediate, Verified 04/07/25 11:38) Itchy throat SEASONAL ALLERGIES Allergy (Intermediate, Uncoded 04/07/25 11:38) Itchy Eyes, congestion, watery eyes HPI Comments Details: Presenting for EMB [facility] Medical History Gastroesophageal reflux disease Chronic idiopathic constipation Helicobacter pylori (H. pylori) Hypoglycemia PONV (postoperative nausea and vomiting) History of glaucoma as a child Prosthetic eye globe Anxiety Dysplasia of cervix, low grade (ADÁN 1) Arthritis Fibromyalgia Epilepsy Surgical History History of esophagogastroduodenoscopy (EGD) Hx of colonoscopy History of eye surgery H/O LEEP Hx of tubal ligation History of S/P removal of left ovary Family History Mother Seizures CAD (coronary artery disease) Pacemaker Diabetes Father No problems noted. Social History Are you a primary home care manager rn to a significant other at home: No Do you presently have visiting nurse or other home services: No Alcohol intake: current Alcohol intake frequency: holidays/special occasions only Comment: medicated with IV tylenol Patient Tobacco Use Status: Never used Tobacco Sexual orientation: Straight/Heterosexual Gender identity: Female Female Reproductive History Menstrual Age of Menarche: 10 Review of Systems Const All systems reviewed & are unremarkable except as noted in HPI and below Reports as per HPI and Reports no additional complaints GI Reports no additional complaints Reports no additional complaints Physical Exam Vital Signs: BMI result Body Mass Index 30.5 Office Procedures Endometrial Biopsy Details: The patient was counseled regarding the indication and benefits of endometrial sampling to rule out endometrial pathology including not limited to endometrial hyperplasia or endometrial cancer and others; The alternatives (Either do nothing vs. hysteroscopy D&C) & the risks were discussed with the patient including but not limited: pain, uterine perforation, bleeding, infection, possible injury to bladder, bowel, ureter, possible need for blood transfusion with all its possible risks. The patient verbalized understanding all questions answered and signed consent. Urine test done in the office was negative The patient was placed into the dorsal lithotomy position; a speculum was inserted in the vagina. Using aseptic technique for the procedure, the cervix was cleansed with Betadine. The anterior lip of the cervix was grasped with a single tooth tenaculum. The uterus was sounded to 7 cm with a 4 mm Pipelle was used. Tissues samples were obtained and placed in formalin, in a patient labeled container and sent to the pathology department. At the end of the procedure, there was minimal bleeding noted The patient tolerated the procedure well and was discharged in good condition with the following instructions: Nothing in the vagina until the bleeding stops. No sex until the bleeding stops, to call if any of the following occurs: fever (>100.4), flu-like symptoms, abdominal pain, heavy bleeding, four smelling vaginal discharge. The patient was instructed to schedule a Follow up appointment in 2 weeks to discuss pathology results of the biopsy and treatment options. This note was generated with a voice recognition program. Some errors may have been overlooked during the review of this note. Sometimes these errors may affect the content or meaning of a given sentence. [id number] Biopsy Results AMB Test Urine AMB Test Urine Negative Last Edit by Hedy Balbuena CMA on 11:43 Assessment & Plan Assessment & Plan (1) Abnormal uterine bleeding (AUB): Code(s): N93.9 - Abnormal uterine and vaginal bleeding, unspecified Category: Medical Plan: EMB done, see procedure note Orders: Orders AMB HCG Urine Test Today Z32.02 - Encounter for test, result negative AMB Endometrial Biopsy Today N93.9 - Abnormal uterine and vaginal bleeding, unspecified Coding Level of Care Code Procedure Only Diagnoses Abnormal uterine bleeding (AUB) N93.9 CPT Codes Endometrial Biopsy - CPT: 83083-[id number] Biopsy ([id number])
[2025-04-07 11:35] VITALS: BMI 30.5
--- OUTSIDE RECORDS SUMMARY | 2025-04-07 11:52 | XMS_ITS | Encounter Summary ---
Author Organization [employer] Address [address] [place] [address] [address] [place] [address] Care Team Providers Care Tso Name Role Phone Ruma Driver MD Primary Care Provider [phone] Encounter Details Date Type Department Care Team ([facility] st Contact Info) Description 06/11/2023 Abstract [facility] MEDICINE [address] [place] [address] Ruma Driver MD [address] [place], [place] [phone] Social History Tobacco Use Types Packs/Day Years [...] 06/24/2022 Recommended 10 year follow up ( [facility] [place]) us Historical Provider HEALTH MAINTENANCE Final Result documented in this encounter Visit Diagnoses Not on filedocumented in this encounter Additional Health Concerns Assessment Noted Time PHQ-9 Depression Total Score: 17 023 9:45 AM EST documented as of this encounter Care Teams Tso Relationship Specialty Start Date End Date Ruma Driver MD [address] [place] [address] PCP - General Family Medicine 12/26/20 documented as of this encounter
== END 2025-04-07 12:03 | disposition home or self-care (01) ==
LOC: HO.HWS 11:31
PROVIDERS: Visit Provider Obstetrics & Gynecology
DX: N93.9 Abnormal uterine and vaginal bleeding, unspecified (principal); Z32.02 Encounter for pregnancy test, result negative
CPT/HCPCS: 58100

== ENCOUNTER 2025-04-07 11:31 | Outpatient (REF) | payer OTHER, SELFPAY | END 2025-04-07 11:32 | disposition home or self-care (01) | LOC: HO.LNP 11:31 | PROVIDERS: Visit Provider Obstetrics & Gynecology | DX: N93.9 Abnormal uterine and vaginal bleeding, unspecified (principal); Z32.02 Encounter for pregnancy test, result negative | CPT/HCPCS: 58100; 81025; 88305 ==

== ENCOUNTER 2025-04-12 08:40 | Outpatient (AMB) | payer OTHER, SELFPAY ==
--- NOTE | 2025-04-12 08:40 | MHC.OFFVIS ---
Intake Visit Reasons: EMB Follow up Allergies nut - unspecified Allergy (Severe, Verified 04/07/25 11:38) Anaphylaxis mold Allergy (Intermediate, Verified 04/07/25 11:38) itchy throat raw vegetable Allergy (Intermediate, Verified 04/07/25 11:38) Itchy throat SEASONAL ALLERGIES Allergy (Intermediate, Uncoded 04/07/25 11:38) Itchy Eyes, congestion, watery eyes HPI Comments Details: The patient is presenting for follow-up to discuss the results of her abnormal uterine bleeding workup and options of treatment. The following workup was done.: H&H= 14.241 TSH, hCG , LH/FSHordered but not done yet GC and chlamydia were negative. Endometrial biopsy pathology showed the following: Inactive endometrium with breakdown; no atypia or hyperplasia identified Co testing was done was negative. Mammogram was BI-RADS 1 Pelvic ultrasound showed the following: Anteverted uterus is 8.8 cm length. Within the anterior uterus myometrium there is a 1.2 cm fibroid. Within the posterior myometrium of the uterus there is a 4.1 x 1.6 x 4.1 cm isoechoic myometrial fibroid. Endometrium 9 mm thickness. Right ovary 4.5 x 3.7 x 3.4 cm. There is a 3.7 cm anechoic right ovarian cyst which contains a small daughter cyst measuring 1.5 cm. There is increased through transmission. Yepez are thin and there is no solid component or internal vascularity. Left ovary is surgically absent No free fluid. [facility] Medical History (Updated 04/12/25 @ 08:48 by Mitchell Biggs MD) Gastroesophageal reflux disease Chronic idiopathic constipation Helicobacter pylori (H. pylori) Hypoglycemia PONV (postoperative nausea and vomiting) History of glaucoma as a child Prosthetic eye globe Anxiety Dysplasia of cervix, low grade (ADÁN 1) Arthritis Fibromyalgia Epilepsy Surgical History History of esophagogastroduodenoscopy (EGD) Hx of colonoscopy History of eye surgery H/O LEEP Hx of tubal ligation History of S/P removal of left ovary Family History Mother Seizures CAD (coronary artery disease) Pacemaker Diabetes Father No problems noted. Social History Are you a primary long term care phlebotomist to a significant other at home: No Do you presently have visiting nurse or other home services: No Alcohol intake: current Alcohol intake frequency: holidays/special occasions only Comment: medicated with IV tylenol Patient Tobacco Use Status: Never used Tobacco Sexual orientation: Straight/Heterosexual Gender identity: Female Female Reproductive History Menstrual Age of Menarche: 10 Review of Systems Const All systems reviewed & are unremarkable except as noted in HPI and below Reports as per HPI and Reports no additional complaints GI Reports no additional complaints Reports no additional complaints Telehealth Telehealth Telehealth Platform: Telephone Location of provider rendering services: practice address Location of patient: address on file Patient Identification confirmed using: Name, : Yes Telehealth method: video Patient verbally consented to treatment: Yes Patient verbally consented to billing insurance company: Yes Patient informed of any privacy concerns related to visit: Yes Minutes spent on Phone/Video with Pt.: 9 Assessment & Plan Assessment & Plan (1) Abnormal uterine bleeding (AUB): Code(s): N93.9 - Abnormal uterine and vaginal bleeding, unspecified Category: Medical Plan: Instructions given the patient to have her blood work done including TSH, hCG, FSH/LH Discussed with the patient the results of the work up done and options of treatment including Lysteda, BCP's, Mirena IUD, endometrial ablation and hysterectomy. All pros, cons, risks and benefits if each option was discussed with the patient and the patient decided to think about it and get back to us. All questions answered the patient verbalized understanding. (2) Complex ovarian cyst: Code(s): N83.299 - Other ovarian cyst, unspecified side Category: Medical Plan: Discussed with the patient the complex ovarian cyst by ultrasound. Discussed with the patient the Ultrasound findings, the main limitation of transvaginal ultrasonography alone as a diagnostic tool to distinguish benign from malignant masses relates to its lack of specificity and low positive predictive value for cancer. The differential diagnosis discussed with the patient includes the following but not limited to: benign and malignant gynecological and non-gynecological causes. Laboratory evaluation include UPT and GC/CT , serum tumor marker CA 125 . Discussed with the patient options of treatment including laparoscopy ovarian cystectomy/oophorectomy vs. expectant management with repeat US in repeating pelvic US in 6-12 weeks from previous US. If the ovarian complex cyst is persistent larger and / or more complex looking, will refer to gynecologic Oncology. All pros, cons, risks and benefits of each approach were discussed with the patient including but not limited to a delay in the diagnosis and treatment of ovarian cancer affecting the prognosis; The patient decided to go ahead with expectant management. Instructions given the patient to schedule a 3 months follow-up ultrasound appointment. All questions were answered & the patient verbalized understanding and agreed with the plan. (3) Uterine myoma: Code(s): D25.9 - Leiomyoma of uterus, unspecified Category: Medical Plan: Discussed with the patient the findings on pelvic ultrasound & the risk of myosarcoma; in addition reviewed with the patient that malignancy and pre malignancy cannot be ruled out without hysterectomy for pathological evaluation ; furthermore, explained to the patient the limitation of pelvic ultrasound and endometrial biopsy in the setting. Discussed with the patient the options of treatment including expectant management versus hysterectomy; the pros and cons, risks benefits of each approach were discussed with the patient including the fact that in cases of myosarcoma, surgical treatment can lead to early diagnosis and positively affects the prognosis; after further discussion, the patient decided to proceed with expectant management. Will repeat pelvic ultrasound periodically. Instructions given to patient to call in case any of the following occurs: pressure symptoms, abnormal uterine bleeding, pelvic pain; and to schedule a 3 months pelvic ultrasound (order placed) and a follow-up appointment . All questions answered, the patient verbalized understanding and agreed with the plan . I spent a total of 20 minutes reviewing the chart, talking to the patient via video and documenting in the medical record. Orders: Orders US pelvic and transvaginal 3 Months N83.299 - Other ovarian cyst, unspecified side Coding Level of Care Code Tele Est Pt Level 3 (99046) Diagnoses Abnormal uterine bleeding (AUB) N93.9 Complex ovarian cyst N83.299 Uterine myoma D25.9
== END 2025-04-12 09:09 | disposition home or self-care (01) ==
LOC: HO.HWS 08:40
PROVIDERS: Visit Provider Obstetrics & Gynecology
DX: N93.9 Abnormal uterine and vaginal bleeding, unspecified (principal); N83.291 Other ovarian cyst, right side; D25.9 Leiomyoma of uterus, unspecified
CPT/HCPCS: 99213

== ENCOUNTER 2025-04-12 08:40 | Outpatient (REF) | payer OTHER, SELFPAY ==
[2025-04-12 13:56] LABS: Hematocrit 41.2 % (37.0-47.0); Hemoglobin 13.7 g/dl (12.0-16.0); Mean Corpuscular HGB Conc 33.3 g/dl (31.0-35.0); Mean Corpuscular Hemoglobin 30.9 pg (27.0-33.0); Mean Corpuscular Volume 92.8 fL (80.0-98.0); Mean Platelet Volume 10.5 fL (9.4-12.3); Platelet Count 216 X10*3/uL (160-400); Red Blood Count 4.44 X10*6/uL (4.20-5.50); Red Cell Distribution Width 12.9 % (11.0-16.0); White Blood Count 7.1 X10*3/uL (4.8-10.8)
[2025-04-12 14:50] LABS: HCG Quantitative < 2 mIU/mL
[2025-04-13 04:08] LABS: Follicle Stimulating Hormone 23.5 mIU/mL; Lutenizing Hormone 12.6 mIU/mL
== END 2025-04-12 08:41 | disposition home or self-care (01) ==
LOC: HO.LAB 08:40
PROVIDERS: PCP General Practice; Visit Provider Obstetrics & Gynecology
DX: N93.9 Abnormal uterine and vaginal bleeding, unspecified (principal)
CPT/HCPCS: 36415; 83001; 83002; 84443; 84702; 85027

== ENCOUNTER → 2025-06-02 07:40 | Outpatient (REF) | payer OTHER, SELFPAY ==
--- NOTE | 2025-06-02 07:43 | HM_ITS ---
* Total monitoring time 3 days. * Underlying rhythm is sinus with an average rate of 80/Min. * Rare supraventricular ectopy. Very short runs, up to 31 beats. Max rate 156/Min. * Rare ventricular ectopy. * No significant pauses or high-grade AV blocks. * No patient markers or diary events. MTDD
--- OUTSIDE RECORDS SUMMARY | 2025-06-02 07:43 | XMS_ITS | Encounter Summary ---
Author Organization [employer] Address [address] [place] [address] [address] [place] [address] Care Team Providers Care Customer Service Driver Name Role Phone Ruma Driver MD Primary Care Provider [phone] Encounter Details Date Type Department Care Team (Late Contact Info) Description 06/11/2023 Abstract [facility] MEDICINE [address] [place] [address] [phone] Ruma Driver MD [address] [place] [phone] Social History Tobacco Use Types Packs/Day Years [...] Department Care Team (Late Contact Info) Description 07/25/2025 10:00 AM EDT Office Visit [facility] [address] [place] [phone] Megan Mccurdy CNM [address] [place], [place] [phone] documented as of this encounter Procedures Procedure Name Priority Date/Time Associated Diagnosis Comments COLONOSCOPY Routine 06/24/2022 documented in this encounter Results * Colonoscopy (06/24/2022) Colonoscopy Normal Normal Narrative Tessie Jackson - 06/24/2022 Recommended 10 year follow up ( [facility] [place]) Historical Provider HEALTH MAINTENANCE Final Result documented in this encounter Visit Diagnoses Not on filedocumented in this encounter Additional Health Concerns Assessment Noted Time PHQ-9 Depression Total Score: 17 023 9:45 AM EST documented as of this encounter Care Teams Customer Service Driver Relationship Specialty Start Date End Date Ruma Driver MD [address] [place] [address] PCP - General Family Medicine 12/26/20 documented as of this encounter
--- OUTSIDE RECORDS SUMMARY | 2025-06-02 07:43 | XMS_ITS | Data Portability ---
Author Organization [facility] Address [address] [place] [address] Care Team Providers Care Professor Of Religious Studies Name Role Phone [facility] Referring Provider [facility] Referring Provider Assessment No assessment recorded. Plan of Treatment Reminders Order Date Submit Date Provider Last Modified By Organization Details Last Modified Time Details Appointments None recorded. Lab None recorded. Referral None recorded. Procedures None recorded. Surgeries None recorded. Imaging None recorded. Medication Orders ketorolac 30 mg/mL (1 mL) injection solution 2021 022 [email or web address] Not available 18:41:31 Patient TargetsNo targets recorded. Patient InstructionsNo instructions recorded. Reason for Referral None Reported. Medical Equipment None Reported. Medications Name Sig Start Date Stop Date Status Note LastModified by Organization Details LastModified Time tetracycline 500 mg capsule TAKE 2 CAPSULES BY MOUTH EVERY 12 HOURS active Not Available Not Available No t Available buspirone 5 mg tablet TAKE 1 TABLET BY MOUTH TWICE DAILY IN THE MORNING AND AT BEDTIME NEEDED FOR ANXIETY active Not Available Not Available No t Available diltiazem CD 180 mg capsule,exten ded release 24 hr TAKE 1 CAPSULE BY MOUTH DAILY active Not Available Not Available No t Available senna 8.6 mg tablet TAKE 2 TABLETS BY MOUTH DAILY active Not Available Not Available No t Available sucralfate 100 mg/mL oral suspension active Not Available Not Available N ot Available diltiazem CD 240 mg capsule,exten ded release 24 hr TAKE 1 CAPSULE BY MOUTH ONCE DAILY active Not Available Not Available No t Available sucralfate 1 gram tablet TAKE 1 TABLET BY MOUTH AT BEDTIME active Not Available Not Available No t Available sertraline 100 mg tablet TAKE 1 TABLET BY MOUTH EVERY MORNING active Not Available Not Available No t Available sumatriptan 50 mg tablet TAKE 1 TABLET BY MOUTH AT ONSET OF MIGRAINE. MAY REPEAT ONCE AFTER 2 HOURS IF NEEDED active Not Available Not Available No t Available metronidazole 500 mg tablet TAKE 2 TABLETS BY MOUTH TWICE A DAY active Not Available Not Available No t Available divalproex 500 mg tablet,delaye d release TAKE 1 TABLET BY MOUTH TWICE DAILY active Not Available Not Available No t Available morphine ER 30 mg tablet,extend ed release TAKE 1 TABLET BY MOUTH TWICE DAILY NEEDED FOR SEVERE PAIN active Not Available Not Available No t Available aspirin 81 mg tablet,delaye d release TAKE 1 TABLET BY MOUTH EVERY DAY active Not Available Not Available No t Available tramadol 50 mg tablet TAKE 1 TABLET BY MOUTH EVERY 6 HOURS NEEDED FOR PAIN. MAY TAKE SECOND TABLET (2 TABLETS EVERY 6 HOURS) FOR SEVERE PAIN active Not Available Not Available No t Available ketorolac 30 mg/mL (1 mL) injection solution 30 mg Im x 1 for pain 2021 active Not Available Not Available Not Avai lable famotidine 20 mg tablet TAKE 1 TABLET BY MOUTH EVERY DAY active Not Available Not Available No t Available lorazepam 0.5 mg tablet TAKE 1 TABLET BY MOUTH 30 MINUTES BEFORE THE PROCEDURE active Not Available Not Available No t Available esomeprazole magnesium 40 mg capsule,delay ed release TAKE 1 CAPSULE BY MOUTH EVERY DAY active Not Available Not Available No t Available docusate sodium 100 mg capsule TAKE 1 CAPSULE BY MOUTH AT BEDTIME active Not Available Not Available No t Available diltiazem CD 120 mg capsule,exten ded release 24 hr TAKE 1 CAPSULE BY MOUTH DAILY active Not Available Not Available No t Available metoprolol succinate ER 25 mg tablet,extend ed release 24 hr TAKE 1 TABLET BY MOUTH EVERY MORNING FOR PALPITATIO NS, DO NOT BREAK, CRUSH, DISSOLVE OR CHEW active Not Available Not Available No t Available ibuprofen 600 mg tablet TAKE 1 TABLET BY MOUTH EVERY 8 HOURS NEEDED FOR PAIN active Not Available Not Available No t Available methylprednis olone 4 mg tablets in a dose pack TAKE DIRECTED ON PACKAGE active Not Available Not Available N ot Available ondansetron 4 mg disintegratin g tablet DISSOLVE 1 TABLET ON TONGUE EVERY 8 HOURS NEEDED FOR NAUSEA active Not Available Not Available No t Available naproxen 500 mg tablet TAKE 1 TABLET BY MOUTH TWICE DAILY WITH MEALS active Not Available Not Available No t Available nabumetone 500 mg tablet TAKE 2 TABLETS BY MOUTH TWICE DAILY WITH FOOD. active Not Available Not Available No t Available Stomach Relief 262 mg chewable tablet CHEW AND SWALLOW 2 TABLETS BY MOUTH 4 TIMES DAILY FOR 14 DAYS active Not Available Not Available No t Available chlorhexidine gluconate 0.12 % mouthwash RINSE FOR 30 SECONDS WITH A HALF OUNCE (15ml) TWICE DAILY, SPIT OUT -- DO NOT SWALLOW. USE TWICE DAILY IN THE MORNING AND IN THE EVENING AFTER BRUSHING DO NOT EAT OR DRINK FOR 30 MINUTES active Not Available Not Available No t Available ClearLax 17 gram/dose oral powder TAKE 17 GM MIXED IN 8 OUNCES OF WATER, COFFEE OR TEA ONCE DAILY active Not Available Not Available No t Available Trulance 3 mg tablet active Not Available Not Available Not Available Vitals Date Recorded Body temperature Heart rate Oxygen saturation Oxygen saturation in Arterial blood by Pulse oximetry Respiratory rate Respiratory rate Heart rate Oxygen saturation Oxygen saturation in Arterial blood by Pulse oximetry Body temperature Respiratory rate Heart rate Provider Name and Address Organization Details Last Updated DateTime 2 98.6 [degF] 70 /min 98 % 98 % 12 /min 12 /min 70 /min 98 % 98 % 98.6 [degF] 12 /min 70 /min Not Available Etece 2 16:17:11 Date Recorded Body temperature Oxygen saturation Oxygen saturation in Arterial blood by Pulse oximetry Respiratory rate Oxygen saturation Oxygen saturation in Arterial blood by Pulse oximetry Heart rate Body temperature Systolic And Diastolic Systolic And Diastolic Systolic And Diastolic Systolic And Diastolic Provider Name and Address Organization Details Last Updated DateTime 2 98.6 [degF] 98 % 98 % 12 /min 98 % 98 % 70 /min 98.6 [degF] 120/78 mm[Hg] 120/78 mm[Hg] 120/78 mm[Hg] 120/78 mm[Hg] Not Available Etece 2 16:20:06 Social History None recorded. Functional Status None recorded. Mental Status None recorded. Family History Nothing Reported. Medical History No medical history recorded. Gynecological HistoryNo gynecological history recorded. Obstetrics History GPAL:G 0 P 0 0 0 0 Past Encounters Encounter ID Performer Location Encounter Start Date Encounter Closed Date Diagnosis/Indication Diagnosis SNOMED-CT Code Diagnosis ICD10 Code Diagnosis Note [id number] Kelly Porras MD Main - [address] [address] 07/05/2022 15:39:46 07/24/2022 11:38:10 Injury of wrist 439145971 S69.91XA [facility] has no raegan or splint- manufactur ed sling w/ triangular bandage- advised Ice/ wrapped in a towel q 3 hr when awake- elevate. Has Naprosyn 500 mg 2x per day for pain- LD > 24 hrs prior- -not taking regularly; should continue tomorrow - take 2 x per day for pain w/ food - ordered ketorolac for pain now / may have Tylenol 650mg q 6 hr - advised need for eval / radiology imaging- doubt can get home portable xray over weekend- suggested [facility] Concerns Section Related Observation LastModified by Organization Detai ls LastModified Time None Recorded Concern Status LastModified by Organization Details LastModified Time None Recorded Advance Directives Directive None Recorded Payers Insurance Date Sequence Insurance Name Policy Number Policy Erickson Covered Member ID Erickson Member ID Guarantor Name 01/13/2024 1 [facility] - DOS PRIOR TO 2023 - DUAL ELIGIBLE (MEDICARE REPLACEMENT/ADV ANTAGE - HMO) Cordelia Nguyễn [id number] Cordelia Nguyễn 01/13/2024 1 [facility] [place] - DOS ON OR AFTER 2023 - DUAL ELIGIBLE - [employer] OPTIONS AND ONE CARE (MEDICARE REPLACEMENT/ADV ANTAGE - HMO) Cordelia Nguyễn [id number] Cordelia Nguyễn Notes Date Note Type Note Provider Name and Address Organization Details Recorded Time 07/05/2022 text/html ROS as noted in the HPI HPI: History of Seizure and Depression and Fibromyalgia. Allergic to Peanuts During colonoscopy 06/24/22 patient had 4 Tonic/Clonic seizures and was transported to ED. Since that time is having severe right arm pain with weakness. Slight bruising per report but has no recall of identified injury. .................. .................. .................. .................. .................. .................. .................. ............... CRC Nursing Assessment: Comments: CRC RN DID NOT NEED FURTHER INFO TO PROCESS VISIT .................. .................. .................. .................. .................. .................. .................. ............... [employer] Note: eval for right forearm/wrist pain. pt had grand mal seizure 10 days ago after surgical procedure. pt stated she woke up in ED and was discharged that same day. pt woke next day and felt pain in just above right wrist area, pain radiating through forearm to just below elbow. wrist area painful to palp, edema noted -unclear if deformity due to edema or possible fx. no other c/o pain or discomfort. pt does not know if she had trauma to area within seizure activity [facility] [place] 30 mg toradol for pain, ice to area and we made sling. recommended pt go to urgent care for xray .................. .................. .................. .................. .................. .................. .................. ............... Disposition: Fulfilled Kelly Porras MD [address] [facility],[address], [place], [address], [employer] - [employer] for GoodJOHANNA GOMEZ 07/06/2022 17:34:29 OBGyn Episode No OBEpisode recorded.
== END ==
LOC: HO.CARD 07:40
PROVIDERS: PCP General Practice; Visit Provider Nurse Practitioner Family
DX: I48.0 Paroxysmal atrial fibrillation (principal); I47.10 Supraventricular tachycardia, unspecified
CPT/HCPCS: 93242

== ENCOUNTER → 2025-06-02 07:43 | Outpatient (BNV) | payer OTHER, SELFPAY | PROVIDERS: PCP General Practice; Visit Provider Internal Medicine | DX: I47.10 Supraventricular tachycardia, unspecified (principal); I49.3 Ventricular premature depolarization | CPT/HCPCS: 93244 ==

== ENCOUNTER 2025-07-07 10:34 | Outpatient (REF) | payer OTHER, SELFPAY ==
--- NOTE | ~2025-07-07 | US_ITS ---
EXAMINATION: US PELVIS CLINICAL INFORMATION: Status post oophorectomy, left-sided. Other ovarian cyst. COMPARISON: February 17, 2025 demonstrated a 3.7 cm cyst, right ovary and uterine fibroids measuring less than 4.1 cm. TECHNIQUE: Ultrasound of the pelvis is performed using both transabdominal and transvaginal transducers along with Doppler. Transvaginal imaging is performed due to inadequate visualization transabdominally. FINDINGS: Uterus: The uterus is in anteversion flexion and measures 7 x 4 x 6 cm. Volume: 92 cc. The double wall endometrial thickness is 19 mm. Heterogeneous parenchyma. There is a 3.5 cm subserosal mixed echotexture soft tissue lesion. Adnexa: The right ovary is identified with cephalad flow on color Doppler interrogation.. No free fluid in the cul-de-sac. Left ovary is absent. Right ovary measures 4 x 2 x 3 cm. Volume: 13 cc. Scattered follicles. No gross solid or cystic lesion in the right adnexa. US/US pelvic and transvaginal IMPRESSION: 3.5 cm uterine fibroid likely subserosal. 19 mm endometrial stripe. This is abnormal in a post menopausal woman. Normal right ovary. Electronically signed by: Otf Mills MD 07/07/2025 11:22 AM EDT
--- OUTSIDE RECORDS SUMMARY | 2025-07-07 11:57 | XMS_ITS | Encounter Summary ---
Author Organization [facility] Address [address] [place] [phone] Phone Care Team Providers Care Bill Checker Name Role Phone Pcp, Unknown Primary Care Provider Ruma Dow MD Primary Care Provider + Encounter Details Date Type Department Care Team (Late st Contact Info) Description 08/28/2022 Procedure Pass [facility] [address] [place] [address] Social History Tobacco Use Types Packs/Day Years Used Date Smoking Tobacco: Never Smokeless Tobacco: Never Alcohol Use Standard Drinks/Week Comments Yes 0 (1 standard drink = 0.6 oz pur e alcohol) glass a month at most Comments No Sex and Gender Information Value Date Recorded Sex Assigned at Not on file Legal Sex Female 6:45 PM EST Gender Identity Not on file Sexual Orientation Not on file documented as of this encounter Plan of Treatment Not on file documented as of this encounter Visit Diagnoses Not on filedocumented in this encounter Care Teams Bill Checker Relationship Specialty Start Date End Date Pcp, Unknown PCP - General 08/23/22 01/27/23 Ruma Driver MD PCP - General Family Medicine 01/28/23 documented as of this encounter Additional Source Comments The information contained in this document represents components of the legal health record. It is not the complete legal health record.[facility]
--- OUTSIDE RECORDS SUMMARY | 2025-07-07 11:57 | XMS_ITS | Encounter Summary ---
Author Organization [employer] Address [address] [facility] [address] [place] [address] Care Team Providers Care Field Operations Technician Name Role Phone Ruma Driver MD Primary Care Provider [phone] Encounter Details Date Type Department Care Team ([facility] st Contact Info) Description 03/22/2024 Orders Only [facility] [address] [place] [address] Provider, MD Renea Social History Tobacco Use [...] Care Team (Late st Contact Info) Description 07/25/2025 10:00 AM EDT Office Visit [facility] [address] [place], [place] [phone] Megan Mccurdy CNM [address] [place], [place] [phone] documented as of this encounter Procedures Procedure Name Priority Date/Time Associated Diagnosis Comments BI MAMMOGRAM SCREENING TOMOSYNTHESIS BILATERAL Routine 03/26/2024 2:00 PM EDT HM COLONOSCOPY Routine 06/24/2022 8:30 AM EDT documented in this encounter Results * BI Mammogram Screening Tomosynthesis Bilateral (03/26/2024 2:00 PM EDT) Anatomical Region Laterality Modality Breast Bilateral Mammography 03/26/2024 2:00 PM EDT Narrative 04/26/2024 7:30 AM EDT [facility] [place] [address] Mammography Report Signed Patient: Cordelia Menon MR# : [id number] : 1975 Acct:[id number] Age/Sex: 48 / F ADM Date: 03/26/24 Loc: HO.MAMMO Attending Dr: Ruma Driver MD Ordering Physician: Ruma Driver Results: 1Negative Date of Service: 03/26/24 Follow Up: 1 Year From Orig inal Mammogram Procedure(s): MM tomosynthesis screening BI Accession Number(s): [id number] cc: Ruma Driver EXAMINATION: MM SCREENING DIGITAL [...] in OV> 04/26/24 0726 DD/ 1400 TD/TT: Dyer Assistant: Procedure Note Donotuseinterpreter, Image - 04/26/2024 [facility]'s [address] [place] [address] Mammography Report Signed Patient: Keyana Menon# : [id number] : 1975Acct:[id number] Age/Sex: 48 / FADM Date: 03/26/24 Loc: CYNDEE Attending Dr: Ruma Driver MD Ordering Physician: Chrissie Driverults: 1Negative Date of Service: 03/26/24Follow Up: 1 Year From Orig ina Mammogram Procedure(s): MM tomosynthesis screening BI Accession Number(s): [id number] cc: Ruma Driver EXAMINATION: MM SCREENING DIGITAL [...] in OV> 04/26/24 0726 DD/ 1400 TD/TT: Dyer Assistant: Ruma Driver MD IMG BI PROCEDURES Final Result * Hm Colonoscopy (06/24/2022 8:30 AM EDT) Historical Provider HEALTH MAINTENANCE Final Result documented in this encounter Visit Diagnoses Not on filedocumented in this encounter Additional Health Concerns Assessment Noted Time PHQ-9 Depression Total Score: 17 023 9:45 AM EST documented as of this encounter Care Teams Field Operations Technician Relationship Specialty Start Date End Date Ruma Driver MD [address] [place] [phone] PCP - General Family Medicine 12/26/20 documented as of this encounter
--- OUTSIDE RECORDS SUMMARY | 2025-07-07 11:57 | XMS_ITS | Encounter Summary ---
Author Organization [employer] Address [address] [place] [address] [address] [place] [address] Care Team Providers Care Pier Hand Name Role Phone Ruma Driver MD Primary Care Provider [phone] Reason for Referral * Consultation (Routine) - Pending Review Specialty Diagnoses / Procedures Referred By Contac t Referred To Contact Pharmacy Diagnoses Seizure (CMS/HCC) Ruma Driver MD [address] [place] [phone] Phone: tel: fax: Referral ID Status Reason Start Date Expiration Date Visits Requested Visits Authorized [id number] Pending Review Continuity of Care 02/04/2025 02/04/2026 6 6 Encounter Details Date Type Department Care Team ([facility] st Contact Info) Description 02/04/2025 Orders Only [facility] MEDICINE [address] [place] [address] [phone] Ruma Driver MD [address] [place] [phone] Seizure (CMS/HCC) (Primary Dx) Social History Tobacco [...] Description 07/25/2025 10:00 AM EDT Office Visit [facility] MED[facility]INE [address] [place] [address] Megan Mccurdy CNM [address] [place] [address] Scheduled Referrals Name Type Priority Associated Diagnoses Orde r Schedule Referral to Pharmacy [facility] Outpatient Referral Routine Seizure (CMS/HCC) Ordered: 02/04/2025 documented as of this encounter Visit Diagnoses Diagnosis Seizure (CMS/HCC)- Primary Other convulsions documented in this encounter Additional Health Concerns Assessment Noted Time PHQ-9 Depression Total Score: 23 024 4:24 PM EDT documented as of this encounter Care Teams Pier Hand Relationship Specialty Start Date End Date Ruma Driver MD [address] [place] [address] PCP - General Family Medicine 12/26/20 documented as of this encounter
--- OUTSIDE RECORDS SUMMARY | 2025-07-07 11:57 | XMS_ITS | Clinical Summary ---
Author Organization [employer] Address [address] 7 [place] [address] Care Team Providers Care Blend Technician Name Role Phone Ruma Driver MD Primary Care Provider [phone] Allergies Active Allergy Reactions Criticality Noted Date Comments Peanut (Diagnostic) 04/10/2017 Peanut-Containing Drug Products Anaphylaxis High 11/2016 Propofol 12/03/2019 Medications * This document contains information received from the source organization and may not represent a complete record from that organization. cholecalciferol (Vitamin D-3) 50 MCG (1999) capsule Take 1 capsule by mouth 1 (one) time each day. 0 Active EPINEPHrine (Epipen) 0.3 MG/0.3ML injection syringe [...] or chew. 90 tablet 3 3 Active Trulance tablet tablet Take 1 tablet by mouth in the morning. 3 Active sucralfate (Carafate) 1 GM/10ML suspension [...] bedtime (anxiety). 180 tablet 3 4 Active Diclofenac Sodium 1 % gel Apply 1 Application. topically if needed in the morning and at bedtime (pain). Apply to affected areas 100 g 3 5 Active oxyBUTYnin Chloride 2.5 MG tablet Take 2.5 mg by mouth Once per day. 30 tablet 2 5 06/22/20 25 Active Problems Problem Noted Date Diagnosed Date Atrial fibrillation 09/10/2023 Anxiety 06/16/2023 Assessment & Plan (06/16/2023 12:39 PM EDT): continue BHN Continue meds Help mother establish care and get her life set up here in [place], which will ease her anxiety Other constipation [...] intense, has precautions to call surgeon at [facility] Failed Mirena Continue to monitor with grinding and spraying supervisor Assessment & Plan (10/20/2022 10:53 AM EST): Underwent uterine fibroid embolization Sep 2022, first period after less bleeding and fewer cramping Failed Mirena Continue to monitor with grinding and spraying supervisor Depressive disorder 03/01/2022 Assessment & Plan (05/06/2024 [...] needs Yes PLAN: 1. Follow up with [facility]: Not recommended for follow-up 2. Patient goal is to continue OP therapy and explore additional coping mechanisms 3. Behavioral Recommendations a. Deep breathing b. Progressive muscle relaxation c. 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 Encounters Date Type Department Care Team Description 07/07/2025 Orders Only [facility] External Provider, [facility] 05/23/2025 10:00 AM EDT Office Visit [address] [address] Megan Mccurdy CNM Perimenopausal vasomotor symptoms (Primary Dx) 05/23/2025 Travel 05/20/[address] [address] Megan Mccurdy CNM Chart Prep 05/17/[address] [address] Ruma Driver MD requesting call back 04/12/2025 Orders Only GENERIC EXTERNAL DATA DEPARTMENT Provider, Generic External Data 04/08/2025 Orders Only [address] [address] Ruma Driver MD 04/08/[address] [address] Ruma Driver MD Med Refill from Last 3 Months Immunizations Immunization Administration Dates Next Due Hep B, adult 10/10/2022,09/12/2022 Influenza injectable quadriv alent IIV4 with preservative 10/07/2017,08/08/2015 MMR 09/12/2022,04/16/1996 Moderna Covid-19 Vaccine 12+ 03/21/2021,02/22/20 21 Pneumococcal Polysaccharide PPSV23 08/08/2015 TD (adult), 2 Lf tetanus tox oid, preservative free, adsorbed 07/08/2018,04/09/2007 Tdap 02/03/2014 Family History Medical History Relation Name Comments Testicular cancer Maternal Grandfather Breast cancer Neg Hx Colon cancer Neg Hx Ovarian cancer Neg Hx Relation Name Status Comments Maternal Grandfather Social History Tobacco Use Types Packs/Day Years [...] the past 12 months, has t he [employer], gas, oil or water jellyfish threatened to shut off services in your [...] Sign Reading Time Taken Comments Blood Pressure 130/84 05/23/2025 10:00 AM EDT Pulse 94 05/23/2025 10:00 AM EDT Temperature 36.9 C (98.4 F) 05/23/2025 10:00 AM EDT Respiratory Rate 16 05/23/2025 10:0 0 AM EDT Oxygen Saturation 99% 05/23/2025 10: 00 AM EDT Inhaled Oxygen Concentration - - Weight 80.2 kg (176 lb 12.8 oz) 025 10:00 AM EDT Height 160 cm (5' 3 ) 05/05/2024 3:45 PM EDT Body Mass Index 31.32 05/05/2024 3:45 PM EDT Plan of Treatment Upcoming Encounters Date Type Department Care Team (Late st Contact Info) Description 07/25/2025 10:00 AM EDT Office Visit [facility] [address] [place] [address] Megan Mccurdy, EDUARDO [address] [place] [address] Health Maintenance Due Date Last Done Comments CT Colonography 1973 FIT DNA/Cologuard 1973 FIT 1975 FOBT 1975 Sigmoidoscopy 1973 Disability Screening 1973 Alcohol/Substance Use Screening 1985 Family Planning (PISQ) 1988 Hepatitis C Screening 1991 Pap Smear 1994 Hepatitis B Vaccines (3 of 3 - 19+ 3-dose series) 03/12/2023 10/10/2022, 09/12/2022 Pneumococcal Vaccine: 50+ Years (2 of 2 - PCV) 2023 08/08/2015 Zoster Vaccines (1 of 2) 2023 COVID-19 Vaccine (3 - season) 2024 03/21/2021, 02/21/2021 Depression Monitoring 11/04/2024 05/05/2024, 024 Mammogram 03/26/2025 03/26/2024, 09/10, 02/13/2023, Additional history exists SDOH Screening 05/05/2025 05/05/2024 Influenza Vaccine (#1) 2025 10/07/2017, 2014 Tobacco Screening 05/23/2026 05/23/2025 Cervical Cancer Screening 01/02/2027 HPV/Cotest 01/02/2027 01/02/2022, [...] Procedure Name Priority Date/Time Associated Diagnosis Comments US PELVIS TRANSVAGINAL Routine 10:59 AM EDT LH Routine 04/12/2025 1:15 PM EDT FSH Routine 04/12/2025 1:15 PM EDT HCG, TOTAL, QN Routine 04/12/2025 1:15 PM EDT TSH W/REFLEX TO FT4 Routine 04/12/2025 1 :15 PM EDT CBC Routine 04/12/2025 1:15 PM EDT BI MAMMOGRAM SCREENING TOMOSYNTHESIS BILATERAL Routine 03/26/2024 2:00 PM EDT HIV 1/2 ANTIGEN/ANTIBODY, FOURTH GENERATION W/RFL Routine 08/26/2022 10:25 AM EDT HM COLONOSCOPY Routine 06/24/2022 ZZZ HISTORICAL HPV E6/E7 RFLX PALOMO 16 18/45 Routine 01/02/2022 9:14 AM EST from Last 3 Months or Most Recently Relevant to Health Maintenance Results * US Pelvis Transvaginal (07/07/2025 10:59 AM EDT) Anatomical Region Laterality Modality Pelvis Ultrasound 07/07/2025 10:5 9 AM EDT Narrative 07/07/2025 11:25 AM EDT [place] [address] Ultrasound Report Signed Patient: Cordelia Menon MR# : [id number] : 1975 Acct:[id number] Age/Sex: 50 / F ADM Date: 07/07/25 Loc: HO.US Attending Dr: Mitchell Biggs MD Ordering Physician: Mitchell Biggs MD Date of Service: 07/07/25 Procedure(s): US pelvic and transvaginal Accession Number(s): [id number] cc: Ruma Driver; Mitchell Biggs MD EXAMINATION: US PELVIS CLINICAL INFORMATION: Status post oophorectomy, left-sided. Other ovarian cyst. COMPARISON: February 17, 2025 demonstrated a 3.7 cm cyst, right ovary and uterine fibroids measuring less than 4.1 cm. TECHNIQUE: Ultrasound of the pelvis is performed using both transabdominal and transvaginal transducers along with Doppler. Transvaginal imaging is performed due to inadequate visualization transabdominally. FINDINGS: Uterus: The uterus is in anteversion flexion and measures 7 x 4 x 6 cm. Volume: 92 cc. The double wall endometrial thickness is 19 mm. Heterogeneous parenchyma. There is a 3.5 cm subserosal mixed echotexture soft tissue lesion. Adnexa: The right ovary is identified with cephalad flow on color Doppler interrogation.. No free fluid in the cul-de-sac. Left ovary is absent. Right ovary measures 4 x 2 x 3 cm. Volume: 13 cc. Scattered follicles. No gross solid or cystic lesion in the right adnexa. US/US pelvic and transvaginal IMPRESSION: 3.5 cm uterine fibroid likely subserosal. 19 mm endometrial stripe. This is abnormal in a post menopausal woman. Normal right ovary. Electronically signed by: Otf Mills MD 07/07/2025 11:22 AM EDT RP Dictated By: Otf Basurto MD Signed By: <Electronically signed by Otf Gallardo MD in OV> 07/07/25 1122 DD/ 1059 TD/TT: 07/07/25 1109 Engraver Copperplate: Procedure Note Donotuseinterpreter, Image - 07/07/2025 [place] [address] Ultrasound Report Signed Patient: Edwige MenonR# : [id number] : 1975Acct:[id number] Age/Sex: 50 / FADM Date: 07/07/25 Loc: .US Attending Dr: Mitchell Biggs MD Ordering Physician: Mitchell Biggs MD Date of Service: 07/07/25 Procedure(s): US pelvic and transvaginal Accession Number(s): [id number] cc: Ruma Driver; Mitchell Biggs MD EXAMINATION: US PELVIS CLINICAL INFORMATION: Status post oophorectomy, left-sided. Other ovarian cyst. COMPARISON: February 17, 2025 demonstrated a 3.7 cm cyst, right ovary and uterine fibroids measuring less than 4.1 cm. TECHNIQUE: Ultrasound of the pelvis is performed using both transabdominal and transvaginal transducers along with Doppler. Transvaginal imaging is performed due to inadequate visualization transabdominally. FINDINGS: Uterus: The uterus is in anteversion flexion and measures 7 x 4 x 6 cm. Volume: 92 cc. The double wall endometrial thickness is 19 mm. Heterogeneous parenchyma. There is a 3.5 cm subserosal mixed echotexture soft tissue lesion. Adnexa: The right ovary is identified with cephalad flow on color Doppler interrogation.. No free fluid in the cul-de-sac. Left ovary is absent. Right ovary measures 4 x 2 x 3 cm. Volume: 13 cc. Scattered follicles. No gross solid or cystic lesion in the right adnexa. US/US pelvic and transvaginal IMPRESSION: 3.5 cm uterine fibroid likely subserosal. 19 mm endometrial stripe. This is abnormal in a post menopausal woman. Normal right ovary. Electronically signed by: Otf Mills MD 07/07/2025 11:22 AM EDT RP Dictated By: Otf Basurto MD Signed By: <Electronically signed by Otf Gallardo MDin OV> 07/07/25 1122 DD/ 1059 TD/TT: 07/07/25 1109 Engraver Copperplate: us [facility] External Provider IMG US PROCEDURES Final Result * TSH with Reflex to Free T4 (04/12/2025 1:15 PM EDT) TSH reflex Free T4 1.00 0.32 - 4.0 uIU/mL [facility] 04/12/2025 1:15 PM EDT 04/12/2025 1:15 PM EDT Generic External Data Provider LAB BLOOD ORDERAB LES Final Result [facility] [address] [place] [phone] * CBC (04/12/2025 1:15 PM EDT) White Blood Count 7.1 4.8 - 10.8 X10*3/uL [facility] Red Blood Count 4.44 4.20 - 5.50 X10*6/uL [facility] Hemoglobin 13.7 12.0 - 16.0 g/dl [facility] Hematocrit 41.2 37.0 - 47.0 % [facility] Mean Corpuscular Volume 92.8 80.0 - 98.0 fL [facility] Mean Corpuscular Hemoglobin 30.9 27.0 - 33.0 pg [facility] Mean Corpuscular HGB Conc 33.3 31.0 - 35.0 g/dl [facility] Red Cell Distribution Width 12.9 11.0 - 16.0 % [facility] Platelet Count 216 160 - 400 X10*3/uL [facility] Mean Platelet Volume 10.5 9.4 - 12.3 fL [facility] NRBC Pct Auto 0.0 0.0 - 0.2 /100WBC [facility] NRBC Abs Auto 0.000 0.0 - 0.012 X10*3/uL [facility] 04/12/2025 1:15 PM EDT 04/12/2025 1:15 PM EDT us Generic External Data Provider LAB BLOOD ORDERAB LES Final Result [facility] [address] [place] [phone] * hCG, Total, Quantitative (04/12/2025 1:15 PM EDT) HCG Quantitative <2 mIU/mL [facility] Comment:Weeks post LMP Appr oximate hCG(Last Menstrual Period) Range (mIU/ml)3 - 4 weeks 9 - 1304 - 5 weeks 75 - 2,6005 - 6 weeks 850 - 20,8006 - 7 weeks 4000 - 100,2007 - 12 weeks 11,500 - 289,85007 - 16 weeks 18,300 - 137,02841 - 29 weeks (2nd trimester) 1,400 - 53,84326 - 41 weeks (3rd trimester) 940 - 60,000The Mcneil B- hCG assay is used for the early detection ofpregnancy; it cannot be used to diagnose any conditionunrelated to . If a B-hCG level is not supportedby the clinical evidence, results should be confirmed by analternative method (qualitative urine hCG, for example). 04/12/2025 1:15 PM EDT 04/12/2025 1:15 PM EDT Generic External Data Provider LAB BLOOD ORDERAB LES Final Result Performing Organization Address [facility]/ZIP Co de Phone Number [facility] [address] [place] [phone] * LH (04/12/2025 1:15 PM EDT) Lutenizing Hormone 12.6 mIU/mL [facility] Comment:Reference Range Foll icular Phase 1.9-12.5 Mid-Cycle Peak 8.7-76.3 Luteal Phase 0.5-16.9 Postmenopausal 10.0-54.7THIS TEST WAS PERFORMED AT:[facility] [address] [address]LPTWLZAINAB ACOSTA MD 04/12/2025 1:15 PM EDT 04/12/2025 1:15 PM EDT Generic External Data Provider LAB BLOOD ORDERAB LES Final Result Performing Organization Address City/[facility]/ZIP Co de Phone Number [facility] [address] [place] [phone] * FSH (04/12/2025 1:15 PM EDT) Follicle Stimulating Hormone 23.5 mIU/mL [facility] Comment:Reference Range Foll icular Phase 2.5-10.2 Mid-cycle Peak 3.1-17.7 Luteal Phase 1.5- 9.1 Postmenopausal 23.0-116.3THIS TEST WAS PERFORMED AT:[facility] [place] [id number] ACOSTA MD 04/12/2025 1:15 PM EDT 04/12/2025 1:15 PM EDT us Generic External Data Provider LAB BLOOD ORDERAB LES Final Result Performing Organization Address City/State/[facility] Co de Phone Number [facility] [address] [place] [phone] * BI Mammogram Screening Tomosynthesis Bilateral (03/26/2024 2:00 PM EDT) Anatomical Region Laterality Modality Breast Bilateral Mammography 03/26/2024 2:00 PM EDT Narrative 04/26/2024 7:30 AM EDT [address] [place] [address] Mammography Report Signed Patient: Cordelia Menon MR# : [id number] : 1975 Acct:[id number] Age/Sex: 48 / F ADM Date: 03/26/24 Loc: HO.MAMMO Attending Dr: Ruma Driver MD Ordering Physician: Ruma Driver Results: 1Negative Date of Service: 03/26/24 Follow Up: 1 Year From [facility] Mammogram Procedure(s): MM tomosynthesis screening BI Accession Number(s): [id number] cc: Ruma Driver EXAMINATION: MM SCREENING DIGITAL [...] in OV> 04/26/24 0726 DD/ 1400 TD/TT: Engraver Copperplate: Procedure Note Donotuseinterpreter, Image - 04/26/20[facility] [address] [place], [place] [address] Mammography Report Signed Patient: Keyana Menon# : [id number] : 1975Acct:[id number] Age/Sex: 48 / FADM Date: 03/26/24 Loc: CYNDEE Attending Dr: Ruma Driver MD Ordering Physician: Chrissie Driverults: 1Negative Date of Service: 03/26/24Follow Up: 1 Year From Orig inal Mammogram Procedure(s): MM tomosynthesis screening BI Accession Number(s): [id number] cc: Ruma Driver EXAMINATION: MM SCREENING DIGITAL [...] in OV> 04/26/24 0726 DD/ 1400 TD/TT: Engraver Copperplate: Ruma Driver MD IMG BI PROCEDURES Final Result * HIV 1/2 ANTIGEN/ANTIBODY,FOURTH GENERATION W/RFL (08/26/2022 10:25 AM EDT) HIV-1/2 ANTIGEN AND ANTIBODIES, 4TH GENERATION W/ REFLEX NON-REACT ROBB NON-REACT ROBB [facility] Comment: HIV-1 antigen and HIV-1/HIV-2 antibodies were not detected. There is no laboratory evidence of HIV infection. PLEASE NOTE: This information has been disclosed to you from records whose confidentiality may be protected by state law. If your state requires such protection, then the state law prohibits you from making any further disclosure of the information without the specific written consent of the person to whom it pertains, or as otherwise permitted by law. A general authorization for the release of medical or other information is NOT sufficient for this purpose. For additional information please refer to http://education.[employer].INMAN/faq/GRP149 (This link is being provided for informational/ educational purposes only.) The performance of this assay has not been clinically validated in patients less than 2 years old. 08/26/2022 10:2 5 AM EDT Abby Melvin MD LAB BLOOD ORDERABLES Fin al Result [facility] * Hm Colonoscopy (06/24/2022) Colonoscopy Normal Normal Narrative Tessie Jackson - 06/24/2022 Recommended 10 year follow up ( [facility]) Result [facility] Historical Provider HEALTH MAINTENANCE Final Result * HPV E6/E7 RFLX PALOMO 16 18/45 (01/02/2022 9:14 AM EST) HPV 16 RNA [facility] HPV 18/45 RNA [facility] HPV E6 E7 ADD [facility] HPV mRNA E6/E7 rflx Not Detected Not Detected [facility] Comment: Methodology: Kier Tender-Mediated Amplification This assay detects E6/E7 viral messenger RNA (mRNA) from 14 high-risk HPV types (16,18,31,33,35,39,45,51,52,56,58,59,66,68). The analytical performance characteristics of this assay have been determined by [employer]. The modifications have not been cleared or approved by the FDA. This assay has been validated pursuant to the CLIA regulations and is used for clinical purposes. For additional information, please refer to http://education.[employer]/faq/MZD253v9 (This link if provided for information/ educational purposes only.) THIS TEST WAS PERFORMED AT: [facility] [address] [place] [address],[place] [address] ZAINAB ACOSTA MD 01/02/2022 9:14 AM EST us Mitchell Biggs MD HISTORICAL/NON ORDERABLE LABS Fi nal Result [facility] [address] from Last 3 Months or Most Recently Relevant to Health Maintenance Insurance [facility] < [address] [place] [id number] Care Teams Blend Technician Relationship Specialty Start Date End Date Ruma Driver MD [address] [place] [phone] PCP - General Family Medicine 12/26/20
--- OUTSIDE RECORDS SUMMARY | 2025-07-07 11:57 | XMS_ITS | Encounter Summary ---
Author Organization [employer] Address [address] [place] [address] [address] [place] [address] Care Team Providers Care Manager Energy Name Role Phone Ruma Driver MD Primary Care Provider [phone] Encounter Details Date Type Department Care Team (Late Contact Info) Description 06/11/2023 Abstract [facility] [address] [place] [address] [phone] Ruma Driver MD [address] [place] [address] [phone] Social History Tobacco Use Types Packs/Day Years [...] Description 07/25/2025 10:00 AM EDT Office Visit [facility] [address] [place] [phone] Megan Mccurdy CNM [address] [place], [place] [phone] documented as of this encounter Procedures Procedure Name Priority Date/Time Associated Diagnosis Comments COLONOSCOPY Routine 06/24/2022 documented in this encounter Results * Colonoscopy (06/24/2022) Colonoscopy Normal Normal Narrative Tessie Jackson - 06/24/2022 Recommended 10 year follow up ( [facility]) Historical Provider HEALTH MAINTENANCE Final Result documented in this encounter Visit Diagnoses Not on filedocumented in this encounter Additional Health Concerns Assessment Noted Time PHQ-9 Depression Total Score: 17 023 9:45 AM EST documented as of this encounter Care Teams Manager Energy Relationship Specialty Start Date End Date Ruma Driver MD [address] [place] [address] PCP - General Family Medicine 12/26/20 documented as of this encounter
--- OUTSIDE RECORDS SUMMARY | 2025-07-07 11:57 | XMS_ITS | Encounter Summary ---
Author Organization [employer] Address [address] [place] [address] Care Team Providers Care Inventory Analyst Name Role Phone Ruma Driver MD Primary Care Provider [phone] Encounter Details Date Type Department Care Team ([facility] st Contact Info) Description 07/07/2025 Orders Only [facility] External Provider, [facility] Social History Tobacco Use Types Packs/Day Years [...] Description 07/25/2025 10:00 AM EDT Office Visit [facility] [address] [place] [address] Megan Mccurdy CNM [address] [place] [address] documented as of this encounter Procedures Procedure Name Priority Date/Time Associated Diagnosis Comments US PELVIS TRANSVAGINAL Routine 07/07/2025 10:59 AM EDT documented in this encounter Results * US Pelvis Transvaginal (07/07/2025 10:59 AM EDT) Anatomical Region Laterality Modality Pelvis Ultrasound 07/07/2025 10:5 9 AM EDT Narrative 07/07/2025 11:25 AM EDT [address] [address] Ultrasound Report Signed Patient: Cordelia Menon MR# : [id number] : 1975 Acct:[id number] Age/Sex: 50 / F ADM Date: 07/07/25 Loc: HO.US Attending Dr: Mitchell Biggs MD Ordering Physician: Mitchell Biggs MD Date of Service: 07/07/25 Procedure(s): US pelvic and transvaginal Accession Number(s): [id number] cc: Ruma Driver; Mitchell Biggs MD EXAMINATION: [...] 07/07/25 1122 DD/ 1059 TD/TT: 07/07/25 1109 Examiner Of Currency: Procedure Note Donotuseinterpreter, Image - 07/07/[address] [address] Ultrasound Report Signed Patient: Keyana Menon# : [id number] : 1975Acct:[id number] Age/Sex: 50 / FADM Date: 07/07/25 Loc: .US Attending Dr: Mitchell Biggs MD Ordering Physician: Mitchell Biggs MD Date of Service: 07/07/25 Procedure(s): US pelvic and transvaginal Accession Number(s): [id number] cc: Ruma Driver; Mitchell Biggs MD EXAMINATION: [...] 07/07/25 1122 DD/ 1059 TD/TT: 07/07/25 1109 Examiner Of Currency: [facility] External Provider IMG US PROCEDURES Final Result documented in this encounter Visit Diagnoses Not on filedocumented in this encounter Additional Health Concerns Assessment Noted Time PHQ-9 Depression Total Score: 23 024 4:24 PM EDT documented as of this encounter Care Teams Inventory Analyst Relationship Specialty Start Date End Date Ruma Driver MD [address] [place] [phone] PCP - General Family Medicine 2/16/21 documented as of this encounter
--- OUTSIDE RECORDS SUMMARY | 2025-07-07 11:57 | XMS_ITS | Encounter Summary ---
Author Organization [employer] Address [address] [place] [address] [address] [place] [address] Care Team Providers Care Housekeeping Supervisor Name Role Phone Ruma Driver MD Primary Care Provider [phone] Encounter Details Date Type Department Care Team (Late Contact Info) Description 06/04/2023 Abstract [facility] [address] [place] [address] [phone] Ruma Driver MD [address] [place] [address] [phone] Social History Tobacco Use Types Packs/Day Years [...] Office Visit [facility] [address] [place] [phone] Megan Mccurdy CNM [address] [place], [place] [phone] documented as of this encounter Procedures Procedure [...] documented as of this encounter Care Teams Housekeeping Supervisor Relationship Specialty Start Date End Date Ruma Driver MD [address] [place] [address] PCP - General Family Medicine 12/26/20 documented as of this encounter
--- OUTSIDE RECORDS SUMMARY | 2025-07-07 11:58 | XMS_ITS | Encounter Summary ---
Author Organization [facility] Address [address] [place] [address] Phone Care Team Providers Care Motion Picture Set Grip Name Role Phone Ruma Driver MD Primary Care Provider + Encounter Details Date Type Department Care Team (Late st Contact Info) Description 01/01/2024 Procedure Pass [facility], [address] [address] Social History Tobacco Use Types Packs/Day Years Used Date Smoking Tobacco: Never Smokeless Tobacco: Never Alcohol Use Standard Drinks/Week Comments Yes 0 (1 standard drink = 0.6 oz pur e alcohol) glass a month at most Education Answer Date Recorded Are you interested in more education? Not on lilia e 03/06/2023 Are you concerned about learning? Not on file 03/06/2023 No 03/06/2023 No 03/06/2023 Digital Access Answer Date Recorded No 04/06/2023 No 04/06/2023 No 04/06/2023 Reliable internet access at home? Not on file 04/06/2023 Device with a working camera? Not on file Comments No Sex and Gender Information Value Date Recorded Sex Assigned at Not on file Legal Sex Female 6:45 PM EST Gender Identity Not on file Sexual Orientation Not on file documented as of this encounter Plan of Treatment Not on file documented as of this encounter Visit Diagnoses Not on filedocumented in this encounter Care Teams Motion Picture Set Grip Relationship Specialty Start Date End Date Ruma Driver MD PCP - General Family Medicine 01/28/23 documented as of this encounter Additional Source Comments The information contained in this document represents components of the legal health record. It is not the complete legal health record.[facility]
--- OUTSIDE RECORDS SUMMARY | 2025-07-07 11:58 | XMS_ITS | Encounter Summary ---
Author Organization [employer] Address [address] [place] [address] Care Team Providers Care Automatic Folder Seamer Name Role Phone Ruma Driver MD Primary Care Provider [phone] Encounter Details Date Type Department Care Team (Late st Contact Info) Description 11/19/2022 Orders Only [facility] [address] [place], [place] [phone] Ruma Driver MD [address] [place], [place] [phone] Social History Tobacco Use Types Packs/Day Years [...] Description 07/25/2025 10:00 AM EDT Office Visit [facility] [address] [place], [place] [phone] Megan Mccurdy CNM [address] [place], [place] [phone] documented as of this encounter Visit Diagnoses Not on filedocumented in this encounter Additional Health Concerns Assessment Noted Time PHQ-9 Depression Total Score: 19 12/09/2 022 1:57 PM EST documented as of this encounter Care Teams Automatic Folder Seamer Relationship Specialty Start Date End Date Ruma Driver MD 230 [place] [address] PCP - General Family Medicine 12/26/20 documented as of this encounter
--- OUTSIDE RECORDS SUMMARY | 2025-07-07 11:59 | XMS_ITS | Encounter Summary ---
Author Organization [employer] Address [address] [place] [address] 7 [place] [address] Care Team Providers Care Health Care / Medical Job Titles Name Role Phone Ruma Driver MD Primary Care Provider [phone] Reason for Visit * Reason Comments Med Refill Encounter Details Date Type Department Care Team (Late Contact Info) Description 01/30/2023 Refill [facility] [address] [place] [address] Ruma Driver MD [address] [place] [address] Claustrophobia Social History Tobacco Use Types Packs/Day [...] Upcoming Encounters Date Type Department Care Team ([facility] Contact Info) Description 07/25/2025 10:00 AM EDT Office Visit [facility] [address] [place] [address] Megan Mccurdy CNM [address] [place] [address] documented as of this encounter Visit Diagnoses Diagnosis Claustrophobia Other isolated or specific phobias documented in this encounter Additional Health Concerns Assessment Noted Time PHQ-9 Depression Total Score: 17 023 9:45 AM EST documented as of this encounter Care Teams Health Care / Medical Job Titles Relationship Specialty Start Date End Date Ruma Driver MD [address] [place] [address] PCP - General Family Medicine 12/26/20 documented as of this encounter
--- OUTSIDE RECORDS SUMMARY | 2025-07-07 11:59 | XMS_ITS | Encounter Summary ---
Author Organization [employer] Address [address] [facility] 7 [place] [address] Care Team Providers Care Director Of Health Care Marketing Name Role Phone Ruma Driver MD Primary Care Provider [phone] Reason for Visit * Reason Onset Date Comments Med Refill 04/08/2025 Encounter Details Date Type Department Care Team ([facility] st Contact Info) Description 04/08/2025 Telephone [facility] 230 [place] [address] Ruma Driver MD [address] [place] [address] Med Refill Social History Tobacco Use Types Packs/Day Years [...] encounter Miscellaneous Notes * Telephone Encounter - Blanca Lucio LPN - 04/08/2025 2:37 PM EDT Please review request,medication is not pended * Telephone Encounter - Elmo Saez - 04/08/2025 2:33 PM EDT TC from pt requesting medication refill. Medications needing refill: Diclofenac Sodium 1 % gel To be sent to: [facility] - [place], [place] - [address] [facility] documented in this encounter Plan of Treatment Upcoming Encounters Date Type Department Care Team (Late st Contact Info) Description 07/25/2025 10:00 AM EDT Office Visit [facility] [address] [place], [place] [phone] Megan Mccurdy CNM [address] [place] [address] documented as of this encounter Visit Diagnoses Not on filedocumented in this encounter Additional Health Concerns Assessment Noted Time PHQ-9 Depression Total Score: 23 024 4:24 PM EDT documented as of this encounter Care Teams Director Of Health Care Marketing Relationship Specialty Start Date End Date Ruma Driver MD [address] [place] [address] PCP - General Family Medicine 12/26/20 documented as of this encounter
--- OUTSIDE RECORDS SUMMARY | 2025-07-07 11:59 | XMS_ITS | Encounter Summary ---
Author Organization [facility] Address [address] [place], [place] [phone] Phone Care Team Providers Care Textile Knitter Name Role Phone Pcp, Unknown Primary Care Provider Ruma Dow MD Primary Care Provider + Encounter Details Date Type Department Care Team (Latest Contact Info) Description 01/23/2023 Ancillary Orders [facility] Interventional Rad [address] [place] [address] Kedar Hernandez MD [address] [place] [address] [email or web address] Uterine leiomyoma, unspecified location Social History Tobacco Use Types Packs/Day Years [...] as of this encounter Visit Diagnoses Diagnosis Uterine leiomyoma, unspecified location documented in this encounter Care Teams Textile Knitter Relationship Specialty Start Date End Date Pcp, Unknown PCP - General 08/23/22 01/27/23 Ruma Driver MD PCP - General Family Medicine 01/28/23 documented as of this encounter Additional Source Comments The information contained in this document represents components of the legal health record. It is not the complete legal health record.[facility]
--- OUTSIDE RECORDS SUMMARY | 2025-07-07 11:59 | XMS_ITS | Encounter Summary ---
Author Organization [facility] Address [address] [place] [address] Phone Care Team Providers Care Ventilation Mechanic Name Role Phone Pcp, Unknown Primary Care Provider Ruma Dow MD Primary Care Provider + Encounter Details Date Type Department Care Team (Late st Contact Info) Description 01/24/2023 Procedure Pass [facility], [address] [address] Social History Tobacco Use Types Packs/Day Years [...] on filedocumented in this encounter Care Teams Ventilation Mechanic Relationship Specialty Start Date End Date Pcp, Unknown PCP - General 08/23/22 01/27/23 Ruma Driver MD PCP - General Family Medicine 01/28/23 documented as of this encounter Additional Source Comments The information contained in this document represents components of the legal health record. It is not the complete legal health record.[facility]
--- OUTSIDE RECORDS SUMMARY | 2025-07-07 11:59 | XMS_ITS | Encounter Summary ---
Author Organization [facility] Address [address] [place] [address] Phone Care Team Providers Care Heart Coordinator Name Role Phone Pcp, Unknown Primary Care Provider Ruma Dow MD Primary Care Provider + Encounter Details Date Type Department Care Team (Late st Contact Info) Description 09/16/2022 Procedure Pass [facility] [address] [place] [address] Social History Tobacco Use Types Packs/Day Years [...] on filedocumented in this encounter Care Teams Heart Coordinator Relationship Specialty Start Date End Date Pcp, Unknown PCP - General 08/23/22 01/27/23 Ruma Driver MD PCP - General Family Medicine 01/28/23 documented as of this encounter Additional Source Comments The information contained in this document represents components of the legal health record. It is not the complete legal health record.[facility]
--- OUTSIDE RECORDS SUMMARY | 2025-07-07 11:59 | XMS_ITS | Encounter Summary ---
Author Organization [employer] Address [address] [facility] 7t [place] [address] Care Team Providers Care Solid Waste Disposal Manager Name Role Phone Ruma Driver MD Primary Care Provider [phone] Encounter Details Date Type Department Care Team ([facility] st Contact Info) Description 04/08/2025 Orders Only [facility] 230 [place], [place] [phone] Ruma Driver MD 230 [place], [place] [phone] Social History Tobacco Use Types Packs/Day Years [...] Description 07/25/2025 10:00 AM EDT Office Visit [facility] [address] [place] [address] Megan Mccurdy CNM [address] [place] [address] documented as of this encounter Visit Diagnoses Not on filedocumented in this encounter Additional Health Concerns Assessment Noted Time PHQ-9 Depression Total Score: 23 024 4:24 PM EDT documented as of this encounter Care Teams Solid Waste Disposal Manager Relationship Specialty Start Date End Date Ruma Driver MD 230 [place] [address] PCP - General Family Medicine 12/26/20 documented as of this encounter
== END 2025-07-07 10:35 | disposition home or self-care (01) ==
LOC: HO.US 10:34
PROVIDERS: PCP General Practice; Visit Provider Obstetrics & Gynecology
DX: N83.291 Other ovarian cyst, right side (principal); Z90.721 Acquired absence of ovaries, unilateral
CPT/HCPCS: 76830; 76856

== ENCOUNTER → 2025-07-07 10:39 | Outpatient (BNV) | payer OTHER, SELFPAY | PROVIDERS: PCP General Practice; Visit Provider Radiology Diagnostic Radiology | DX: N83.292 Other ovarian cyst, left side (principal); D25.9 Leiomyoma of uterus, unspecified | CPT/HCPCS: 76830; 76856 ==

== ENCOUNTER 2025-07-14 08:34 | Outpatient (AMB) | payer OTHER, SELFPAY ==
--- NOTE | 2025-07-14 08:34 | MHC.OFFVIS ---
Intake Visit Reasons: medication and u/s follow up Allergies nut - unspecified Allergy (Severe, Verified 04/07/25 11:38) Anaphylaxis mold Allergy (Intermediate, Verified 04/07/25 11:38) itchy throat raw vegetable Allergy (Intermediate, Verified 04/07/25 11:38) Itchy throat SEASONAL ALLERGIES Allergy (Intermediate, Uncoded 04/07/25 11:38) Itchy Eyes, congestion, watery eyes HPI Comments Details: The patient is schedule telehealth visit for ultrasound follow-up regarding myoma and right complex ovarian cyst seen on previous ultrasound done in 03/04, pelvic ultrasound was done on 07/07/2025 and showed the following: Uterus: The uterus is in anteversion flexion and measures 7 x 4 x 6 cm. Volume: 92 cc. The double wall endometrial thickness is 19 mm. Heterogeneous parenchyma. There is a 3.5 cm subserosal mixed echotexture soft tissue lesion. Adnexa: The right ovary is identified with cephalad flow on color Doppler interrogation.. No free fluid in the cul-de-sac. Left ovary is absent. Right ovary measures 4 x 2 x 3 cm. Volume: 13 cc. Scattered follicles. No gross solid or cystic lesion in the right adnexa. FSH/LH= 23.5/12.6 PFSH Medical History Gastroesophageal reflux disease Chronic idiopathic constipation Helicobacter pylori (H. pylori) Hypoglycemia PONV (postoperative nausea and vomiting) History of glaucoma as a child Prosthetic eye globe Anxiety Dysplasia of cervix, low grade (ADÁN 1) Arthritis Fibromyalgia Epilepsy Surgical History History of esophagogastroduodenoscopy (EGD) Hx of colonoscopy History of eye surgery H/O LEEP Hx of tubal ligation History of S/P removal of left ovary Family History Mother Seizures CAD (coronary artery disease) Pacemaker Diabetes Father No problems noted. Social History Are you a primary career and technology education teacher to a significant other at home: No Do you presently have visiting nurse or other home services: No Alcohol intake: current Alcohol intake frequency: holidays/special occasions only Comment: medicated with IV tylenol Patient Tobacco Use Status: Never used Tobacco Sexual orientation: Straight/Heterosexual Gender identity: Female Female Reproductive History Menstrual Age of Menarche: 10 Review of Systems Const All systems reviewed & are unremarkable except as noted in HPI and below Reports as per HPI and Reports no additional complaints GI Reports no additional complaints Reports no additional complaints Telehealth Telehealth Telehealth Platform: [facility] Location of provider rendering services: practice address Location of patient: address on file Patient Identification confirmed using: Name, : Yes Telehealth method: video Patient verbally consented to treatment: Yes Patient verbally consented to billing insurance company: Yes Patient informed of any privacy concerns related to visit: Yes Minutes spent on Phone/Video with Pt.: 3 Assessment & Plan Assessment & Plan (1) Complex ovarian cyst: Code(s): N83.299 - Other ovarian cyst, unspecified side Category: Medical Plan: Discussed with the patient ultrasound findings showing the previously identified complex cyst has resolved. The patient was instructed to call if symptoms recur. All questions were answered the patient verbalized understanding. (2) Uterine myoma: Code(s): D25.9 - Leiomyoma of uterus, unspecified Category: Medical Plan: Discussed with the patient the findings on pelvic ultrasound & the risk of myosarcoma; in addition reviewed with the patient that malignancy and pre malignancy cannot be ruled out without hysterectomy for pathological evaluation ; furthermore, explained to the patient the limitation of pelvic ultrasound and endometrial biopsy in the setting. Discussed with the patient the options of treatment including expectant management versus hysterectomy; the pros and cons, risks benefits of each approach were discussed with the patient including the fact that in cases of myosarcoma, surgical treatment can lead to early diagnosis and positively affects the prognosis; after further discussion, the patient decided to proceed with expectant management. Will repeat pelvic ultrasound periodically. Instructions given to patient to call in case any of the following occurs: pressure symptoms, abnormal uterine bleeding, pelvic pain; and to schedule a 12 months pelvic ultrasound (order placed) and a follow-up appointment . All questions answered, the patient verbalized understanding and agreed with the plan . I spent a total of 20 minutes reviewing the chart, talking to the patient via video and documenting in the medical record. Orders: Orders US pelvic and transvaginal 12 Months D25.9 - Leiomyoma of uterus, unspecified Coding Level of Care Code Tele Est Pt Level 3 (84020) Diagnoses Complex ovarian cyst N83.299 Uterine myoma D25.9
--- OUTSIDE RECORDS SUMMARY | 2025-07-14 09:04 | XMS_ITS | Encounter Summary ---
Author Organization [employer] Address [address] [facility] 7t [place] [address] Care Team Providers Care Waste Handling Technician Name Role Phone Ruma Driver MD Primary Care Provider [phone] Encounter Details Date Type Department Care Team ([facility] st Contact Info) Description 03/22/2024 Orders Only [facility] [address] [place] [address] Provider, MD Renea Social History Tobacco Use [...] Description 07/25/2025 10:00 AM EDT Office Visit [facility] [address] [place], [place] [phone] Megan Mccurdy CNM [address] [place], [place] [phone] documented as of this encounter Procedures Procedure Name Priority Date/Time Associated Diagnosis Comments BI MAMMOGRAM SCREENING TOMOSYNTHESIS BILATERAL Routine 03/26/2024 2:00 PM EDT HM COLONOSCOPY Routine 06/24/2022 8:30 AM EDT documented in this encounter Results * BI Mammogram Screening Tomosynthesis Bilateral (03/26/2024 2:00 PM EDT) Anatomical Region Laterality Modality Breast Bilateral Mammography 03/26/2024 2:00 PM EDT Narrative 04/26/2024 7:30 AM EDT [facility] [place] [address] Mammography Report Signed Patient: Cordelia Menon MR# : [id number] : 1975 Acct:[id number] Age/Sex: 48 / F ADM Date: 03/26/24 Loc: HO.MAMMO Attending Dr: Ruma Driver MD Ordering Physician: Ruma Driver Results: 1Negative Date of Service: 03/26/24 Follow Up: 1 Year From Orig inal Mammogram Procedure(s): MM tomosynthesis screening BI Accession Number(s): [id number] cc: Ruma Driver EXAMINATION: MM SCREENING DIGITAL [...] in OV> 04/26/24 0726 DD/ 1400 TD/TT: Product Development Technician: Procedure Note Donotuseinterpreter, Image - 04/26/2024 [facility] [address] [place] [address] Mammography Report Signed Patient: Keyana Menon# : [id number] : 1975Acct:[id number] Age/Sex: 48 / FADM Date: 03/26/24 Loc: CYNDEE Attending Dr: Ruma Driver MD Ordering Physician: Chrissie Driverults: 1Negative Date of Service: 03/26/24Follow Up: 1 Year From Orig ina Mammogram Procedure(s): MM tomosynthesis screening BI Accession Number(s): [id number] cc: Ruma Driver EXAMINATION: MM SCREENING DIGITAL [...] in OV> 04/26/24 0726 DD/ 1400 TD/TT: Product Development Technician: Ruma Driver MD IMG BI PROCEDURES Final Result * Hm Colonoscopy (06/24/2022 8:30 AM EDT) Historical Provider HEALTH MAINTENANCE Final Result documented in this encounter Visit Diagnoses Not on filedocumented in this encounter Additional Health Concerns Assessment Noted Time PHQ-9 Depression Total Score: 17 023 9:45 AM EST documented as of this encounter Care Teams Waste Handling Technician Relationship Specialty Start Date End Date Ruma Driver MD [address] [place] [phone] PCP - General Family Medicine 12/26/20 documented as of this encounter
--- OUTSIDE RECORDS SUMMARY | 2025-07-14 09:04 | XMS_ITS | Encounter Summary ---
Author Organization [employer] Address [address] [place] [address] 7 [place] [address] Care Team Providers Care Music Agent Name Role Phone Ruma Driver MD Primary Care Provider [phone] Encounter Details Date Type Department Care Team (Late Contact Info) Description 06/11/2023 Abstract [facility] [address] [place] [address] [phone] Ruma Driver MD [address] [place] [address] [phone] Social History Tobacco Use Types Packs/Day Years [...] Description 07/25/2025 10:00 AM EDT Office Visit [facility] [address] [place] [phone] Megan Mccurdy CNM 230 [place], [place] [phone] documented as of this encounter Procedures Procedure Name Priority Date/Time Associated Diagnosis Comments COLONOSCOPY Routine 06/24/2022 documented in this encounter Results * Colonoscopy (06/24/2022) Colonoscopy Normal Normal Narrative Tessie Jackson - 06/24/2022 Recommended 10 year follow up ( [facility]) Historical Provider HEALTH MAINTENANCE Final Result documented in this encounter Visit Diagnoses Not on filedocumented in this encounter Additional Health Concerns Assessment Noted Time PHQ-9 Depression Total Score: 17 023 9:45 AM EST documented as of this encounter Care Teams Music Agent Relationship Specialty Start Date End Date Ruma Driver MD 230 [place] [address] PCP - General Family Medicine 12/26/20 documented as of this encounter
--- OUTSIDE RECORDS SUMMARY | 2025-07-14 09:04 | XMS_ITS | Encounter Summary ---
Author Organization [employer] Address [address] [place] [address] 7 [place] [address] Care Team Providers Care Orthopedic Nurse Practitioner Name Role Phone Ruma Driver MD Primary Care Provider [phone] Reason for Referral * Consultation (Routine) - Pending Review Specialty Diagnoses / Procedures Referred By Contac t Referred To Contact Pharmacy Diagnoses Seizure (CMS/HCC) Ruma Driver MD [address] [place] [address] Phone: tel: fax: Referral ID Status Reason Start Date Expiration Date Visits Requested Visits Authorized [id number] Pending Review Continuity of Care 02/04/2025 02/04/2026 6 6 Encounter Details Date Type Department Care Team ([facility] st Contact Info) Description 02/04/2025 Orders Only [facility] [address] [place] [address] [phone] Ruma Driver MD [address] [place] [address] [phone] Seizure (CMS/HCC) (Primary Dx) Social History Tobacco [...] Description 07/25/2025 10:00 AM EDT Office Visit [facility] [address] [place] [address] Megan Mccurdy CNM [address] [place] [address] Scheduled Referrals Name Type Priority Associated Diagnoses Orde r Schedule Referral to Pharmacy [facility] Outpatient Referral Routine Seizure (CMS/HCC) Ordered: 02/04/2025 documented as of this encounter Visit Diagnoses Diagnosis Seizure (CMS/HCC)- Primary Other convulsions documented in this encounter Additional Health Concerns Assessment Noted Time PHQ-9 Depression Total Score: 23 024 4:24 PM EDT documented as of this encounter Care Teams Orthopedic Nurse Practitioner Relationship Specialty Start Date End Date Ruma Driver MD 230 [place] [address] PCP - General Family Medicine 12/26/20 documented as of this encounter
--- OUTSIDE RECORDS SUMMARY | 2025-07-14 09:04 | XMS_ITS | Clinical Summary ---
Author Organization [employer] Address [address] [facility] 7 [place] [address] Care Team Providers Care Car Shunter Name Role Phone Ruma Driver MD Primary Care Provider [phone] Allergies Active Allergy Reactions Criticality Noted Date [...] get her life set up here in [place], which will ease her anxiety Other constipation [...] intense, has precautions to call surgeon at [facility] Failed Mirena Continue to monitor with supervisor heat treating Assessment & Plan (10/20/2022 10:53 AM EST): Underwent uterine fibroid embolization Sep 2022, first period after less bleeding and fewer cramping Failed Mirena Continue to monitor with supervisor heat treating Depressive disorder 03/01/2022 Assessment & Plan (05/06/2024 [...] needs Yes PLAN: 1. Follow up with [facility]: Not recommended for follow-up 2. Patient goal is to continue OP therapy and explore additional coping mechanisms 3. Behavioral Recommendations a. Deep breathing b. Progressive muscle relaxation c. 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 Encounters Date Type Department Care Team Description 07/07/2025 Orders Only [facility] External Provider, [facility] 05/23/2025 10:00 AM EDT Office Visit [facility] [address] [place] [address] Megan Mccurdy CNM Perimenopausal vasomotor symptoms (Primary Dx) 05/23/2025 Travel 05/20/2025 Telephone [facility] [address] [place] [address] Megan Mccurdy CNM Chart Prep 05/17/2025 Telephone [facility] [address] [place] [address] Ruma Driver MD requesting call back from Last 3 Months Immunizations Immunization Administration [...] Description 07/25/2025 10:00 AM EDT Office Visit [facility] [address], [place] [phone] Megan Mccurdy, ADRI [address], [place] [phone] Health Maintenance Due Date Last Done Comments [...] 08/08/2015 Zoster Vaccines (1 of 2) 2023 Depression Monitoring 11/04/2024 05/05/2024, 024 Mammogram 03/26/2025 03/26/2024, 09/10, 02/13/2023, Additional history exists SDOH Screening 05/05/2025 05/05/2024 COVID-19 Vaccine (3 - season) 2025 03/21/2021, 02/21/2021 Influenza Vaccine (#1) 2025 10/07/2017, 2014 Tobacco [...] US PELVIS TRANSVAGINAL Routine 10:59 AM EDT BI MAMMOGRAM SCREENING TOMOSYNTHESIS BILATERAL Routine [...] AM EDT Narrative 07/07/2025 11:25 AM EDT [address] [address] Ultrasound Report Signed Patient: Cordelia Menon MR# : [id number] : 1975 Acct:[id number] Age/Sex: 50 / F ADM Date: 07/07/25 Loc: HO.US Attending Dr: Mitchell Biggs MD Ordering Physician: Mitchell Biggs MD Date of Service: 07/07/25 Procedure(s): US pelvic and transvaginal Accession Number(s): [id number] cc: Ruma Driver; Mitchell Biggs MD EXAMINATION: [...] Otf Mills MD 07/07/2025 11:22 AM EDT Dictated By: Otf Basurto MD Signed By: <Electronically signed by Otf Gallardo MD in OV> 07/07/25 1122 DD/ 1059 TD/TT: 07/07/25 1109 Market Investigator: Procedure Note Donotuseinterpreter, Image - 07/07/2025 [place] [address] Ultrasound Report Signed Patient: Keyana Menon# : [id number] : 1975Acct:[id number] Age/Sex: 50 / FADM Date: 07/07/25 Loc: HO.US Attending Dr: Mitchell Biggs MD Ordering Physician: Mitchell Biggs MD Date of Service: 07/07/25 Procedure(s): US pelvic and transvaginal Accession Number(s): [id number] cc: Ruma Driver; Mitchell Biggs MD EXAMINATION: [...] Otf Mills MD 07/07/2025 11:22 AM EDT Dictated By: Otf Basurto MD Signed By: <Electronically signed by Otf Gallardo MDin OV> 07/07/25 1122 DD/ 1059 TD/TT: 07/07/25 1109 Market Investigator: us [facility] External Provider IMG US PROCEDURES Final Result * BI Mammogram Screening Tomosynthesis Bilateral (03/26/2024 2:00 PM EDT) Anatomical Region Laterality Modality Breast Bilateral Mammography 03/26/2024 2:00 PM EDT Narrative 04/26/2024 7:30 AM EDT [address] [place] [address] Mammography Report Signed Patient: Cordelia Menon MR# : [id number] : 1975 Acct:[id number] Age/Sex: 48 / F ADM Date: 03/26/24 Loc: HO.MAMMO Attending Dr: Ruma Driver MD Ordering Physician: Ruma Driver Results: 1Negative Date of Service: 03/26/24 Follow Up: 1 Year From [facility] Mammogram Procedure(s): MM tomosynthesis screening BI Accession Number(s): [id number] cc: Ruma Driver EXAMINATION: MM SCREENING DIGITAL [...] signed by Violet Sands MD in OV> 04/26/24725 DD/ 1400 TD/TT: Market Investigator: Procedure Note Donotuseinterpreter, Image - 04/26/[facility] [address] [place] [address] Mammography Report Signed Patient: Edwige MenonR# : [id number] : 1975Acct:[id number] Age/Sex: 48 / FADM Date: 03/26/24 Loc: CYNDEE Attending Dr: Ruma Driver MD Ordering Physician: Chrissie Driverults: 1Negative Date of Service: 03/26/24Follow Up: 1 Year From [facility] Mammogram Procedure(s): MM tomosynthesis screening BI Accession Number(s): [id number] cc: Ruma Driver EXAMINATION: MM SCREENING DIGITAL [...] signed by Violet Sands MD in OV> 04/26/24725 DD/ 1400 TD/TT: Market Investigator: Ruma Driver MD IMG BI PROCEDURES Final Result * HIV 1/2 ANTIGEN/ANTIBODY,FOURTH GENERATION W/RFL (08/26/2022 10:25 AM EDT) Pathologist [facility] HIV-1/2 ANTIGEN AND ANTIBODIES, 4TH GENERATION W/ [...] purpose. For additional information please refer to http://education.Techoz/faq/IXN240 (This link is being provided for informational/ educational purposes only.) The performance of this assay has not been clinically validated in patients less than 2 years old. 08/26/2022 10:2 5 AM EDT Abby Melvin MD LAB BLOOD ORDERABLES Fin al Result CONVERTED LEGACY LABS * Hm Colonoscopy (06/24/2022) [facility] Colonoscopy Normal Normal Narrative Tessie Jackson - 06/24/2022 Recommended 10 year follow up ( [facility]) Historical Provider HEALTH MAINTENANCE Final Result * HPV E6/E7 RFLX PALOMO 16 18/45 (01/02/2022 9:14 AM EST) [facility] HPV 16 RNA [facility] HPV 18/45 RNA [facility] HPV E6 E7 ADD [facility] HPV mRNA E6/E7 rflx Not Detected Not Detected [facility] Comment: Methodology: Oil Field Operator-Mediated Amplification This assay detects E6/E7 viral messenger RNA (mRNA) from 14 high-risk HPV types (16,18,31,33,35,39,45,51,52,56,58,59,66,68). The analytical performance characteristics of this assay have been determined by [employer]. The modifications have not been cleared or approved by the FDA. This assay has been validated pursuant to the CLIA regulations and is used for clinical purposes. For additional information, please refer to http://education.Techoz/faq/ANI081f4 (This link if provided for information/ educational purposes only.) THIS TEST WAS PERFORMED AT: [facility] [address] [place] [address] [address]LO[address],[place] [address] ZAINAB ACOSTA MD 01/02/2022 9:14 AM EST Mitchell Biggs MD HISTORICAL/NON ORDERABLE LABS Fi nal Result Performing Organization Address City/State/[facility] Co de Phone Number [facility] [address] from Last 3 Months or Most Recently Relevant to Health Maintenance Insurance [facility] ONE CARE < 65 [place] [id number] Care Teams Car Shunter Relationship Specialty Start Date End Date Ruam Driver MD [address] [place] [address] PCP - General Family Medicine 12/26/20
--- OUTSIDE RECORDS SUMMARY | 2025-07-14 09:04 | XMS_ITS | Encounter Summary ---
Author Organization [facility] Address [address] [place] [address] Phone Care Team Providers Care Veterinary Poultry Inspector Name Role Phone Pcp, Unknown Primary Care Provider Ruma Dow MD Primary Care Provider + Encounter Details Date Type Department Care Team (Late st Contact Info) Description 08/28/2022 Procedure Pass [facility] [address] [place] [address] Social History Tobacco Use Types Packs/Day Years [...] on filedocumented in this encounter Care Teams Veterinary Poultry Inspector Relationship Specialty Start Date End Date Pcp, Unknown PCP - General 08/23/22 01/27/23 Ruma Driver MD PCP - General Family Medicine 01/28/23 documented as of this encounter Additional Source Comments The information contained in this document represents components of the legal health record. It is not the complete legal health record.[facility]
--- OUTSIDE RECORDS SUMMARY | 2025-07-14 09:04 | XMS_ITS | Encounter Summary ---
Author Organization [employer] Address [address] [place] [address] 7 [place] [address] Care Team Providers Care Medical Photographer Name Role Phone Ruma Driver MD Primary Care Provider [phone] Encounter Details Date Type Department Care Team (Late Contact Info) Description 06/04/2023 Abstract [facility] [address] [place] [address] [phone] Ruma Driver MD [address] [place] [address] [phone] Social History Tobacco Use Types Packs/Day Years [...] Description 07/25/2025 10:00 AM EDT Office Visit [facility] [address] [place] [address] Megan Mccurdy CNM [address] [place], [place] [phone] documented as of this encounter Procedures Procedure [...] documented as of this encounter Care Teams Medical Photographer Relationship Specialty Start Date End Date Ruma Driver MD [address] [place] [address] PCP - General Family Medicine 12/26/20 documented as of this encounter
--- OUTSIDE RECORDS SUMMARY | 2025-07-14 09:06 | XMS_ITS | Encounter Summary ---
Author Organization [employer] Address [address] [facility] 7t [place] [address] Care Team Providers Care Closet Builder Name Role Phone Ruma Driver MD Primary Care Provider [phone] Encounter Details Date Type Department Care Team ([facility] st Contact Info) Description 04/08/2025 Orders Only [facility] [address] [place], [place] [phone] Ruma Driver MD [address] [place], [place] [phone] Social History Tobacco Use Types Packs/Day Years [...] Description 07/25/2025 10:00 AM EDT Office Visit [facility] [address] [place] [address] Megan Mccurdy CNM [address] [place] [address] documented as of this encounter Visit Diagnoses Not on filedocumented in this encounter Additional Health Concerns Assessment Noted Time PHQ-9 Depression Total Score: 23 024 4:24 PM EDT documented as of this encounter Care Teams Closet Builder Relationship Specialty Start Date End Date Ruma Driver MD [address] [place] [address] PCP - General Family Medicine 12/26/20 documented as of this encounter
--- OUTSIDE RECORDS SUMMARY | 2025-07-14 09:06 | XMS_ITS | Encounter Summary ---
Author Organization [employer] Address [address] [place] [address] Care Team Providers Care Repair Service Dispatcher Name Role Phone Ruma Driver MD Primary Care Provider [phone] Encounter Details Date Type Department Care Team (Late st Contact Info) Description 11/19/2022 Orders Only [facility] [address] [place], [place] [phone] Ruma Driver MD [address] [place], [place] [phone] Social History Tobacco Use Types Packs/Day Years [...] Description 07/25/2025 10:00 AM EDT Office Visit [facility] [address] [place], [place] [phone] Megan Mccurdy CNM [address] [place], [place] [phone] documented as of this encounter Visit Diagnoses Not on filedocumented in this encounter Additional Health Concerns Assessment Noted Time PHQ-9 Depression Total Score: 19 12/09/2 022 1:57 PM EST documented as of this encounter Care Teams Repair Service Dispatcher Relationship Specialty Start Date End Date Ruma Driver MD 230 [place] [address] PCP - General Family Medicine 12/26/20 documented as of this encounter
--- OUTSIDE RECORDS SUMMARY | 2025-07-14 09:06 | XMS_ITS | Clinical Summary ---
Author Organization [facility] Address [address] [place] [address] Phone Care Team Providers Care Trading Floor Operator Name Role Phone Ruma Driver MD Primary Care Provider + Allergies Active Allergy Reactions Criticality Noted Date Comments Peanut Anaphylaxis High 09/11/2022 Medications esomeprazole (NEXIUM) 40 MG capsule Take 40 mg by mouth daily before breakfast. Active dilTIAZem (CARDIZEM CD) 120 MG 24 hr capsule Take 120 mg by mouth daily. Active docusate sodium (COLACE) 100 MG capsule Take 100 mg by mouth 2 (two) times a day. Active sucralfate (CARAFATE) 1 gram tablet Take 1 g by mouth 4 (four) times a day. Active divalproex (DEPAKOTE ER) 500 MG ER 24 hr tablet Take 500 mg by mouth daily. Active SUMAtriptan (IMITREX) 50 MG tablet Take 50 mg by mouth once as needed for migraine. Can repeat dose in 2 hours if needed. Do not exceed 2 doses in a 24 hour period. Max dose 200mg/ day Active busPIRone (BUSPAR) 5 MG tablet Take 5 mg by mouth 2 (two) times a day. Active meclizine (ANTIVERT) 25 MG tablet Take 25 mg by mouth 3 (three) times a day as needed. Active traZODone (DESYREL) 50 MG tablet Take 50 mg by mouth nightly at bedtime. Active senna (SENOKOT) 8.6 mg tablet Take 1 tablet by mouth daily. Active diazePAM (DIASTAT ACUDIAL) 5-7.5-10 mg Kit Active EPINEPHrine 0.3 mg/0.3 mL auto-injector Inject 0.3 mg into the muscle as needed for anaphylaxis. Active polyethylene glycol (MIRALAX) 17 gram packet Take 17 g by mouth daily. 17 gram in 8 oz clear beverage q day x 1 week then prn Active methylPREDNISolone (MEDROL DOSEPACK) 4 mg tablet Take by mouth. follow package directions Active ondansetron (ZOFRAN-ODT) 4 MG disintegrating tablet Take 1 tablet (4 mg total) by mouth every 8 (eight) hours as needed for nausea. 30 tablet 3 2 Active naproxen (NAPROSYN) 500 MG tablet Take 1 tablet (500 mg total) by mouth 2 (two) times a day with meals. 90 tablet 3 2 Active methylPREDNISolone (MEDROL DOSEPACK) 4 mg tablet follow package directions 21 tablet 2 Active morphine (MS CONTIN) 30 MG ER tablet Take 1 tablet (30 mg total) by mouth 2 (two) times a day for 3 days. 1 po bid prn severe pain 6 tablet 2 Active traMADoL (ULTRAM) 50 mg tablet Take 1 tablet (50 mg total) by mouth every 6 (six) hours as needed for pain (specific location in comments) (may take second tablet (2 po q 6 hr for severe pain)). 30 tablet 2 Active Social History Tobacco Use Types Packs/Day Years [...] on file Sexual Orientation Not on file Last Filed Vital Signs Vital Sign Reading Time Taken Comments Blood Pressure 115/65 09/16/2022 4:30 PM EST Pulse 71 09/16/2022 12:30 PM EST Temperature 36.2 C (97.2 F) 09/16/2022 7:50 AM EST Respiratory Rate 14 09/16/2022 7:50 AM EST Oxygen Saturation 99% 09/16/2022 4:30 PM EST Inhaled Oxygen Concentration - - Weight 72.6 kg (160 lb) 02/05/2024 1:41 PM EDT Height 160 cm (5' 3 ) 02/05/2024 1:41 PM EDT Body Mass Index 28.34 02/05/2024 1:41 PM EDT Plan of Treatment Health Maintenance Due Date Last Done Comments LIPID PANEL 1975 VALPROIC ACID (DEPAKENE) LEVEL 1975 DEPRESSION SCREENING 1985 HEPATITIS C SCREENING 1991 HIV ONE-TIME SCREENING (18-6 5 YEARS) 1991 PAP SMEAR 07/03/1996 07/03/1993 MAMMOGRAM 2013 COLOGUARD 2018 COLONOSCOPY 2018 COLORECTAL CANCER SCREENING 2018 FIT TEST 2018 FOBT 2018 SIGMOIDOSCOPY 2018 VIRTUAL COLONOSCOPY 2018 PNEUMOCOCCAL VACCINES (50+ years) (2 of 2 - PCV) 2023 08/08/2015 ZOSTER VACCINES (1 of 2) 2023 INFLUENZA VACCINE (#1) 2025 7, 08/08/2015 COVID-19 VACCINE (3 - 2024-2 6 season) 2025 03/21/2021, 02/21/2021 SCREENING FOR DIABETES 09/16/2025 09/16/2022 Adult Td,Tdap Booster 07/08/2028 07/08/2018 , 02/03/2014, 04/09/2007 SMOKING STATUS SCREENING (On ce After 26 Yrs) Completed 09/16/2022 HEPATITIS A VACCINES Aged Out No long er eligible based on patient's age to complete this topic HIB VACCINES Aged Out No longer eligi ble based on patient's age to complete this topic MENINGOCOCCAL VACCINES (ACWY) Aged Out No longer eligible based on patient's age to complete this topic MENINGOCOCCAL VACCINES (B) Aged Out N o longer eligible based on patient's age to complete this topic Medical Devices Implanted Type Area Scabbler Device Identifier Shelf Expiration Date Model / Serial / Lot Particle Embolization 500-700um 2ml Syringe Microspheres Red Bx/5ea - [id number] Implanted:Qty: 1 on 09/16/2022 by Kedar Hernandez MD at [facility] [employer] [facility] [employer] 09/09/2023 [id number] / / Particle Embolization 500-700um 2ml Syringe Microspheres Red Bx/5ea - [id number] Implanted:Qty: 1 on 09/16/2022 by Kedar Hernandez MD at [facility] [employer] [employer] 09/09/2023 [id number] / / Description:right uterine ar t Prosthetic Eye Prosthetic Eye Left: Eye Device Closure 6fr .035in Vascular Angio-Seal Vip Collagen Bioabsorbable Intraarterial Suture Tether Bx/10ea - [id number] Implanted:Qty: 1 on 09/16/2022 by Kedar Hernandez MD at [facility] [employer] [id number] 10/09/2022 [id number] / / [id number] Procedures Procedure Name Priority Date/Time Associated Diagnosis Comments PAP TEST Routine 07/03/1993 12:00 AM EDT from Last 3 Months or Most Recently Relevant to Health Maintenance Results * Pap Smear (07/03/1993 12:00 AM EDT) 07/03/1993 Narrative [facility] - 07/12/1993 12:30 PM EDT Accession Number: [id number] Report Status: Final Type: Cytology Cytology Report: [id number] DATE TAKEN: Jun ACCESSIONED ON: Jun at 11:01 CLINICAL DATA: {None Provided} Menstrual Status: Date of last Menstrual Period: {None Provided} FINAL DIAGNOSIS CERVIX/ENDOCERVIX (CX/ENDOCX): EVALUATION LIMITED BY THE ABSENCE OF ENDOCERVICAL CELLS. WITHIN NORMAL LIMITS. SQUAMOUS METAPLASIA. Diagnosis by: MARGIE Hidalgo(ASCP) Signed On: Jul Reviewer: MARGIE Pretty(ASCP) [facility]: [facility] REPORTS TO: RICK Foote Specimen: CX/ENDOCX Direct Smears Received: 2 us Conversion Provider Not In Sys CYTOLOGY ORDERABL ES Final Result Performing Organization Address City/State/[facility] [place] [address], [facility] from Last 3 Months or Most Recently Relevant to Health Maintenance Insurance [facility] ONE CARE MEDICARE REPLACEMENT [place] [address] MEDICARE PART A & B MEDICARE PART A & B MEDICARE PART A & B [facility] MEDIC[facility] REPLACEMENT MEDICARE PART A & B [facility] MEDICARE REPLACEMENT MEDICARE PART A & B [facility] [place] [address] MEDICARE PART A & B MEDICARE PART A & B MEDICARE PART A & B [facility] ONE CARE MEDICARE REPLACEMENT MEDICARE PART A & B Advance Directives For more information, please contact: [phone] (9AM - 5PM Maddie/[facility], Friday-Friday) * Full Code (Latest Code Status on File) Date Activated Date Inactivated Comments 09/16/2022 7:46 AM Question Answer Comments Code Status Confirmed With: Patient Code Status Communicated To: Sub-specialist (spe renukafy below) Care Teams Trading Floor Operator Relationship Specialty Start Date End Date Ruma Driver MD PCP - General Family Medicine 01/28/23 Additional Source Comments The information contained in this document represents components of the legal health record. It is not the complete legal health record.[facility]
--- OUTSIDE RECORDS SUMMARY | 2025-07-14 09:06 | XMS_ITS | Encounter Summary ---
Author Organization [facility] Address [address] [place], [place] [phone] Phone Care Team Providers Care Histology Teacher Name Role Phone Pcp, Unknown Primary Care Provider Ruma Dow MD Primary Care Provider + Encounter Details Date Type Department Care Team (Latest Contact Info) Description 01/23/2023 Ancillary Orders [facility] Interventional Rad [address] [place] [address] Kedar Hernandez MD [address] [place] [address] [email or web address] Uterine leiomyoma, unspecified location Social [...] location documented in this encounter Care Teams Histology Teacher Relationship Specialty Start Date End Date Pcp, Unknown PCP - General 08/23/22 01/27/23 Ruma Driver MD PCP - General Family Medicine 01/28/23 documented as of this encounter Additional Source Comments The information contained in this document represents components of the legal health record. It is not the complete legal health record.[facility]
--- OUTSIDE RECORDS SUMMARY | 2025-07-14 09:06 | XMS_ITS | Encounter Summary ---
Author Organization [employer] Address [address] [place] [address] [address] [place] [address] Care Team Providers Care Rose Grader Name Role Phone Ruma Driver MD Primary Care Provider [phone] Reason for Visit * Reason Comments Med Refill Encounter Details Date Type Department Care Team (Late Contact Info) Description 01/30/2023 Refill [facility] [address] [place] [address] Ruma Driver MD [address] [place] [address] Claustrophobia Social History Tobacco Use Types Packs/Day [...] Upcoming Encounters Date Type Department Care Team ([facility] Contact Info) Description 07/25/2025 10:00 AM EDT Office Visit [facility] [address] [place] [address] Megan Mccurdy CNM [address] [place] [address] documented as of this encounter Visit Diagnoses Diagnosis Claustrophobia Other isolated or specific phobias documented in this encounter Additional Health Concerns Assessment Noted Time PHQ-9 Depression Total Score: 17 023 9:45 AM EST documented as of this encounter Care Teams Rose Grader Relationship Specialty Start Date End Date Ruma Driver MD [address] [place] [address] PCP - General Family Medicine 12/26/20 documented as of this encounter
--- OUTSIDE RECORDS SUMMARY | 2025-07-14 09:06 | XMS_ITS | Encounter Summary ---
Author Organization [employer] Address 75 [facility] 7 [place] [address] Care Team Providers Care Conductor Pullman Name Role Phone Ruma Driver MD Primary Care Provider Reason for Visit * Reason Onset Date Comments Med Refill 04/08/2025 Encounter Details Date Type Department Care Team ([facility] st Contact Info) Description 04/08/2025 Telephone [facility] [address] [place] [address] Ruma Driver MD [address] [place] [address] Med Refill Social History Tobacco Use Types [...] 1 % gel To be sent to: [facility] - [place], [place] - [address] [facility] documented in this encounter Plan of Treatment Upcoming Encounters Date Type Department Care Team (Late st Contact Info) Description 07/25/2025 10:00 AM EDT Office Visit [facility] [address] [place], [place] [phone] Megan Mccurdy CNM [address] [place] [address] documented as of this encounter Visit Diagnoses Not on filedocumented in this encounter Additional Health Concerns Assessment Noted Time PHQ-9 Depression Total Score: 23 024 4:24 PM EDT documented as of this encounter Care Teams Conductor Pullman Relationship Specialty Start Date End Date Ruma Driver MD [address] [place] [address] PCP - General Family Medicine 12/26/20 documented as of this encounter
--- OUTSIDE RECORDS SUMMARY | 2025-07-14 09:06 | XMS_ITS | Encounter Summary ---
Author Organization [facility] Address [address] [place] [address] Phone Care Team Providers Care Senior Software Qa Engineer Name Role Phone Pcp, Unknown Primary Care Provider Ruma Dow MD Primary Care Provider + Encounter Details Date Type Department Care Team (Late st Contact Info) Description 09/16/2022 Procedure Pass [facility] Interventional Radiology [address] [place] [address] Social History Tobacco Use Types Packs/Day Years [...] on filedocumented in this encounter Care Teams Senior Software Qa Engineer Relationship Specialty Start Date End Date Pcp, Unknown PCP - General 08/23/22 01/27/23 Ruma Driver MD PCP - General Family Medicine 01/28/23 documented as of this encounter Additional Source Comments The information contained in this document represents components of the legal health record. It is not the complete legal health record.[facility]
--- OUTSIDE RECORDS SUMMARY | 2025-07-14 09:06 | XMS_ITS | Encounter Summary ---
Author Organization [facility] Address [address] [place] [address] Phone Care Team Providers Care Insulation Blower Name Role Phone Pcp, Unknown Primary Care Provider Ruma Dow MD Primary Care Provider + Encounter Details Date Type Department Care Team (Late st Contact Info) Description 01/24/2023 Procedure Pass [facility], [address] [address] Social History Tobacco Use Types Packs/Day Years [...] on filedocumented in this encounter Care Teams Insulation Blower Relationship Specialty Start Date End Date Pcp, Unknown PCP - General 08/23/22 01/27/23 Ruma Driver MD PCP - General Family Medicine 01/28/23 documented as of this encounter Additional Source Comments The information contained in this document represents components of the legal health record. It is not the complete legal health record.[facility]
--- OUTSIDE RECORDS SUMMARY | 2025-07-14 09:06 | XMS_ITS | Encounter Summary ---
Author Organization [facility] Address [address] [place] [address] Phone Care Team Providers Care Ball Mill Operator Name Role Phone Ruma Driver MD Primary Care Provider + Encounter Details Date Type Department Care Team (Late st Contact Info) Description 01/01/2024 Procedure Pass [facility], [address] [address] Social History Tobacco Use Types Packs/Day Years [...] on filedocumented in this encounter Care Teams Ball Mill Operator Relationship Specialty Start Date End Date Ruma Driver MD PCP - General Family Medicine 01/28/23 documented as of this encounter Additional Source Comments The information contained in this document represents components of the legal health record. It is not the complete legal health record.[facility]
== END 2025-07-14 09:30 | disposition home or self-care (01) ==
LOC: HO.HWS 08:34
PROVIDERS: PCP General Practice; Visit Provider Obstetrics & Gynecology
DX: N83.299 Other ovarian cyst, unspecified side (principal); D25.9 Leiomyoma of uterus, unspecified
CPT/HCPCS: 99213

== ENCOUNTER 2025-07-19 07:47 | Outpatient (AMB) | payer OTHER, SELFPAY ==
--- OUTSIDE RECORDS SUMMARY | 2025-07-19 07:50 | XMS_ITS | Clinical Summary ---
Author Organization [employer] Address [address] [facility] 7 [place] [address] Care Team Providers Care Solution Engineer Name Role Phone Ruma Driver MD Primary Care Provider [phone] Allergies Active Allergy Reactions Criticality Noted Date [...] get her life set up here in [place], which will ease her anxiety Other constipation [...] intense, has precautions to call surgeon at [facility] Failed Mirena Continue to monitor with transcriptionist Assessment & Plan (10/20/2022 10:53 AM EST): Underwent uterine fibroid embolization Sep 2022, first period after less bleeding and fewer cramping Failed Mirena Continue to monitor with transcriptionist Depressive disorder 03/01/2022 Assessment & Plan (05/06/2024 [...] daily Continue Buspar 5mg BID Will re-consult [facility] as referral to Counseling in Oct [...] 12:39 PM EDT): Sees Dr Griffith at [facility] Re-iterate just one NSAID at a time Assessment & Plan (01/17/2023 10:19 AM EST): Sees Dr Griffith at [facility] Presence of artificial left eye 04/10/2017 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 Encounters Date Type Department Care Team Description 07/07/2025 Orders Only [facility] External Provider, [facility] 05/23/2025 10:00 AM EDT Office Visit [facility] [address] [place] [address] Megan Mccurdy CNM Perimenopausal vasomotor symptoms (Primary Dx) 05/23/2025 Travel 05/20/2025 Telephone [facility] [address] [place] [address] Megan Mccurdy CNM Chart Prep 05/17/2025 Telephone [facility] [address] [place] [address] Ruma Driver MD requesting call back from [...] 10:00 AM EDT Office Visit [facility] [address] [place], [place] [phone] Megan Mccurdy, ADRI [address] [place], [place] [phone] Health Maintenance Due Date Last Done Comments [...] AM EDT Narrative 07/07/2025 11:25 AM EDT [address] [address] Ultrasound Report Signed Patient: Cordelia Menon MR# : [id number] : 1975 Acct:[id number] Age/Sex: 50 / F ADM Date: 07/07/25 Loc: HO.US Attending Dr: Mitchell Biggs MD Ordering Physician: Mitchell Biggs MD Date of Service: 07/07/25 Procedure(s): US pelvic and transvaginal Accession Number(s): [id number] cc: Ruma Driver; Mitchell Biggs MD EXAMINATION: [...] 07/07/25 1122 DD/ 1059 TD/TT: 07/07/25 1109 Computing Architect: Procedure Note Donotuseinterpreter, Image - 07/07/2025 [place] [address] Ultrasound Report Signed Patient: Keyana Menon# : [id number] : 1975Acct:[id number] Age/Sex: 50 / FADM Date: 07/07/25 Loc: HO.US Attending Dr: Mitchell Biggs MD Ordering Physician: Mitchell Biggs MD Date of Service: 07/07/25 Procedure(s): US pelvic and transvaginal Accession Number(s): [id number] cc: Ruma Driver; Mitchell Biggs MD EXAMINATION: [...] 07/07/25 1122 DD/ 1059 TD/TT: 07/07/25 1109 Computing Architect: us [facility] External Provider IMG US PROCEDURES Final Result * BI Mammogram Screening Tomosynthesis Bilateral (03/26/2024 2:00 PM EDT) Anatomical Region Laterality Modality Breast Bilateral Mammography 03/26/2024 2:00 PM EDT Narrative 04/26/2024 7:30 AM EDT [address] [place] [address] Mammography Report Signed Patient: Cordelia Menon MR# : [id number] : 1975 Acct:[id number] Age/Sex: 48 / F ADM Date: 03/26/24 Loc: HO.MAMMO Attending Dr: Ruma Driver MD Ordering Physician: Ruma Driver Results: 1Negative Date of Service: 03/26/24 Follow Up: 1 Year From [facility] Mammogram Procedure(s): MM tomosynthesis screening BI Accession Number(s): [id number] cc: Ruma Driver EXAMINATION: MM SCREENING DIGITAL [...] MD in OV> 04/26/24725 DD/ 1400 TD/TT: Computing Architect: Procedure Note Donotuseinterpreter, Image - 04/26/20[facility] [address] [place] [address] Mammography Report Signed Patient: Edwige MenonR# : [id number] : 1975Acct:[id number] Age/Sex: 48 / FADM Date: 03/26/24 Loc: CYNDEE Attending Dr: Ruma Driver MD Ordering Physician: Chrissie Driverults: 1Negative Date of Service: 03/26/24Follow Up: 1 Year From Orig ina Mammogram Procedure(s): MM tomosynthesis screening BI Accession Number(s): [id number] cc: Ruma Driver EXAMINATION: MM SCREENING DIGITAL [...] MD in OV> 04/26/24725 DD/ 1400 TD/TT: Computing Architect: Ruma Driver MD IMG BI PROCEDURES Final Result * HIV 1/2 ANTIGEN/ANTIBODY,FOURTH GENERATION W/RFL (08/26/2022 10:25 AM EDT) Pathologist [facility] HIV-1/2 ANTIGEN AND ANTIBODIES, 4TH GENERATION W/ [...] purpose. For additional information please refer to http://education.EXPO/faq/TCP409 (This link is being provided for informational/ educational purposes only.) The performance of this assay has not been clinically validated in patients less than 2 years old. 08/26/2022 10:2 5 AM EDT Abby Melvin MD LAB BLOOD ORDERABLES Fin al Result CONVERTED LEGACY LABS * Hm Colonoscopy (06/24/2022) [facility] Colonoscopy Normal Normal Narrative Tessie Jackson - 06/24/2022 Recommended 10 year follow up ( [facility] Historical Provider HEALTH MAINTENANCE Final Result * HPV E6/E7 RFLX PALOMO 16 18/45 (01/02/2022 9:14 AM EST) [facility] HPV 16 RNA [facility] HPV 18/45 RNA [facility] HPV E6 E7 ADD [facility] HPV mRNA E6/E7 rflx Not Detected Not Detected [facility] Comment: Methodology: Wedding Coordinator-Mediated Amplification This assay detects E6/E7 viral messenger RNA (mRNA) from 14 high-risk HPV types (16,18,31,33,35,39,45,51,52,56,58,59,66,68). The analytical performance characteristics of this assay have been determined by [employer]. The modifications have not been cleared or approved by the FDA. This assay has been validated pursuant to the CLIA regulations and is used for clinical purposes. For additional information, please refer to http://education.EXPO/faq/GHF091h1 (This link if provided for information/ educational purposes only.) THIS TEST WAS PERFORMED AT: [id number] [address] [place] [address] [address]LOOR,[place] [address] ZAINAB ACOSTA MD 01/02/2022 9:14 AM EST Mitchell Biggs MD HISTORICAL/NON ORDERABLE LABS Fi nal Result Performing Organization Address City/State/[facility] Co de Phone Number [facility]where [address] from Last 3 Months or Most Recently Relevant to Health Maintenance Insurance [facility] ONE CARE < 65 [place] [id number] Care Teams Solution Engineer Relationship Specialty Start Date End Date Ruma Driver MD [address] [place] [address] PCP - General Family Medicine 12/26/20
--- OUTSIDE RECORDS SUMMARY | 2025-07-19 07:50 | XMS_ITS | Encounter Summary ---
Author Organization [employer] Address [address] [place] [address] 7 [place] [address] Care Team Providers Care Office Clinician Name Role Phone Ruma Driver MD Primary Care Provider [phone] Encounter Details Date Type Department Care Team (Late Contact Info) Description 06/11/2023 Abstract [facility] [address] [place] [address] [phone] Ruma Driver MD [address] [place] [address] [phone] Social History Tobacco Use Types Packs/Day Years [...] Description 07/25/2025 10:00 AM EDT Office Visit [facility] [address] [place] [address] Megan Mccurdy CNM [address] [place], [place] [phone] documented as of this encounter Procedures Procedure Name Priority Date/Time Associated Diagnosis Comments COLONOSCOPY Routine 06/24/2022 documented in this encounter Results * Colonoscopy (06/24/2022) Colonoscopy Normal Normal Narrative Tessie Jackson - 06/24/2022 Recommended 10 year follow up ( [facility] Historical Provider HEALTH MAINTENANCE Final Result documented in this encounter Visit Diagnoses Not on filedocumented in this encounter Additional Health Concerns Assessment Noted Time PHQ-9 Depression Total Score: 17 023 9:45 AM EST documented as of this encounter Care Teams Office Clinician Relationship Specialty Start Date End Date Ruma Driver MD [address] [place] [address] PCP - General Family Medicine 12/26/20 documented as of this encounter
--- OUTSIDE RECORDS SUMMARY | 2025-07-19 07:50 | XMS_ITS | Encounter Summary ---
Author Organization [employer] Address [address] [place] [address] 7 [place] [address] Care Team Providers Care Acoustical Tile Drill Press Operator Name Role Phone Ruma Driver MD Primary Care Provider [phone] Encounter Details Date Type Department Care Team (Late Contact Info) Description 06/04/2023 Abstract [facility] MEDICINE [address] [place] [address] [phone] Ruma Driver MD [address] [place] [address] [phone] Social History Tobacco Use Types Packs/Day Years [...] Description 07/25/2025 10:00 AM EDT Office Visit [facility] [address] [place] [address] Megan Mccurdy CNM [address] [place], [place] [phone] documented as of this encounter Procedures Procedure [...] documented as of this encounter Care Teams Acoustical Tile Drill Press Operator Relationship Specialty Start Date End Date Ruma Driver MD [address] [place] [address] PCP - General Family Medicine 12/26/20 documented as of this encounter
--- OUTSIDE RECORDS SUMMARY | 2025-07-19 07:50 | XMS_ITS | Encounter Summary ---
Author Organization [facility] Address [address] [place] [address] Phone Care Team Providers Care Stained Glass Window Designer Name Role Phone Ruma Driver MD Primary Care Provider + Encounter Details Date Type Department Care Team (Late st Contact Info) Description 01/01/2024 Procedure Pass [facility], [address] [address] Social History Tobacco Use Types Packs/Day Years [...] on filedocumented in this encounter Care Teams Stained Glass Window Designer Relationship Specialty Start Date End Date Ruma Driver MD PCP - General Family Medicine 01/28/23 documented as of this encounter Additional Source Comments The information contained in this document represents components of the legal health record. It is not the complete legal health record.[facility]
--- OUTSIDE RECORDS SUMMARY | 2025-07-19 07:50 | XMS_ITS | Encounter Summary ---
Author Organization [employer] Address [address] [facility] 7t [place] [address] Care Team Providers Care Alley Worker Name Role Phone Ruma Driver MD Primary Care Provider [phone] Encounter Details Date Type Department Care Team ([facility] st Contact Info) Description 03/22/2024 Orders Only [facility] MEDICINE [address] [place] [address] Provider, MD Renea Social History Tobacco Use [...] Description 07/25/2025 10:00 AM EDT Office Visit [facility] MEDICINE [address] [place], [place] [phone] Megan Mccurdy CNM [address] [place], [place] [phone] documented as of this encounter Procedures Procedure Name Priority Date/Time Associated Diagnosis Comments BI MAMMOGRAM SCREENING TOMOSYNTHESIS BILATERAL Routine 03/26/2024 2:00 PM EDT HM COLONOSCOPY Routine 06/24/2022 8:30 AM EDT documented in this encounter Results * BI Mammogram Screening Tomosynthesis Bilateral (03/26/2024 2:00 PM EDT) Anatomical Region Laterality Modality Breast Bilateral Mammography 03/26/2024 2:00 PM EDT Narrative 04/26/2024 7:30 AM EDT [facility]'[address] [place] [address] Mammography Report Signed Patient: Cordelia Menon MR# : [id number] : 1975 Acct:[id number] Age/Sex: 48 / F ADM Date: 03/26/24 Loc: HO.MAMMO Attending Dr: Ruma Driver MD Ordering Physician: Ruma Driver Results: 1Negative Date of Service: 03/26/24 Follow Up: 1 Year From Orig inal Mammogram Procedure(s): MM tomosynthesis screening BI Accession Number(s): [id number] cc: Ruma Driver EXAMINATION: MM SCREENING DIGITAL [...] in OV> 04/26/24 0726 DD/ 1400 TD/TT: Java Security Architect: Procedure Note Donotuseinterpreter, Image - 04/26/2024 [facility]'s [address] [place] [address] Mammography Report Signed Patient: Keyana Menon# : [id number] : 1975Acct:[id number] Age/Sex: 48 / FADM Date: 03/26/24 Loc: CYNDEE Attending Dr: Ruma Driver MD Ordering Physician: Chrissie Driverults: 1Negative Date of Service: 03/26/24Follow Up: 1 Year From Orig ina Mammogram Procedure(s): MM tomosynthesis screening BI Accession Number(s): [id number] cc: Ruma Driver EXAMINATION: MM SCREENING DIGITAL [...] in OV> 04/26/24 0726 DD/ 1400 TD/TT: Java Security Architect: Ruma Driver MD IMG BI PROCEDURES Final Result * Hm Colonoscopy (06/24/2022 8:30 AM EDT) Historical Provider HEALTH MAINTENANCE Final Result documented in this encounter Visit Diagnoses Not on filedocumented in this encounter Additional Health Concerns Assessment Noted Time PHQ-9 Depression Total Score: 17 023 9:45 AM EST documented as of this encounter Care Teams Alley Worker Relationship Specialty Start Date End Date Ruma Driver MD [address] [place] [address] PCP - General Family Medicine 12/26/20 documented as of this encounter
--- OUTSIDE RECORDS SUMMARY | 2025-07-19 07:50 | XMS_ITS | Encounter Summary ---
Author Organization [employer] Address [address] [place] [address] 7 [place] [address] Care Team Providers Care Psychiatric Arnp Name Role Phone Ruma Driver MD Primary Care Provider [phone] Reason for Referral * Consultation (Routine) - Pending Review Specialty Diagnoses / Procedures Referred By Contac t Referred To Contact Pharmacy Diagnoses Seizure (CMS/HCC) Ruma Driver MD [address] [place] [address] Phone: tel: fax: Referral ID Status Reason Start Date Expiration Date Visits Requested Visits Authorized [id number] Pending Review Continuity of Care 02/04/2025 02/04/2026 6 6 Encounter Details Date Type Department Care Team ([facility] st Contact Info) Description 02/04/2025 Orders Only [facility] MED[facility]INE [address] [place] [address] [phone] Ruma Driver MD [address] [place] [address] [phone] Seizure (CMS/HCC) (Primary Dx) Social History Tobacco [...] Description 07/25/2025 10:00 AM EDT Office Visit [facility] [address] [place] [address] Megan Mccurdy CNM [address] [place] [address] Scheduled Referrals Name Type Priority Associated Diagnoses Orde r Schedule Referral to Pharmacy [place] Outpatient Referral Routine Seizure (CMS/HCC) Ordered: 02/04/2025 documented as of this encounter Visit Diagnoses Diagnosis Seizure (CMS/HCC)- Primary Other convulsions documented in this encounter Additional Health Concerns Assessment Noted Time PHQ-9 Depression Total Score: 23 024 4:24 PM EDT documented as of this encounter Care Teams Psychiatric Arnp Relationship Specialty Start Date End Date Ruma Driver MD [address] [place] [address] PCP - General Family Medicine 12/26/20 documented as of this encounter
--- OUTSIDE RECORDS SUMMARY | 2025-07-19 07:50 | XMS_ITS | Clinical Summary ---
Author Organization [facility] Address [address] [place] [phone] Phone Care Team Providers Care Legal File Clerk Name Role Phone Ruma Driver MD Primary [...] this topic Medical Devices Implanted Type Area Chisel Trimmer Device Identifier Shelf Expiration Date Model / Serial / Lot Particle Embolization 500-700um 2ml Syringe Microspheres Red Bx/5ea - [id number] Implanted:Qty: 1 on 09/16/2022 by Kedar Hernandez MD at [facility] [employer] [facility] 09/09/2023 S620 / / Particle Embolization 500-700um 2ml Syringe Microspheres Red Bx/5ea - [id number] Implanted:Qty: 1 on 09/16/2022 by Kedar Hernandez MD at [facility] [employer] [facility] 09/09/2023 S620 / / Description:right uterine ar t Prosthetic Eye Prosthetic Eye Left: Eye Device Closure 6fr .035in Vascular Angio-Seal Vip Collagen Bioabsorbable Intraarterial Suture Tether Bx/10ea - [id number] Implanted:Qty: 1 on 09/16/2022 by Kedar Hernandez MD at [facility] [employer] [id number] 10/09/2022 [id number] / / [id number] Procedures Procedure Name Priority Date/Time Associated Diagnosis Comments PAP TEST Routine 07/03/1993 12:00 AM EDT from Last 3 Months or Most Recently Relevant to Health Maintenance Results * Pap Smear (07/03/1993 12:00 AM EDT) 07/03/1993 Narrative [facility] - 07/12/1993 12:30 PM EDT Accession Number: [id number] Report Status: Final Type: Cytology Cytology Report: [id number] DATE TAKEN: Jun ACCESSIONED ON: Jun at 11:01 CLINICAL DATA: {None Provided} Menstrual Status: Date of last Menstrual Period: {None Provided} FINAL DIAGNOSIS CERVIX/ENDOCERVIX (CX/ENDOCX): EVALUATION LIMITED BY THE ABSENCE OF ENDOCERVICAL CELLS. WITHIN NORMAL LIMITS. SQUAMOUS METAPLASIA. Diagnosis by: MARGIE Hidalgo(ASCP) Signed On: Jul Reviewer: MARGIE Pretty(ASCP) [facility]: [facility] REPORTS TO: RICK Foote Specimen: CX/ENDOCX Direct Smears Received: 2 us Conversion Provider Not In Sys CYTOLOGY ORDERABL ES Final Result Performing Organization Address City/State/[facility] [place] [address], [facility] from Last 3 Months or Most Recently Relevant to Health Maintenance Insurance [facility] ONE CARE MEDICARE REPLACEMENT [place] [id number] MEDICARE PART A & B MEDICARE PART A & B MEDICARE PART A & B [facility] MEDICARE REPLACEMENT MEDICARE PART A & B [facility] MEDICARE REPLACEMENT MEDICARE PART A & B [facility] [place] [address] MEDICARE PART A & B MEDICARE PART A & B MEDICARE PART A & B [facility] ONE CARE MEDICARE REPLACEMENT MEDICARE PART A & B Advance Directives For more information, please contact: [phone] (9AM - 5PM Maddie/[facility], Friday-Friday) * Full Code (Latest Code Status on File) Date Activated Date Inactivated Comments 09/16/2022 7:46 AM Question Answer Comments Code Status Confirmed With: Patient Code Status Communicated To: Sub-specialist (spe renukafy below) Care Teams Legal File Clerk Relationship Specialty Start Date End Date Ruma Driver MD PCP - General Family Medicine 01/28/23 Additional Source Comments The information contained in this document represents components of the legal health record. It is not the complete legal health record.[facility]
--- OUTSIDE RECORDS SUMMARY | 2025-07-19 07:50 | XMS_ITS | Encounter Summary ---
Author Organization [facility] Address [address] [place] [address] Phone Care Team Providers Care Model Technician Name Role Phone Pcp, Unknown Primary Care Provider Ruma Dow MD Primary Care Provider + Encounter Details Date Type Department Care Team (Late st Contact Info) Description 08/28/2022 Procedure Pass [facility]ovascular [facility] Interventional Radiology [address] [place] [address] Social History Tobacco Use Types Packs/Day Years [...] on filedocumented in this encounter Care Teams Model Technician Relationship Specialty Start Date End Date Pcp, Unknown PCP - General 08/23/22 01/27/23 Ruma Driver MD PCP - General Family Medicine 01/28/23 documented as of this encounter Additional Source Comments The information contained in this document represents components of the legal health record. It is not the complete legal health record.[facility]
--- OUTSIDE RECORDS SUMMARY | 2025-07-19 07:51 | XMS_ITS | Encounter Summary ---
Author Organization [facility] Address [address] [place] [address] Phone Care Team Providers Care Chief Technologist Name Role Phone Pcp, Unknown Primary Care Provider Ruma Dow MD Primary Care Provider + Encounter Details Date Type Department Care Team (Late st Contact Info) Description 01/24/2023 Procedure Pass [facility], [address] [address] Social History Tobacco Use Types Packs/Day Years [...] on filedocumented in this encounter Care Teams Chief Technologist Relationship Specialty Start Date End Date Pcp, Unknown PCP - General 08/23/22 01/27/23 Ruma Driver MD PCP - General Family Medicine 01/28/23 documented as of this encounter Additional Source Comments The information contained in this document represents components of the legal health record. It is not the complete legal health record.[facility]
--- OUTSIDE RECORDS SUMMARY | 2025-07-19 07:51 | XMS_ITS | Encounter Summary ---
Author Organization [employer] Address [address] [place] [address] Care Team Providers Care Tube Drawing Supervisor Name Role Phone Ruma Driver MD Primary Care Provider [phone] Encounter Details Date Type Department Care Team (Late st Contact Info) Description 11/19/2022 Orders Only [facility] 230 [place], [place] [phone] Ruma Driver MD 230 [place], [place] [phone] Social History Tobacco Use Types Packs/Day Years [...] Description 07/25/2025 10:00 AM EDT Office Visit [facility] MEDICINE 230 [place], [place] [phone] Megan Mccurdy CNM 230 [place], [place] [phone] documented as of this encounter Visit Diagnoses Not on filedocumented in this encounter Additional Health Concerns Assessment Noted Time PHQ-9 Depression Total Score: 19 12/09/2 022 1:57 PM EST documented as of this encounter Care Teams Tube Drawing Supervisor Relationship Specialty Start Date End Date Ruma Driver MD 230 [place] [address] PCP - General Family Medicine 12/26/20 documented as of this encounter
--- OUTSIDE RECORDS SUMMARY | 2025-07-19 07:51 | XMS_ITS | Encounter Summary ---
Author Organization [email or web address] Address [address] [place] [address] 7 [place] [address] Care Team Providers Care Business Intern Name Role Phone Ruma Driver MD Primary Care Provider [phone] Reason for Visit * Reason Comments Med Refill Encounter Details Date Type Department Care Team (Late Contact Info) Description 01/30/2023 Refill [facility] MEDICINE 230 [place] [address] Ruma Driver MD 230 [place] [address] Claustrophobia Social History Tobacco Use Types Packs/Day [...] Upcoming Encounters Date Type Department Care Team ([facility] Contact Info) Description 07/25/2025 10:00 AM EDT Office Visit [facility] MEDICINE 230 [place] [address] Megan Mccurdy CNM 230 [place] [address] documented as of this encounter Visit Diagnoses Diagnosis Claustrophobia Other isolated or specific phobias documented in this encounter Additional Health Concerns Assessment Noted Time PHQ-9 Depression Total Score: 17 023 9:45 AM EST documented as of this encounter Care Teams Business Intern Relationship Specialty Start Date End Date Ruma Driver MD 230 [place] [address] PCP - General Family Medicine 12/26/20 documented as of this encounter
--- OUTSIDE RECORDS SUMMARY | 2025-07-19 07:51 | XMS_ITS | Encounter Summary ---
Author Organization [employer] Address [address] [facility] 7t [place] [address] Care Team Providers Care Regional Sales Coordinator Name Role Phone Ruma Driver MD Primary Care Provider [phone] Encounter Details Date Type Department Care Team ([facility] st Contact Info) Description 04/08/2025 Orders Only [facility] MEDICINE 230 [place], [place] [phone] Ruma Driver MD 230 [place], [place] [phone] Social History Tobacco Use Types Packs/Day Years [...] 07/25/2025 10:00 AM EDT Office Visit [facility] MEDICINE 230 [place] [address] Megan Mccurdy CNM 230 [place] [address] documented as of this encounter Visit Diagnoses Not on filedocumented in this encounter Additional Health Concerns Assessment Noted Time PHQ-9 Depression Total Score: 23 024 4:24 PM EDT documented as of this encounter Care Teams Regional Sales Coordinator Relationship Specialty Start Date End Date Ruma Driver MD 230 [place] [address] PCP - General Family Medicine 12/26/20 documented as of this encounter
--- OUTSIDE RECORDS SUMMARY | 2025-07-19 07:51 | XMS_ITS | Encounter Summary ---
Author Organization [facility] Address [address] [place] [address] Phone Care Team Providers Care Wood Car Builder Name Role Phone Pcp, Unknown Primary Care Provider Ruma Dow MD Primary Care Provider + Encounter Details Date Type Department Care Team (Late st Contact Info) Description 09/16/2022 Procedure Pass [facility] 30 [place] [address] Social History Tobacco Use Types Packs/Day Years [...] on filedocumented in this encounter Care Teams Wood Car Builder Relationship Specialty Start Date End Date Pcp, Unknown PCP - General 08/23/22 01/27/23 Ruma Driver MD PCP - General Family Medicine 01/28/23 documented as of this encounter Additional Source Comments The information contained in this document represents components of the legal health record. It is not the complete legal health record.[facility]
--- OUTSIDE RECORDS SUMMARY | 2025-07-19 07:51 | XMS_ITS | Encounter Summary ---
Author Organization [facility] Address [address] [place], [place] [phone] Phone Care Team Providers Care Histology Supervisor Name Role Phone Pcp, Unknown Primary Care Provider Ruma Dow MD Primary Care Provider + Encounter Details Date Type Department Care Team (Latest Contact Info) Description 01/23/2023 Ancillary Orders [facility] Interventional Rad [address] [place] [address] Kedar Hernandez MD 30 [place] [address] [email or web address] Uterine leiomyoma, unspecified location Social [...] documented in this encounter Care Teams Histology Supervisor Relationship Specialty Start Date End Date Pcp, Unknown PCP - General 08/23/22 01/27/23 Ruma Driver MD PCP - General Family Medicine 01/28/23 documented as of this encounter Additional Source Comments The information contained in this document represents components of the legal health record. It is not the complete legal health record.[facility]
--- OUTSIDE RECORDS SUMMARY | 2025-07-19 07:51 | XMS_ITS | Encounter Summary ---
Author Organization [employer] Address [address] [facility] 7 [place] [address] Care Team Providers Care Linen Folder Name Role Phone Ruma Driver MD Primary Care Provider [phone] Reason for Visit * Reason Onset Date Comments Med Refill 04/08/2025 Encounter Details Date Type Department Care Team ([facility] st Contact Info) Description 04/08/2025 Telephone [facility] MEDICINE 230 [place] [address] Ruma Driver MD 230 [place] [address] Med Refill Social History Tobacco Use Types [...] 1 % gel To be sent to: [facility] - [place], [place] - [address] [facility] documented in this encounter Plan of Treatment Upcoming Encounters Date Type Department Care Team (Late st Contact Info) Description 07/25/2025 10:00 AM EDT Office Visit [facility] MEDICINE 230 [place], [place] [phone] Megan Mccurdy CNM 230 [place] [address] documented as of this encounter Visit Diagnoses Not on filedocumented in this encounter Additional Health Concerns Assessment Noted Time PHQ-9 Depression Total Score: 23 024 4:24 PM EDT documented as of this encounter Care Teams Linen Folder Relationship Specialty Start Date End Date Ruma Driver MD 230 [place] [address] PCP - General Family Medicine 12/26/20 documented as of this encounter
[2025-07-19 08:15] VITALS: BP 124/82; PULSE 78; BMI 31.2
--- NOTE | 2025-07-19 08:15 | A.OFFVIS_ITS ---
Vital Signs 07/19/25 08:15 Height 5 ft 3 in Weight 176 lb 5.917 oz BMI 31.2 BP 124/82 Blood Pressure Location Lt brachial Position Sitting Pulse 78 Pulse Source Pulse Oximeter Intake Visit Reasons: 6 mth f/up [employer] Lease Pumper Required: No Allergies nut - unspecified Allergy (Severe, Verified 07/19/25 08:17) Anaphylaxis mold Allergy (Intermediate, Verified 07/19/25 08:17) itchy throat raw vegetable Allergy (Intermediate, Verified 07/19/25 08:17) Itchy throat SEASONAL ALLERGIES Allergy (Intermediate, Uncoded 07/19/25 08:17) Itchy Eyes, congestion, watery eyes Medication List - Last Reconciled 07/19/25 by Nuzhat Massey NP-C acetaminophen 325 mg PO QID PRN baclofen 10 mg PO TID bisacodyl (Dulcolax (bisacodyl)) 10 mg (2 x 5 mg) PO BEDTIME diltiazem HCl CD 240 mg PO DAILY 90 days diphenhydramine HCl (Allergy (diphenhydramine)) 25 mg PO Q6H PRN divalproex 500 mg PO BID docusate sodium 100 mg PO BEDTIME [Epi E-Z Pen ] esomeprazole magnesium (Nexium) 40 mg PO DAILY ibuprofen 600 mg PO Q8H PRN meclizine 12.5 mg PO BID metoprolol succinate ER 50 mg PO DAILY nabumetone 500 mg PO BID paroxetine HCl 10 mg PO DAILY plecanatide (Trulance) 3 mg PO DAILY sertraline 25 mg PO DAILY sucralfate 10 mL PO BEDTIME sumatriptan succinate 50 mg PO Q2-4H PRN trazodone 150 mg PO BEDTIME PRN HPI HPI 6 mth f/up: Details: Cordelia is a 50-year-old female with past medical history of brief SVT, paroxysmal atrial fibrillation who presents for follow-up to recent Holter. Today she reports she does feel intermittent brief rapid heartbeats lasting sec, mostly at rest. She has not had longer heart palpitations. She drinks 1 decaf beverage per day. She has no chest discomfort, shortness of breath or lightheadedness. No neurological or vision changes. She remains physically active but no routine exercise. [facility] Medical History Gastroesophageal reflux disease Chronic idiopathic constipation Helicobacter pylori (H. pylori) Hypoglycemia PONV (postoperative nausea and vomiting) History of glaucoma as a child Prosthetic eye globe Anxiety Dysplasia of cervix, low grade (ADÁN 1) Arthritis Fibromyalgia Epilepsy Surgical History History of esophagogastroduodenoscopy (EGD) Hx of colonoscopy History of eye surgery H/O LEEP Hx of tubal ligation History of S/P removal of left ovary Family History Mother Seizures CAD (coronary artery disease) Pacemaker Diabetes Father No problems noted. Social History Are you a primary home care manager rn to a significant other at home: No Do you presently have visiting nurse or other home services: No Alcohol intake: current Alcohol intake frequency: holidays/special occasions only Comment: medicated with IV tylenol Patient Tobacco Use Status: Never used Tobacco Sexual orientation: Straight/Heterosexual Gender identity: Female Female Reproductive History Menstrual Age of Menarche: 10 Review of Systems Const All systems reviewed & are unremarkable except as noted in HPI and below ENT Denies dizziness Card Denies chest pain, Denies chest pain at rest, Denies chest pain with activity, Reports rapid heart rate (brief palpitations), Denies pedal edema, Denies edema, Denies leg edema, Denies lightheadedness, Denies palpitations, Denies dyspnea, Denies dyspnea on exertion and Denies orthopnea Resp Denies cough, Denies dyspnea and Denies dyspnea on exertion GI Denies hematochezia and Denies change in stool character Musc Denies abnormal gait, Denies limited range of motion, Denies muscle cramps, Denies muscle weakness, Denies numbness, Denies radiating pain into limb, Denies stiffness and Denies tingling Neuro Denies abnormal gait, Denies dizziness, Denies numbness and Denies tingling Endo Denies palpitations Physical Exam Vital Signs: Last Vital Signs Pulse 78 07/19/25 08:15 BP 124/82 07/19/25 08:15 BMI result Body Mass Index 31.2 Const General: cooperative, healthy appearing, comfortable and no acute distress Orientation/consciousness: patient oriented x3 Neck Neck: Yes normal visual inspection Resp Effort & Inspection: normal respiratory effort Auscultation: clear to auscultation bilaterally, no crackles, no rales, no rhonchi and no wheezes Cardio Jugular venous distension: no JVD Rate: regular rate Rhythm: regular rhythm Heart sounds: S1 normal heart sound present, S2 normal heart sound present, no gallops, no murmurs and no rubs Neuro General: patient oriented x3 Extrem General: Yes normal to inspection, No no pedal edema and No calf tenderness Psych Appearance: grossly normal Mental Status: mental status grossly normal Speech and movement: Normal speech and movement present Assessment & Plan Assessment & Plan (1) Atrial fibrillation: Code(s): I48.91 - Unspecified atrial fibrillation Category: Medical Qualifiers: Atrial fibrillation type: paroxysmal Qualified Code(s): I48.0 - Paroxysmal atrial fibrillation Plan: History of heart palpitations. Echocardiogram done 06/07/2022 shows normal EF, 62%, no valve abnormalities, atrial normal size. Exercise stress test done 06/07/2022 showed exercise 6 minutes, brief SVT run noted in recovery lasting approximately 3 seconds, no EKG changes of ischemia. A Holter monitor was done 02/14/2023 for 14 days which showed sinus rhythm with average heart rate 77, episode of atrial fibrillation noted lasting 3 minutes and 27 seconds with a total burden of 0.04% with heart rate 183 beats per minute, Rare PACs, symptoms correlated with sinus rhythm. She has been treated for rhythm control with the use of diltiazem and metoprolol. Chads Vasc score of 1, female. Not started on anticoagulation due to low stroke risk. Currently reporting brief palpitations, lasting sec. a Holter monitor was done on 06/02/2025 showing sinus rhythm with average heart rate 80, SVE run, 31 beats at 156 beats per minute. No recent documented PAF. Continue diltiazem and metoprolol. Cardiology follow-up in 6 months, sooner if needed. (2) SVT (supraventricular tachycardia): Code(s): I47.1 - Supraventricular tachycardia Category: Medical Plan: Short runs of SVT noted in recovery period of stress test with report of heart palpitation at that time. Brief SVT noted on Holter monitor as well. She is on rate slowing medications. Continue with medical management and lifestyle modifications. Based on symptoms she has a low burden of arrhythmia. Ablation was mentioned and she is not interested at this time. Vagal maneuvers reviewed for prolonged palpitations. Plan We discussed the management of paroxysmal atrial fibrillation and SVT, emphasizing the importance of medication adherence and lifestyle modifications to reduce episode frequency. I advised the patient on techniques to manage prolonged episodes and the potential for ablation therapy if necessary. Follow- up was recommended in six months or sooner if symptoms worsen. Patient Instructions: - Continue taking diltiazem and metoprolol as prescribed. - Monitor for prolonged episodes of rapid heart rate. - Reduce caffeine intake and identify potential triggers. - Use Valsalva maneuver or cold water immersion for prolonged episodes. - Follow up in six months or sooner if symptoms worsen. Patient was informed and verbally consented to the use of an ambient scribe for clinic note documentation during this visit. Visit time spent on chart review, interview, assessment, orders, documentation. Coding Level of Care Code Est Pt Level 4 (57007) Complex EM visit Add On G2211 Diagnoses Paroxysmal atrial fibrillation I48.0 Atrial fibrillation type: paroxysmal SVT (supraventricular tachycardia) I47.1 Time Spent (min) 30
== END 2025-07-19 08:38 | disposition home or self-care (01) ==
LOC: HO.HCS 07:48
PROVIDERS: Visit Provider Nurse Practitioner Family
DX: I48.0 Paroxysmal atrial fibrillation (principal); I47.10 Supraventricular tachycardia, unspecified
CPT/HCPCS: 99214; G2211

== ENCOUNTER → 2025-07-19 07:47 | Outpatient (BNVA) | payer OTHER, SELFPAY | PROVIDERS: Visit Provider Nurse Practitioner Family | DX: I48.0 Paroxysmal atrial fibrillation (principal); I47.10 Supraventricular tachycardia, unspecified | CPT/HCPCS: 99212 ==

== ENCOUNTER 2025-08-24 15:57 | Outpatient (AMB) | payer OTHER, SELFPAY ==
--- OUTSIDE RECORDS SUMMARY | 2025-08-24 19:09 | XMS_ITS | Encounter Summary ---
Author Organization [facility] Address [address] [place] [address] Phone Care Team Providers Care Assistant Professor Of Drama Name Role Phone Pcp, Unknown Primary Care Provider Ruma Dow MD Primary Care Provider + Encounter Details Date Type Department Care Team (Late st Contact Info) Description 08/28/2022 Procedure Pass [facility]ovascular And Interventional Radiology 30 [place] [address] Social History Tobacco Use Types Packs/Day Years [...] on filedocumented in this encounter Care Teams Assistant Professor Of Drama Relationship Specialty Start Date End Date Pcp, Unknown PCP - General 08/23/22 01/27/23 Ruma Driver MD PCP - General Family Medicine 01/28/23 documented as of this encounter Additional Source Comments The information contained in this document represents components of the legal health record. It is not the complete legal health record.[facility]
--- OUTSIDE RECORDS SUMMARY | 2025-08-24 19:09 | XMS_ITS | Encounter Summary ---
Author Organization [employer] Address [address] [facility] 7t [place] [address] Care Team Providers Care Chemical Processing Supervisor Name Role Phone Ruma Driver MD Primary Care Provider [phone] Encounter Details Date Type Department Care Team ([facility] st Contact Info) Description 03/22/2024 Orders Only [facility] MEDICINE 230 [place], [place] [phone] Provider, MD Renea Social History Tobacco Use [...] PM EDT Narrative 04/26/2024 7:30 AM EDT [facility] [address] [place] [address] Mammography Report Signed Patient: Cordelia Menon MR# : [id number] : 1975 Acct:[id number] Age/Sex: 48 / F ADM Date: 03/26/24 Loc: HO.MAMMO Attending Dr: Ruma Driver MD Ordering Physician: Ruma Driver Results: 1Negative Date of Service: 03/26/24 Follow Up: 1 Year From Orig ina Mammogram Procedure(s): MM tomosynthesis screening BI Accession Number(s): [id number] cc: Ruma Driver EXAMINATION: MM SCREENING DIGITAL [...] in OV> 04/26/24 0726 DD/ 1400 TD/TT: Central Office Equipment Installer: Procedure Note Donotuseinterpreter, Image - 04/26/2024 [facility] [address] [place] [address] Mammography Report Signed Patient: Flakito MenonaMR# : [id number] : 1975Acct:[id number] Age/Sex: 48 / FADM Date: 03/26/24 Loc: CYNDEE Attending Dr: Ruma Driver MD Ordering Physician: Chrissie Driverults: 1Negative Date of Service: 03/26/24Follow Up: 1 Year From Orig inal Mammogram Procedure(s): MM tomosynthesis screening BI Accession Number(s): [id number] cc: Ruma Driver EXAMINATION: MM SCREENING DIGITAL [...] in OV> 04/26/24 0726 DD/ 1400 TD/TT: Central Office Equipment Installer: us Ruma Driver MD IMG BI PROCEDURES Final Result * Hm Colonoscopy (06/24/2022 8:30 AM EDT) us Historical Provider HEALTH MAINTENANCE Final Result documented in this encounter Visit Diagnoses Not on filedocumented in this encounter Additional Health Concerns Assessment Noted Time PHQ-9 Depression Total Score: 17 023 9:45 AM EST documented as of this encounter Care Teams Chemical Processing Supervisor Relationship Specialty Start Date End Date Ruma Driver MD [address] [place] [address] PCP - General Family Medicine 12/26/20 documented as of this encounter
--- OUTSIDE RECORDS SUMMARY | 2025-08-24 19:09 | XMS_ITS | Data Portability ---
Author Organization [facility], [facility] Address [address] [place] [phone] Care Team Providers Care Costing Manager Name Role Phone [facility] Referring Provider Unavailable Referring Provider Assessment No assessment recorded. Plan [...] [degF] 12 /min 70 /min Not Available [employer] 2 16:17:11 Date Recorded Body temperature Oxygen [...] mm[Hg] 120/78 mm[Hg] 120/78 mm[Hg] Not Available [employer] 2 16:20:06 Social History None recorded. Functional Status None recorded. Mental Status None recorded. Family History Nothing Reported. Medical History No medical history recorded. Gynecological HistoryNo gynecological history recorded. Obstetrics History GPAL:G 0 P 0 0 0 0 Past Encounters Encounter ID Performer Location Encounter Start Date Encounter Closed Date Diagnosis/Indication Diagnosis SNOMED-CT Code Diagnosis ICD10 Code Diagnosis IMO Codes Diagnosis Note [id number] Kelly Porras MD Main - [address] [phone] 07/05/2022 15:39:46 07/24/2022 11:38:10 Injury of wrist 487106597 S69.91XA [facility] has no raegan or splint- [...] Name 01/13/2024 1 [facility] - DOS PRIOR TO 2023 - DUAL ELIGIBLE (MEDICARE REPLACEMENT/ADV ANTAGE - HMO) Cordelia Nguyễn [id number] Cordelia Nguyễn 01/13/2024 1 [facility] - DOS ON OR AFTER 2023 - DUAL ELIGIBLE - LONGTERM OPTIONS AND ONE CARE (MEDICARE REPLACEMENT/ADV ANTAGE - HMO) Cordelia Nguyễn [id number] Cordelia Nguyễn Notes Date Note Type Note [...] .................. .................. .................. .................. .................. .................. ............... Parking Enforcement Technician Note: eval for right forearm/wrist pain. pt [...] had trauma to area within seizure activity [facility] ordered 30 mg toradol for pain, ice to area and we made sling. recommended pt go to urgent care for xray .................. .................. .................. .................. .................. .................. .................. ............... Disposition: Fulfilled Kelly Porras MD [address] [facility],[address], [place], [address], [employer] - [employer]OH[employer]NA [employer]OMEZ 07/06/2022 17:34:29 OBGyn Episode No OBEpisode recorded.
--- OUTSIDE RECORDS SUMMARY | 2025-08-24 19:09 | XMS_ITS | Encounter Summary ---
Author Organization [employer] Address [address] [place] [address] 7 [place] [address] Care Team Providers Care Candy Dipper Hand Name Role Phone Ruma Driver MD Primary Care Provider [phone] Encounter Details Date Type Department Care Team ([facility] st Contact Info) Description 06/04/2023 Abstract [facility] MEDICINE 230 [place] [address] Ruma Driver MD 230 [place], [place] [phone] Social History Tobacco Use Types Packs/Day Years [...] documented as of this encounter Care Teams Candy Dipper Hand Relationship Specialty Start Date End Date Ruma Driver MD 230 [place] [address] PCP - General Family Medicine 12/26/20 documented as of this encounter
--- OUTSIDE RECORDS SUMMARY | 2025-08-24 19:09 | XMS_ITS | Encounter Summary ---
Author Organization [employer] Address [address] [place] [address] 7 [place] [address] Care Team Providers Care National Facilities Manager Name Role Phone Ruma Driver MD Primary Care Provider [phone] Encounter Details Date Type Department Care Team ([facility] st Contact Info) Description 06/11/2023 Abstract [facility] MEDICINE 230 [place] [address] Ruma Driver MD 230 [place], [place] [phone] Social History Tobacco Use Types Packs/Day Years [...] 06/24/2022 Recommended 10 year follow up ( [facility]) us Historical Provider HEALTH MAINTENANCE Final Result documented in this encounter Visit Diagnoses Not on filedocumented in this encounter Additional Health Concerns Assessment Noted Time PHQ-9 Depression Total Score: 17 023 9:45 AM EST documented as of this encounter Care Teams National Facilities Manager Relationship Specialty Start Date End Date Ruma Driver MD 230 [place] [address] PCP - General Family Medicine 12/26/20 documented as of this encounter
--- OUTSIDE RECORDS SUMMARY | 2025-08-24 19:10 | XMS_ITS | Encounter Summary ---
Author Organization [facility] Address [address] [place] [address] Phone Care Team Providers Care Epic Ambulatory Specialists Name Role Phone Pcp, Unknown Primary Care Provider Ruma Dow MD Primary Care Provider + Encounter Details Date Type Department Care Team (Late st Contact Info) Description 01/24/2023 Procedure Pass [facility], [address] [address] Social History Tobacco Use Types Packs/Day Years [...] on filedocumented in this encounter Care Teams Epic Ambulatory Specialists Relationship Specialty Start Date End Date Pcp, Unknown PCP - General 08/23/22 01/27/23 Ruma Driver MD PCP - General Family Medicine 01/28/23 documented as of this encounter Additional Source Comments The information contained in this document represents components of the legal health record. It is not the complete legal health record.[facility]
--- OUTSIDE RECORDS SUMMARY | 2025-08-24 19:10 | XMS_ITS | Encounter Summary ---
Author Organization [employer] Address [address] [place] [address] 7 [place] [address] Care Team Providers Care Firmware Architect Name Role Phone Ruma Driver MD Primary Care Provider [phone] Reason for Visit * Reason Comments Med Refill Encounter Details Date Type Department Care Team ([facility] Contact Info) Description 01/30/2023 Refill [facility] 230 [place], [place] [phone] Ruma Driver MD 230 [place] [address] Claustrophobia Social History Tobacco Use Types Packs/Day [...] documented as of this encounter Care Teams Firmware Architect Relationship Specialty Start Date End Date Ruma Driver MD 230 [place] [address] PCP - General Family Medicine 12/26/20 documented as of this encounter
--- OUTSIDE RECORDS SUMMARY | 2025-08-24 19:10 | XMS_ITS | Encounter Summary ---
Author Organization [employer] Address [address] [facility] 7 [place] [address] Care Team Providers Care Customer Quality Specialist Name Role Phone Ruma Driver MD Primary Care Provider [phone] Reason for Visit * Reason Onset Date Comments Med Refill 04/08/2025 Encounter Details Date Type Department Care Team ([facility] st Contact Info) Description 04/08/2025 Telephone [facility] 230 [place] [address] Ruma Driver MD 230 [place] [address] Med Refill Social History Tobacco Use Types [...] 1 % gel To be sent to: [facility] - [place], [place] - [address] [facility] documented in this encounter Plan of Treatment Not on file documented as of this encounter Visit Diagnoses Not on filedocumented in this encounter Additional Health Concerns Assessment Noted Time PHQ-9 Depression Total Score: 23 024 4:24 PM EDT documented as of this encounter Care Teams Customer Quality Specialist Relationship Specialty Start Date End Date Ruma Driver MD [address] [facility] [place] [address] PCP - General Family Medicine 12/26/20 documented as of this encounter
--- OUTSIDE RECORDS SUMMARY | 2025-08-24 19:10 | XMS_ITS | Encounter Summary ---
Author Organization [employer] Address [address] [facility] 7t [place] [address] Care Team Providers Care Resource Economist Name Role Phone Ruma Driver MD Primary Care Provider [phone] Encounter Details Date Type Department Care Team ([facility] st Contact Info) Description 04/08/2025 Orders Only [facility] MED[facility]INE 230 [place], [place] [phone] Ruma Driver MD 230 [place], [place] [phone] Social History Tobacco Use Types Packs/Day Years [...] documented as of this encounter Care Teams Resource Economist Relationship Specialty Start Date End Date Ruma Driver MD 230 [place] [address] PCP - General Family Medicine 12/26/20 documented as of this encounter
--- OUTSIDE RECORDS SUMMARY | 2025-08-24 19:10 | XMS_ITS | Encounter Summary ---
Author Organization [facility] Address [address] [place] [address] Phone Care Team Providers Care Diamond Grinder Name Role Phone Pcp, Unknown Primary Care Provider Ruma Dow MD Primary Care Provider + Encounter Details Date Type Department Care Team (Late st Contact Info) Description 09/16/2022 Procedure Pass [facility] 30 [place] [address] Social History Tobacco Use Types Packs/Day Years [...] on filedocumented in this encounter Care Teams Diamond Grinder Relationship Specialty Start Date End Date Pcp, Unknown PCP - General 08/23/22 01/27/23 Ruma Driver MD PCP - General Family Medicine 01/28/23 documented as of this encounter Additional Source Comments The information contained in this document represents components of the legal health record. It is not the complete legal health record.[facility]
--- OUTSIDE RECORDS SUMMARY | 2025-08-24 19:10 | XMS_ITS | Encounter Summary ---
Author Organization [facility] Address [address] [place] [address] Phone Care Team Providers Care Cartridge Filler Name Role Phone Ruma Driver MD Primary Care Provider + Encounter Details Date Type Department Care Team (Late st Contact Info) Description 01/01/2024 Procedure Pass [facility], [address] [address] Social History Tobacco Use Types Packs/Day Years [...] on filedocumented in this encounter Care Teams Cartridge Filler Relationship Specialty Start Date End Date Ruma Driver MD PCP - General Family Medicine 01/28/23 documented as of this encounter Additional Source Comments The information contained in this document represents components of the legal health record. It is not the complete legal health record.[facility]
--- OUTSIDE RECORDS SUMMARY | 2025-08-24 19:10 | XMS_ITS | Clinical Summary ---
Author Organization [employer] Address [address] [facility] 7t [place] [address] Care Team Providers Care Antique Clock Repairer Name Role Phone Ruma Driver MD Primary Care Provider [phone] Allergies Active Allergy Reactions Criticality Noted Date [...] affected areas 100 g 3 5 Active Active Problems Problem Noted Date Diagnosed Date Atrial fibrillation ([facility]) 09/10/2023 Anxiety 06/16/2023 Assessment & Plan (06/16/2023 12:39 PM EDT): continue BHN Continue meds Help mother establish care and get her life set up here in [place], which will ease her anxiety Other constipation [...] precautions to call surgeon at [facility] Failed Mirena Continue to monitor with seismograph operator helper Assessment & Plan (10/20/2022 10:53 AM EST): Underwent uterine fibroid embolization Sep 2022, first period after less bleeding and fewer cramping Failed Mirena Continue to monitor with seismograph operator helper Depressive disorder 03/01/2022 Assessment & Plan (05/06/2024 [...] needs Yes PLAN: 1. Follow up with [facility]: Not recommended for follow-up 2. Patient goal is to continue OP therapy and explore additional coping mechanisms 3. Behavioral Recommendations a. Deep breathing b. Progressive muscle relaxation c. SDOH referral Assessment & Plan (10/20/2022 10:54 AM EST): Continue Zoloft 100mg daily Continue Buspar 5mg BID Will re-consult [facility] as referral to Counseling in Oct 2021 was never booked by facility Seizure ([facility]) 03/01/2022 Assessment & Plan (12/08/2023 12:12 PM [...] Encounters Date Type Department Care Team Description 07/22/2025 Telephone [facility] MED[facility]INE 230 [place] [address] Megan Mccurdy CNM CHART PREP 07/07/2025 Orders Only [facility] External Provider, [facility] from Last 3 Months Immunizations Immunization Administration [...] your housing situation today? I have klever sing 05/05/[address] you li [...] Planning (PISQ) 1988 Hepatitis C Screening 1991 Hepatitis B Vaccines (3 of 3 - 19+ 3-dose series) 03/12/2023 10/10/2022, 09/12/2022 Pneumococcal Vaccine: 50+ Years (2 of 2 - PCV) 2023 08/08/2015 Zoster Vaccines (1 of 2) 2023 Depression Monitoring 11/04/2024 05/05/2024, 024 Cervical Cancer Screening 01/02/2025 HPV/Cotest 01/02/2025 01/02/2022, 12/12, 12/11/2020, Additional history exists Pap Smear 01/02/2025 Mammogram 03/26/2025 03/26/2024, 09/10, 02/13/2023, Additional history exists SDOH Screening 05/05/2025 05/05/2024 COVID-19 Vaccine ( - season) 2025 03/21/2021, 02/21/2021 Influenza Vaccine (#1) 2025 10/07/2017, 2014 Tobacco Screening 05/23/2026 05/23/2025 DTaP/Tdap/Td Vaccines (3 - Td or Tdap) [...] AM EDT Narrative 07/07/2025 11:25 AM EDT [place] [address] Ultrasound Report Signed Patient: Cordelia Menon MR# : [id number] : 1975 Acct:[id number] Age/Sex: 50 / F ADM Date: 07/07/25 Loc: HO.US Attending Dr: Mitchell Biggs MD Ordering Physician: Mitchell Biggs MD Date of Service: 07/07/25 Procedure(s): US pelvic and transvaginal Accession Number(s): [id number] cc: Ruma Driver; Mitchell Biggs MD EXAMINATION: [...] 07/07/25 1122 DD/ 1059 TD/TT: 07/07/25 1109 Director Of Publications: Procedure Note Donotuseinterpreter, Image - 07/07/[address] [address] Ultrasound Report Signed Patient: Edwige MenonR# : [id number] : 1975Acct:[id number] Age/Sex: 50 / FADM Date: 07/07/25 Loc: HO.US Attending Dr: Mitchell Biggs MD Ordering Physician: Mitchell Biggs MD Date of Service: 07/07/25 Procedure(s): US pelvic and transvaginal Accession Number(s): [id number] cc: Ruma Driver; Mitchell Biggs MD EXAMINATION: [...] 07/07/25 1122 DD/ 1059 TD/TT: 07/07/25 1109 Director Of Publications: [facility] External Provider IMG US PROCEDURES Final Result * BI Mammogram Screening Tomosynthesis Bilateral (03/26/2024 2:00 PM EDT) Anatomical Region Laterality Modality Breast Bilateral Mammography 03/26/2024 2:00 PM EDT Narrative 04/26/2024 7:30 AM EDT [facility] [address] [place] [address] Mammography Report Signed Patient: Cordelia Menon MR# : [id number] : 1975 Acct:[id number] Age/Sex: 48 / F ADM Date: 03/26/24 Loc: CYNDEE Attending Dr: Ruma Driver MD Ordering Physician: Ruma Driver Results: 1Negative Date of Service: 03/26/24 Follow Up: 1 Year From Orig ina Mammogram Procedure(s): MM tomosynthesis screening BI Accession Number(s): [id number] cc: Ruma Driver EXAMINATION: MM SCREENING DIGITAL [...] in OV> 04/26/24 0726 DD/ 1400 TD/TT: Director Of Publications: Procedure Note Donotuseinterpreter, Image - 04/26/2024 [place] [facility] [address] [place], [place] [address] Mammography Report Signed Patient: Keyana Menon# : [id number] : 1975Acct:[id number] Age/Sex: 48 / FADM Date: 03/26/24 Loc: CYNDEE Attending Dr: Ruma Driver MD Ordering Physician: Chrissie Driverults: 1Negative Date of Service: 03/26/24Follow Up: 1 Year From Orig ina Mammogram Procedure(s): MM tomosynthesis screening BI Accession Number(s): [id number] cc: Ruma Driver EXAMINATION: MM SCREENING DIGITAL [...] in OV> 04/26/24 0726 DD/ 1400 TD/TT: Director Of Publications: Ruma Driver MD IMG BI PROCEDURES Final [...] purpose. For additional information please refer to http://education.[employer]/faq/NHV227 (This link is being provided for informational/ educational purposes only.) The performance of this assay has not been clinically validated in patients less than 2 years old. 08/26/2022 10:2 5 AM EDT Abby Melvin MD LAB BLOOD ORDERABLES Fin al Result CONVERTED LEGACY LABS * Hm Colonoscopy (06/24/2022) Colonoscopy Normal Normal Narrative Tessie Jackson - 06/24/2022 Recommended 10 year follow up ( [facility]) Historical Provider HEALTH MAINTENANCE Final Result * HPV E6/E7 RFLX PAL[place] 16 18/45 (01/02/2022 9:14 AM EST) HPV 16 RNA [facility] HPV 18/45 RNA [facility] HPV E6 E7 ADD [facility] HPV mRNA E6/E7 rflx Not Detected Not Detected [facility] Comment: Methodology: Real Estate Utilization Officer-Mediated Amplification This assay detects E6/E7 viral messenger RNA (mRNA) from 14 high-risk HPV types (16,18,31,33,35,39,45,51,52,56,58,59,66,68). The analytical performance characteristics of this assay have been determined by [employer]. The modifications have not been cleared or approved by the FDA. This assay has been validated pursuant to the CLIA regulations and is used for clinical purposes. For additional information, please refer to http://education.[employer]/faq/LWV424j7 (This link if provided for information/ educational purposes only.) THIS TEST WAS PERFORMED AT: [facility] [address] [place] [address],[place] [address] ZAINAB ACOSTA MD 01/02/2022 9:14 AM EST Mitchell Biggs MD HISTORICAL/NON ORDERABLE LABS Fi nal Result [facility] [address] from Last 3 Months or Most Recently Relevant to Health Maintenance Insurance AMANDA BLAKE [id number] Care Teams Antique Clock Repairer Relationship Specialty Start Date End Date Ruma Driver MD [address] [place] [address] PCP - General Family Medicine 12/26/20
--- OUTSIDE RECORDS SUMMARY | 2025-08-24 19:10 | XMS_ITS | Encounter Summary ---
Author Organization [employer] Address [address] [place] [address] 7 [place] [address] Care Team Providers Care Draw String Knotter Name Role Phone Ruma Driver MD Primary Care Provider [phone] Encounter Details Date Type Department Care Team ([facility] st Contact Info) Description 11/19/2022 Orders Only [facility] 230 [place], [place] [phone] Ruma Driver MD 230 [place], [place] [phone] Social History Tobacco Use Types Packs/Day Years [...] documented as of this encounter Care Teams Draw String Knotter Relationship Specialty Start Date End Date Ruma Driver MD 230 [place], [place] [phone] PCP - General Family Medicine 12/26/20 documented as of this encounter
--- OUTSIDE RECORDS SUMMARY | 2025-08-24 19:10 | XMS_ITS | Encounter Summary ---
Author Organization [email or web address] Address [address] [place] [address] 7 [place] [address] Care Team Providers Care Aegis Operations Specialist Name Role Phone Ruma Driver MD Primary Care Provider [phone] Reason for Referral * Consultation (Routine) - Pending Review Specialty Diagnoses / Procedures Referred By Contac t Referred To Contact Pharmacy Diagnoses Seizure (CMS/HCC) (HCC) Ruma Driver MD [address] [place] [address] Phone: tel: fax: Referral ID Status Reason Start Date Expiration Date Visits Requested Visits Authorized [id number] Pending Review Continuity of Care 02/04/2025 02/04/2026 6 6 Encounter Details Date Type Department Care Team (Late st Contact Info) Description 02/04/2025 Orders Only [facility] MEDICINE [address] [place] [phone] Ruma Driver MD [address] [place] [phone] Seizure (CMS/HCC) (Primary Dx) Social History Tobacco [...] of this encounter Visit Diagnoses Diagnosis Seizure (CMS/HCC) (HCC)- Primary Other convulsions documented in this encounter Additional Health Concerns Assessment Noted Time PHQ-9 Depression Total Score: 23 024 4:24 PM EDT documented as of this encounter Care Teams Aegis Operations Specialist Relationship Specialty Start Date End Date Ruma Driver MD 230 [place] [address] PCP - General Family Medicine 12/26/20 documented as of this encounter
--- OUTSIDE RECORDS SUMMARY | 2025-08-24 19:10 | XMS_ITS | Encounter Summary ---
Author Organization [facility] Address [address] [place], [place] [phone] Phone Care Team Providers Care Applications Engineering Manager Name Role Phone Pcp, Unknown Primary Care Provider Ruma Dow MD Primary Care Provider + Encounter Details Date Type Department Care Team (Latest Contact Info) Description 01/23/2023 Ancillary Orders [facility] Interventional Rad [address] [place] [address] Kedar Hernandez MD [address] [place] [address] [email or web address] Uterine leiomyoma, unspecified location Social [...] location documented in this encounter Care Teams Applications Engineering Manager Relationship Specialty Start Date End Date Pcp, Unknown PCP - General 08/23/22 01/27/23 Ruma Driver MD PCP - General Family Medicine 01/28/23 documented as of this encounter Additional Source Comments The information contained in this document represents components of the legal health record. It is not the complete legal health record.[facility]
--- OUTSIDE RECORDS SUMMARY | 2025-08-24 19:10 | XMS_ITS | Clinical Summary ---
Author Organization [facility] Address [address] [place] [address] Phone Care Team Providers Care Cement Finisher Apprentice Name Role Phone Ruma Driver MD Primary [...] Td,Tdap Booster 07/08/2028 07/08/2018 , 02/03/2014, 04/09/2007 RSV VACCINE (1 - 1-dose 75+ series) 2048 SMOKING STATUS SCREENING (On ce After 26 [...] this topic Medical Devices Implanted Type Area Archival Records Clerk Device Identifier Shelf Expiration Date Model / Serial / Lot Particle Embolization 500-700um 2ml Syringe Microspheres Red Bx/5ea - [id number] Implanted:Qty: 1 on 09/16/2022 by Kedar Hernandez MD at [employer] Liquid [employer] [facility] [employer] 09/09/2023 [facility] / / Particle Embolization 500-700um 2ml Syringe Microspheres Red Bx/5ea - [id number] Implanted:Qty: 1 on 09/16/2022 by Kedar Hernandez MD at [facility] [employer] [facility] [employer] 09/09/2023 [facility] / / Description:right uterine ar t Prosthetic Eye Prosthetic Eye Left: Eye Device Closure 6fr .035in Vascular Angio-Seal Vip Collagen Bioabsorbable Intraarterial Suture Tether Bx/10ea - [id number] Implanted:Qty: 1 on 09/16/2022 by Kedar Hernandez MD at [employer] [id number] 10/09/2022 [id number] / / [id number] Procedures Procedure Name Priority Date/Time Associated Diagnosis Comments PAP TEST Routine 07/03/1993 12:00 AM EDT from Last 3 Months or Most Recently Relevant to Health Maintenance Results * Pap Smear (07/03/1993 12:00 AM EDT) 07/03/1993 Narrative [facility] - 07/12/1993 12:30 PM EDT Accession Number: [id number] Report Status: Final Type: Cytology Cytology Report: [id number] DATE TAKEN: Jun ACCESSIONED ON: Jun at 11:01 CLINICAL DATA: {None Provided} Menstrual Status: Date of last Menstrual Period: {None Provided} FINAL DIAGNOSIS CERVIX/ENDOCERVIX (CX/ENDOCX): EVALUATION LIMITED BY THE ABSENCE OF ENDOCERVICAL CELLS. WITHIN NORMAL LIMITS. SQUAMOUS METAPLASIA. Diagnosis by: MARGIE Hidalgo(ASCP) Signed On: Jul Reviewer: MARGIE Pretty(ASCP) [facility]: [facility] REPORTS TO: RICK Foote Specimen: CX/ENDOCX Direct Smears Received: 2 us Conversion Provider Not In Sys CYTOLOGY ORDERABL ES Final Result Performing Organization Address City/State/[facility] [place] [address], [facility] from Last 3 Months or Most Recently Relevant to Health Maintenance Insurance [facility] ONE CARE MEDICARE REPLACEMENT MEDICARE PART A & B MEDICARE PART A & B MEDICARE PART A & [place] [address] [place] [address] ONE CARE MEDICARE REPLACEMENT MEDICARE PART A & B CARE MEDICARE REPLACEMENT MEDICARE PART A & B MEDICARE PART A & B [place] [address] MEDICARE PART A & B MEDICARE PART A & B [facility] ONE CARE MEDICARE REPLACEMENT MEDICARE PART A & B Advance Directives For more information, please contact: [phone] (9AM - 5PM [facility], Friday-Friday) * Full Code (Latest Code Status on File) Date Activated Date Inactivated Comments 09/16/2022 7:46 AM Question Answer Comments Code Status Confirmed With: Patient Code Status Communicated To: Sub-specialist (spe cify below) Care Teams Cement Finisher Apprentice Relationship Specialty Start Date End Date Ruma Driver MD PCP - General Family Medicine 01/28/23 Additional Source Comments The information contained in this document represents components of the legal health record. It is not the complete legal health record.[facility]
== END 2025-08-24 15:57 | disposition home or self-care (01) ==
LOC: HO.HMGAL 15:57
PROVIDERS: PCP General Practice; Visit Provider Registered Nurse Emergency
DX: J30.89 Other allergic rhinitis (principal)
CPT/HCPCS: 95117; 95165

== ENCOUNTER 2025-09-15 12:16 | Outpatient (REF) | payer OTHER, SELFPAY ==
--- NOTE | ~2025-09-15 | US_ITS ---
EXAMINATION: US KIDNEY BILATERAL HISTORY: N20.0 - Calculus of kidney TECHNIQUE: Real-time grayscale ultrasound imaging of the kidneys was performed and images were reviewed. COMPARISON: Comparison is made with the prior examination dated 02/17/2025. FINDINGS: Right kidney: The right kidney measures 10.8 x 3.9 x 4.7 cm. Renal parenchymal echotexture and thickness are normal. There are no masses. There is no hydronephrosis or renal calculi. Left Kidney: The left kidney measures 10.2 x 4.8 x 4.0 cm. Renal parenchymal echotexture and thickness are normal. There are no masses. There is no hydronephrosis or renal calculi. US/US renal BI IMPRESSION: Unremarkable renal ultrasound. Electronically signed by: Eduar Adame MD 09/15/2025 01:00 PM [facility]
--- OUTSIDE RECORDS SUMMARY | 2025-09-15 15:10 | XMS_ITS | Encounter Summary ---
Author Organization [employer] Address [address] [place] [address] 7 [place] [address] Care Team Providers Care Resource Conservation Specialist Name Role Phone Ruma Driver MD Primary Care Provider [phone] Reason for Referral * Consultation (Routine) - Pending Review Specialty Diagnoses / Procedures Referred By Contac t Referred To Contact Pharmacy Diagnoses Seizure (CMS/HCC) (HCC) Ruma Driver MD [address] [place] [address] Phone: tel: fax: Referral ID Status Reason Start Date Expiration Date Visits Requested Visits Authorized [id number] Pending Review Continuity of Care 02/04/2025 02/04/2026 6 6 Encounter Details Date Type Department Care Team (Late st Contact Info) Description 02/04/2025 Orders Only [facility] MEDICINE [address] [place] [phone] Ruma Driver MD [address] [place] [address] [phone] Seizure (CMS/HCC) (Primary Dx) Social History Tobacco [...] as of this encounter Care Teams Resource Conservation Specialist Relationship Specialty Start Date End Date Ruma Driver MD [address] [place] [address] PCP - General Family Medicine 12/26/20 documented as of this encounter
--- OUTSIDE RECORDS SUMMARY | 2025-09-15 15:10 | XMS_ITS | Encounter Summary ---
Author Organization [facility] Address [address] [place] [address] Phone Care Team Providers Care Meal Packer Name Role Phone Pcp, Unknown Primary Care Provider Ruma Dow MD Primary Care Provider + Encounter Details Date Type Department Care Team (Late st Contact Info) Description 08/28/2022 Procedure Pass [facility]ovascular And Interventional Radiology [address] [place] [address] Social History Tobacco Use Types Packs/Day Years [...] on filedocumented in this encounter Care Teams Meal Packer Relationship Specialty Start Date End Date Pcp, Unknown PCP - General 08/23/22 01/27/23 Ruma Driver MD PCP - General Family Medicine 01/28/23 documented as of this encounter Additional Source Comments The information contained in this document represents components of the legal health record. It is not the complete legal health record.[facility]
--- OUTSIDE RECORDS SUMMARY | 2025-09-15 15:10 | XMS_ITS | Data Portability ---
Author Organization [employer] [facility], [facility] Address [address] [place] [phone] Care Team Providers Care Consulting Software Engineer Name Role Phone [facility] Referring Provider [phone] Unavailable Referring Provider Assessment No assessment recorded. [...] [degF] 12 /min 70 /min Not Available [employer] 2 16:17:11 Date Recorded Body temperature Oxygen [...] mm[Hg] 120/78 mm[Hg] 120/78 mm[Hg] Not Available [employer] 2 16:20:06 Social History None recorded. Functional [...] Note [id number] Kelly Porras MD Main - [address] [phone] 07/05/2022 15:39:46 07/24/2022 11:38:10 Injury of wrist [id number] S69.91XA MIH has no raegan or splint- [...] [facility] - DOS PRIOR TO 2023 - DUAL ELIGIBLE (MEDICARE REPLACEMENT/ADV ANTAGE - HMO) Cordelia Nguyễn [id number] Cordelia Nguyễn 01/13/2024 1 [facility] - DOS ON OR AFTER 2023 - DUAL ELIGIBLE - SKILLED NURSING OPTIONS AND ONE CARE (MEDICARE REPLACEMENT/ADV ANTAGE - HMO) Cordelia Nguyễn [id number] Cordelia Nguyễn Notes Date Note Type Note [...] .................. .................. .................. .................. .................. .................. ............... Retail Solar Advisor Note: eval for right forearm/wrist pain. pt [...] had trauma to area within seizure activity [facility] ordered 30 mg toradol for pain, ice to area and we made sling. recommended pt go to urgent care for xray .................. .................. .................. .................. .................. .................. .................. ............... Disposition: Fulfilled Kelly Porras MD [address] [facility],[address], [place], [address], [place] - [employer]OHANNA GOMEZ 07/06/2022 17:34:29 OBGyn Episode No OBEpisode recorded.
--- OUTSIDE RECORDS SUMMARY | 2025-09-15 15:10 | XMS_ITS | Encounter Summary ---
Author Organization [employer] Address [address] [facility] 7t [place] [address] Care Team Providers Care Security Expert Name Role Phone Ruma Driver MD Primary Care Provider [phone] Encounter Details Date Type Department Care Team ([facility] st Contact Info) Description 03/22/2024 Orders Only [facility] [address] [place], [place] [phone] Provider, MD Renea Social History Tobacco Use [...] PM EDT Narrative 04/26/2024 7:30 AM EDT [facility] [address] [place] [address] Mammography Report Signed Patient: Cordelia Menon MR# : [id number] : 1975 Acct:[id number] Age/Sex: 48 / F ADM Date: 03/26/24 Loc: HO.MAMMO Attending Dr: Ruma Driver MD Ordering Physician: Ruma Driver Results: 1Negative Date of Service: 03/26/24 Follow Up: 1 Year From Orig ina Mammogram Procedure(s): MM tomosynthesis screening BI Accession Number(s): [id number] cc: Ruma Driver EXAMINATION: MM SCREENING DIGITAL [...] in OV> 04/26/24 0726 DD/ 1400 TD/TT: Form Setter: Procedure Note Donotuseinterpreter, Image - 04/26/2024 [facility]'s [address] [place] [address] Mammography Report Signed Patient: Flakito MenonaMR# : [id number] : 1975Acct:[id number] Age/Sex: 48 / FADM Date: 03/26/24 Loc: CYNDEE Attending Dr: Ruma Driver MD Ordering Physician: Chrissie Driverults: 1Negative Date of Service: 03/26/24Follow Up: 1 Year From Orig inal Mammogram Procedure(s): MM tomosynthesis screening BI Accession Number(s): [id number] cc: Ruma Driver EXAMINATION: MM SCREENING DIGITAL [...] in OV> 04/26/24 0726 DD/ 1400 TD/TT: Form Setter: us Ruma Driver MD IMG BI PROCEDURES Final Result * Hm Colonoscopy (06/24/2022 8:30 AM EDT) us Historical Provider HEALTH MAINTENANCE Final Result documented in this encounter Visit Diagnoses Not on filedocumented in this encounter Additional Health Concerns Assessment Noted Time PHQ-9 Depression Total Score: 17 023 9:45 AM EST documented as of this encounter Care Teams Security Expert Relationship Specialty Start Date End Date Ruma Driver MD [address] [place] [address] PCP - General Family Medicine 12/26/20 documented as of this encounter
--- OUTSIDE RECORDS SUMMARY | 2025-09-15 15:10 | XMS_ITS | Clinical Summary ---
Author Organization [employer] Address 75 [facility] 7t [place] [address] Care Team Providers Care Leather Goods Sales Representative Name Role Phone Ruma Driver MD Primary Care Provider [phone] Allergies Active Allergy Reactions Criticality Noted Date [...] Problem Noted Date Diagnosed Date Atrial fibrillation ([facility]) 09/10/2023 Anxiety 06/16/2023 Assessment & Plan (06/16/2023 12:39 PM EDT): continue BHN Continue meds Help mother establish care and get her life set up here in [place], which will ease her anxiety Other constipation [...] intense, has precautions to call surgeon at [facility] Failed Mirena Continue to monitor with natural gas inspector Assessment & Plan (10/20/2022 10:53 AM EST): Underwent uterine fibroid embolization Sep 2022, first period after less bleeding and fewer cramping Failed Mirena Continue to monitor with natural gas inspector Depressive disorder 03/01/2022 Assessment & Plan (05/06/2024 [...] daily Continue Buspar 5mg BID Will re-consult [facility] as referral to Counseling in Oct 2021 was never booked by facility Seizure ([facility]) 03/01/2022 Assessment & Plan (12/08/2023 12:12 PM [...] 12:39 PM EDT): Sees Dr Griffith at [facility] Re-iterate just one NSAID at a time Assessment & Plan (01/17/2023 10:19 AM EST): Sees Dr Griffith at [facility] Presence of artificial left eye 04/10/2017 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 Encounters Date Type Department Care Team Description 09/15/2025 Orders Only [facility] External Provider, [facility] 07/22/2025 Telephone [facility]INE [address] [place] [address] Megan Mccurdy CNM CHART PREP 07/07/2025 Orders Only [facility] External Provider, [facility] from Last 3 Months Immunizations Immunization [...] Name Priority Date/Time Associated Diagnosis Comments US RENAL COMPLETE Routine 09/15/2025 12: 36 PM EST US PELVIS TRANSVAGINAL Routine 10:59 AM EDT BI MAMMOGRAM SCREENING TOMOSYNTHESIS BILATERAL Routine 03/26/2024 2:00 PM EDT HIV 1/2 ANTIGEN/ANTIBODY, FOURTH GENERATION W/RFL Routine 08/26/2022 10:25 AM EDT HM COLONOSCOPY Routine 06/24/2022 ZZZ HISTORICAL HPV E6/E7 RFLX PALOMO 16 18/45 Routine 01/02/2022 9:14 AM EST from Last 3 Months or Most Recently Relevant to Health Maintenance Results * US Renal Complete (09/15/2025 12:36 PM EST) Anatomical Region Laterality Modality Kidney Ultrasound 09/15/2025 12:3 6 PM EST Narrative 09/15/2025 1:03 PM EST [address] [address] Ultrasound Report Signed Patient: Cordelia Menon MR# : [id number] : 1975 Acct:[id number] Age/Sex: 50 / F ADM Date: 09/15/25 Loc: HO. Attending Dr: Kenia ST Ordering Physician: Kenia Reynolds Date of Service: 09/15/25 Procedure(s): US renal BI Accession Number(s): [id number] cc: Ruma Driver; Kenia Reynolds Reason for Exam: N20.0 - Calculus of kidney EXAMINATION: US KIDNEY BILATERAL HISTORY: N20.0 - Calculus of kidney TECHNIQUE: Real-time grayscale ultrasound imaging of the kidneys was performed and images were reviewed. COMPARISON: Comparison is made with the prior examination dated 02/17/2025. FINDINGS: Right kidney: The right kidney measures 10.8 x 3.9 x 4.7 cm. Renal parenchymal echotexture and thickness are normal. There are no masses. There is no hydronephrosis or renal calculi. Left Kidney: The left kidney measures 10.2 x 4.8 x 4.0 cm. Renal parenchymal echotexture and thickness are normal. There are no masses. There is no hydronephrosis or renal calculi. US/US renal BI IMPRESSION: Unremarkable renal ultrasound. Electronically signed by: Eduar Adame MD 09/15/2025 01:00 PM [facility] Dictated By: Eduar Adame MD Signed By: <Electronically signed by Eduar Adame MD in OV> 09/15/25 1300 DD/ 1236 TD/TT: 09/15/25 1239 Project Structural Engineer: Procedure Note Donotuseinterpreter, Image - 09/15/2025 [place] [address] Ultrasound Report Signed Patient: Flakito MenonKenyaR# : [id number] : 1975Acct:[id number] Age/Sex: 50 / FADM Date: 09/15/25 Loc: . Attending Dr: Kenia ST Ordering Physician: Kenia Reynolds Date of Service: 09/15/25 Procedure(s): US renal BI Accession Number(s): [id number] cc: Ruma Driver; Kenia Reynolds Reason for Exam: N20.0 - Calculus of kidney EXAMINATION: US KIDNEY BILATERAL HISTORY: N20.0 - Calculus of kidney TECHNIQUE: Real-time grayscale ultrasound imaging of the kidneys was performed and images were reviewed. COMPARISON: Comparison is made with the prior examination dated 02/17/2025. FINDINGS: Right kidney: The right kidney measures 10.8 x 3.9 x 4.7 cm. Renal parenchymal echotexture and thickness are normal. There are no masses. There is no hydronephrosis or renal calculi. Left Kidney: The left kidney measures 10.2 x 4.8 x 4.0 cm. Renal parenchymal echotexture and thickness are normal. There are no masses. There is no hydronephrosis or renal calculi. US/US renal BI IMPRESSION: Unremarkable renal ultrasound. Electronically signed by: Eduar Adame MD 09/15/2025 01:00 PM [facility] Dictated By: Eduar Adame MD Signed By: <Electronically signed by Eduar Adame MD in OV> 09/15/25 1300 DD/ 1236 TD/TT: 09/15/25 1239 Project Structural Engineer: us [facility] External Provider IMG US PROCEDURES Final Result * US Pelvis Transvaginal (07/07/2025 10:59 AM EDT) Anatomical Region Laterality Modality Pelvis Ultrasound 07/07/2025 10:5 9 AM EDT Narrative 07/07/2025 11:25 AM EDT [place] [address] Ultrasound Report Signed Patient: Cordelia Menon MR# : [id number] : 1975 Acct:[id number] Age/Sex: 50 / F ADM Date: 07/07/25 Loc: HO.US Attending Dr: Mitchell Biggs MD Ordering Physician: Mitchell Biggs MD Date of Service: 07/07/25 Procedure(s): US pelvic and transvaginal Accession Number(s): [id number] cc: Ruma Driver; Mitchell Biggs MD EXAMINATION: [...] 07/07/25 1122 DD/ 1059 TD/TT: 07/07/25 1109 Project Structural Engineer: Procedure Note Donotuseinterpreter, Image - 07/07/[address] [address] Ultrasound Report Signed Patient: Keyana Menon# : [id number] : 1975Acct:[id number] Age/Sex: 50 / FADM Date: 07/07/25 Loc: HO.US Attending Dr: Mitchell Biggs MD Ordering Physician: Mitchell Biggs MD Date of Service: 07/07/25 Procedure(s): US pelvic and transvaginal Accession Number(s): [id number] cc: Ruma Driver; Mitchell Biggs MD EXAMINATION: [...] 07/07/25 1122 DD/ 1059 TD/TT: 07/07/25 1109 Project Structural Engineer: [facility] External Provider IMG US PROCEDURES Final Result * BI Mammogram Screening Tomosynthesis Bilateral (03/26/2024 2:00 PM EDT) Anatomical Region Laterality Modality Breast Bilateral Mammography 03/26/2024 2:00 PM EDT Narrative 04/26/2024 7:30 AM EDT [facility]'s [address] [place] [address] Mammography Report Signed Patient: Cordelia Menon MR# : [id number] : 1975 Acct:[id number] Age/Sex: 48 / F ADM Date: 03/26/24 Loc: CYNDEE Attending Dr: Ruma Driver MD Ordering Physician: Ruma Driver Results: 1Negative Date of Service: 03/26/24 Follow Up: 1 Year From Orig inal Mammogram Procedure(s): MM tomosynthesis screening BI Accession Number(s): [id number] cc: Ruma Driver EXAMINATION: MM SCREENING DIGITAL [...] in OV> 04/26/24 0726 DD/ 1400 TD/TT: Project Structural Engineer: Procedure Note Donotuseinterpreter, Image - 04/26/2024 [facility] [address] [place] [address] [address]. [place], [place] [address] Mammography Report Signed Patient: Edwige MenonR# : [id number] : 1975Acct:[id number] Age/Sex: 48 / FADM Date: 03/26/24 Loc: CYNDEE Attending Dr: Ruma Driver MD Ordering Physician: Chrissie Driverults: 1Negative Date of Service: 03/26/24Follow Up: 1 Year From Orig inal Mammogram Procedure(s): MM tomosynthesis screening BI Accession Number(s): [id number] cc: Ruma Driver EXAMINATION: MM SCREENING DIGITAL [...] in OV> 04/26/24 0726 DD/ 1400 TD/TT: Project Structural Engineer: Ruma Driver MD IM BI PROCEDURES Final Result * HIV 1/2 [...] purpose. For additional information please refer to http://education.LaunchSide.com/faq/QQK616 (This link is being provided for informational/ educational purposes only.) The performance of this assay has not been clinically validated in patients less than 2 years old. 08/26/2022 10:2 5 AM EDT Abby Melvin MD LAB BLOOD ORDERABLES Fin al Result Performing Organization Address City/[facility]/ZIP Co de Phone Number CONVERTED LEGACY LABS * Hm Colonoscopy (06/24/2022) Colonoscopy Normal Normal Narrative Tessie Jackson - 06/24/2022 Recommended 10 year follow up ( [facility]) Historical Provider HEALTH MAINTENANCE Final Result * HPV E6/E7 RFLX PALOMO 16 18/45 (01/02/2022 9:14 AM EST) HPV 16 RNA [facility]NP [facility] HPV 18/45 RNA [facility] HPV E6 E7 ADD [facility]NP [facility] HPV mRNA E6/E7 rflx Not Detected Not Detected [facility] Comment: Methodology: Steam Pressure Chamber Operator-Mediated Amplification This assay detects E6/E7 viral messenger RNA (mRNA) from 14 high-risk HPV types (16,18,31,33,35,39,45,51,52,56,58,59,66,68). The analytical performance characteristics of this assay have been determined by [facility]. The modifications have not been cleared or approved by the FDA. This assay has been validated pursuant to the CLIA regulations and is used for clinical purposes. For additional information, please refer to http://education.[employer]oo.Green Genes/faq/YBK312g1 (This link if provided for information/ educational purposes only.) THIS TEST WAS PERFORMED AT: [employer] [address] [place] [address],[place] [address] ZAINAB ACOSTA MD 01/02/2022 9:14 AM EST us Mitchell Biggs MD HISTORICAL/NON ORDERABLE LABS Fi nal Result [facility] [address] from Last 3 Months or Most Recently Relevant to Health Maintenance Insurance [place]KE [id number] Care Teams Leather Goods Sales Representative Relationship Specialty Start Date End Date Ruma Driver MD [address] [place] [address] PCP - General Family Medicine 12/26/20
--- OUTSIDE RECORDS SUMMARY | 2025-09-15 15:10 | XMS_ITS | Encounter Summary ---
Author Organization [employer] Address [address] [place] [address] 7 [place] [address] Care Team Providers Care Special Procedure Tech Name Role Phone Ruma Driver MD Primary Care Provider [phone] Encounter Details Date Type Department Care Team ([facility] st Contact Info) Description 06/04/2023 Abstract [facility] MEDICINE [address] [place] [address] Ruma Driver MD [address] [place], [place] [phone] Social History Tobacco Use Types Packs/Day Years [...] documented as of this encounter Care Teams Special Procedure Tech Relationship Specialty Start Date End Date Ruma Driver MD [address] [place] [address] PCP - General Family Medicine 12/26/20 documented as of this encounter
--- OUTSIDE RECORDS SUMMARY | 2025-09-15 15:10 | XMS_ITS | Encounter Summary ---
Author Organization [employer] Address [address] [place] [address] 7 [place] [address] Care Team Providers Care Sales Representative Uniforms Name Role Phone Ruma Driver MD Primary Care Provider Encounter Details Date Type Department Care Team ([facility] st Contact Info) Description 06/11/[address] [facility] MEDICINE [address] [place] [address] Ruma Driver MD [address] [place], [place] [phone] Social History Tobacco Use Types Packs/Day Years [...] 06/24/2022 Recommended 10 year follow up ( [facility]) us Historical Provider HEALTH MAINTENANCE Final Result documented in this encounter Visit Diagnoses Not on filedocumented in this encounter Additional Health Concerns Assessment Noted Time PHQ-9 Depression Total Score: 17 023 9:45 AM EST documented as of this encounter Care Teams Sales Representative Uniforms Relationship Specialty Start Date End Date Ruma rDiver MD [address] [place] [address] PCP - General Family Medicine 12/26/20 documented as of this encounter
--- OUTSIDE RECORDS SUMMARY | 2025-09-15 15:11 | XMS_ITS | Encounter Summary ---
Author Organization [facility] Address [address] [place] [phone] Phone Care Team Providers Care Hydrographic Surveyor Name Role Phone Pcp, Unknown Primary Care Provider Ruma Dow MD Primary Care Provider + Encounter Details Date Type Department Care Team (Late st Contact Info) Description 09/16/2022 Procedure Pass [facility] [address] [place] [address] Social History Tobacco Use Types Packs/Day Years [...] on filedocumented in this encounter Care Teams Hydrographic Surveyor Relationship Specialty Start Date End Date Pcp, Unknown PCP - General 08/23/22 01/27/23 Ruma Driver MD PCP - General Family Medicine 01/28/23 documented as of this encounter Additional Source Comments The information contained in this document represents components of the legal health record. It is not the complete legal health record.[facility]
--- OUTSIDE RECORDS SUMMARY | 2025-09-15 15:11 | XMS_ITS | Encounter Summary ---
Author Organization [employer] Address [address] [facility] 7t [place] [address] Care Team Providers Care Grain Combine Driver Name Role Phone Ruma Driver MD Primary Care Provider [phone] Encounter Details Date Type Department Care Team ([facility] st Contact Info) Description 04/08/2025 Orders Only [facility] MEDICINE [address] [place], [place] [phone] Ruma Driver MD [address] [place], [place] [phone] Social History Tobacco Use Types Packs/Day Years [...] documented as of this encounter Care Teams Grain Combine Driver Relationship Specialty Start Date End Date Ruma Driver MD [address] [place] [address] PCP - General Family Medicine 12/26/20 documented as of this encounter
--- OUTSIDE RECORDS SUMMARY | 2025-09-15 15:11 | XMS_ITS | Encounter Summary ---
Author Organization [employer] Address [address] [facility] 7 [place] [address] Care Team Providers Care Professor Of Music Name Role Phone Ruma Driver MD Primary Care Provider [phone] Reason for Visit * Reason Onset Date Comments Med Refill 04/08/2025 Encounter Details Date Type Department Care Team ([facility] st Contact Info) Description 04/08/2025 Telephone [facility] MEDICINE [address] [place] [address] Ruma Driver MD [address] [place] [address] Med Refill Social History Tobacco Use Types [...] 1 % gel To be sent to: [facility] [place], [place] - [address] [facility] documented in this encounter Plan of Treatment Not on file documented as of this encounter Visit Diagnoses Not on filedocumented in this encounter Additional Health Concerns Assessment Noted Time PHQ-9 Depression Total Score: 23 024 4:24 PM EDT documented as of this encounter Care Teams Professor Of Music Relationship Specialty Start Date End Date Ruma Driver MD [address] [place] [address] PCP - General Family Medicine 12/26/20 documented as of this encounter
--- OUTSIDE RECORDS SUMMARY | 2025-09-15 15:11 | XMS_ITS | Encounter Summary ---
Author Organization [employer] Address [address] [place] [address] 7 [place] [address] Care Team Providers Care Dean Of Women Name Role Phone Ruma Driver MD Primary Care Provider [phone] Encounter Details Date Type Department Care Team ([facility] st Contact Info) Description 11/19/2022 Orders Only [facility] [address] [place], [place] [phone] Ruma Driver MD [address] [place], [place] [phone] Social History Tobacco Use Types Packs/Day Years [...] documented as of this encounter Care Teams Dean Of Women Relationship Specialty Start Date End Date Ruma Driver MD [address] [place], [place] [phone] PCP - General Family Medicine 12/26/20 documented as of this encounter
--- OUTSIDE RECORDS SUMMARY | 2025-09-15 15:11 | XMS_ITS | Encounter Summary ---
Author Organization [employer] Address [address] [place] [address] 7 [place] [address] Care Team Providers Care Miner Operator Name Role Phone Ruma Driver MD Primary Care Provider [phone] Reason for Visit * Reason Comments Med Refill Encounter Details Date Type Department Care Team ([facility] Contact Info) Description 01/30/2023 Refill [facility] MEDICINE [address] [place], [place] [phone] Ruma Driver MD [address] [place] [address] Claustrophobia Social History Tobacco Use Types Packs/Day [...] documented as of this encounter Care Teams Miner Operator Relationship Specialty Start Date End Date Ruma Driver MD [address] [place] [address] PCP - General Family Medicine 12/26/20 documented as of this encounter
--- OUTSIDE RECORDS SUMMARY | 2025-09-15 15:11 | XMS_ITS | Encounter Summary ---
Author Organization [facility] Address [address] [place] [address] Phone Care Team Providers Care Distance Learning Unit Leader Name Role Phone Pcp, Unknown Primary Care Provider Ruma Dow MD Primary Care Provider + Encounter Details Date Type Department Care Team (Late st Contact Info) Description 01/24/2023 Procedure Pass [facility], [address] [address] Social History Tobacco Use Types Packs/Day Years [...] on filedocumented in this encounter Care Teams Distance Learning Unit Leader Relationship Specialty Start Date End Date Pcp, Unknown PCP - General 08/23/22 01/27/23 Ruma Driver MD PCP - General Family Medicine 01/28/23 documented as of this encounter Additional Source Comments The information contained in this document represents components of the legal health record. It is not the complete legal health record.[facility]
--- OUTSIDE RECORDS SUMMARY | 2025-09-15 15:11 | XMS_ITS | Clinical Summary ---
Author Organization [facility] Address [address] [place] [address] Phone Care Team Providers Care Assayer Name Role Phone Ruma Driver MD Primary [...] this topic Medical Devices Implanted Type Area Jet Engine Mechanic Device Identifier Shelf Expiration Date Model / Serial / Lot Particle Embolization 500-700um 2ml Syringe Microspheres Red Bx/5ea - [id number] Implanted:Qty: 1 on 09/16/2022 by Kedar Hernandez MD at [facility] Liquid [employer] [facility] [email or web address] 09/09/2023 [facility] / / Particle Embolization 500-700um 2ml Syringe Microspheres Red Bx/5ea - [id number] Implanted:Qty: 1 on 09/16/2022 by Kedar Hernandez MD at [facility] [employer] [facility] [email or web address] 09/09/2023 [facility] / / Description:right uterine ar t Prosthetic Eye Prosthetic Eye Left: Eye Device Closure 6fr .035in Vascular Angio-Seal Vip Collagen Bioabsorbable Intraarterial Suture Tether Bx/10ea - [id number] Implanted:Qty: 1 on 09/16/2022 by Kdear Hernandez MD at [facility] [employer] [id number] 10/09/2022 [id number] / / [id number] Procedures Procedure Name Priority Date/Time Associated Diagnosis Comments PAP TEST Routine 07/03/1993 12:00 AM EDT from Last 3 Months or Most Recently Relevant to Health Maintenance Results * Pap Smear (07/03/1993 12:00 AM EDT) 07/03/1993 Narrative [facility] - 07/12/1993 12:30 PM EDT Accession Number: [id number] Report Status: Final Type: Cytology Cytology Report: [id number] DATE TAKEN: Jun ACCESSIONED ON: Jun at 11:01 CLINICAL DATA: {None Provided} Menstrual Status: Date of last Menstrual Period: {None Provided} FINAL DIAGNOSIS CERVIX/ENDOCERVIX (CX/ENDOCX): EVALUATION LIMITED BY THE ABSENCE OF ENDOCERVICAL CELLS. WITHIN NORMAL LIMITS. SQUAMOUS METAPLASIA. Diagnosis by: MARGIE Hidalgo(ASCP) Signed On: Jul Reviewer: MARGIE Pretty(ASCP) SOURCE CARE UN[facility]: [facility] REPORTS TO: RICK Foote Specimen: CX/ENDOCX Direct Smears Received: 2 us Conversion Provider Not In Sys CYTOLOGY ORDERABL ES Final Result Performing Organization Address City/State/[facility] [place] [address], [facility] from Last 3 Months or Most Recently Relevant to Health Maintenance Insurance [facility] ONE CARE MEDICARE REPLACEMENT MEDICARE PART A & B MEDICARE PART A & B MEDICARE PART A & [place] [address] [place] [address] ONE CARE MEDICARE REPLACEMENT MEDICARE PART A & B CARE MEDICARE REPLACEMENT MEDICARE PART A & B MEDICARE PART A & B [place] [address] MEDICARE PART A & B MEDICARE PART A & B [facility] ONE CARE MEDICARE REPLACEMENT MEDICARE PART A & B Advance Directives For more information, please contact: [phone] (9AM - 5PM [facility], Friday-Friday) * Full Code (Latest Code Status on File) Date Activated Date Inactivated Comments 09/16/2022 7:46 AM Question Answer Comments Code Status Confirmed With: Patient Code Status Communicated To: Sub-specialist (spe cify below) Care Teams Assayer Relationship Specialty Start Date End Date Ruma Driver MD PCP - General Family Medicine 01/28/23 Additional Source Comments The information contained in this document represents components of the legal health record. It is not the complete legal health record.[facility]
--- OUTSIDE RECORDS SUMMARY | 2025-09-15 15:11 | XMS_ITS | Encounter Summary ---
Author Organization [facility] Address [address] [place] [phone] Phone Care Team Providers Care Ux Ui Designer Name Role Phone Ruma Driver MD Primary Care Provider + Encounter Details Date Type Department Care Team (Late st Contact Info) Description 01/01/2024 Procedure Pass [facility], [address] [address] Social History Tobacco Use Types Packs/Day Years [...] on filedocumented in this encounter Care Teams Ux Ui Designer Relationship Specialty Start Date End Date Ruma Driver MD PCP - General Family Medicine 01/28/23 documented as of this encounter Additional Source Comments The information contained in this document represents components of the legal health record. It is not the complete legal health record.[facility]
--- OUTSIDE RECORDS SUMMARY | 2025-09-15 15:11 | XMS_ITS | Encounter Summary ---
Author Organization [employer] Address [address] [facility] [address] [place] [address] Care Team Providers Care Metal Mixer Name Role Phone Ruma Driver MD Primary Care Provider [phone] Encounter Details Date Type Department Care Team ([facility] st Contact Info) Description 09/15/2025 Orders Only [facility] External Provider, [facility] Social History Tobacco Use Types Packs/Day [...] COMPLETE Routine 09/15/2025 12: 36 PM EST documented in this encounter Results * US Renal Complete (09/15/2025 12:36 PM EST) Anatomical Region Laterality Modality Kidney Ultrasound 09/15/2025 12:3 6 PM EST Narrative 09/15/2025 1:03 PM EST [place] [address] Ultrasound Report Signed Patient: Cordelia Menon MR# : [id number] : 1975 Acct:[id number] Age/Sex: 50 / F ADM Date: 09/15/25 Loc: . Attending Dr: Kenia ST Ordering Physician: Kenia Reynolds Date of Service: 09/15/25 Procedure(s): US renal BI Accession Number(s): [id number] cc: Ruma Driver; Kenia Reynolds Reason for [...] by: Eduar Adame MD 09/15/2025 01:00 PM [facility] [place] Dictated By: Eduar Adame MD Signed By: <Electronically signed by Eduar Adame MD in OV> 09/15/25 1300 DD/ 1236 TD/TT: 09/15/25 1239 Accounts Specialist: Procedure Note Donotuseinterpreter, Image - 09/15/2025 [place] [address] Ultrasound Report Signed Patient: Keyana Menon# : [id number] : 1975Acct:[id number] Age/Sex: 50 / FADM Date: 09/15/25 Loc: HO.US Attending Dr: Kenia ST Ordering Physician: Kenia Reynolds Date of Service: 09/15/25 Procedure(s): US renal BI Accession Number(s): [id number] cc: Ruma Driver; Kenia Reynolds Reason for [...] by: Eduar Adame MD 09/15/2025 01:00 PM [facility] [place] Dictated By: Eduar Adame MD Signed By: <Electronically signed by Eduar Adame MD in OV> 09/15/25 1300 DD/ 1236 TD/TT: 09/15/25 1239 Accounts Specialist: [facility] External Provider IMG US PROCEDURES Final Result documented in this encounter Visit Diagnoses Not on filedocumented in this encounter Additional Health Concerns Assessment Noted Time PHQ-9 Depression Total Score: 23 024 4:24 PM EDT documented as of this encounter Care Teams Metal Mixer Relationship Specialty Start Date End Date Ruma Driver MD [address] [place] [address] PCP - General Family Medicine 12/26/20 documented as of this encounter
--- OUTSIDE RECORDS SUMMARY | 2025-09-15 15:11 | XMS_ITS | Encounter Summary ---
Author Organization [facility] Address [address] [place], [place] [id number] Phone Care Team Providers Care Funeral Director'S Assistant Name Role Phone Pcp, Unknown Primary Care Provider Ruma Dow MD Primary Care Provider + Encounter Details Date Type Department Care Team (Latest Contact Info) Description 01/23/2023 Ancillary Orders [facility] Interventional Rad [address] [place] [id number] Kedar Hernandez MD [address] [place] [address] [email or web address] Uterine leiomyoma, unspecified location Social [...] location documented in this encounter Care Teams Funeral Director'S Assistant Relationship Specialty Start Date End Date Pcp, Unknown PCP - General 08/23/22 01/27/23 Ruma Driver MD PCP - General Family Medicine 01/28/23 documented as of this encounter Additional Source Comments The information contained in this document represents components of the legal health record. It is not the complete legal health record.[facility]
== END 2025-09-15 12:17 | disposition home or self-care (01) ==
LOC: HO.US 12:16
PROVIDERS: PCP General Practice; Visit Provider Nurse Practitioner Family
DX: N20.0 Calculus of kidney (principal)
CPT/HCPCS: 76775

== ENCOUNTER → 2025-09-15 12:17 | Outpatient (BNV) | payer OTHER, SELFPAY | PROVIDERS: PCP General Practice; Visit Provider Radiology Diagnostic Radiology | DX: N20.0 Calculus of kidney (principal) | CPT/HCPCS: 76775 ==

== ENCOUNTER 2025-10-24 10:18 | Outpatient (AMB) | payer OTHER, SELFPAY | END 2025-10-24 10:19 | disposition home or self-care (01) | LOC: HO.HMGAL 10:18 | PROVIDERS: PCP General Practice; Visit Provider Registered Nurse Emergency | DX: J30.89 Other allergic rhinitis (principal) | CPT/HCPCS: 95117; 95165 ==